=== PATIENT | female | born 1950 | race Caucasian/White ===

== ENCOUNTER 2023-06-13 09:57 | Outpatient (OUT) | payer MEDICARE, OTHER, SELFPAY ==
--- NOTE | 2023-06-13 09:59 | MM_ITS ---
Patient: GABY WILD Exam Date: 06/13/2023 : 1950 Gender:F Ordering : DR JOSE A ADAM Admission #: [id number] Family : DR. EILEEN ISSA . Order #: [id number] CLICK HERE TO VIEW EXAM RADIOLOGY REPORT PROCEDURE: MM TOMOSYNTHESIS SCREENING BI COMPARISON: MG MAMM SCREEN 3D CHRISTIANO CAD, 06/09/2022. MG MAMM SCREEN 3D CHRISTIANO CAD, 06/04/2021. MG MAMM SCREEN CHRISTIANO W CAD, 06/02/2020. MG MAMM CHRISTIANO SCRN W CAD DIG, 02/17/2014. INDICATIONS: Screening mammogram Z12.31 Calculator Name NCI Breast Cancer Risk Assessment Tool 5 Year Breast Cancer Risk 2.10% Lifetime Breast Cancer Risk 5.00% Personal Breast Cancer No Personal Ovarian Cancer No Treatments None Family Cancers Aunt-paternal with ovaria cancer at age 60; Uncle-paternal with pancreatic cancer at age 70. LOCATION: [facility] BREAST COMPOSITION: Scattered areas fibroglandular density. FINDINGS: DIAGNOSTIC CATEGORY 1--NEGATIVE. RIGHT BREAST: No significant suspicious finding. No significant change has occurred. LEFT BREAST: No significant suspicious finding. No significant change has occurred. RECOMMENDATIONS: ROUTINE MAMMOGRAM AND CLINICAL EVALUATION IN 12 MONTHS. PLEASE NOTE: A NORMAL MAMMOGRAM DOES NOT EXCLUDE THE POSSIBILITY OF BREAST CANCER. A CLINICALLY SUSPICIOUS PALPABLE LUMP SHOULD BE BIOPSIED. Dictated by: Abdi Geronimo M.D. on 06/14/2023 at 13:05 Approved by: Abdi Geronimo M.D. on 06/14/2023 at 13:09
== END 2023-06-13 09:58 | disposition home or self-care (01) ==
LOC: MAMMO 09:57
PROVIDERS: PCP Family Medicine; Visit Provider Obstetrics & Gynecology
DX: Z12.31 Encounter for screening mammogram for malignant neoplasm of breast (principal); Z80.0 Family history of malignant neoplasm of digestive organs; Z80.41 Family history of malignant neoplasm of ovary
CPT/HCPCS: 77063; 77067

== ENCOUNTER 2024-06-14 10:11 | Outpatient (OUT) | payer MEDICARE, OTHER, SELFPAY ==
--- NOTE | 2024-06-14 10:16 | MM_ITS ---
Patient Name: GABY WILD MR#: [id number] : 1950 Exam Date: 06/14/2024 Ordering Doctor: DR JOSE A ADAM RADIOLOGY REPORT PROCEDURE: MM TOMOSYNTHESIS SCREENING BI COMPARISON: MM TOMOSYNTHESIS SCREENING BI, 06/13/2023. MG MAMM SCREEN 3D CHRISTIANO CAD, 06/09/2022. MG MAMM SCREEN 3D CHRISTIANO CAD, 06/04/2021. MG MAMM CHRISTIANO SCRN W CAD DIG, 02/17/2014. INDICATIONS: Screening Calculator Name NCI Breast Cancer Risk Assessment Tool 5 Year Breast Cancer Risk 2.10% Lifetime Breast Cancer Risk 4.70% Personal Breast Cancer No Personal Ovarian Cancer No Treatments None Family Cancers Aunt-paternal with ovaria cancer at age 60; Uncle-paternal with pancreatic cancer at age 70. LOCATION: [facility] BREAST COMPOSITION: There are scattered areas of fibroglandular density. FINDINGS: DIAGNOSTIC CATEGORY 1--NEGATIVE. RIGHT BREAST: No significant suspicious finding. No significant change has occurred. LEFT BREAST: No significant suspicious finding. No significant change has occurred. RECOMMENDATIONS: ROUTINE MAMMOGRAM AND CLINICAL EVALUATION IN 12 MONTHS. PLEASE NOTE: A NORMAL MAMMOGRAM DOES NOT EXCLUDE THE POSSIBILITY OF BREAST CANCER. A CLINICALLY SUSPICIOUS PALPABLE LUMP SHOULD BE BIOPSIED. Dictated by: Abdi Geronimo M.D. on 06/14/2024 at 14:12 Approved by: Abdi Geronimo M.D. on 06/14/2024 at 14:15
== END 2024-06-14 10:12 | disposition home or self-care (01) ==
LOC: MAMMO 10:11
PROVIDERS: PCP Family Medicine; Visit Provider Obstetrics & Gynecology
DX: Z12.31 Encounter for screening mammogram for malignant neoplasm of breast (principal); Z80.41 Family history of malignant neoplasm of ovary; Z80.8 Family history of malignant neoplasm of other organs or systems
CPT/HCPCS: 77063; 77067

== ENCOUNTER 2024-09-25 13:20 | Outpatient (OUT) | payer MEDICARE, OTHER, SELFPAY ==
--- NOTE | 2024-09-25 13:27 | XR_ITS ---
The [address] [address] Patient Name: GABY WILD MRN: [id number] date: 1950 Sex: F Assigned Patient Location: [facility] Current Patient Location: Accession/Order Number: [id number] Exam Date: 09/25/2024 13:40 Report Date: 09/26/2024 04:30 At the request of: RAJEEV CARLOS Procedure: XR DEXA axial skeleton EXAMINATION: XR DEXA axial skeleton HISTORY: Primary Ovary Failure COMPARISON: DEXA bone densitometry 12/02/2019 TECHNIQUE: Dual-energy X-ray absorptiometry (DXA) was performed. FINDINGS: FOREARM ANALYSIS: Average bone mineral density is 0.495 g/cm2. T-score (standard deviation relative to young adult mean): -3.1 . -14.5% change since prior study. HIP ANALYSIS: Lowest bone mineral density is within the right femoral neck, 1.121 g/cm2. T-score (standard deviation relative to young adult mean): 0.6 . +3.9% change since prior study. XR/XR DEXA axial skeleton IMPRESSION: World Health Organization Classification: Osteoporosis - High Fracture Risk FRAX: Cannot be calculated. Pharmacologic treatment recommendations * No uniform recommendation applies to all patients. Management plans must be individualized. * Consider initiating pharmacologic treatment in postmenopausal women and men >= 50 years of age who have the following: Primary fracture prevention: * T-score <= - 2.5 at the femoral neck, total hip, lumbar spine, 33% radius (some uncertainty with existing data) by DXA. * Low bone mass (osteopenia: T-score between - 1.0 and - 2.5) at the femoral neck or total hip by DXA with a 10-year hip fracture risk >= 3% or a 10-year major osteoporosis-related fracture risk >= 20% (i.e., clinical vertebral, hip, forearm, or proximal humerus) based on the [place]-adapted FRAXregistered model. Secondary fracture prevention: * Fracture of the hip or vertebra regardless of BMD [4, 5]. * Fracture of proximal humerus, pelvis, or distal forearm in persons with low bone mass (osteopenia: T-score between - 1.0 and - 2.5). The decision to treat should be individualized in persons with a fracture of the proximal humerus, pelvis, or distal forearm who do not have osteopenia or low BMD [12, 13]. Doc MS, Leighann SL, Aida KL, Cullen EM, Mili KG, AJ, Erick ES. The clinician's guide to prevention and treatment of osteoporosis. Osteoporos Int. 2021;33(10):8618-5490. doi: 10.1007/v89299-372-07094-k. Epub 2021Mar 03. Erratum in: Osteoporos Int. 2021Jun 02;: PMID: [id number]; PMCID: [id number]. Electronically authenticated by: CUATE WITT Date: 09/26/2024 04:30
--- OUTSIDE RECORDS SUMMARY | 2024-09-25 13:33 | XMS_ITS | CCD ---
Author Organization [facility] Care Team Providers Care Obiee Lead Developer Name Role Phone Marnie Burnett Primary Care Provider UnavailMARNIE Ramirez Primary Care Unavailable JOSE A YU Referring Unavailable MARNIE BURNETT Primary Care Physician JAIR, DR JOSE A Mills Admitting Unavailable JAIR, DR JOES A Mills Attending Unavailable BURNETT ., DR MARNIE Berrios Primary Care Unavailable EDUAR, DR CUATE Johnston Consulting Unavailable JAIR, DR JOSE A Mills Consulting Unavailable PHILIP ., DR MARNIE Berrios Admitting Unavailable BURNETT ., DR MARNIE Berrios Attending Unavailable BURNETT ., DR MARNIE Berrios Primary Care Unavailable BURNETT ., DR MARNIE Berrios Consulting Unavailable Jose Ibarra. Primary Care Physician MD Diallo Mac Attending Provider [phone] MD Jose Ibarra Primary Care Provider MD Bhavesh Newell Emergency Provider [phone] Bhavesh Newell Admitting Unavailable Bhavesh Newell Attending Unavailable Jose Ibarra Primary Care Unavailable Diallo Mac Attending Unavailable Jose Ibarra Primary Care Unavailable Diallo Mac Admitting Unavailable Diallo Mac Attending Unavailable Jose Ibarra Primary Care Unavailable Surfdyan, Diallo Admitting Unavailable SurfDiallo zaidi Attending Unavailable Diallo Mac Admitting Unavailable Jose Ibarra Primary Care Unavailable Surfdyan, Diallo Admitting Unavailable Diallo Mac Attending Unavailable Jose Ibarra Primary Care Unavailable Bonita Moon Primary Care Physician [phone] Bonita Moon Attending Unavailable Red, Bonita Mayfield Admitting Unavailable Red, Bonita Mayfield Attending Unavailable Red, Bonita Mayfield Admitting Unavailable Red, Bonita Mayfield Attending Unavailable Red, Bonita Mayfield Attending Unavailable Red, Bonita L Attending Unavailable Red, Bonita L Attending Unavailable Red, Bonita L Attending Unavailable Red, Bonita L Admitting Unavailable Red, Bonita L Attending Unavailable Red, Bonita L Attending Unavailable Red, Bonita L Admitting Unavailable Red, Bonita L Admitting Unavailable Red, Bonita L Attending Unavailable Red, Bonita L Attending Unavailable Red, Bonita L Admitting Unavailable Red, Bonita L Attending Unavailable Red, Bonita L Attending Unavailable Red, Bonita L Attending Unavailable Red, Bonita L Admitting Unavailable Red, Bonita L Attending Unavailable Red, Bonita L Attending Unavailable Red, Bonita L Admitting Unavailable Allergies Allergy Classification Reported Allergen(s) Allergy Type Date of Onset Reaction(s) Facility (11 sources) Indomethacin; Translations: [indomethacin] Drug Allergy 3 Unknown (qualifier value) [facility] (6 sources) metFORMIN; Translations: [metformin] Drug Allergy 3 Nausea (finding) [facility] (1 source) Indomethacin Drug Allergy 4 [facility] Repository Medications Current Medications Medication Drug Class(es) Dates Sig (Normalized) Sig (Original) acetaminophen 500 mg oral tablet (14 sources) Start: 11-03-2023 Acetaminophen Active 500 MG PO As Directed November 03, 2023 12:00am Start: 09-18-2023 take 500 mg by mouth once daily as needed for pain Tylenol 500 mg, Oral, Daily, PRN as needed for pain, Refills(s) 0 Start Date: 09/18/23 Status: Ordered Start: 09-13-2022 Tylenol Refill s(s) 0 Start Date: 09/13/22 Status: Ordered Start: 07-24-2019 End: 07-24-2019 take 650 mg by mouth every four hours as needed for pain, then take 4000 mg by mouth every twenty-four hours as needed for pain 650 mg, Oral, EVERY 4 HOURS PRN, Pain Mild (1-3), Fever, Fever >100.5 F (38 C), Starting Mon07/24/19 at 1222 Maximum dose of acetaminophen is 4000 mg from all sources in 24 hours. Post-op take 1 tablet by jyoti th every six hours as needed for pain acetaminophen (TYLENOL) 500 MG tablet Take 500 mg by mouth every 6 hours as needed for Pain 0 Active acetaminophen 500 mg / diphenhydrAMINE citrate 38 mg oral tablet (5 sources) Histamine-1 Receptor Antagonist Start: 01-18-2013 take 1 tablet by mouth once daily at bedtime Tylenol PM 500 mg-25 mg Tab 1 tab(s), Oral, Once a day (at bedtime), Refill(s) 0, Sleep Start Date: 01/18/13 Status: Ordered take 25-500 mg by [facility] once daily as needed diphenhydrAMINE-APAP, sleep, (TYLENOL PM EXTRA STRENGTH) 25-500 MG tablet Take 2 tablets by mouth nightly as needed for Sleep. 0 Active acetaminophen 325 mg / HYDROcodone bitartrate 5 mg oral tablet (1 source) Opioid Agonist Start: 12-07-2023 Hydrocodone-Acetaminophen Active 1 TAB PO As Directed December 07, 2023 12:00am acetaminophen 325 mg / oxyCODONE hydrochloride 5 mg oral tablet (2 sources) Opioid Agonist Start: 07-26-2019 End: 08-02-2019 take 1 tablet by mouth every four hours as needed for pain oxyCODONE-acetaminophen (PERCOCET) 5-325 MG per tablet Indications: S/P SANJIV-BSO (total abdominal hysterectomy and bilateral salpingo-oophorectomy) Take 1 tablet by mouth every 4 hours as needed for Pain (postop) for up to 7 days. 28 tablet 0 07/26/2019 08/02/2019 Active Start: 07-24-2019 oxyCODONE-acet aminophen (PERCOCET) 5-325 MG per tablet 1 tablet acyclovir 200 mg oral capsule (1 source) Herpesvirus Nucleoside Analog DNA Polymerase Inhibitor, Herpes Simplex Virus Nucleoside Analog DNA Polymerase Inhibitor, Herpes Zoster Virus Nucleoside Analog DNA Polymerase Inhibitor Start: 07-24-2019 take 400 mg by mouth three times daily as needed 400 mg, Oral, 3 TIMES DAILY PRN, flare up, Starting Mon07/24/19 at 1226 Substituted for valACYclovir (VALTREX). amoxicillin 500 mg oral capsule (1 source) Penicillin-class Antibacterial Start: 07-18-2022 take 4 capsules by mouth every hour amoxicillin (AMOXIL) 500 MG capsule TAKE 4 CAPSULES BY MOUTH ONE HOUR PRIOR TO DENTAL APPOINTMENT. 0 07/18/2022 Active ascorbic acid 60 mg / beta carotene 5000 unt / copper sulfate 40 mg / dl-alpha tocopheryl acetate 30 unt / sodium selenite 0.04 mg / zinc oxide 40 mg oral tablet (1 source) Vitamin C Multiple Vitamins-Minerals (MULTIVITAMIN ADULT) TABS Take by mouth nightly 0 Active B Complex 100 (7 sources) Start: 09-13-2022 B Complex 100 Refill(s) 0, Prophylaxis Start Date: 09/13/22 Status: Ordered Start: 09-13-2022 B Complex 100 Refill(s) 0 Start Date: 09/13/22 Status: Ordered B Complex-C (SUPER B COMPLEX PO) (2 sources) B Complex-C (SUP ER B COMPLEX PO) Take by mouth nightly 0 Active biotin 10 mg oral capsule (9 sources) Start: 11-03-2023 take 28494 ug by mouth once daily in the evening Biotin Active 77184 MCG PO Every evening November 03, 2023 12:00am Start: 09-13-2022 biotin Refills (s) 0, Prophylaxis Start Date: 09/13/22 Status: Ordered Start: 09-13-2022 biotin Refills (s) 0 Start Date: 09/13/22 Status: Ordered BIOTIN PO Take b y mouth nightly 0 Active bisoprolol fumarate 5 mg / hydroCHLOROthiazide 6.25 mg oral tablet (15 sources) Thiazide Diuretic, beta-Adrenergic Jessie Start: 05-13-2024 take 1 tablet by mouth once daily bisoprolol-hydrochlorothiazide 5 mg-6.25 mg Tab 1 tab(s), Oral, Daily, 90 tab(s), Refill(s) 4, [facility]/pharmacy #[id number], 165, cm, 03/26/24 10:29:00 EDT, Height/Length Dosing, 80, kg, 03/26/24 10:29:00 EDT, Weight Dosing Start Date: 05/13/24 Status: Ordered Start: 10-25-2023 take 1 tablet by jyoti th once daily bisoprolol-hydrochlorothiazide 5 mg-6.25 mg Tab 1 tab(s), Oral, Daily, 90 tab(s), Refill(s) 1, [id number], 160, cm, 09/26/23 8:53:00 EST, Height/Length Dosing, 83.1, kg, 09/26/23 8:53:00 EST, Weight Dosing Start Date: 11/08/23 Status: Ordered Start: 05-19-2023 take 1 tablet by jyoti th once daily bisoprolol-hydrochlorothiazide 5 mg-6.25 mg Tab 1 tab(s), Oral, Daily, 90 tab(s), Refill(s) 1, [facility] #[id number], 160, cm, 01/24/23 9:32:00 EDT, Height/Length Dosing, 84.4, kg, 01/24/23 9:32:00 EDT, Weight Dosing Start Date: 05/19/23 Status: Ordered Start: 01-18-2013 take 1 tablet by jyoti th once daily bisoprolol-hydrochlorothiazide 5 mg-6.25 mg Tab 1 tab(s), Oral, Daily, 90 tab(s), Refill(s) 0, High blood pressure Start Date: 01/18/13 Status: Ordered calcium carbonate 1000 mg chewable tablet (9 sources) Start: 09-13-2022 calcium carbon ate 1000 mg oral tablet, chewable Refills(s) 0, Prophylaxis Start Date: 09/13/22 Status: Ordered calcium carbonat e (OSCAL) 500 MG TABS tablet Take 1,000 mg by mouth nightly 0 Active take 2 tablets by mo [facility] once daily, then take 1 tablet by mouth calcium carbonate (OSCAL) 500 MG TABS tablet Take 1,000 mg by mouth nightly 0 Active calcium carbonate 1500 mg / cholecalciferol 200 unt oral tablet (3 sources) Vitamin D Start: 11-03-2023 take 2 tablets by mouth once daily in the evening Calcium Carbonate-Vitamin D3 (Calcium + D) 600 mg-5 mcg (200 unit) Tablet Active 2 TAB PO Every evening November 03, 2023 12:00am calcium carbonate 1000 mg / magnesium hydroxide 200 mg chewable tablet (1 source) Ca Carbonate-Mag Hydroxide 1000-200 MG CHEW Take by mouth 0 Active Fiber Tab (7 sources) Start: 09-13-2022 Fiber Tabs Ref ills(s) 0, Prophylaxis Start Date: 09/13/22 Status: Ordered Start: 09-13-2022 Fiber Tabs Ref ills(s) 0 Start Date: 09/13/22 Status: Ordered Clobetasol (7 sources) Corticosteroid Start: 09-13-2022 Olux Refill(s) 0, Prophylaxis Start Date: 09/13/22 Status: Ordered Start: 09-13-2022 Olux Refill(s) 0 Start Date: 09/13/22 Status: Ordered 0.4 ml enoxaparin sodium 100 mg/ml prefilled syringe (1 source) Low Molecular Weight Heparin Start: 07-25-2019 inject 40 mg by subcutaneous injection once daily 40 mg, Subcutaneous, DAILY, First dose on Tangela 07/25/19 at 0800 Pharmacy to dose if renal insufficiency present. Post-op glipiZIDE 5 mg oral tablet (3 sources) Sulfonylurea Start: 01-25-2024 End: 06-26-2025 take 1 tablet by mouth once daily glipiZIDE 5 mg Tab 5 mg = 1 tab(s), Oral, Daily, # 90 tab(s), Refills(s) 1, [id number] 160, cm, 06/25/24 10:06:00 EDT, Height/Length Dosing, 80.7, kg, 06/25/24 10:06:00 EDT, Weight Dosing Start Date: 06/26/24 Stop Date: 06/26/25 Status: Ordered High Potency Probiotic (7 sources) Start: 09-13-2022 High Potency Probiotic Refill(s) 0, Prophylaxis Start Date: 09/13/22 Status: Ordered Start: 09-13-2022 High Potency P robiotic Refill(s) 0 Start Date: 09/13/22 Status: Ordered levothyroxine sodium 0.088 mg oral tablet (17 sources) l-Thyroxine Start: 09-16-2024 take 1 tablet by mouth once daily levothyroxine 88 mcg (0.088 mg) Tab See Instructions, Take 1 tablet by mouth once daily, # 90 tab(s), Refills(s) 0, Pharmacy: [id number], 160, cm, 06/25/24 10:06:00 EDT, Height/Length Dosing, 80.7, kg, 06/25/24 10:06:00 EDT, Weight Dosing Start Date: 09/16/24 Status: Ordered Start: 12-26-2023 take 1 tablet by jyoti th once daily levothyroxine 88 mcg (0.088 mg) Tab 88 mcg = 1 tab(s), Oral, Daily, # 90 tab(s), Refills(s) 2, Pharmacy: [id number], 165, cm, 12/26/23 9:50:00 EST, Height/Length Dosing, 80.1, kg, 12/26/23 9:50:00 EST, Weight Dosing Start Date: 12/26/23 Status: Ordered Start: 10-25-2023 take 88 ug by mouth once daily in the morning Levothyroxine Active 88 MCG PO Every morning October 25, 2023 12:00am Start: 06-26-2023 take 1 tablet by jyoti th once daily levothyroxine 88 mcg (0.088 mg) Tab 88 mcg = 1 tab(s), Oral, Daily, # 90 tab(s), Refills(s) 1, Pharmacy: [id number], 160, cm, 01/24/23 9:32:00 EDT, Height/Length Dosing, 84.4, kg, 01/24/23 9:32:00 EDT, Weight Dosing Start Date: 06/26/23 Status: Ordered Start: 09-13-2022 Synthroid Refi lls(s) 0 Start Date: 09/13/22 Status: Ordered Start: 10-02-2020 levothyroxine (SYNTHROID) 88 MCG tablet Start: 07-25-2019 take 88 ug by mouth once daily 88 mcg, Oral, DAILY, First dose on Tangela 07/25/19 at 0900 Tube feeding (TF) interaction, obtain physician order to manage, recommend holding TF for 30 minutes before and after dose. Start: 01-18-2013 take 1 tablet by jyoti th once daily levothyroxine 88 mcg (0.088 mg) Tab 88 microgram = 1 tab(s), Oral, Daily, # 90 tab(s), Refills(s) 0, Thyroid Start Date: 01/18/13 Status: Ordered Magnesium (2 sources) Magnesium 100 MG TABS Take by mouth nightly 0 Active metaxalone 800 mg oral tablet (2 sources) Start: 01-18-2013 metaxalone 800 mg Tab 800 mg = 1 tab(s), Oral, Refills(s) 0, Muscle pain Start Date: 01/18/13 Status: Ordered metoprolol tartrate 25 mg oral tablet (1 source) beta-Adrenergic Jessie Start: 07-26-2019 metoprolol tartrate (LOPRESSOR) tablet 25 mg Multi Vitamin+ (7 sources) Start: 09-13-2022 Multi Vitamin+ Refill(s) 0, Prophylaxis Start Date: 09/13/22 Status: Ordered Start: 09-13-2022 Multi Vitamin+ Refill(s) 0 Start Date: 09/13/22 Status: Ordered Multiple Vitamins-Minerals (MULTIVITAMIN ADULT) TABS (1 source) Multiple Vitamins-Minerals (MULTIVITAMIN ADULT) TABS Take by mouth nightly 0 Active Multivitamin preparation (3 sources) Start: 023 take 2 tablets by mouth once daily in the evening Multivitamin Active 2 TAB PO Every evening November 03, 2023 12:00am 2 ml ondansetron 2 mg/ml injection (1 source) Serotonin-3 Receptor Antagonist Start: 019 4 mg, Intravenous, EVERY 8 HOURS PRN, Nausea, Vomiting, Starting Mon07/24/19 at 1222 If uncontrolled after 2 doses, notify physician. Post-op polyethylene glycol 3350 269776 mg / potassium chloride 1480 mg / sodium bicarbonate 5720 mg / sodium chloride 85290 mg powder for oral solution (1 source) Osmotic Laxative Start: 022 NuLYTELY Styles oral powder for reconstitution See Instructions, 1 EA, Refill(s) 0, Prior to colonoscopy., [facility]/pharmacy #[id number], 160, cm, 09/13/22 9:49:00 EST, Height/Length Dosing, 83.9, kg, 09/13/22 9:49:00 EST, Weight Dosing Start Date: 09/13/22 Status: Ordered pravastatin sodium 20 mg oral tablet (1 source) HMG-CoA Reductase Inhibitor Start: 013 take 1 tablet by mouth once daily pravastatin 20 mg Tab 20 mg = 1 tab(s), Oral, Daily, # 90 tab(s), Refills(s) 0, High cholesterol Start Date: 01/18/13 Status: Ordered Probiotic Product (PROBIOTIC DAILY PO) (2 sources) Probiotic Produc t (PROBIOTIC DAILY PO) Take by mouth nightly 0 Active rosuvastatin calcium 5 mg oral tablet (13 sources) HMG-CoA Reductase Inhibitor Start: 024 take 1 tablet by mouth once daily Crestor 5 mg Tab 5 mg, Oral, Daily, # 90 tab(s), Refills(s) 3, Pharmacy: [facility] #[id number], 165, cm, 12/26/23 9:50:00 EST, Height/Length Dosing, 80.1, kg, 12/26/23 9:50:00 EST, Weight Dosing Start Date: 02/05/24 Status: Ordered Start: 01-24-2023 End: 01-19-2024 take 1 tablet by mouth once daily Crestor 5 mg Tab 5 mg, Oral, Daily, X 90 day(s), # 90 tab(s), Refills(s) 3, Pharmacy: [facility] #[id number], 160, cm, 01/24/23 9:32:00 EDT, Height/Length Dosing, 84.4, kg, 01/24/23 9:32:00 EDT, Weight Dosing Start Date: 01/24/23 Stop Date: 01/19/24 Status: Ordered Start: 09-13-2022 take 5 mg by mouth once daily Crestor 5 mg, Oral, Daily, Refills(s) 0, High cholesterol Start Date: 09/13/22 Status: Ordered Start: 09-13-2022 Crestor Refill s(s) 0 Start Date: 09/13/22 Status: Ordered take 1 tablet by jyoti th once daily rosuvastatin (CRESTOR) 5 MG tablet Take 5 mg by mouth daily 0 Active 3 ml sodium chloride 9 mg/ml injection (2 sources) Start: 07-24-2019 10 mL, Intrave nous, EVERY 12 HOURS SCHEDULED (2 times per day), First dose on Mon07/24/19 at 2100, Post-op Start: 07-24-2019 take 10 mL intravenous route o nce 10 mL, Intravenous, PRN, Line Care, Starting Mon07/24/19 at 1222 After every IV line use Post-op sucralfate 1000 mg oral tablet (1 source) Aluminum Complex Start: 01-18-2013 Carafate 1 gr am Tab Refills(s) 0 Start Date: 01/18/13 Status: Ordered Tramadol (1 source) Opioid Agonist Start: 01-18-2013 tramadol Oral, Daily, Refills(s) 0, Pain Start Date: 01/18/13 Status: Ordered valACYclovir 1000 mg oral tablet (3 sources) Herpesvirus Nucleoside Analog DNA Polymerase Inhibitor, Herpes Simplex Virus Nucleoside Analog DNA Polymerase Inhibitor, Herpes Zoster Virus Nucleoside Analog DNA Polymerase Inhibitor Start: 02-02-2017 valACYclovir (VALTREX) 1 G tablet Take 1,000 mg by mouth as needed 0 02/02/2017 Active Vitamin B Complex (3 sources) Start: 11-03-2023 take 1 tablet by mouth once daily in the evening Vitamin B Complex Active 1 TAB PO Every evening November 03, 2023 12:00am Vitamin D (7 sources) Start: 09-13-2022 Vitamin D Refills(s) 0, Prophylaxis Start Date: 09/13/22 Status: Ordered Start: 09-13-2022 Vitamin D Refi lls(s) 0 Start Date: 09/13/22 Status: Ordered Completed/Discontinued Medications Medication Drug Class(es) Dates Sig (Normalized) Sig (Original) calcium chloride 0.0014 meq/ml / potassium chloride 0.004 meq/ml / sodium chloride 0.103 meq/ml / sodium lactate 0.028 meq/ml injectable solution (2 sources) Start: 07-24-2019 End: 07-25-2019 Intravenous, at 125 mL/hr, CONTINUOUS, Starting Mon07/24/19 at 1245, Post-op Start: 07-24-2019 End: 07-24-2019 lactated ringers infusion ceFAZolin (ANCEF) 2 g in dextrose 5 % 100 mL IVPB (2 sources) Start: 07-24-2019 End: 07-25-2019 2 g, Intravenous, EVERY 8 HO URS, 2 doses, First dose on Mon07/24/19 at 1600, Last dose on Mon07/25/19 at 0000, Post-op Start: 07-24-2019 End: 07-24-2019 ceFAZolin (ANCEF) 2 g in dex trose 5 % 100 mL IVPB dimenhyDRINATE 50 mg oral tablet (1 source) Start: 07-24-2019 End: 07-24-2019 dimenhyDRINATE (DRAMAMINE) tablet 50 mg 2 ml fentaNYL 0.05 mg/ml injection (1 source) Opioid Agonist Start: 07-24-2019 End: 07-24-2019 fentaNYL (SUBLIMAZE) injection 25 mcg metFORMIN hydrochloride 500 mg oral tablet (6 sources) Biguanide Start: 09-27-2023 End: 11-03-2023 take 500 mg by mouth twice daily Metformin Discontinued 500 MG PO Twice daily October 25, 2023 12:00am November 03, 2023 3:08pm nitroglycerin 0.02 mg/mg topical ointment (5 sources) Nitrate Vasodilator Start: 10-25-2023 End: 11-03-2023 Nitroglycerin (Nitro-Bid) 2 % ointment Discontinued 1 [facility] TRANSDERML Q6H 48 October 25, 2023 12:00am November 03, 2023 3:07pm apply to flap phenazopyridine hydrochloride 100 mg oral tablet (1 source) Start: 07-24-2019 End: 07-24-2019 phenazopyridine (PYRIDIUM) tablet 200 mg Start: 07-24-2019 End: 07-24-2019 phenazopyridine (PYRIDIUM) t ablet 200 mg Problems Active Problems Problem Classification Problem Date Documented Date Episodic/Chronic Complications of surgical procedures or medical care (5 sources) Postoperative hemorrhage; Translations: [Postoperative hemorrhage from incision] 10-27-2023 Episodic Diabetes mellitus without complication (6 sources) Type 2 diabetes mellitus 12-26-2023 Chronic Comment on above: linked DM with HLD p er OP CDI policy. Diabetes mellitus without complication (7 sources) High glucose level in blood; Translations: [Hyperglycemia] 09-26-2023 Episodic Disorders of lipid metabolism (12 sources) Pure hypercholesterolemia, unspecified; Translations: [Hyperlipidemia] Onset: 01-28-2023 08-10-2023 Chronic Diverticulosis and diverticulitis (10 sources) Diverticula of intestine; Translations: [Diverticular disease] 08-10-2023 Chronic Essential hypertension (9 sources) Essential (primary) hypertension; Translations: [Hypertensive disorder] Onset: 01-25-2023 Chronic Genitourinary symptoms and ill-defined conditions (10 sources) Genuine stress incontinence; Translations: [Incontinence] 08-10-2023 Chronic Comment on above: Stress Menstrual disorders (10 sources) Menorrhagia 08-10-2023 Chronic Nutritional deficiencies (6 sources) Vitamin D deficiency, unspecified; Translations: [Vitamin D deficiency] Onset: 01-28-2023 08-10-2023 Chronic Osteoarthritis (15 sources) Arthritis; Translations: [Osteoarthritis] 08-10-2023 Chronic Comment on above: Lumbar and Cervical Other and unspecified benign neoplasm (8 sources) History of polyp of colon; Translations: [Personal history of colonic polyps] Onset: 09-13-2022 Episodic Other and unspecified benign neoplasm (1 source) Polyp of colon; Translations: [Polyp of colon] Onset: 09-15-2022 Episodic Other and unspecified benign neoplasm (1 source) Personal history of colonic polyps; Translations: [PERSONAL HISTORY OF COLONIC POLYPS] Onset: 01-28-2023 Episodic Other female genital disorders (8 sources) Dysplasia of cervix; Translations: [Dysplasia of cervix uteri, unspecified] Resolved: 07-26-2019 07-26-2019 Episodic Other female genital disorders (5 sources) Cyst of vagina 08-10-2023 Episodic Comment on above: inclusion Other inflammatory condition of skin (5 sources) Seborrheic dermatitis 08-10-2023 Episodic Other non-epithelial cancer of skin (5 sources) Basal cell carcinoma of skin of nose; Translations: [Basal cell carcinoma of skin] Onset: 12-07-2023 12-26-2023 Episodic Other nutritional; endocrine; and metabolic disorders (1 source) Body mass index (BMI) 32.0-32.9, adult; Translations: [BODY MASS INDEX BMI 32.0-32.9 ADULT] Onset: 01-28-2023 Chronic Other nutritional; endocrine; and metabolic disorders (2 sources) Body mass index 30+ - obesity 06-25-2024 Chronic Other nutritional; endocrine; and metabolic disorders (4 sources) Overweight in adulthood with body mass index of 25 or more but less than 30 12-26-2023 Episodic Spondylosis; intervertebral disc disorders; other back problems (5 sources) Degeneration of intervertebral disc 08-10-2023 Chronic Thyroid disorders (6 sources) Hypothyroidism, unspecified; Translations: [Hypothyroidism] Onset: 01-28-2023 08-10-2023 Chronic Unclassified (1 source) Clinical history and observation findings; Translations: [Other general symptoms and signs] Unclassified (2 sources) Patient encounter status; Translations: [Pre-procedure lab exam] Unclassified (5 sources) Injury of toe of left foot 09-26-2023 Unclassified (1 source) Encounter for other plastic and reconstructive surgery following medical procedure or healed injury; Translations: [Encounter for other plastic and reconstructive surgery following medical procedure or healed injury] Onset: 11-16-2023 Unclassified (1 source) Encounter for preprocedural cardiovascular examination; Translations: [Encounter for preprocedural cardiovascular examination] Onset: 11-03-2023 Unclassified (1 source) Postprocedural hemorrhage of skin and subcutaneous tissue following a dermatologic procedure; Translations: [Postprocedural hemorrhage of skin and subcutaneous tissue following a dermatologic procedure] Onset: 10-27-2023 Past or Other Problems Problem Classification Problem Date Documented Date Episodic/Chronic Cancer of cervix (7 sources) High grade squamous intraepithelial lesion on cervical Papanicolaou smear; Translations: [Atypical squamous cells of undetermined significance on cervical Papanicolaou smear] Onset: 05-05-2015 Resolved: 07-26-2019 07-24-2019 Episodic Other female genital disorders (2 sources) HPV - Human papillomavirus test positive; Translations: [Pap smear of cervix shows high risk HPV present] Onset: 05-05-2015 Resolved: 07-26-2019 07-26-2019 Episodic Other screening for suspected conditions (not mental disorders or infectious disease) (4 sources) Encounter for screening mammogram for malignant neoplasm of breast; Translations: [ENC SCR MAMMO MALIG NEOPLASM BREAST] Onset: 06-09-2022 Episodic Residual codes; unclassified (1 source) History of total hysterectomy with bilateral salpingo-oophorectomy ; Translations: [S/P SANJIV-BSO (total abdominal hysterectomy and bilateral salpingo-oophorectomy )] Episodic Residual codes; unclassified (1 source) Family history of malignant neoplasm of ovary; Translations: [FAM HX MALIGNANT NEOPLASM OVARY] Onset: 06-15-2022 Episodic Residual codes; unclassified (1 source) Family history of malignant neoplasm of other organs or systems; Translations: [FAM HX MALIG NEOPLASM OTH ORGN/SYS] Onset: 06-15-2022 Episodic Sexually transmitted infections (not HIV or hepatitis) (1 source) Cervical smear result; Translations: [Cervical high risk human papillomavirus (HPV) DNA test positive] Onset: 05-05-2015 Resolved: 07-26-2019 07-26-2019 Episodic Unclassified (5 sources) Basal cell carcinoma 08-10-2023 Comment on above: Nose Results Test Name Value Interpretation Reference Range Facil ity .Interpretation:on 4 HCV Ab IA Ql Comment Invalid Interpretation Code [facility] Comment on above: Result Comment: Not infected with HCV unless early or acute infection is suspected (which may be delayed in an immunocompromised individual), or other evidence exists to indicate HCV infection. Performed at: [facility] [address] [place], [place] [id number] PhD Ganesh Pereyra Performed By: #### 2 [id number] #### [facility] [address] [place] [address] HCV Antibody RFX to Quant PC Brandon 09-22-2024 HCV IgG IA Ql Non-Reactive Invalid Interpretation Code Non Reactive [facility] Comment on above: Result Comment: Perf ormed at: [facility] [address], [place] [id number] PhD Ganesh Pereyra Performed By: #### 2 [id number] #### [facility] [address] [place] [address] CHEMISTRYOrdered By: SYSTEM SYSTEM on 09-20-2024 Albumin DL <= 20 mg/L (U) [Mass/Vol] 1.4 mg/dL Normal 0.0 - 1.9 mg/dL Remisol Chem Albumin/Creatinine DL <= 20 mg/L (U) [Mass ratio] 10.5 mg/gm Cr Normal 0.0 - 30.0 mg/gm Cr Remisol Chem Comment on above: Interpretive Data: 3 0-300 mg/g Cr indicates an increased risk for diabetic nephropathy. >300 mg/g Cr is consistent with clinical nephropathy. U Creatinine 133.6 mg/dL Invalid Interpretation Code Remisol Chem Albumin [Mass/Vol] 4.6 g/dL Normal 3.3 - 5.0 gm/dL R emisol Chem Albumin/Globulin [Mass ratio] 1.5 {ratio} Normal 1.1 - 2.2 Remisol Chem ALP [Catalytic activity/Vol] 90 [iU]/d Normal 21 - 98 Int._Unit/L Remisol Chem ALT No additional P-5'-P [Catalytic activity/Vol] 15 [iU]/d Normal 6 - 46 Int._Unit/L Remisol Chem Anion gap [Moles/Vol] 11 mmol/L Normal 6 - 16 mEq/L Remisol Chem AST [Catalytic activity/Vol] 23 [iU]/d Normal 5 - 43 Int._Unit/L Remisol Chem Bilirubin [Mass/Vol] 0.6 mg/dL Normal 0.0 - 1.1 mg/dL Remisol Chem Calcium [Mass/Vol] 10.0 mg/dL Normal 8.9 - 11.1 mg/dL Remisol Chem Chloride [Moles/Vol] 101 mmol/L Normal 101 - 111 mmol/L Remisol Chem CO2 [Moles/Vol] 29 mmol/L Normal 21 - 31 mmol/L Remis ol Chem Creatinine [Mass/Vol] 0.7 mg/dL Normal 0.5 - 1.3 mg/dL Remisol Chem eGFR 90 mL/min/1.73 m2 Normal >=59mL/min/1.73 m2 Remisol Chem Globulin (S) [Mass/Vol] 3.1 g/dL Normal 1.4 - 4.0 gm/dL Remisol Chem Glucose [Mass/Vol] 160 mg/dL Normal 55 - 199 mg/dL Re misol Chem Potassium [Moles/Vol] 4.2 mmol/L Normal 3.5 - 5.3 mmol/L Remisol Chem Protein [Mass/Vol] 7.7 g/dL Normal 6.0 - 7.8 gm/dL R emisol Chem Sodium [Moles/Vol] 137 mmol/L Normal 135 - 145 mmol/L Remisol Chem Urea nitrogen [Mass/Vol] 13 mg/dL Normal 5 - 21 mg/dL Remisol Chem Urea nitrogen/Creatinine [Mass ratio] 19 mg/mg Normal 10 - 20 Remisol Chem CHEMISTRYOrdered By: Patrick anglinolajoey on 09-20-2024 HbA1c (Bld) [Mass fraction] 6.4 % High <=5.9% [facility] ChemAutoSS CMPon 09-20-2024 Albumin [Mass/Vol] 4.6 g/dL Normal 3.3-5.0 [facility] Comment on above: Performed By: #### 2 [id number] #### [facility] [address] [place] [address] Albumin/Globulin (S) [Mass conc ratio] 1.5 Normal 1.1-2.2 [facility] Comment on above: Performed By: #### 2 [id number] #### [facility] [address] [place] [address] ALP [Catalytic activity/Vol] 90 Int._Unit/L Normal 21-98 [facility] Comment on above: Performed By: #### 2 [id number] #### [facility] [address] [place] [address] ALT No additional P-5'-P [Catalytic activity/Vol] 15 Int._Unit/L Normal 6-46 [facility] Comment on above: Performed By: #### 2 [id number] #### [facility] [address] [place] [address] Anion gap [Moles/Vol] 11 mmol/L Normal 6-16 [facility] Comment on above: Performed By: #### 2 [id number] #### [facility] [address] [place] [address] AST [Catalytic activity/Vol] 23 Int._Unit/L Normal 5-43 [facility] Comment on above: Performed By: #### 2 [id number] #### [facility] [address] [place] [address] Bilirubin [Mass/Vol] 0.6 mg/dL Normal 0.0-1.1 [facility] Comment on above: Performed By: #### 2 [id number] #### [facility] [address] [place] [address] Calcium [Mass/Vol] 10.0 mg/dL Normal 8.9-11.1 [facility] Comment on above: Performed By: #### 2 [id number] #### [facility] [address] [place] [address] Chloride [Moles/Vol] 101 mmol/L Normal 101-111 [facility] Comment on above: Performed By: #### 2 [id number] #### [facility] [address] [place] [address] CO2 [Moles/Vol] 29 mmol/L Normal 21-31 [facility] Comment on above: Performed By: #### 2 [id number] #### [facility] [address] [place] [address] Creatinine [Mass/Vol] 0.7 mg/dL Normal 0.5-1.3 [facility] Comment on above: Performed By: #### 2 [id number] #### [facility] [address] [place] [address] Globulin (S) [Mass/Vol] 3.1 g/dL Normal 1.4-4.0 [facility] Comment on above: Performed By: #### 2 [id number] #### [facility] [address] [place] [address] Glucose [Mass/Vol] 160 mg/dL Normal 55-199 [facility] Comment on above: Performed By: #### 2 [id number] #### [facility] [address] [place] [address] Potassium [Moles/Vol] 4.2 mmol/L Normal 3.5-5.3 [facility] Comment on above: Performed By: #### 2 [id number] #### [facility] [address] [place] [address] Protein [Mass/Vol] 7.7 g/dL Normal 6.0-7.8 [facility] Comment on above: Performed By: #### 2 [id number] #### [facility] [address] [place] [address] Sodium [Moles/Vol] 137 mmol/L Normal 135-145 [facility] Comment on above: Performed By: #### 2 [id number] #### [facility] [address] [place] [address] Urea nitrogen [Mass/Vol] 13 mg/dL Normal 5-21 [facility] Comment on above: Performed By: #### 2 [id number] #### [facility] [address] [place] [address] Urea nitrogen/Creatinine [Mass ratio] 19 No Units Normal 10-20 [facility] Comment on above: Performed By: #### 2 [id number] #### [facility] [address] [place] [address] [id number] 09-20-2024 HbA1c (Bld) [Mass fraction] 6.4 % High <=5.9 [facility] Comment on above: Performed By: #### 7 [id number] #### [facility] [address] [place] [address] Laboratory - Chemistry and C hemistry - challengeOrdered By: SYSTEM SYSTEM on 09-20-2024 TSH Qn 0.75 m[IU]/L Normal 0.34 - 5.60 mcIU/mL Rem isol Chem TSH With T4fr Reflexon 09-20 TSH Qn 0.75 m[IU]/L Normal 0.34-5.60 [facility] Comment on above: Performed By: #### 1 [id number] #### [facility] [address] [place] [address] Performed By: #### 2 [id number] #### [facility] [address] [place] [address] U MA/Cr Ratioon 09-20-2024 Albumin DL <= 20 mg/L (U) [Mass/Vol] 1.4 mg/dL Normal 0.0-1.9 [facility] Comment on above: Performed By: #### 1 [id number] #### [facility] [address] [place] [address] Albumin/Creatinine DL <= 20 mg/L (U) [Mass ratio] 10.5 mg/gm Cr Normal .0-30.0 [facility] Comment on above: Result Comment: 30-3 00 mg/g Cr indicates an increased risk for diabetic nephropathy. >300 mg/g Cr is consistent with clinical nephropathy. Performed By: #### 1 [id number] #### [facility] [address] [place] [address] U Creatinine 133.6 mg/dL Invalid Interpretation Code [facility] Comment on above: Performed By: #### 1 [id number] #### [facility] [address] [place] [address] eGFRon 09-20-2024 eGFR 90 mL/min/1.73 m2 Normal >=59 [facility] Comment on above: Performed By: #### 1 [id number] #### [facility] [address] [place] [address] Ambulatory Visit Summary 0 06-25-2024 Ambulatory Visit Summary Ambulatory Visit Summary GABY BARBOUR :1950 Visit Date:06/25/2024 Ambulatory Visit Instructions Your Diagnosis Type 2 diabetes mellitus BMI 31.0-31.9,adult Obesity due to excess calories Non-smoker Your Care Team Attending Physician - Bonita Mari Primary Care Physician - Bonita Mari This Is Your Medications List acetaminophen (Tylenol) bifidobacterium/lact obacillus/streptococ cus (High Potency Probiotic) bisoprolol-hydrochlo rothiazide (bisoprolol-hydrochl orothiazide 5 mg-6.25 mg Tab) calcium carbonate (calcium carbonate 1000 mg oral tablet, chewable) clobetasol topical (Olux) ergocalciferol (Vitamin D) glipiZIDE (glipiZIDE 5 mg Tab) levothyroxine (levothyroxine 88 mcg (0.088 mg) Tab) multivitamin (B Complex 100) multivitamin (Multi Vitamin+) polycarbophil (Fiber Tabs) rosuvastatin (Crestor 5 mg Tab) Procedures Performed Colonoscopy (09/15/2022), Hip replacement (2019), Colonoscopy (01/21/2013), Ganglion cyst of right wrist, Laminectomy, Mohs surgery, Pelvic sling, SANJIV BSO - Total abdominal hysterectomy and bilateral salpingo-oophorectom y, Tonsillectomy and adenoidectomy. Discharge Vitals Temperature (Oral) 36.5 ?C Heart Rate (Peripheral) 57 Respiratory Rate 16 Blood Pressure 130/72 Height 160 cm Height 63 in Weight 80.7 kg Weight 177.54 lb BMI 31.52 What to do next Scheduled Follow-Up Appointments 2023 2:30 PM EST Where: [address] [address] 2023 2:40 PM EST Where: [address] [place] [address]- You Need to Complete the Following HgbA1c, Blood, Routine collect, 06/25/24, Order for future visit, Lab Collect, BMI 31.0-31.9,adult Non-smoker Obesity due to excess calories, Required & Missing, Print Label By Order Location Medications What How Much When Instructions Unchanged acetaminophen (Tylenol) 500 Milligram By Mouth Every day as needed for as needed for pain Unchanged bifidobacterium/ lactobacillus/ streptococcus (High Potency Probiotic) Unchanged bisoprolol-hydrochlo rothiazide (bisoprolol-hydrochl orothiazide 5 mg-6.25 mg Tab) 1 Tablets By Mouth Every day Unchanged calcium carbonate (calcium carbonate 1000 mg oral tablet, chewable) Unchanged clobetasol topical (Olux) Unchanged ergocalciferol (Vitamin D) Unchanged glipiZIDE (glipiZIDE 5 mg Tab) 1 Tablets By Mouth Every day Unchanged levothyroxine (levothyroxine 88 mcg (0.088 mg) Tab) 1 Tablets By Mouth Every day Unchanged multivitamin (B Complex 100) Unchanged multivitamin (Multi Vitamin+) Unchanged polycarbophil (Fiber Tabs) Unchanged rosuvastatin (Crestor 5 mg Tab) 5 Milligram By Mouth Every day Allergies Indocin (Unknown) Problems Ongoing - Any problem that you are currently receiving treatment for. Arthritis Basal cell carcinoma Blood glucose elevated BMI 29.0-29.9,adult BMI 31.0-31.9,adult Diverticula of intestine History of colon polyps HTN (hypertension) Hypothyroidism Injury of toe on left foot Menorrhagia OA (osteoarthritis) Pure hypercholesterolemia Seborrheic dermatitis Stress incontinence Type 2 diabetes mellitus Type 2 diabetes mellitus with hypercholesterolemia Vitamin D deficiency Historical - Any problem that you are no longer receiving treatment for. Arthritis Basal cell carcinoma Cervical dysplasia Degenerative disc disease Diverticular disease Hyperlipidemia Incontinence Menorrhagia Vaginal cyst Patient Survey You may receive a survey via text or e-mail asking about your office visit. Please share your experience with us by completing your survey. We appreciate your feedback and thank you for choosing us for your care. Normal [facility] CHEMISTRYOrdered By: Asim Whalen on 06-25-2024 HbA1c (Bld) [Mass fraction] 6.0 % High <=5.9% [facility] ChemAutoSS Family Medicine Office/Clini c Noteon 06-25-2024 Family Medicine Office/Clinic Note Family Medicine Office/Clinic Note Chief Complaint 3m [facility] Staff Gaby is a 74 year old female presenting for 3 month follow up DM Do you have any of the following symptoms? Foot Exam: NA Eye Exam: last yr Last A1C: Hgb A1C %: 5.9 % (03/26/24 11:00:00) Statin: none History of Present Illness pt presents today to follow up on type 2 diabetes. will check HGBA1C in office today Review of Systems PHQ Score Initial Depression Screen Score: 0 SCORE Physical Exam Vitals & Measurements T: 36.5 ?C(Oral) HR: 57(Peripheral) RR: 16 BP: 130/72 SpO2: 98% HT: 63 in HT: 160 cm WT: 80.7 kg WT: 177.54 lb BMI: 31.52 General: alert, no acute distress ENMT: oral mucosa moist, no pharyngeal erythema or exudate Cardiovascular: regular rate and rhythm, normal peripheral perfusion Respiratory: Lungs CTA, respirations non labored Extremities: no deformity, no trauma Neurological: oriented x 4, LOC appropriate for age, CN II-XII intact, motor strength equal & normal bilaterally, speech normal Assessment/Plan 1. Type 2 diabetes mellitus (E11.9: Type 2 diabetes mellitus without complications) pt presents today for follow up on type 2 diabetes. pt has changed her diet and is hoping to get off of glipizide and manage it with just diet. will return in 3 months for repeat HGBA1C 2. BMI 31.0-31.9,adult (Z68.31: Body mass index [BMI] 31.0-31.9, adult) BMI education given Ordered: HgbA1c 3. Obesity due to excess calories (E66.09: Other obesity due to excess calories) see above Ordered: HgbA1c 4. Non-smoker (Z78.9: Other specified health status) continue not smoking Ordered: HgbA1c Follow-up No qualifying data available Problem List/Past Medical History Ongoing Arthritis Basal cell carcinoma Blood glucose elevated BMI 29.0-29.9,adult BMI 31.0-31.9,adult Diverticula of intestine History of colon polyps HTN (hypertension) Hypothyroidism Injury of toe on left foot Menorrhagia OA (osteoarthritis) Pure hypercholesterolemia Seborrheic dermatitis Stress incontinence Type 2 diabetes mellitus Type 2 diabetes mellitus with hypercholesterolemia Vitamin D deficiency Historical Arthritis Basal cell carcinoma Cervical dysplasia Degenerative disc disease Diverticular disease Hyperlipidemia Incontinence Menorrhagia Vaginal cyst Procedure/Surgical History Colonoscopy (09/15/2022), Hip replacement (2019), Colonoscopy (01/21/2013), Ganglion cyst of right wrist, Laminectomy, Mohs surgery, Pelvic sling, SANJIV BSO - Total abdominal hysterectomy and bilateral salpingo-oophorectom y, Tonsillectomy and adenoidectomy. Medications B Complex 100 bisoprolol-hydrochlo rothiazide 5 mg-6.25 mg Tab, 1 tab(s), Oral, Daily, 4 refills calcium carbonate 1000 mg oral tablet, chewable Crestor 5 mg Tab, 5 mg, Oral, Daily, 3 refills Fiber Tabs glipiZIDE 5 mg Tab, 5 mg= 1 tab(s), Oral, Daily, 1 refills High Potency Probiotic levothyroxine 88 mcg (0.088 mg) Tab, 88 mcg= 1 tab(s), Oral, Daily, 2 refills Multi Vitamin+ Olux Tylenol, 500 mg, Oral, Daily, PRN Vitamin D Allergies Indocin (Unknown) Social History Alcohol 1-2 times per year, 1 drinks/episode average. Household alcohol concerns: No., 09/18/2023 Tobacco Never (less than 100 in lifetime) Tobacco Use:. Never Smokeless Tobacco Use:. Household tobacco concerns: No. Yes, 06/25/2024 Family History Diabetes mellitus type 2: Brother. Kidney disease: Sister. Myeloma: Negative: Uncle. Pancreatic cancer: Uncle. Parkinson disease: Brother. Primary malignant neoplasm of female genital organ: Aunt. Thyroid cancer: Sister. Immunizations Vaccine Date Status Comments influenza virus vaccine, inactivated 07/24/2023 Recorded influenza virus vaccine, inactivated 08/24/2022 Recorded SARS-CoV-2 (COVID-19) [id number] 08/11/2022 Recorded influenza virus vaccine, inactivated 07/13/2022 Recorded SARSCoV2 mRNA(tozinamer-eric- sucros) vac 02/16/2022 Recorded SARS-CoV-2 (COVID-19) mRNA BNT-162b2 vax 08/04/2021 Recorded 2023-01-24: [id number] influenza virus vaccine, inactivated 08/02/2021 Recorded SARS-CoV-2 (COVID-19) mRNA BNT-162b2 vax 12/30/2020 Recorded 2023-01-24: TPV70 SARS-CoV-2 (COVID-19) mRNA BNT-162b2 vax 12/09/2020 Recorded 2023-01-24: TPV70 influenza virus vaccine, inactivated 07/09/2020 Recorded influenza virus vaccine, inactivated 09/03/2019 Recorded influenza virus vaccine, inactivated 08/24/2018 Recorded influenza virus vaccine, inactivated 08/10/2017 Recorded influenza virus vaccine, inactivated 08/17/2016 Recorded pneumococcal 13-valent vaccine 01/27/2016 Recorded influenza virus vaccine, inactivated 09/03/2015 Recorded Normal [facility] Comment on above: Result Comment: Elec tronically Signed By: Bonita Mari\.br\Date and Time Signed: 06/25/24 10:26 EDT [id number] 06-25-2024 HbA1c (Bld) [Mass fraction] 6.0 % High <=5.9 [facility] Comment on above: Performed By: #### 7 [id number] #### [facility] [address] [place] [address] Ambulatory Visit Summaryon 0 03-26-2024 Ambulatory Visit Summary GABY BARBOUR :1950 Visit Date:03/26/2024 Ambulatory Visit Instructions Your Diagnosis Type 2 diabetes mellitus with hypercholesterolemia Pure hypercholesterolemia , unspecified BMI 29.0-29.9,adult Non-smoker Your Care Team Attending Physician - Bonita Mari Primary Care Physician - Bonita Mari This Is Your Medications List acetaminophen (Tylenol) bifidobacterium/lact obacillus/streptococ cus (High Potency Probiotic) bisoprolol-hydrochlo rothiazide (bisoprolol-hydrochl orothiazide 5 mg-6.25 mg Tab) calcium carbonate (calcium carbonate 1000 mg oral tablet, chewable) clobetasol topical (Olux) ergocalciferol (Vitamin D) glipiZIDE (glipiZIDE 5 mg Tab) levothyroxine (levothyroxine 88 mcg (0.088 mg) Tab) multivitamin (B Complex 100) multivitamin (Multi Vitamin+) polycarbophil (Fiber Tabs) rosuvastatin (Crestor 5 mg Tab) Procedures Performed Colonoscopy (09/15/2022), Hip replacement (2019), Colonoscopy (01/21/2013), Ganglion cyst of right wrist, Laminectomy, Mohs surgery, Pelvic sling, SANJIV BSO - Total abdominal hysterectomy and bilateral salpingo-oophorectom y, Tonsillectomy and adenoidectomy. Discharge Vitals Heart Rate (Peripheral) 58 Respiratory Rate 18 Blood Pressure 130/78 Height 165.0 cm Height 65 in Weight 80.0 kg Weight 176 lb BMI 29.38 What to do next Scheduled Follow-Up Appointments Monday 10:20 AM EDT With: Bonita Mari Where: [facility] Normal [address] [id number]- \.br\ Medications\.br\ What How Much When Instructions\.br\ Unchanged acetaminophen (Tylenol) 500 Milligram By Mouth Every day as needed for as needed for pain\.br\ Unchanged bifidobacterium/ lactobacillus/ streptococcus (High Potency Probiotic)\.br\ Unchanged bisoprolol-hydrochlo rothiazide (bisoprolol-hydrochl orothiazide 5 mg-6.25 mg Tab) 1 Tablets By Mouth Every day\.br\ Unchanged calcium carbonate (calcium carbonate 1000 mg oral tablet, chewable)\.br\ Unchanged clobetasol topical (Olux)\.br\ Unchanged ergocalciferol (Vitamin D)\.br\ Unchanged glipiZIDE (glipiZIDE 5 mg Tab) 1 Tablets By Mouth Every day\.br\ Unchanged levothyroxine (levothyroxine 88 mcg (0.088 mg) Tab) 1 Tablets By Mouth Every day\.br\ Unchanged multivitamin (B Complex 100)\.br\ Unchanged multivitamin (Multi Vitamin+)\.br\ Unchanged polycarbophil (Fiber Tabs)\.br\ Unchanged rosuvastatin (Crestor 5 mg Tab) 5 Milligram By Mouth Every day\.br\ Allergies\.br\ Indocin (Unknown)\.br\ Problems\.br\ Ongoing - Any problem that you are currently receiving treatment for.\.br\ Arthritis\.br\ Basal cell carcinoma\.br\ Blood glucose elevated\.br\ BMI 29.0-29.9,adult\.br\ Diverticula of intestine\.br\ History of colon polyps\.br\ HTN (hypertension)\.br\ Hypothyroidism\.br\ Injury of toe on left foot\.br\ Menorrhagia\.br\ OA (osteoarthritis)\.br \ Pure hypercholesterolemia \.br\ Seborrheic dermatitis\.br\ Stress incontinence\.br\ Type 2 diabetes mellitus with hypercholesterolemia \.br\ Vitamin D deficiency\.br\ Historical - Any problem that you are no longer receiving treatment for.\.br\ Arthritis\.br\ Basal cell carcinoma\.br\ Cervical dysplasia\.br\ Degenerative disc disease\.br\ Diverticular disease\.br\ Hyperlipidemia\.br\ Incontinence\.br\ Menorrhagia\.br\ Vaginal cyst\.br\ Patient Survey\.br\ You may receive a survey via text or e-mail asking about your office visit. Please share your experience with us by completing your survey. We appreciate your feedback and thank you for choosing us for your care.\.br\ \.br\ [facility] Family Medicine Office/Clini c Noteon 03-26-2024 Family Medicine Office/Clinic Note HPI Staff Gaby is a 73 year old female presenting for Diabetes follow up Patient is here for follow up on Diabetes. How often are you checking your blood sugars? 1 times per day What are your average readings? 121-134 Paresthesias, Ulcerations or sores? no Lisinopril, aspirin, statin therapy? Yes Foot Exam: due Eye Exam: pt has appointment in May Last A1c: Hgb A1C %: 6.8 % High (12/26/23 10:10:00) Questions/Concerns: none History of Present Illness pt presents today for diabetes follow up blood sugars have been running 120-130's since starting glipizide Review of Systems PHQ Score Initial Depression Screen Score: 0 SCORE Physical Exam Vitals & Measurements HR: 58(Peripheral) RR: 18 BP: 130/78 SpO2: 96% HT: 65 in HT: 165.0 cm WT: 80.0 kg WT: 176 lb BMI: 29.38 General: alert, no acute distress ENMT: oral mucosa moist, no pharyngeal erythema or exudate Cardiovascular: regular rate and rhythm, normal peripheral perfusion Respiratory: Lungs CTA, respirations non labored Extremities: no deformity, no trauma Neurological: oriented x 4, LOC appropriate for age, CN II-XII intact, motor strength equal & normal bilaterally, speech normal Assessment/Plan 1. Type 2 diabetes mellitus with hypercholesterolemia (E11.69: Type 2 diabetes mellitus with other specified complication) BS log reviewed. will recheck hgba1c in office today. pt denies side effects from medication. all questions answered. RTC 3 omnths Ordered: HgbA1c Lipid Panel 2. Pure hypercholesterolemia , unspecified (E78.00: Pure hypercholesterolemia , unspecified) lipid panel drawn in office today 3. BMI 29.0-29.9,adult (Z68.29: Body mass index [BMI] 29.0-29.9, adult) bmi education complete. pt is going to diabetic education at hospital monthly Ordered: Lipid Panel 4. Non-smoker (Z78.9: Other specified health status) continue not smoking Ordered: Lipid Panel Orders: dapagliflozin, 5 mg = 1 tab(s), Oral, Daily, # 90 tab(s), Refills(s) 1, Pharmacy: [facility]/pharmacy #[id number], 165, cm, 12/26/23 9:50:00 EST, Height/Length Dosing, 80.1, kg, 12/26/23 9:50:00 EST, Weight Dosing metformin, 500 mg = 1 tab(s), Oral, BID, # 60 tab(s), Refills(s) 0, Pharmacy: [id number], 160, cm, 09/26/23 8:53:00 EST, Height/Length Dosing, 83.1, kg, 09/26/23 8:53:00 EST, Weight Dosing Follow-up No qualifying data available Problem List/Past Medical History Ongoing Arthritis Basal cell carcinoma Blood glucose elevated BMI 29.0-29.9,adult Diverticula of intestine History of colon polyps HTN (hypertension) Hypothyroidism Injury of toe on left foot Menorrhagia OA (osteoarthritis) Pure hypercholesterolemia Seborrheic dermatitis Stress incontinence Type 2 diabetes mellitus with hypercholesterolemia Vitamin D deficiency Historical Arthritis Basal cell carcinoma Cervical dysplasia Degenerative disc disease Diverticular disease Hyperlipidemia Incontinence Menorrhagia Vaginal cyst Procedure/Surgical History Colonoscopy (09/15/2022), Hip replacement (2019), Colonoscopy (01/21/2013), Ganglion cyst of right wrist, Laminectomy, Mohs surgery, Pelvic sling, SANJIV BSO - Total abdominal hysterectomy and bilateral salpingo-oophorectom y, Tonsillectomy and adenoidectomy. Medications B Complex 100 bisoprolol-hydrochlo rothiazide 5 mg-6.25 mg Tab, 1 tab(s), Oral, Daily, 1 refills calcium carbonate 1000 mg oral tablet, chewable Crestor 5 mg Tab, 5 mg, Oral, Daily, 3 refills Fiber Tabs glipiZIDE 5 mg Tab, 5 mg= 1 tab(s), Oral, Daily, 1 refills High Potency Probiotic levothyroxine 88 mcg (0.088 mg) Tab, 88 mcg= 1 tab(s), Oral, Daily, 2 refills Multi Vitamin+ Olux Tylenol, 500 mg, Oral, Daily, PRN Vitamin D Allergies Indocin (Unknown) Social History Alcohol 1-2 times per year, 1 drinks/episode average. Household alcohol concerns: No., 09/18/2023 Tobacco Never (less than 100 in lifetime) Tobacco Use:. Never Smokeless Tobacco Use:. Household tobacco concerns: No., 03/26/2024 Family History Diabetes mellitus type 2: Brother. Kidney disease: Sister. Myeloma: Negative: Uncle. Pancreatic cancer: Uncle. Parkinson disease: Brother. Primary malignant neoplasm of female genital organ: Aunt. Thyroid cancer: Sister. Immunizations Vaccine Date Status Comments influenza virus vaccine, inactivated 07/24/2023 Recorded influenza virus vaccine, inactivated 08/24/2022 Recorded SARS-CoV-2 (COVID-19) [id number] 08/11/2022 Recorded influenza virus vaccine, inactivated 07/13/2022 Recorded SARSCoV2 mRNA(tozinamer-eric- sucros) vac 02/16/2022 Recorded SARS-CoV-2 (COVID-19) mRNA BNT-162b2 vax 08/04/2021 Recorded 2023-01-24: TPV70 influenza virus vaccine, inactivated 08/02/2021 Recorded SARS-CoV-2 (COVID-19) mRNA BNT-162b2 vax 12/30/2020 Recorded 2023-01-24: TPV70 SARS-CoV-2 (COVID-19) mRNA BNT-162b2 vax 12/09/2020 Recorded 2023-01-24: TPV70 influenza virus vaccine, inactivated 07/09/2020 Record (more content not included)... Normal [facility] Comment on above: Result Comment: Elec tronically Signed By: Bonita Maribr\Date and Time Signed: 03/26/24 10:43 EDT [id number] By: Lauren Alonzo on 03-26-2024 HbA1c (Bld) [Mass fraction] 5.9 % Normal <=5.9 [facility] ChemAutoSS Comment on above: Performed By: #### 7 [id number] #### [facility] [address] [place] [address] Lipid PanelOrdered By: [employer] on 03-26-2024 Cholesterol [Mass/Vol] 155 mg/dL Normal 120-200 Remisol Chem Comment on above: Performed By: #### 2 [id number] #### [facility] [address] [place] [address] Cholesterol in HDL [Mass/Vol] 42 mg/dL Invalid Interpretation Code Remisol Chem Comment on above: Result Comment: '>= 60 LOW RISK' '<= 40 HIGH RISK' Result Comment: '>= 60 LOW RISK' '<= 40 HIGH RISK' Performed By: #### 2 [id number] #### [facility] [address] [place] [address] Cholesterol in LDL [Mass/Vol] 103 mg/dL Normal <=129 Remisol Chem Comment on above: Performed By: #### 2 [id number] #### [facility] [address] [place] [address] Cholesterol in VLDL [Mass/Vol] 45 mg/dL High 7-40 Remisol Chem Comment on above: Performed By: #### 2 [id number] #### [facility] [address] [place] [address] Triglyceride [Mass/Vol] 227 mg/dL High <=149 Remisol Chem Comment on above: Performed By: #### 2 [id number] #### [facility] [address] [place] [address] Ambulatory Visit Summaryon 0 12-26-2023 Ambulatory Visit Summary GABY BARBOUR :1950 Visit Date:12/26/2023 Ambulatory Visit Instructions Your Diagnosis Type 2 diabetes mellitus BMI 29.0-29.9,adult Your Care Team Attending Physician - Bonita Mari Primary Care Physician - Fred WRAY, Jose Naranjo This Is Your Medications List acetaminophen (Tylenol) bifidobacterium/lact obacillus/streptococ cus (High Potency Probiotic) biotin bisoprolol-hydrochlo rothiazide (bisoprolol-hydrochl orothiazide 5 mg-6.25 mg Tab) calcium carbonate (calcium carbonate 1000 mg oral tablet, chewable) clobetasol topical (Olux) ergocalciferol (Vitamin D) levothyroxine (levothyroxine 88 mcg (0.088 mg) Tab) metformin (metformin 500 mg Tab) multivitamin (B Complex 100) multivitamin (Multi Vitamin+) polycarbophil (Fiber Tabs) rosuvastatin (Crestor 5 mg Tab) Procedures Performed Colonoscopy (09/15/2022), Hip replacement (2019), Colonoscopy (01/21/2013), Ganglion cyst of right wrist, Laminectomy, Mohs surgery, Pelvic sling, SANJIV BSO - Total abdominal hysterectomy and bilateral salpingo-oophorectom y, Tonsillectomy and adenoidectomy. Discharge Vitals Heart Rate (Peripheral) 50 Blood Pressure 142/70 Height 165 cm Height 65 in Weight 80.10 kg Weight 176.22 lb BMI 29.42 What to do next Scheduled Follow-Up Appointments 2023 11:00 AM EST Where: [facility] [place] Normal [facility] CHEMISTRYOrdered By: Lynnette Newell on 12-26-2023 HbA1c (Bld) [Mass fraction] 6.8 % High <=5.9% [facility] ChemAutoSS Family Medicine Office/Clini c Noteon 12-26-2023 Family Medicine Office/Clinic Note Chief Complaint 3 month HPI Staff Patient presents 3 month follow up for DM and Hypothyroidism. Patient is here for follow up on Thyroid Disease. Do you have any of the following symptoms? Change in energy level? no Weight change? yes has lost weight Heat/cold intolerance? no Hair/skin/nail changes? no Change in bowels? no Last TSH: TSH: 0.56 mcIU/mL (09/26/23 09:12:00) Patient is here for follow up on Diabetes. How often are you checking your blood sugars? Doesnt check glucose at home times per day What are your average readings? _ n/a Do you have any of the following symptoms? Foot Exam: Eye Exam: appointment in May Microalbumin: Last A1C: Hgb A1C %: 6.7 % High (09/26/23 09:12:00) Last Chronic Labs: No longer taking metformin due to diarrhea. needs refill of levothyroxine History of Present Illness pt presents today for follow up. was started on metformin BID 3 months ago. she had GI upset from it Review of Systems PHQ Score Initial Depression Screen Score: 0 SCORE ROS - Provider Constitutional: no fever, no chills, no sweats, no fatigue Respiratory: no shortness of breath, no cough, no orthopnea, no wheezing. Cardiovascular: no chest pain, no palpitations, no edema. Neurologic: no headache, no dizziness, no numbness, no weakness. Physical Exam Vitals & Measurements HR: 50(Peripheral) BP: 142/70 SpO2: 98% HT: 65 in HT: 165 cm WT: 80.10 kg WT: 176.22 lb BMI: 29.42 General: alert, no acute distress ENMT: oral mucosa moist, no pharyngeal erythema or exudate Cardiovascular: regular rate and rhythm, normal peripheral perfusion Respiratory: Lungs CTA, respirations non labored Extremities: no deformity, no trauma Neurological: oriented x 4, LOC appropriate for age, CN II-XII intact, motor strength equal & normal bilaterally, speech normal Assessment/Plan 1. Type 2 diabetes mellitus (E11.9: Type 2 diabetes mellitus without complications) pt was started on metformin BID had had GI issues. was instructed to just take it once a day until she got used to it. she has lost 10 pounds and ended up having surgery on her nose for skin cancer graft. and has not taken metformin in about a month. will check HGBA1C. she has changed her diet. will call her with POC once we get lab results back tomorrow. RTC 3 omnths Ordered: HgbA1c 2. BMI 29.0-29.9,adult (Z68.29: Body mass index [BMI] 29.0-29.9, adult) BMI education complete Ordered: Body Mass Index (BMI) documented 3008F Current tobacco non-user 1036F Depression Screening Negative 3352F HgbA1c Medication list documented in medical record 1159F Patient screen for fall risk: no falls in last year or 1 fall with no injury in last year 1101F Orders: levothyroxine, 88 mcg = 1 tab(s), Oral, Daily, # 90 tab(s), Refills(s) 2, Pharmacy: [facility], 165, cm, 12/26/23 9:50:00 EST, Height/Length Dosing, 80.1, kg, 12/26/23 9:50:00 EST, Weight Dosing levothyroxine, 88 mcg = 1 tab(s), Oral, Daily, # 90 tab(s), Refills(s) 1, Pharmacy: [facility], 160, cm, 01/24/23 9:32:00 EDT, Height/Length Dosing, 84.4, kg, 01/24/23 9:32:00 EDT, Weight Dosing Follow-up No qualifying data available Problem List/Past Medical History Ongoing Arthritis Basal cell carcinoma Blood glucose elevated BMI 29.0-29.9,adult Diverticula of intestine Elevated random blood glucose level History of colon polyps HTN (hypertension) Hypothyroidism Injury of toe on left foot Menorrhagia OA (osteoarthritis) Pure hypercholesterolemia Seborrheic dermatitis Stress incontinence Type 2 diabetes mellitus Vitamin D deficiency Historical Arthritis Basal cell carcinoma Cervical dysplasia Degenerative disc disease Diverticular disease Hyperlipidemia Incontinence Menorrhagia Vaginal cyst Procedure/Surgical History Colonoscopy (09/15/2022), Hip replacement (2019), Colonoscopy (01/21/2013), Ganglion cyst of right wrist, Laminectomy, Mohs surgery, Pelvic sling, SANJIV BSO - Total abdominal hysterectomy and bilateral salpingo-oophorectom y, Tonsillectomy and adenoidectomy. Medications B Complex 100 biotin bisoprolol-hydrochlo rothiazide 5 mg-6.25 mg Tab, 1 tab(s), Oral, Daily, 1 refills calcium carbonate 1000 mg oral tablet, chewable Crestor 5 mg Tab, 5 mg, Oral, Daily, 3 refills Fiber Tabs High Potency Probiotic levothyroxine 88 mcg (0.088 mg) Tab, 88 mcg= 1 tab(s), Oral, Daily, 2 refills metformin 500 mg Tab, 500 mg= 1 tab(s), Oral, BID, Not taking Multi Vitamin+ Olux Tylenol, 500 mg, Oral, Daily, PRN Vitamin D Allergies Indocin (Unknown) Social History Alcohol 1-2 times per year, 1 drinks/episode average. Household alcohol concerns: No., 09/18/2023 Tobacco Never (less than 100 in lifetime) Tobacco Use:. Never Smokeless Tobacco Use:. Household tobacco concerns: No., 12/26/2023 Family History Diabetes mellitus type 2: Brother. Kidney disease: Sister. Myeloma: Negative: Uncle. Pancreatic c (more content not included)... Normal [facility] Comment on above: Result Comment: Elec tronically Signed By: Red MC, Bonita Mayfield\.br\Date and Time Signed: 12/26/23 10:07 EST [id number] 12-26-2023 HbA1c (Bld) [Mass fraction] 6.8 % High <=5.9 [facility] Comment on above: Performed By: #### [id number] #### [facility] [address] [place] [address] Basic Metabolic Panelon Anion gap [Moles/Vol] 12.2 mmol/L Normal 6.0-15.0 [facility] Comment on above: Performed By: #### B MP #### [facility] [address] Calcium [Mass/Vol] 9.0 mg/dL Normal 8.6-10.3 [facility] Comment on above: Performed By: #### B MP #### [facility] [address] [place] [id number] [place] Chloride [Moles/Vol] 104 mmol/L Normal 98-107 [facility] Comment on above: Performed By: #### B MP #### [facility] [address] [place] [id number] [place] CO2 [Moles/Vol] 25.7 mmol/L Normal 21.0-31.0 [facility] Comment on above: Performed By: #### B MP #### [facility] [address] Creatinine [Mass/Vol] 0.58 mg/dL Low 0.60-1.20 [facility] Comment on above: Performed By: #### B MP #### [facility] [address] [place] [address] [place] Creatinine Clr Calc Pharmacy 61.94 Normal [facility] Comment on above: Result Comment: PERF ORMED BY: [place] [address] PATHOLOGIST TRAINING DEVELOPMENT MANAGER BEV KASPER M.D. Performed By: #### B MP #### [place] [address] [place] GFR/1.73 sq M.predicted MDRD (S/P/Bld) [Vol rate/Area] mL/min/{1.73_m2} Normal [facility] Comment on above: Performed By: #### B MP #### [address] Glucose [Mass/Vol] 146 mg/dL High 70-100 [facility] Comment on above: Result Comment: [place]le Glucose Reference Range is dependent on time and content of last meal. Glucose of more than 200 mg/dL in a nonstressed, ambulatory subject supports the diagnosis of Diabetes Mellitus. ADA recommended reference range Performed By: #### B MP #### [place] [address] [place] Potassium [Moles/Vol] 3.9 mmol/L Normal 3.5-5.1 [facility] Comment on above: Performed By: #### B MP #### [place] [address] [place] Sodium [Moles/Vol] 138 mmol/L Normal 136-145 [facility] Comment on above: Performed By: #### B MP #### [place] [address] [place] Urea nitrogen [Mass/Vol] 12 mg/dL Normal 7-25 [facility] Comment on above: Performed By: #### B MP #### [place] [id number] [facility] [[email or web address]] Calcium [Mass/volume] in Ser um or PlasmaOrdered By: Oscar Stokes on 12-07-2023 Calcium [Mass/Vol] 9.0 mg/dL 8.6-10.3 [facility] Carbon dioxide, total [Moles /volume] in Serum or PlasmaOrdered By: Oscar Stokes on 12-07-2023 CO2 [Moles/Vol] 25.7 mmol/L 21.0-31.0 [facility] Chloride [Moles/volume] in S mona or PlasmaOrdered By: Oscar Stokes on 12-07-2023 Chloride [Moles/Vol] 104 mmol/L 98-107 [facility] Creatinine [Mass/volume] in Serum or PlasmaOrdered By: Oscar Stokes on 12-07-2023 Creatinine [Mass/Vol] 0.58 mg/dL 0.60-1.20 [facility] Glucose Poct Glucometerson 0 12-07-2023 Glucose [Mass/Vol] 139 mg/dL Normal [facility] Comment on above: Result Comment: [place] Glucose Reference Range is dependent on time and content of last meal. Glucose of more than 200 mg/dL in a nonstressed, ambulatory subject supports the diagnosis of Diabetes Mellitus. PERFORMED BY: [place] [address] PATHOLOGIST TRAINING DEVELOPMENT MANAGER BEV KASPER M.D. Performed By: #### G LUIAIN #### Point of Care testing , Glucose [Mass/volume] in Ser um or PlasmaOrdered By: Oscar Stokes on 12-07-2023 Glucose [Mass/Vol] 146 mg/dL 70-100 [facility] Comment on above: ADA recommended refe rence rangeRandom Glucose Reference Range is dependent on time and content of last meal. Glucose of more than 200 mg/dL in a nonstressed, ambulatory subject supports the diagnosis of Diabetes Mellitus. No Panel InformationOrdered By: Oscar Stokes on 02-01-2024 Estimated GFR (CKD-EPI) > 60.0 mL/Min [facility] Creatinine Clearance (Chem 61.94 [facility] Potassium [Moles/volume] in Serum or PlasmaOrdered By: Oscar Stkoes on 12-07-2023 Potassium [Moles/Vol] 3.9 mmol/L 3.5-5.1 [facility] Serum or plasma anion gap de terminationOrdered By: Oscar Stokes on 12-07-2023 Anion gap [Moles/Vol] 12.2 mmol/L 6.0-15.0 [facility] Sodium [Moles/volume] in Ser um or PlasmaOrdered By: Oscar Stokes on 12-07-2023 Sodium [Moles/Vol] 138 mmol/L 136-145 [facility] Urea nitrogen [Mass/volume] in Serum or PlasmaOrdered By: Oscar Stokes on 12-07-2023 Urea nitrogen [Mass/Vol] 12 mg/dL 7-25 [facility] Basic Metabolic Panelon 11-06 Anion gap [Moles/Vol] 10.9 mmol/L Normal 6.0-15.0 [facility] Comment on above: Performed By: #### B MP #### [facility] [address] [place] [address] [place] Calcium [Mass/Vol] 9.6 mg/dL Normal 8.6-10.3 [facility] Comment on above: Performed By: #### B MP #### [facility] [address] [place] [id number] [place] Chloride [Moles/Vol] 104 mmol/L Normal 98-107 [facility] Comment on above: Performed By: #### B MP #### [facility] [address] [place] [address] [place] CO2 [Moles/Vol] 26.3 mmol/L Normal 21.0-31.0 [facility] Comment on above: Performed By: #### B MP #### [facility] [address] [place] [id number] [place] Creatinine [Mass/Vol] 0.56 mg/dL Low 0.60-1.20 [facility] Comment on above: Performed By: #### B MP #### [facility] [address] [place] [address] [place] Creatinine Clr Calc Pharmacy 62.84 Normal [facility] Comment on above: Result Comment: PERF ORMED BY: [place] [address] PATHOLOGIST TRAINING DEVELOPMENT MANAGER BEV KASPER M.D. Performed By: #### B MP #### [facility] [address] [place] [address] [place] GFR/1.73 sq M.predicted MDRD (S/P/Bld) [Vol rate/Area] mL/min/{1.73_m2} Normal [facility] Comment on above: Performed By: #### B MP #### [address] Glucose [Mass/Vol] 112 mg/dL High 70-100 [facility] Comment on above: Result Comment: [place] Glucose Reference Range is dependent on time and content of last meal. Glucose of more than 200 mg/dL in a nonstressed, ambulatory subject supports the diagnosis of Diabetes Mellitus. ADA recommended reference range Performed By: #### B MP #### [address] Potassium [Moles/Vol] 4.2 mmol/L Normal 3.5-5.1 [facility] Comment on above: Performed By: #### B MP #### [place] [address] [place] Sodium [Moles/Vol] 137 mmol/L Normal 136-145 [facility] Comment on above: Performed By: #### B MP #### [place] [address] [place] Urea nitrogen [Mass/Vol] 11 mg/dL Normal 7-25 [facility] Comment on above: Performed By: #### B MP #### [place] [address] [place] Calcium [Mass/volume] in Ser um or PlasmaOrdered By: Rex Wolfe on 11-16-2023 Calcium [Mass/Vol] 9.6 mg/dL 8.6-10.3 [facility] Carbon dioxide, total [Moles /volume] in Serum or PlasmaOrdered By: Rex Wolfe on 11-16-2023 CO2 [Moles/Vol] 26.3 mmol/L 21.0-31.0 [facility] Chloride [Moles/volume] in S mona or PlasmaOrdered By: Rex Wolfe on 11-16-2023 Chloride [Moles/Vol] 104 mmol/L 98-107 [facility] Creatinine [Mass/volume] in Serum or PlasmaOrdered By: Rex Wolfe on 11-16-2023 Creatinine [Mass/Vol] 0.56 mg/dL 0.60-1.20 [facility] Glucose Glucometer (BldC) [M ass/Vol]Ordered By: Diallo Mac on 11-16-2023 Glucose [Mass/Vol] 124 mg/dL [facility] Comment on above: Random Glucose Refer ence Range is dependent on time and content of last meal. Glucose of more than 200 mg/dL in a nonstressed, ambulatory subject supports the diagnosis of Diabetes Mellitus. Glucose Poct Glucometerson 0 11-16-2023 Commemt1 Glu2: Cleaned Meter Normal [facility] Comment on above: Result Comment: PERF ORMED BY: [facility] [address] [place] [address] PATHOLOGIST TRAINING DEVELOPMENT MANAGER BEV KASPER M.D. Performed By: #### G LULS #### Point of Care testing , Glucose [Mass/Vol] 124 mg/dL Normal [facility] Comment on above: Result Comment: [place] Glucose Reference Range is dependent on time and content of last meal. Glucose of more than 200 mg/dL in a nonstressed, ambulatory subject supports the diagnosis of Diabetes Mellitus. Performed By: #### G LULS #### Point of Care testing , Glucose [Mass/volume] in Ser um or PlasmaOrdered By: Rex Wolfe on 11-16-2023 Glucose [Mass/Vol] 112 mg/dL 70-100 [facility] Comment on above: ADA recommended refe rence rangeRandom Glucose Reference Range is dependent on time and content of last meal. Glucose of more than 200 mg/dL in a nonstressed, ambulatory subject supports the diagnosis of Diabetes Mellitus. No Panel InformationOrdered By: Diallo Mac on 11-16-2023 Bedside Glucose Comment Glu2: cleaned meter [facility] No Panel InformationOrdered By: Rex Wolfe on 11-16-2023 Estimated GFR (CKD-EPI) > 60.0 mL/Min [facility] Creatinine Clearance (Chem 62.84 [facility] Potassium [Moles/volume] in Serum or PlasmaOrdered By: Rex Wolfe on 11-16-2023 Potassium [Moles/Vol] 4.2 mmol/L 3.5-5.1 [facility] Serum or plasma anion gap de terminationOrdered By: Rex Wolfe on 11-16-2023 Anion gap [Moles/Vol] 10.9 mmol/L 6.0-15.0 [facility] Sodium [Moles/volume] in Ser um or PlasmaOrdered By: Rex Wolfe on 11-16-2023 Sodium [Moles/Vol] 137 mmol/L 136-145 [facility] Urea nitrogen [Mass/volume] in Serum or PlasmaOrdered By: Rex Wolfe on 11-16-2023 Urea nitrogen [Mass/Vol] 11 mg/dL 7-25 [facility] ECG 12 lead ECGon 11-03-2023 ECG 12 lead ECG [facility] [place] [address] Electrocardiograph Report Signed Patient: Gaby Barbour MR#: [id number] : 1950 Acct:[id number] Age/Sex: 73 / F ADM Date: 11/03/23 Loc: PS Room: Type: [facility] Attending Dr: Diallo Mac MD Ordering Provider: Diallo Mac MD Date of Service: 11/03/23 ECG/ECG 12 lead ECG: pst Copies to: Test Reason : Blood Pressure : / mmHG Vent. Rate : 058 BPM Atrial Rate : 058 BPM P-R Int : 154 ms QRS Dur : 078 ms QT Int : 402 ms P-R-T Axes : 009 -11 013 degrees QTc Int : 394 ms Sinus bradycardia with Possible premature atrial complexes with aberrant conduction Minimal voltage criteria for LVH, may be normal variant Borderline ECG When compared with ECG of 29-DEC-2016 11:34, aberrant conduction is now present Confirmed by ANUSHA ESPARZA DO ([id number]) on 11/05/2023 5:19:18 PM Referred By: ESTEFANIA Electronically Signed By:ANUSHA ESPARZA DO Transcribed By: ISADORA Signed By Anusha Esparza DO 11/05 1719 Normal [facility] Activated partial thrombopla stin time (aPTT) in platelet poor plasma by coagulation aOrdered By: Bhavesh Newell on 10-27-2023 aPTT Coag (PPP) [Time] 26.2 s 25.1-36.5 [facility] Comment on above: A hematocrit value g reater than 55% may lead to inaccurate results in coagulation testing. Patients having hematocrit values >55% require a special collection tube for coagulation studies. Please contact the laboratory at [phone] for redraw instructions. Basic Metabolic Panelon 10-07 Anion gap [Moles/Vol] 15.0 mmol/L Normal 6.0-15.0 [facility] Comment on above: Performed By: #### P T, CBC, BMP, PTT #### [facility] [address] [place] [id number] [place] Calcium [Mass/Vol] 8.9 mg/dL Normal 8.6-10.3 [facility] Comment on above: Performed By: #### P T, CBC, BMP, PTT #### [facility] [address] [place] [id number] [place] Chloride [Moles/Vol] 95 mmol/L Low 98-107 [facility] Comment on above: Performed By: #### P T, CBC, BMP, PTT #### [facility] [address] [place] [id number] [place] CO2 [Moles/Vol] 24.2 mmol/L Normal 21.0-31.0 [facility] Comment on above: Performed By: #### P T, CBC, BMP, PTT #### [facility] [address] Creatinine [Mass/Vol] 0.62 mg/dL Normal 0.60-1.20 [facility] Comment on above: Performed By: #### P T, CBC, BMP, PTT #### [address] Creatinine Clr Calc Pharmacy 63.48 Normal [facility] Comment on above: Result Comment: PERF ORMED BY: [place] [address] PATHOLOGIST TRAINING DEVELOPMENT MANAGER BEV KASPER M.D. Performed By: #### P T, CBC, BMP, PTT #### [address] GFR/1.73 sq M.predicted MDRD (S/P/Bld) [Vol rate/Area] mL/min/{1.73_m2} [facility] Comment on above: Performed By: #### P T, CBC, BMP, PTT #### [address] Glucose [Mass/Vol] 240 mg/dL High 70-100 [facility] Comment on above: Result Comment: [place] Glucose Reference Range is dependent on time and content of last meal. Glucose of more than 200 mg/dL in a nonstressed, ambulatory subject supports the diagnosis of Diabetes Mellitus. ADA recommended reference range Performed By: #### P T, CBC, BMP, PTT #### [address] Potassium [Moles/Vol] 4.2 mmol/L Normal 3.5-5.1 [facility] Comment on above: Performed By: #### P T, CBC, BMP, PTT #### [address] Sodium [Moles/Vol] 130 mmol/L Low 136-145 [facility] Comment on above: Performed By: #### P T, CBC, BMP, PTT #### [place] [address] [place] Urea nitrogen [Mass/Vol] 12 mg/dL Normal 7-25 [facility] Comment on above: Performed By: #### P T, CBC, BMP, PTT #### [facility] [address] Basophils Auto (Bld) [#/Vol] Ordered By: Bhavesh Newell on 10-27-2023 Basophils (Bld) [#/Vol] 0.1 10*3/uL 0.0-0.2 [facility] Basophils/100 WBC Auto (Bld) Ordered By: Bhavesh Newell on 10-27-2023 Basophils/100 WBC (Bld) 0.3 % . [facility] Calcium [Mass/volume] in Ser um or PlasmaOrdered By: Bhavesh Newell on 10-27-2023 Calcium [Mass/Vol] 8.9 mg/dL 8.6-10.3 [facility] Carbon dioxide, total [Moles /volume] in Serum or PlasmaOrdered By: Bhavesh Newell on 10-27-2023 CO2 [Moles/Vol] 24.2 mmol/L 21.0-31.0 [facility] Chloride [Moles/volume] in S mona or PlasmaOrdered By: Bhavesh Newell on 10-27-2023 Chloride [Moles/Vol] 95 mmol/L 98-107 [facility] Complete Blood Count Auto Di ffon 10-27-2023 Basophils (Bld) [#/Vol] 0.1 10*3/uL Normal 0.0-0.2 [facility] Comment on above: Result Comment: PERF ORMED BY: [facility] [address] [place] [address] PATHOLOGIST TRAINING DEVELOPMENT MANAGER BEV KASPER M.D. Performed By: #### P T, CBC, BMP, PTT #### [facility] [address] Basophils/100 WBC (Bld) 0.3 % Normal . [facility] Comment on above: Performed By: #### P T, CBC, BMP, PTT #### [facility] [address] [place] [address] [place] Eosinophils (Bld) [#/Vol] 0.0 10*3/uL Normal 0.0-0.45 [facility] Comment on above: Performed By: #### P T, CBC, BMP, PTT #### [address] Eosinophils/100 WBC (Bld) 0.1 % Normal . [facility] Comment on above: Performed By: #### P T, CBC, BMP, PTT #### [address] Erythrocyte distribution width (RBC) [Ratio] 14.7 % Normal 11.9-15.3 [facility] Comment on above: Performed By: #### P T, CBC, BMP, PTT #### [address] Hematocrit (Bld) [Volume fraction] 32.1 % Low 34.0-46.4 [facility] Comment on above: Performed By: #### P T, CBC, BMP, PTT #### [address] Hemoglobin (Bld) [Mass/Vol] 10.5 g/dL Low 11.8-15.4 [facility] Comment on above: Performed By: #### P T, CBC, BMP, PTT #### [address] Lymphocytes (Bld) [#/Vol] 1.7 10*3/uL Normal 1.00-4.8 [facility] Comment on above: Performed By: #### P T, CBC, BMP, PTT #### [address] Lymphocytes/100 WBC (Bld) 10.7 % Normal . [facility] Comment on above: Performed By: #### P T, CBC, BMP, PTT #### [address] MCH (RBC) [Entitic mass] 25.4 pg Normal 24.7-34.3 [facility] Comment on above: Performed By: #### P T, CBC, BMP, PTT #### [facility] [address] [place] [address] MCV (RBC) [Entitic vol] 78.0 fL Low 80-100 [facility] Comment on above: Performed By: #### P T, CBC, BMP, PTT #### [facility] [address] [place] [address] Mean Corpuscular HGB Conc 32.6 g/dL Normal 32.0-35.0 [facility] Comment on above: Performed By: #### P T, CBC, BMP, PTT #### [address] Monocytes (Bld) [#/Vol] 1.0 10*3/uL High 0.0-0.8 [facility] Comment on above: Performed By: #### P T, CBC, BMP, PTT #### [address] Monocytes/100 WBC (Bld) 18.61 % Normal 0.00-20.00 [facility] Comment on above: Performed By: #### P T, CBC, BMP, PTT #### [place] [address] [place] Monocytes/100 WBC (Bld) 6.1 % Normal . [facility] Comment on above: Performed By: #### P T, CBC, BMP, PTT #### [address] Neutrophils (Bld) [#/Vol] 13.1 10*3/uL High 1.8-7.7 [facility] Comment on above: Performed By: #### P T, CBC, BMP, PTT #### [place] [address] [place] Neutrophils/100 WBC (Bld) 82.8 % Normal . [facility] Comment on above: Performed By: #### P T, CBC, BMP, PTT #### [address] NRBC% 0.0 /100{WBC} Normal 0-0.5 [facility] Comment on above: Performed By: #### P T, CBC, BMP, PTT #### [facility] [address] Platelet mean volume (Bld) [Entitic vol] 8.4 fL Normal 6.3-10.7 [facility] Comment on above: Performed By: #### P T, CBC, BMP, PTT #### [facility] [address] Platelets (Bld) [#/Vol] 280 10*3/uL Normal 150-450 [facility] Comment on above: Performed By: #### P T, CBC, BMP, PTT #### [facility] [address] [place] [address] RBC (Bld) [#/Vol] 4.12 10*6/uL Normal 3.60-5.00 [facility] Comment on above: Performed By: #### P T, CBC, BMP, PTT #### [address] WBC (Bld) [#/Vol] 15.9 10*3/uL High 3.8-11.6 [facility] Comment on above: Performed By: #### P T, CBC, BMP, PTT #### [address] Creatinine [Mass/volume] in Serum or PlasmaOrdered By: Bhavesh Newell on 10-27-2023 Creatinine [Mass/Vol] 0.62 mg/dL 0.60-1.20 [facility] Eosinophils Auto (Bld) [#/Vo l]Ordered By: Bhavesh Newell on 10-27-2023 Eosinophils (Bld) [#/Vol] 0.0 10*3/uL 0.0-0.45 [facility] Eosinophils/100 WBC Auto (Bl d)Ordered By: Bhavesh Newell on 10-27-2023 Eosinophils/100 WBC (Bld) 0.1 % . [facility] Erythrocyte distribution wid th Auto (RBC) [Ratio]Ordered By: Bhavesh Newell on 10-27-2023 Erythrocyte distribution width (RBC) [Ratio] 14.7 % 11.9-15.3 [facility] Glucose [Mass/volume] in Ser um or PlasmaOrdered By: Bhavesh Newell on 10-27-2023 Glucose [Mass/Vol] 240 mg/dL 70-100 [facility] Comment on above: ADA recommended refe rence rangeRandom Glucose Reference Range is dependent on time and content of last meal. Glucose of more than 200 mg/dL in a nonstressed, ambulatory subject supports the diagnosis of Diabetes Mellitus. Hematocrit Auto (Bld) [Volum e fraction]Ordered By: Bhavesh Newell on 10-27-2023 Hematocrit (Bld) [Volume fraction] 32.1 % 34.0-46.4 [facility] Hemoglobin [Mass/volume] in BloodOrdered By: Bhavesh Newell on 10-27-2023 Hemoglobin (Bld) [Mass/Vol] 10.5 g/dL 11.8-15.4 [facility] INR in Platelet poor plasma by Coagulation assayOrdered By: Bhavesh Newell on 10-27-2023 INR Coag (PPP) [Relative time] 1.2 {INR} [facility] Comment on above: INR Therapeutic Rang e A) Pre- and Peroperative OAT started two weeks before surgery. NOT HIP SURGERY: 1.5 - 2.5 HIP SURGERY: 2 - 3B) Primary and secondary prevention of venous THROMBOSIS: 2 - 3C) Active venous thrombosis, pulmonary embolismand prevention of recurrent venous thrombosis: 2 - 3D) Prevention of arterial thromboembolismincluding patients with mechanical heart valves: 3 - 4.5 Leukocytes [#/volume] correc xin for nucleated erythrocytes in Blood by Automated counOrdered By: Bhavesh Newell on 10-27-2023 WBC corrected for nucl RBC Auto (Bld) [#/Vol] 15.9 10*3/uL 3.8-11.6 [facility] Lymphocytes Auto (Bld) [#/Vo l]Ordered By: Bhavesh Newell on 10-27-2023 Lymphocytes (Bld) [#/Vol] 1.7 10*3/uL 1.00-4.8 [facility] Lymphocytes/100 WBC Auto (Bl d)Ordered By: Bhavesh Newell on 10-27-2023 Lymphocytes/100 WBC (Bld) 10.7 % . [facility] MCH Auto (RBC) [Entitic mass ]Ordered By: Bhavesh Newell on 10-27-2023 MCH (RBC) [Entitic mass] 25.4 pg 24.7-34.3 [facility] MCHC Auto (RBC) [Mass/Vol]Or dered By: Bhavesh Newell on 10-27-2023 MCHC (RBC) [Mass/Vol] 32.6 g/dL 32.0-35.0 [facility] MCV Auto (RBC) [Entitic vol] Ordered By: Bhavesh Newell on 10-27-2023 MCV (RBC) [Entitic vol] 78.0 fL 80-100 [facility] Monocyte distribution width [Entitic volume] in Blood by AutomatedOrdered By: Bhavesh Newell on 10-27-2023 Monocyte distribution width Auto (Bld) [Entitic vol] 18.61 % 0.00-20.00 [facility] Monocytes Auto (Bld) [#/Vol] Ordered By: Bhavesh Newell on 10-27-2023 Monocytes (Bld) [#/Vol] 1.0 10*3/uL 0.0-0.8 [facility] Monocytes/100 WBC Auto (Bld) Ordered By: Bhavesh Newell on 10-27-2023 Monocytes/100 WBC (Bld) 6.1 % . [facility] Neutrophils Auto (Bld) [#/Vo l]Ordered By: Bhavesh Newell on 10-27-2023 Neutrophils (Bld) [#/Vol] 13.1 10*3/uL 1.8-7.7 [facility] Neutrophils/100 WBC Auto (Bl d)Ordered By: Bhavesh Newell on 10-27-2023 Neutrophils/100 WBC (Bld) 82.8 % . [facility] No Panel InformationOrdered By: Bhavesh Newell on 10-27-2023 Estimated GFR (CKD-EPI) > 60.0 mL/Min [facility] Creatinine Clearance (Chem 63.48 [facility] Nucleated erythrocytes [Pres ence] in Blood by Automated countOrdered By: Bhavesh Newell on 10-27-2023 Nucleated RBC Auto Ql (Bld) 0.0 /100{WBC} 0-0.5 [facility] Partial Thromboplastin Timeo n 10-27-2023 aPTT Coag (Bld) [Time] 26.2 s Normal 25.1-36.5 [facility] Comment on above: Result Comment: A matocrit value greater than 55% may lead to inaccurate results in coagulation testing. Patients having hematocrit values >55% require a special collection tube for coagulation studies. Please contact the laboratory at [phone] for redraw instructions. PERFORMED BY: [address] [address] PATHOLOGIST TRAINING DEVELOPMENT MANAGER BEV KASPER M.D. Performed By: #### P T, CBC, BMP, PTT #### [facility] [address] [place], [place] [id number] [facility] [[email or web address]] Platelet mean volume Auto (B ld) [Entitic vol]Ordered By: Bhavesh Newell on 10-27-2023 Platelet mean volume (Bld) [Entitic vol] 8.4 fL 6.3-10.7 [facility] Platelets Auto (Bld) [#/Vol] Ordered By: Bhavesh Newell on 10-27-2023 Platelets (Bld) [#/Vol] 280 10*3/uL 150-450 [facility] Potassium [Moles/volume] in Serum or PlasmaOrdered By: Bhavesh Newell on 10-27-2023 Potassium [Moles/Vol] 4.2 mmol/L 3.5-5.1 [facility] Prothrombin Time INRon 10-27 INR Coag (PPP) [Relative time] 1.2 {INR} Normal [facility] Comment on above: Result Comment: INR Therapeutic Range A) Pre- and Peroperative OAT started two weeks before surgery. NOT HIP SURGERY: 1.5 - 2.5 HIP SURGERY: 2 - 3 B) Primary and secondary prevention of venous THROMBOSIS: 2 - 3 C) Active venous thrombosis, pulmonary embolism and prevention of recurrent venous thrombosis: 2 - 3 D) Prevention of arterial thromboembolism including patients with mechanical heart valves: 3 - 4.5 Performed By: #### P T, CBC, BMP, PTT #### [facility] [address] [place], [place] [id number] [facility] [[email or web address]] PT Coag (PPP) [Time] 13.7 s High 9.0-12.9 [facility] Comment on above: Result Comment: A he matocrit value greater than 55% may lead to inaccurate results in coagulation testing. Patients having hematocrit values >55% require a special collection tube for coagulation studies. Please contact the laboratory at [phone] for redraw instructions. Performed By: #### P T, CBC, BMP, PTT #### [facility] [address] [id number] [facility] [[email or web address]] Prothrombin time (PT)Ordered By: Bhavesh Newell on 10-27-2023 PT Coag (PPP) [Time] 13.7 s 9.0-12.9 [facility] Comment on above: A hematocrit value g reater than 55% may lead to inaccurate results in coagulation testing. Patients having hematocrit values >55% require a special collection tube for coagulation studies. Please contact the laboratory at [phone] for redraw instructions. RBC Auto (Bld) [#/Vol]Ordere d By: Bhavesh Newell on 10-27-2023 RBC (Bld) [#/Vol] 4.12 10*6/uL 3.60-5.00 [facility] Serum or plasma anion gap de terminationOrdered By: Bhavesh Newell on 10-27-2023 Anion gap [Moles/Vol] 15.0 mmol/L 6.0-15.0 [facility] Sodium [Moles/volume] in Ser um or PlasmaOrdered By: Bhavesh Newell on 10-27-2023 Sodium [Moles/Vol] 130 mmol/L 136-145 [facility] Urea nitrogen [Mass/volume] in Serum or PlasmaOrdered By: Bhavesh Newell on 10-27-2023 Urea nitrogen [Mass/Vol] 12 mg/dL 7-25 [facility] WBC Auto (Bld) [#/Vol]Ordere d By: Bhavesh Newell on 10-27-2023 WBC (Bld) [#/Vol] 15.9 10*3/uL 3.8-11.6 [facility] Reminderson 10-02-2023 Reminders - From: Bonita Mari To: [facility] - Clinical; Sent: 09/27/2023 10:01:49 EST Show up: 09/27/2023 10:00:00 EST Subject: Ambulatory Reminder Due Date/Time: 09/28/2023 09:59:00 EST Let Gaby know HGBA1C is 6.7 so she has type 2 diabetes. will send metformin to preferred pharmacy. thyroid was normal Results: Date Result Name Ind Value Ref Range 09/26/2023 9:12 Hgb A1C % ((H)) 6.7 % ( - <=5.9) 09/26/2023 9:12 TSH 0.56 mcIU/mL (0.34 - 5.60) [facility] [place], pt asked how much will the dosage be, etc for the metformin? - From: Willow Nunez ([facility] - Clinical) To: Bonita Mari; Sent: 09/27/2023 10:41:22 EST Show up: 09/27/2023 10:41:00 EST Subject: RE: Ambulatory Reminder - From: Bonita Mari To: [facility] - Clinical; Sent: 09/27/2023 17:05:25 EST Show up: 09/27/2023 17:03:00 EST Subject: RE: Ambulatory Reminder I sent metformin 500mg BID. but I suggest she start taking it once a day for about 1 week just to get used to it. It can cause some GI upset. will need to recheck HGBA1C in 3 months will need to schedule nurse visit for that - From: Willow Nunez ([facility] - Clinical) To: Bonita Mari; Sent: 10/02/2023 15:51:52 EST Show up: 10/02/2023 15:51:00 EST Subject: RE: Ambulatory Reminder Pt notified, picked up meds, had some GI issues the first few days but is feeling better today. She is asking if you can send 90 day supply into [facility] for her next fill. Pt setting up an appt for 3mo check up. Normal [facility] Ambulatory Visit Summaryon 1 11-26-2022 Ambulatory Visit Summary KMGABY :1950 Visit Date:09/26/2023 Ambulatory Visit Instructions Your Diagnosis Hypothyroidism Blood glucose elevated Injury of toe on left foot Your Care Team Attending Physician - Bonita Mari Primary Care Physician - Jose Ibarra MD This Is Your Medications List acetaminophen (Tylenol) bifidobacterium/lact obacillus/streptococ cus (High Potency Probiotic) biotin bisoprolol-hydrochlo rothiazide (bisoprolol-hydrochl orothiazide 5 mg-6.25 mg Tab) calcium carbonate (calcium carbonate 1000 mg oral tablet, chewable) clobetasol topical (Olux) ergocalciferol (Vitamin D) levothyroxine (levothyroxine 88 mcg (0.088 mg) Tab) multivitamin (B Complex 100) multivitamin (Multi Vitamin+) polycarbophil (Fiber Tabs) rosuvastatin (Crestor 5 mg Tab) Procedures Performed Colonoscopy (09/15/2022), Hip replacement (2019), Colonoscopy (01/21/2013), Ganglion cyst of right wrist, Laminectomy, Mohs surgery, Pelvic sling, SANJIV BSO - Total abdominal hysterectomy and bilateral salpingo-oophorectom y, Tonsillectomy and adenoidectomy. Discharge Vitals Heart Rate (Peripheral) 78 Respiratory Rate 18 Blood Pressure 136/74 Height 160 cm Height 63 in Weight 83.1 kg Weight 182.82 lb BMI 32.46 What to do next Scheduled Follow-Up Appointments 2023 11:00 AM EST Where: [facility] Ambulatory Visit Summary GABY BARBOUR :1950 Visit Date:09/26/2023 Ambulatory Visit Instructions Your Diagnosis Hypothyroidism Blood glucose elevated Injury of toe on left foot Your Care Team Attending Physician - Bonita Mari Primary Care Physician - Jose Ibarra MD This Is Your Medications List acetaminophen (Tylenol) bifidobacterium/lact obacillus/streptococ cus (High Potency Probiotic) biotin bisoprolol-hydrochlo rothiazide (bisoprolol-hydrochl orothiazide 5 mg-6.25 mg Tab) calcium carbonate (calcium carbonate 1000 mg oral tablet, chewable) clobetasol topical (Olux) ergocalciferol (Vitamin D) levothyroxine (levothyroxine 88 mcg (0.088 mg) Tab) multivitamin (B Complex 100) multivitamin (Multi Vitamin+) polycarbophil (Fiber Tabs) rosuvastatin (Crestor 5 mg Tab) Procedures Performed Colonoscopy (09/15/2022), Hip replacement (2019), Colonoscopy (01/21/2013), Ganglion cyst of right wrist, Laminectomy, Mohs surgery, Pelvic sling, SANJIV BSO - Total abdominal hysterectomy and bilateral salpingo-oophorectom y, Tonsillectomy and adenoidectomy. Discharge Vitals Heart Rate (Peripheral) 78 Respiratory Rate 18 Blood Pressure 136/74 Height 160 cm Height 63 in Weight 83.1 kg Weight 182.82 lb BMI 32.46 What to do next Scheduled Follow-Up Appointments 2023 11:00 AM EST Where: [facility] Normal [facility] CHEMISTRYOrdered By: Patrick ramirez on 09-26-2023 HbA1c (Bld) [Mass fraction] 6.7 % High <=5.9% [facility] ChemAutoSS CHEMISTRYOrdered By: SYSTEM SYSTEM on 09-26-2023 TSH Qn 0.56 m[IU]/L Normal 0.34 - 5.60 mcIU/mL FTM C [facility] Family Medicine Office/Clini c Noteon 09-26-2023 Family Medicine Office/Clinic Note HPI Staff Waters is a 73 year old female presenting to establish care Establish Care: History: Any previous diagnosis: HTN, OA, hypercholesterolemia , Vit D deficiency History of seeing any specialist: When was your last doctors visit: Last provider: Dr Burnett Any recent labs: 01/25/23 TSH 0.742 Health Maintenance UTD: Colonoscopy: Mammogram: 06/09/22 Pelvic/Pap: Acute: Current issues/complaints: 2 weeks ago toe of left foot has toe tapped would like if looked at. no refills needs at this time. History of Present Illness pt presents today to establish care. due for TSH and in January had elevated glucose 130 Review of Systems PHQ Score Initial Depression Screen Score: 0 SCORE ROS - Provider Constitutional: no fever, no chills, no sweats, no fatigue Respiratory: no shortness of breath, no cough, no orthopnea, no wheezing. Cardiovascular: no chest pain, no palpitations, no edema. Neurologic: no headache, no dizziness, no numbness, no weakness. Physical Exam Vitals & Measurements HR: 78(Peripheral) RR: 18 BP: 136/74 SpO2: 98% HT: 63 in HT: 160 cm WT: 83.1 kg WT: 182.82 lb BMI: 32.46 General: alert, no acute distress ENMT: oral mucosa moist, no pharyngeal erythema or exudate Cardiovascular: regular rate and rhythm, normal peripheral perfusion Respiratory: Lungs CTA, respirations non labored Extremities: no deformity, no trauma Neurological: oriented x 4, LOC appropriate for age, CN II-XII intact, motor strength equal & normal bilaterally, speech normal Assessment/Plan 1. Hypothyroidism (E03.9: Hypothyroidism, unspecified) Last TSH was in January. will check TSH today. pt is doing well. denies needs at this time. return to clinic in January 2024 for wellness visit with labs Ordered: HgbA1c Lab Specimen Collect [id number] Thyroid Stimulating Hormone 2. Blood glucose elevated (R73.9: Hyperglycemia, unspecified) will check HGBA1C in office today Ordered: HgbA1c Lab Specimen Collect [id number] Thyroid Stimulating Hormone 3. Injury of toe on left foot (S99.922A: Unspecified injury of left foot, initial encounter) pt hit foot of bed the other night. 4th and 5th toes are swollen and red. top of foot is bruised as well. offered foot xray. pt declines x ray at this time. is taking tylenol and elevating it Follow-up No qualifying data available Problem List/Past Medical History Ongoing Arthritis Blood glucose elevated Diverticula of intestine Elevated random blood glucose level History of colon polyps HTN (hypertension) Hypothyroidism Injury of toe on left foot Menorrhagia OA (osteoarthritis) Pure hypercholesterolemia Seborrheic dermatitis Stress incontinence Vitamin D deficiency Historical Arthritis Basal cell carcinoma Cervical dysplasia Degenerative disc disease Diverticular disease Hyperlipidemia Incontinence Menorrhagia Vaginal cyst Procedure/Surgical History Colonoscopy (09/15/2022), Hip replacement (2019), Colonoscopy (01/21/2013), Ganglion cyst of right wrist, Laminectomy, Mohs surgery, Pelvic sling, SANJIV BSO - Total abdominal hysterectomy and bilateral salpingo-oophorectom y, Tonsillectomy and adenoidectomy. Medications B Complex 100 biotin bisoprolol-hydrochlo rothiazide 5 mg-6.25 mg Tab, 1 tab(s), Oral, Daily, 1 refills calcium carbonate 1000 mg oral tablet, chewable Crestor 5 mg Tab, 5 mg, Oral, Daily, 3 refills Fiber Tabs High Potency Probiotic levothyroxine 88 mcg (0.088 mg) Tab, 88 mcg= 1 tab(s), Oral, Daily, 1 refills Multi Vitamin+ Olux Tylenol, 500 mg, Oral, Daily, PRN Vitamin D Allergies Indocin (Unknown) Social History Alcohol 1-2 times per year, 1 drinks/episode average. Household alcohol concerns: No., 09/18/2023 Tobacco Never (less than 100 in lifetime) Tobacco Use:. Never Smokeless Tobacco Use:. Household tobacco concerns: No., 09/26/2023 Family History Diabetes mellitus type 2: Brother. Kidney disease: Sister. Myeloma: Negative: Uncle. Pancreatic cancer: Uncle. Parkinson disease: Brother. Primary malignant neoplasm of female genital organ: Aunt. Thyroid cancer: Sister. Immunizations Vaccine Date Status Comments influenza virus vaccine, inactivated 07/24/2023 Recorded influenza virus vaccine, inactivated 08/24/2022 Recorded SARS-CoV-2 (COVID-19) [id number] 08/11/2022 Recorded influenza virus vaccine, inactivated 07/13/2022 Recorded SARSCoV2 mRNA(tozinamer-eric- sucros) vac 02/16/2022 Recorded SARS-CoV-2 (COVID-19) mRNA BNT-162b2 vax 08/04/2021 Recorded 2023-01-24: [id number] influenza virus vaccine, inactivated 08/02/2021 Recorded SARS-CoV-2 (COVID-19) mRNA BNT-162b2 vax 12/30/2020 Recorded 2023-01-24: [id number] SARS-CoV-2 (COVID-19) mRNA BNT-162b2 vax 12/09/2020 Recorded 2023-01-24: [id number] influenza virus vaccine, inactivated 07/09/2020 Recorded influenza virus vaccine, inactivated 09/03/2019 Recorded influenza virus vaccine, inactivated 08/24/2018 Recorded influenza virus (more content not included)... [facility] Comment on above: Result Comment: Elec tronically Signed By: Bonita Mari\.br\Date and Time Signed: 09/26/23 09:15 EST [id number] 09-26-2023 HbA1c (Bld) [Mass fraction] 6.7 % High <=5.9 [facility] Comment on above: Performed By: #### [id number] ####[facility] [address] [place] [address] TSHon 09-26-2023 TSH Qn 0.56 m[IU]/L Normal 0.34-5.60 [facility] Comment on above: Performed By: #### [id number] ####[facility] [address] [place] [address] CBC AUTO DIFFon 01-25-2023 BASO # 0.1 103/ul Normal 0.0-0.1 [facility] Comment on above: Performed By: #### C BC #### [facility] [address] [address] [address] Felicia Land Basophils/100 WBC (Bld) 1.1 % Normal 0.2-2.0 [facility] Comment on above: Performed By: #### C BC #### [facility] [address] [address] [address] Felicia Land EO # 0.2 103/ul Normal 0.0-0.7 [facility] Comment on above: Performed By: #### C BC #### [facility] [address] [address] [address] Felicia Land Eosinophils/100 WBC (Bld) 2.2 % Normal 0.9-7.0 [facility] Comment on above: Performed By: #### C BC #### [facility] [address] [address] [address] Felicia Land Erythrocyte distribution width (RBC) [Ratio] 13.0 % Normal 11.0-15.0 [facility] Comment on above: Performed By: #### C BC #### [facility] [address] [place] [address] Dr. Felicia Land Hematocrit (Bld) [Volume fraction] 42.6 % Normal 36.0-48.0 [facility] Comment on above: Performed By: #### C BC #### [facility] [address] [place] [address] Dr. Felicia Land Hemoglobin (Bld) [Mass/Vol] 13.3 g/dL Normal 12.0-16.0 [facility] Comment on above: Performed By: #### C BC #### [facility] [address] [place] [address] Dr. Felicia Land IG # 0.01 10e3/ul Normal 0.00-0.03 [facility] Comment on above: Performed By: #### C BC #### [facility] [address] [place] [address] Dr. Felicia Land IG % 0.1 % Normal 0.0-0.5 [facility] Comment on above: Performed By: #### C BC #### [facility] [address] [place] [address] Dr. Felicia Land LYMPH # 3.4 103/ul Normal 1.2-3.8 [facility] Comment on above: Performed By: #### C BC #### [facility] [address] [place] [address] Dr. Felicia Land Lymphocytes/100 WBC (Bld) 40.9 % Normal 20.5-60.0 [facility] Comment on above: Performed By: #### C BC #### [facility] [address] [place] [address] Dr. Felicia Land MANUAL DIFF REQ NO Normal [facility] Comment on above: Performed By: #### C BC #### [facility] [address] [place] [address] Dr. Felicia Land MCH (RBC) [Entitic mass] 26.5 pg Critically low 26.7-34.0 [facility] Comment on above: Performed By: #### C BC #### [facility] [address] [place] [address] Dr. Felicia Land MCHC (RBC) [Mass/Vol] 31.2 g/dL Normal 29.9-35.2 [facility] Comment on above: Performed By: #### C BC #### [facility] [address] [place] [address] Dr. Felicia Land MCV (RBC) [Entitic vol] 85.0 fL Normal 81.0-99.0 [facility] Comment on above: Performed By: #### C BC #### [facility] [address] [address] [address] Felicia Land MONO # 0.7 103/ul Normal 0.3-0.8 [facility] Comment on above: Performed By: #### C BC #### [facility] [address] [place] [address] Dr. Felicia Land Monocytes/100 WBC (Bld) 8.0 % Normal 1.7-12.0 [facility] Comment on above: Performed By: #### C BC #### [facility] [address] [place] [address] Dr. Felicia Land NEUT # 3.9 103/ul Normal 1.4-6.5 [facility] Comment on above: Performed By: #### C BC #### [facility] [address] [place] [address] Dr. Felicia Land Neutrophils/100 WBC (Bld) 47.7 % Normal 43.0-75.0 [facility] Comment on above: Performed By: #### C BC #### [facility] [address] [place] [address] Dr. Felicia Land Platelet mean volume (Bld) [Entitic vol] 10.7 fL Normal 9.5-13.5 [facility] Comment on above: Performed By: #### C BC #### [facility] [address] [place] [address] Dr. Felicia Land PLT 256 103/ul Normal 150-450 [facility] Comment on above: Performed By: #### C BC #### [facility] [address] [place] [address] Dr. Felicia Land RBC 5.01 106/ul Normal 4.20-5.40 [facility] Comment on above: Performed By: #### C BC #### [facility] [address] [place] [address] Dr. Felicia Land WBC 8.2 103/ul Normal 4.0-11.0 [facility] Comment on above: Performed By: #### C BC #### [facility] [address] [place] [address] Dr. Felicia Land FREE T3on 01-25-2023 FREE T3 2.58 pg/mlL Normal 2.18-3.98 [facility] Comment on above: Performed By: #### T SH, LIPID, FT3, CMP #### [facility] [address] [place] [address] Dr. Felicia Land FREE T4on 01-25-2023 Free T4 [Mass/Vol] 1.07 ng/dL Normal 0.76-1.46 [facility] Comment on above: Performed By: #### F T4 #### [facility] [address] [place] [address] Dr. Felicia Land LIPID PROFILEon 01-25-2023 CHOL-HDL RATIO NORM SEE BELOW Normal [facility] Comment on above: Result Comment: 3.3 - 4.4 LOW RISK 4.4 - 7.1 AVERAGE RISK 7.1 - 11.0 MODERATE RISK >11.0 HIGH RISK Performed By: #### T SH, LIPID, FT3, CMP #### [facility] [address] [place] [address] Dr. Felicia Land Cholesterol [Mass/Vol] 186 mg/dL Normal <=200 [facility] Comment on above: Performed By: #### T SH, LIPID, FT3, CMP #### [facility] [address] [place] [address] Dr. Felicia Land Cholesterol in HDL [Mass/Vol] 47 mg/dL Normal 40-60 [facility] Comment on above: Performed By: #### T SH, LIPID, FT3, CMP #### [facility] [address] [place] [address] Dr. Felicia Land Cholesterol in LDL [Mass/Vol] 103.8 mg/dL Normal [facility] Comment on above: Performed By: #### T SH, LIPID, FT3, CMP #### [facility] [address] [place] [address] Dr. Felicia Land Cholesterol.total/C holesterol in HDL [Mass ratio] 4.0 {ratio} Normal [facility] Comment on above: Performed By: #### T SH, LIPID, FT3, CMP #### [facility] [address] [place] [address] Dr. Felicia Land HDL NORMAL > or = 60 mg/dl - LOW CARDIOVASCULAR RISK <40 mg/dl - HIGH CARDIOVASCULAR RISK Normal [facility] Comment on above: Performed By: #### T SH, LIPID, FT3, CMP #### [facility] [address] [place] [address] Dr. Felicia Land LDL CALC NORMAL SEE BELOW Normal [facility] Comment on above: Result Comment: <100 mg/dl OPTIMAL 100 - 129 mg/dl NEAR OR ABOVE OPTIMAL 130 - 159 mg/dl BORDERLINE HIGH 160 - 189 mg/dl HIGH >190 mg/dl VERY HIGH Performed By: #### T SH, LIPID, FT3, CMP #### [facility] [address] [place] [address] Dr. Felicia Land Triglyceride [Mass/Vol] 176 mg/dL Critically high <=150 [facility] Comment on above: Performed By: #### T SH, LIPID, FT3, CMP #### [facility] [address] [place] [address] Dr. Felicia Land VLDL CALC 35.2 mg/dL Normal [facility] Comment on above: Performed By: #### T SH, LIPID, FT3, CMP #### [facility] [address] [place] [address] Dr. Felicia Land PROF 14(COMP METB)on 023 Albumin [Mass/Vol] 3.8 g/dL Normal 3.4-5.0 [facility] Comment on above: Performed By: #### T SH, LIPID, FT3, CMP #### [facility] [address] [place] [address] Dr. Felicia Land Albumin/Globulin [Mass ratio] 1.0 {ratio} Normal [facility] Comment on above: Performed By: #### T SH, LIPID, FT3, CMP #### [facility] [address] [place] [address] Dr. Felicia Land ALP [Catalytic activity/Vol] 83 U/L Normal 46-116 [facility] Comment on above: Performed By: #### T SH, LIPID, FT3, CMP #### [facility] [address] [place] [address] Dr. Felicia Land ALT [Catalytic activity/Vol] 28 U/L Normal 14-59 [facility] Comment on above: Performed By: #### T SH, LIPID, FT3, CMP #### [facility] [address] [place] [address] Dr. Felicia Land Anion gap [Moles/Vol] 13.9 mmol/L Normal [facility] Comment on above: Performed By: #### T SH, LIPID, FT3, CMP #### [facility] [address] [place] [address] Dr. Felicia Land AST [Catalytic activity/Vol] 30 U/L Normal 15-37 [facility] Comment on above: Performed By: #### T SH, LIPID, FT3, CMP #### [facility] [address] [place] [address] Dr. Felicia Land Bilirubin [Mass/Vol] 0.6 mg/dL Normal 0.2-1.0 [facility] Comment on above: Performed By: #### T SH, LIPID, FT3, CMP #### [facility] [address] [place] [address] Dr. Felicia Land Calcium [Mass/Vol] 9.5 mg/dL Normal 8.5-10.1 [facility] Comment on above: Performed By: #### T SH, LIPID, FT3, CMP #### [facility] [address] [place] [address] Dr. Felicia Land Chloride [Moles/Vol] 103 mmol/L Normal 98-107 [facility] Comment on above: Performed By: #### T SH, LIPID, FT3, CMP #### [facility] [address] [place] [address] Dr. Felicia Land CO2 [Moles/Vol] 28.3 mmol/L Normal 21.0-32.0 [facility] Comment on above: Performed By: #### T SH, LIPID, FT3, CMP #### [facility] [address] [place] [address] Dr. Felicia Land Creatinine [Mass/Vol] 0.58 mg/dL Normal 0.55-1.02 [facility] Comment on above: Performed By: #### T SH, LIPID, FT3, CMP #### [facility] [address] [place] [address] Dr. Felicia Land EGFR-AF RWANDAN >60 Normal >=60 [facility] Comment on above: Performed By: #### T SH, LIPID, FT3, CMP #### [facility] [address] [place] [address] Dr. Felicia Land EGFR-NON AF RWANDAN >60 Normal >=60 [facility] Comment on above: Performed By: #### T SH, LIPID, FT3, CMP #### [facility] [address] [place] [address] Dr. Felicia Land Globulin (S) [Mass/Vol] 3.8 g/dL Normal [facility] Comment on above: Performed By: #### T SH, LIPID, FT3, CMP #### [facility] [address] [place] [address] Dr. Felicia Land Glucose [Mass/Vol] 130 mg/dL Critically high 74-106 [facility] Comment on above: Performed By: #### T SH, LIPID, FT3, CMP #### [facility] [address] [place] [address] Dr. eFlicia Land Potassium [Moles/Vol] 4.2 mmol/L Normal 3.5-5.1 [facility] Comment on above: Performed By: #### T SH, LIPID, FT3, CMP #### [facility] [address] [place] [address] Dr. Felicia Land Protein [Mass/Vol] 7.6 g/dL Normal 6.4-8.2 [facility] Comment on above: Performed By: #### T SH, LIPID, FT3, CMP #### [facility] [address] [address] [address] Felicia Land Sodium [Moles/Vol] 141 mmol/L Normal 136-145 [facility] Comment on above: Performed By: #### T SH, LIPID, FT3, CMP #### [facility] [address] [place] [address] Dr. Felicia Land Urea nitrogen [Mass/Vol] 12.0 mg/dL Normal 7.0-18.0 [facility] Comment on above: Performed By: #### T SH, LIPID, FT3, CMP #### [facility] [address] [place] [address] Dr. Felicia Land Urea nitrogen/Creatinine [Mass ratio] 20.7 mg/mg Normal [facility] Comment on above: Performed By: #### T SH, LIPID, FT3, CMP #### [facility] [address] [place] [address] Dr. Felicia Land TSHon 01-25-2023 TSH 0.742 uIU/mL Normal 0.358-3.740 [facility] Comment on above: Performed By: #### T SH, LIPID, FT3, CMP #### [facility] [address] [place] [address] Dr. Felicia Land HPV DNA High Riskon 08-04-20 22 HPV Interp Normal [facility] Comment on above: Result Comment: This test amplifies and detects DNA of 14 high-risk HPV types associated with cervical cancer and its precursor lesions (HPV types 16,18, 31, 33, 35, 39, 45, 51, 52, 56, 58, 59, 66, and 68). Sensitivity may be affected by specimen collection methods, stage of infection, and the presence of interfering substances. Results should be interpreted in conjunction with other available laboratory and clinical data. A negative high-risk HPV result does not exclude the possibility of future cytologic HSIL or underlying CIN2-3 or cancer. This test is intended for medical purposes only and is not valid for the evaluation of suspected sexual abuse or for other forensic purposes. Performed By: #### H PVH #### [address] [address] Regulator Pin Inserter: Isac Saxena MD HPV Type 16 Not detected Normal [facility] Comment on above: Performed By: #### H PVH #### [address] [address] Regulator Pin Inserter: Isac Saxena MD HPV Type 18 Not detected Normal [facility] Comment on above: Performed By: #### H PVH #### [address] [address] Regulator Pin Inserter: Isac Saxena MD Other High Risk HPV Detected Abnormal [facility] Comment on above: Performed By: #### H PVH #### [address] [address] Regulator Pin Inserter: Isac Saxena MD HPV DNA High Riskon 08-01-20 22 HPV Sample .THIN PREP [facility] Comment on above: Performed By: #### H PVH #### [address] [address] Regulator Pin Inserter: Isac Saxena MD Source .VAGINAL SPECIMEN Normal [facility] Comment on above: Performed By: #### H PVH #### [address] [address] Regulator Pin Inserter: Isac Saxena MD Cytologyon 07-21-2022 Cytology (NOTE) INTERPRETATION Vaginal material, (ThinPrep vial, Imaging-assisted review): Specimen Adequacy: Satisfactory for evaluation. Descriptive Diagnosis: High-grade squamous intraepithelial lesion (HSIL). Form Maker: PHOENIX Mancera D.O. Electronically Signed Out formerly [facility]/08/01/2022 Procedure/Addendum HPV Procedure Report Date Ordered: 08/01/2022 Status: Signed Out Date Complete: 08/04/2022 By: System Interface Date Reported: 08/04/2022 Sample: HPV Type 16 Result: Not Detected Ref Range: (Not Detected) Sample: HPV Type 18 Result: Not Detected Ref Range: (Not Detected) Sample: Other High Risk HPV Result: DETECTED Ref Range: (Not Detected) Sample: HPV Interp Result: Ref Range: (Not Detected) This test amplifies and detects DNA of 14 high-risk HPV types associated with cervical cancer and its precursor lesions (HPV types 16,18, 31, 33, 35, 39, 45, 51, 52, 56, 58, 59, 66, and 68). Sensitivity may be affected by specimen collection methods, stage of infection, and the presence of interfering substances. Results should be interpreted in conjunction with other available laboratory and clinical data. A negative high-risk HPV result does not exclude the possibility of future cytologic HSIL or underlying CIN2-3 or cancer. This test is intended for medical purposes only and is not valid for the evaluation of suspected sexual abuse or for other forensic purposes. 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 without abnormal findings High risk HPV DNA testing is requested if the diagnosis is abnormal GYNECOLOGIC CYTOLOGY REPORT Patient Name: GABY BARBOUR [facility] Rec: [id number] Path Number: [id number] [facility] ANATOMIC PATHOLOGY [address] [place] [id number] [facility] Comment on above: Performed By: #### P PPVP #### [facility] [address] [place] [id number] Regulator Pin Inserter: Isac Saxena MD MG MAMM SCREEN 3D [facility]IAN[facility] CADon 06-09-2022 MG MAMM SCREEN 3D CHRISTIANO CAD Patient: GABY BARBOUR Exam Date: 06/09/2022 : 1950 Gender:F Ordering : DR JOSE A YU Admission #: [id number] Family : DR MARNIE BURNETT . Order #: [id number] CLICK HERE TO VIEW EXAM RADIOLOGY REPORT PROCEDURE: MAMMOGRAM SCREENING 3D BILATERAL CAD COMPARISON: MG MAMM SCREEN 3D CHRISTIANO CAD, 06/04/2021. MG MAMM SCREEN CHRISTIANO W CAD, 06/02/2020. INDICATIONS: Screening mammography Calculator Name NCI Breast Cancer Risk Assessment Tool 5 Year Breast Cancer Risk 2.00% Lifetime Breast Cancer Risk 5.30% Personal Breast Cancer No Personal Ovarian Cancer No Treatments None Family Cancers Aunt-paternal with ovaria cancer at age 60; Uncle-paternal with pancreatic cancer at age 70. LOCATION: [facility] BREAST COMPOSITION: Scattered areas fibroglandular density. FINDINGS: DIAGNOSTIC CATEGORY 1--NEGATIVE. RIGHT BREAST: No significant suspicious finding. No significant change has occurred. LEFT BREAST: No significant suspicious finding. No significant change has occurred. RECOMMENDATIONS: ROUTINE MAMMOGRAM AND CLINICAL EVALUATION IN 12 MONTHS. PLEASE NOTE: A NORMAL MAMMOGRAM DOES NOT EXCLUDE THE POSSIBILITY OF BREAST CANCER. A CLINICALLY SUSPICIOUS PALPABLE LUMP SHOULD BE BIOPSIED. Dictated by: Cuate Geronimo M.D. on 06/10/2022 at 10:03 Approved by: Cuate Geronimo M.D. on 06/10/2022 at 10:07 Normal [facility] CNOVon 08-18-2021 CN Office Visit ([facility]) GABY BARBOUR ([id number]) 1950 F Date Time Provider Department 08/18/21 9:45 AM [facility] FIN[facility] During your visit today, we recorded the following information about you: Che Finney Jr, MD 08/18/2021 10:07 AM Signed HISTORY: Gaby is a 71 year old female. She is 6 months status post left total hip arthroplasty. She states she has no pain. She gets occasional burning along the incision. Her pain is much better than before surgery. PAST MEDICAL HISTORY Diagnosis Date - Arthritis Patient underwent elective left hip total replacement 03/16/2021 - Essential hypertension - Female stress incontinence Doing well after bladder suspension surgery - Other hyperlipidemia - Other specified hypothyroidism PAST SURGICAL HISTORY Procedure Laterality Date - LAMINECTOMY,LUMBAR 2016 - LIGATE FALLOPIAN TUBE 1976 - PAST SURGICAL HISTORY OF 1977 ganglion cyst - SLING OPER STRES INCONTINENCE 2003 - TOTAL ABDOM HYSTERECTOMY 07/2019 - TOTAL HIP REPLACEMENT Left 03/16/2021 Medications reviewed. ALLERGIES No Known Allergies Social History Tobacco Use - Smoking status: Never Smoker - Smokeless tobacco: Never Used Substance Use Topics - Alcohol use: Not Currently - Drug use: Not Currently PHYSICAL EXAMINATION: Vitals: There were no vitals taken for this visit. PSYCH: Pleasant, good affect and mood General Appearance: Well appearing, alert, in no acute distress, well-hydrated, well nourished.. There is no tenderness to palpation about the scar on the left. She has no pain with left hip flexion, internal or external rotation. She has 5/5 strength with hip flexion and hip abduction on the left. She has intact ankle dorsiflexion and plantarflexion on the left. RADIOGRAPHS: None today IMPRESSION: Encounter Diagnosis ICD-10-CM 1. S/P hip replacement, left, 03-16-21 Z96.642 Amoxicillin 500 mg tablet Procedure: None. Plan: She has upcoming dental work and I sent a prophylactic antibiotic to her pharmacy. She should be seen yearly for follow-up for recheck and x-rays, sooner if there is any problems. Che Finney Jr, MD Referring Provider: ERIC HAMILTON [[id number]] Allergies As of Date: 08/18/2021 (No Known Allergies) Date Reviewed: 08/18/2021 Reviewed by: Lachelle Peterson Ma - Fully Assessed Reason for Visit: New [[id number]] Primary Visit Diagnosis:S/P hip replacement, left, 03-16-21 [Z96.642] Order(s):Amoxicillin 500 mg tabletTake 4 tablets (2 g). One hour prior to procedureDisp: 4 tabletRfl: 2 Prescriptions as of 08/18/2021 - Amoxicillin 500 mg tablet Take 4 tablets (2 g). One hour prior to procedure - acetaminophen (TYLENOL) 500 mg tablet Take 2 tablets by mouth every 8 hours. - ascorbic acid, vitamin C, (VITAMIN C) 500 mg tablet Take 1 tablet by mouth twice daily with meals for 28 doses. - aspirin, enteric coated (ECOTRIN LOW STRENGTH) 81 mg EC tablet Take 1 tablet by mouth twice daily. - HYDROcodone-Acetamin ophen (VICODIN) 5-300 mg tab Take 1 tablet by mouth every 8 hours as needed. - levothyroxine (SYNTHROID) 88 mcg tablet - bisoprolol-hydroCHLO ROthiazide (ZIAC) 5-6.25 mg per tablet Take 1 tablet by mouth once daily. - rosuvastatin (CRESTOR) 5 mg tablet Take 5 mg by mouth once daily. - calcium carbonate-mag hydroxid 1,000-200 mg chew Take by mouth. - Magnesium 250 mg tab Take 250 mg by mouth. - biotin 1 mg cap Take by mouth. - MULTI-VITAMIN ORAL Take by mouth. - vitamin B complex (B COMPLEX 1 ORAL) Take by mouth. - Lactobac no.41/Bifidobact no.7 (PROBIOTIC-10 ORAL) Take by mouth. Meds Comments as of 02/26/2021: 12/09/20 12/30/20 ELIKE fully covid vaccinated. Problem List As Of Date 08/18/2021 Noted Resolved Essential hypertension [I10] 02/26/2021 Other hyperlipidemia [E78.49] 02/26/2021 Acute respiratory failure with hypoxia (HCC) [J*03/18/2021 03/22/2021 Lab test positive for detection of COVID-19 vir*03/18/2021 Aspiration pneumonia of both lungs (HCC) [J69.0]03/18/2021 Elevated lactic acid level [R79.89] 03/18/2021 03/21/2021 Elevated troponin [R77.8] 03/18/2021 03/21/2021 Elevated brain natriuretic peptide (BNP) level *03/18/2021 Hyperglycemia [R73.9] 03/18/2021 03/21/2021 Status post left hip replacement [Z96.642] 03/18/2021 Acquired hypothyroidism [E03.9] C/f of HERMILO (obstructive sleep apnea) [G47.33] 03/18/2021 Hypophosphataemia [E83.39] 03/19/2021 03/21/2021 Obesity, Class I, BMI 30-34.9 [E66.9] 03/19/2021 Prescriptions ordered this encounter Disp Refills Start End AMOXICILLIN 500 MG TABLET 4 ta* 2 08/18/2021 09/01/2021 Sig: Take 4 tablets (2 g). One hour prior to procedure Encounter Status:Closed by CHE FINNEY on 08/18/21 [facility] CNOVon 05-04-2021 [facility] ([id number]) 1950 F Date Time Provider Department 05/04/21 10:30 AM ERIC HAMILTON During your visit today, we recorded the following information about you: Eric Hamilton MD 05/04/2021 10:42 AM Signed Ortho Hip Follow Up Note Narrative Referring Provider: Eric Hamilton [address] [facility] [address] PCP: Marnie Burnett MD ===== IMPRESSION/PLAN: Impressions indicate: ===== 71 year old s/p Left Total Hip Replacement completed on 03-16-21. IMPRESSION: Excellent early outcomes. PLAN: No new treatment indicated: Routine follow-up. Patient Reassurance: Normal post-operative course discussed with patient. Follow up 4 months No X-Rays Needed ACTIVE PROBLEM LIST Essential Hypertension Other Hyperlipidemia Lab Test Positive for Detection of Covid-19 Virus Aspiration Pneumonia of Both Lungs (Hcc) Elevated Brain Natriuretic Peptide (Bnp) Level Status Post Left Hip Replacement Acquired Hypothyroidism C/f of HERMILO (obstructive sleep apnea) Obesity, Class I, Bmi 30-34.9 HPI: Gaby Km presents today for an intermediate post-op visit. STATUS POST: Left Total Hip Replacement BMI: There is no height or weight on file to calculate BMI. Post operative recovery was complicated by uneventful/none. Patient rates their condition as improving. Does the patient still experience pain? No. Post Op discharge patient location: in home. Functional Assessment is as follows: has already started outpatient PT as of this visit. Functional difficulties: None. Pain Medication: None EXAM: POST OP HIP LEFT POST-OPERATIVE HIP SKIN: Appropriate postop appearance and No evidence of erythema, warmth, discharge or drainage. Range of Motion: Pain Free Neurovascular Status: Sensation Intact, Moves foot and ankle up AND down and 2+ dorsalis pedis IMAGING: X-ray Hips: Post op None today. Provider: Eric Hamilton MD Completed by: Eric Hamilton MD Referring Provider: ERIC HAMILTON [[id number]] Allergies As of Date: 05/04/2021 (No Known Allergies) Date Reviewed: 05/04/2021 Reviewed by: Eric Hamilton MD - Fully Assessed Reason for Visit: Follow Up [171] Cmt: Total hip on 03-16-21 Post Op [174] Cmt: Total hip on 03-16-21 Hip Replacement [324] Cmt: Total hip on 03-16-21 Primary Visit Diagnosis:S/P hip replacement, left, 03-16-21 [Z96.642] Prescriptions as of 05/04/2021 Sig: ACETAMINOPHEN 500 MG TABLET Take 2 tablets by mouth every* ASCORBIC ACID (VITAMIN C) 500* Take 1 tablet by mouth twice * ASPIRIN 81 MG TABLET,DELAYED * Take 1 tablet by mouth twice * HYDROCODONE 5 MG-ACETAMINOPHE* Take 1 tablet by mouth every * LEVOTHYROXINE 88 MCG TABLET BISOPROLOL 5 MG-HYDROCHLOROTH* Take 1 tablet by mouth once d* ROSUVASTATIN 5 MG TABLET Take 5 mg by mouth once daily. CALCIUM CARBONATE 1,000 MG-MA* Take by mouth. MAGNESIUM 250 MG TABLET Take 250 mg by mouth. BIOTIN 1 MG CAPSULE Take by mouth. MULTI-VITAMIN ORAL Take by mouth. B COMPLEX 1 ORAL Take by mouth. PROBIOTIC-10 ORAL Take by mouth. Problem List As Of Date 05/04/2021 Noted Resolved Essential hypertension [I10] 02/26/2021 Other hyperlipidemia [E78.49] 02/26/2021 Acute respiratory failure with hypoxia (HCC) [J*03/18/2021 03/22/2021 Lab test positive for detection of COVID-19 vir*03/18/2021 Aspiration pneumonia of both lungs (HCC) [J69.0]03/18/2021 Elevated lactic acid level [R79.89] 03/18/2021 03/21/2021 Elevated troponin [R77.8] 03/18/2021 03/21/2021 Elevated brain natriuretic peptide (BNP) level *03/18/2021 Hyperglycemia [R73.9] 03/18/2021 03/21/2021 Status post left hip replacement [Z96.642] 03/18/2021 Acquired hypothyroidism [E03.9] C/f of HERMILO (obstructive sleep apnea) [G47.33] 03/18/2021 Hypophosphataemia [E83.39] 03/19/2021 03/21/2021 Obesity, Class I, BMI 30-34.9 [E66.9] 03/19/2021 Encounter Status:Closed by ERIC HAMILTON on 05/04/21 [facility] CNOVon 03-31-2021 CNOV Office Visit ([facility]) GABY BARBOUR ([id number]) 1950 F Date Time Provider Department 03/31/21 10:45 AM ERIC HAMILTON During your visit today, we recorded the following information about you: Eric Hamilton MD 03/31/2021 11:06 AM Signed Ortho Hip Follow Up Note Narrative Referring Provider: Eric Hamilton [address] [facility] [address] PCP: Marnie Burnett MD ===== IMPRESSION/PLAN: Impressions indicate: ===== 70 year old s/p left Total Hip Replacement completed on 03/16/21. IMPRESSION: Excellent early outcomes. and aspiation pneumonia post op PLAN: No new treatment indicated: Routine follow-up. Patient Reassurance: Normal post-operative course discussed with patient. Follow up 4 weeks No X-Rays Needed ACTIVE PROBLEM LIST Essential Hypertension Other Hyperlipidemia Lab Test Positive for Detection of Covid-19 Virus Aspiration Pneumonia of Both Lungs (Hcc) Elevated Brain Natriuretic Peptide (Bnp) Level Status Post Left Hip Replacement Acquired Hypothyroidism C/f of HERMILO (obstructive sleep apnea) Obesity, Class I, Bmi 30-34.9 HPI: Gaby Barbour presents today for a routine 1st post-op visit. STATUS POST: left total Hip Replacement BMI: There is no height or weight on file to calculate BMI. Post operative recovery was complicated by aspiration pneumonia. Patient rates their condition as improving. Does the patient still experience pain? Onset: 03-16-21. Location: Right hip: Groin. Frequency: intermittently. Pain scale: 3. Pain character: soreness. Relieving factors: Rest, Ice, Sitting and Cane. Aggravating factors: Increased activity. Post Op discharge patient location: in home. Functional Assessment is as follows: having home therapy . Functional difficulties: Interferes with sleep. Pain Medication: Non-narcotic EXAM: POST OP HIP LEFT POST-OPERATIVE HIP SKIN: Appropriate postop appearance and No evidence of erythema, warmth, discharge or drainage. Range of Motion: Pain Free Neurovascular Status: Sensation Intact, Moves foot and ankle up AND down and 2+ dorsalis pedis IMAGING: X-ray Hips: Post op Implants are well fixed. and There is no evidence of loosening. Provider: Eric Hamilton MD Completed by: Eric Hamilton MD Referring Provider: ERIC HAMILTON [[id number]] Allergies As of Date: 03/31/2021 (No Known Allergies) Date Reviewed: 03/31/2021 Reviewed by: Erci Hamilton MD - Fully Assessed Reason for Visit: Follow Up [171] Cmt: Total hip on 03-16-21 Hip Replacement [324] Cmt: Total hip on 03-16-21 Primary Visit Diagnosis:S/P hip replacement, left, 03-16-21 [Z96.642] Order(s):CONSULT TO PHYSICAL THERAPY [9032] Order #: [id number]: 1 FUTURE Prescriptions as of 03/31/2021 Sig: ACETAMINOPHEN 500 MG TABLET Take 2 tablets by mouth every* ASCORBIC ACID (VITAMIN C) 500* Take 1 tablet by mouth twice * FERROUS SULFATE 325 MG (65 MG* Take 1 tablet by mouth daily * OXYCODONE 5 MG TABLET Take 1-2 tablets po every 4-6* DOCUSATE SODIUM 100 MG CAPSULE Take 1 capsule by mouth twice* ASPIRIN 81 MG TABLET,DELAYED * Take 1 tablet by mouth twice * HYDROCODONE 5 MG-ACETAMINOPHE* Take 1 tablet by mouth every * LEVOTHYROXINE 88 MCG TABLET BISOPROLOL 5 MG-HYDROCHLOROTH* Take 1 tablet by mouth once d* ROSUVASTATIN 5 MG TABLET Take 5 mg by mouth once daily. CALCIUM CARBONATE 1,000 MG-MA* Take by mouth. MAGNESIUM 250 MG TABLET Take 250 mg by mouth. BIOTIN 1 MG CAPSULE Take by mouth. MULTI-VITAMIN ORAL Take by mouth. B COMPLEX 1 ORAL Take by mouth. PROBIOTIC-10 ORAL Take by mouth. Problem List As Of Date 03/31/2021 Noted Resolved Essential hypertension [I10] 02/26/2021 Other hyperlipidemia [E78.49] 02/26/2021 Acute respiratory failure with hypoxia (HCC) [J*03/18/2021 03/22/2021 Lab test positive for detection of COVID-19 vir*03/18/2021 Aspiration pneumonia of both lungs (HCC) [J69.0]03/18/2021 Elevated lactic acid level [R79.89] 03/18/2021 03/21/2021 Elevated troponin [R77.8] 03/18/2021 03/21/2021 Elevated brain natriuretic peptide (BNP) level *03/18/2021 Hyperglycemia [R73.9] 03/18/2021 03/21/2021 Status post left hip replacement [Z96.642] 03/18/2021 Acquired hypothyroidism [E03.9] C/f of HERMILO (obstructive sleep apnea) [G47.33] 03/18/2021 Hypophosphataemia [E83.39] 03/19/2021 03/21/2021 Obesity, Class I, BMI 30-34.9 [E66.9] 03/19/2021 Encounter Status:Closed by ERIC HAMILTON on 03/31/21 [facility] XR HIP 3V PELV+ AP/LAT LTon 03-31-2021 XR HIP 3V PELV+ AP/LAT LT * * *Final Report* * * DATE OF EXAM: Mar 31 2021 10:48AM SVX 5351 - XR HIP 3V PELV+ AP/LAT LT / PROCEDURE REASON: S/P hip replacement, left * * * * Physician Interpretation * * * * EXAMINATION: XR HIP 3V PELV+ AP/LAT LT Clinical history: S/P hip replacement, left RESULT: Comparison is made to March 16 A left total hip prosthesis is seen. There is normal acetabular inclination. No periprosthetic fracture or abnormal lucency. IMPRESSION: Normal postoperative appearance left hip Fashion Model: PSCB Transcribe Date/Time: Mar 31 2021 11:06A Dictated by : SANJAY MUÑOZ MD This examination was interpreted and the report reviewed and electronically signed by: SANJAY MUÑOZ MD on Mar 31 2021 11:06AM EST [id number] [facility] CNPNon 03-29-2021 CNPN Telephone (PODCCP) GABY BARBOUR ([id number]) 1950 F Date Time Provider Department 03/29/21 FORTINO CHRISTIANSON During your visit today, we recorded the following information about you: Fortino Christianson RN 03/29/2021 10:00 AM Signed PATIENT INFORMATION Record ID: [id number] Patient Name: Gaby Hallnmluana [facility]: [facility] [place]: [facility] Attending: Migdalia Stokes Center: [facility] Medicine INSTRUCTIONS MA to remind patient of appointment date, time, location SURVEY INFORMATION Medical/Nurse Milk Route Deliverer: Fortino Christianson 1. Your discharge instructions are important in guiding you through the recovery process. Is there anything I could help you clarify on your discharge instructions? (Standard Question) No 2. Do you have a follow up appointment related to your hospital stay scheduled within the next 30 days? (Standard Question) Yes 3. Many patients have concerns about their medications once they are home. Do you have any questions about getting or taking your medications? (Standard Question) No 4. Do you have any new or different symptoms? (Standard Question) No Allergies As of Date: 03/29/2021 (No Known Allergies) Date Reviewed: 03/22/2021 Reviewed by: Kelly Mendoza RN - Fully Assessed Reason for Visit: Follow Up Phone Call [9832] Cmt: All Clear. Prescriptions as of 03/29/2021 Sig: ACETAMINOPHEN 500 MG TABLET Take 2 tablets by mouth every* ASCORBIC ACID (VITAMIN C) 500* Take 1 tablet by mouth twice * ASPIRIN 81 MG TABLET,DELAYED * Take 1 tablet by mouth twice * HYDROCODONE 5 MG-ACETAMINOPHE* Take 1 tablet by mouth every * LEVOTHYROXINE 88 MCG TABLET BISOPROLOL 5 MG-HYDROCHLOROTH* Take 1 tablet by mouth once d* ROSUVASTATIN 5 MG TABLET Take 5 mg by mouth once daily. CALCIUM CARBONATE 1,000 MG-MA* Take by mouth. MAGNESIUM 250 MG TABLET Take 250 mg by mouth. BIOTIN 1 MG CAPSULE Take by mouth. MULTI-VITAMIN ORAL Take by mouth. B COMPLEX 1 ORAL Take by mouth. PROBIOTIC-10 ORAL Take by mouth. Problem List As Of Date 03/29/2021 Noted Resolved Essential hypertension [I10] 02/26/2021 Other hyperlipidemia [E78.49] 02/26/2021 Acute respiratory failure with hypoxia (HCC) [J*03/18/2021 03/22/2021 Lab test positive for detection of COVID-19 vir*03/18/2021 Aspiration pneumonia of both lungs (HCC) [J69.0]03/18/2021 Elevated lactic acid level [R79.89] 03/18/2021 03/21/2021 Elevated troponin [R77.8] 03/18/2021 03/21/2021 Elevated brain natriuretic peptide (BNP) level *03/18/2021 Hyperglycemia [R73.9] 03/18/2021 03/21/2021 Status post left hip replacement [Z96.642] 03/18/2021 Acquired hypothyroidism [E03.9] C/f of HERMILO (obstructive sleep apnea) [G47.33] 03/18/2021 Hypophosphataemia [E83.39] 03/19/2021 03/21/2021 Obesity, Class I, BMI 30-34.9 [E66.9] 03/19/2021 Encounter Status:Closed by FORTINO CHRISTIANSON on 03/29/[address] [facility] 03-22-2021 [facility] HNO ID: [id number] Author: Luz Maria Hernandez APRN.RIB PULLER Service: Hospital Medicine Author Type: Nurse Practitioner Type: Discharge Summary Filed: 03/22/2021 1:22 PM Note Text: Attestation signed by Migdalia Stokes MD at 03/26/2021 1:46 PM [facility] STAFF PHYSICIAN NOTE OF PERSONAL INVOLVEMENT IN CARE I have reviewed the discharge note obtained and documented by Luz Maria Hernandez CNP . I have explored in detail the HPI and ROS. I have discussed the case and management of the patient's care with Luz Maria Hernandez APRN.CNP . I have reviewed available labs, and my exam and A/P are in agreement with the documentation above. Total time spent was more than 30 minutes with more than 50% time spent in direct face to face and co-oordination of care. Migdalia Stokes MD [facility] [id number] DISCHARGE SUMMARY PATIENT NAME: Gaby Barbour ADMISSION DATE: 03/18/2021 DISCHARGE DATE: 03/22/2021 ATTENDING PHYSICIAN: Migdalia Stokes Code Status: Not on file Highest Readmission Risk Score: 15 The 30 day readmissions risk score is derived from an internally validated risk model which evaluates patient level characteristics, utilization history, medication orders and lab results up until the day of discharge. Patients with a score of 40 or above are considered highest risk for readmission. Specific patient level drivers will be listed at the bottom of the summary. CONSULTING TEAMS DURING HOSPITALIZATION: Infectious Disease Treatment Team: Attending Provider: Migdalia Stokes MD Primary Service: [facility] Nurse Practitioner: Luz Maria Hernandez APRN.CNP REASON FOR HOSPITALIZATION: Hypoxia DIAGNOSIS: Principal Problem (Resolved): Acute respiratory failure with hypoxia (HCC) Active Problems: Lab test positive for detection of COVID-19 virus Aspiration pneumonia of both lungs (HCC) Elevated brain natriuretic peptide (BNP) level Status post left hip replacement Acquired hypothyroidism C/f of HERMILO (obstructive sleep apnea) Essential hypertension Other hyperlipidemia Obesity, Class I, BMI 30-34.9 Resolved Problems: Elevated lactic acid level Elevated troponin Hyperglycemia Hypophosphataemia OPERATIONS DURING HOSPITALIZATION: None PROCEDURES DURING HOSPITALIZATION: XR CHEST 1V FRONTAL PORT 03/19/2021 Final Result IMPRESSION: Lines, tubes, and devices: ?None. Lungs and pleura: ?Partial atelectasis is seen along the medial bases. ? Prominence of the lung markings bilaterally could be due to crowded vessels given the low lung volume. Underlying mild interstitial edema or inflammation cannot be entirely excluded. ?No significant pleural effusion or pneumothorax. Cardiomediastinal silhouette: ?Heart is within normal. ?Thoracic aorta is mildly tortuous. Other: ?Mild generalized osteopenia. HOSPITAL COURSE: Gaby Barbour is a 70 year-old female?with a PMH significant for HTN, HLD, hypothyroidism and arthritis who underwent L THR 03/16/21 who developed significant hypoxemia, SOB and light-headedness one day after discharge from hip surgery. She initially presented to an OSH ([place], [place]) where she tested positive for Covid-19 by PCR and was found to have an elevated HS FREDIS (200>>138). Despite elevated FREDIS, she had no s/s to suggest ischemia, infarction, or HF. Symptoms, imaging, and leukocytosis suggest aspiration pneumonia. Of note, patient is fully immunized against Covid as of January 2021. She did have a pre-op Covid testing on 03/14 that was negative. She received one dose of Remdesivir and dexamethasone and then was transferred to [facility]. [facility] she required 3L NC to maintain saturations, but was otherwise stable and afebrile. Repeat rapid COVID at [facility] was negative. She was started on Vanc/Zosyn for possible PNA. Infectious Disease was consulted and modified antibiotic regimen to Unasyn for aspiration PNA. ID recommended no covid treatment. Cardiology curbsided for opinion re: OSH elevated troponin and NTproBNP elevated at 1346. Cardiology advised cycle troponin T (neg x 4) and obtain ECHO, which demonstrated EF 54%, dd1, no valvular or wall motion abnormalities. Supplemental oxygen was weaned and pt remained stable. Repeat COVID (3rd test) at [facility] was negative. Unasyn switched to augmentin and she completed her antibiotic therapy. She was discharged in stable condition with HHC/home PT. Transitions of Care Critical Issues: IMAGING FOLLOW-UP: none LAB MONITORING NEEDED: none SPECIALIST FOLLOW-UP: Orthopedics RAMIREZ MEDICATION CHANGES: none LABS AND PROCEDURES PENDING AT DISCHARGE: No pending results. PATIENT CONDITION AT DISCHARGE: Stable DISCHARGE DISPOSITION: Home with Home Health Care Discharge Physical Exam: VITAL SIGNS: BP 153/68 Pulse 64 Temp 36.5 ?C (97.7 ?F) (Oral) Re (more content not included)... [facility] NURSING PROGon 03-22-2021 NURSING PROG HNO ID: [id number] Author: Kelly Mendoza RN Service: ? Author Type: Registered Nurse Type: Nursing Progress Note Filed: 03/23/2021 9:57 AM Note Text: Nursing Progress Note Patient Name: Gaby Barbour Patient Location: [place] [address] Patient discharged home in stable condition. Actions taken: Patient belongings returned to patient, discharge packet went over with patient. This note was completed by: Kelly Mendoza [facility] THERAPY NTon 03-22-2021 THERAPY NT HNO ID: [id number] Author: Yanely Taveras OTR/L Service: Occupational Therapy Author Type: Occupational Therapist Type: Therapy (PT/OT/Speech/Resp) Filed: 03/22/2021 10:54 AM Note Text: Occupational Therapy Treatment SERVICE DATE: 03/22/2021 SERVICE TIME: 1030 to 1047 ROOM: [place] [address] Recommended Discharge Disposition: Home OT Anticipated Discharge Needs: Physical Assist at Home Physical Assist at Home for: Cleaning;Laundry;Padmaja pping;Transportation OT 6 Clicks Score: 19 Precautions/Activity Restrictions: Total Hip Replacement;Fall Risk Current Hospital Course: 70 year old female?with h/o htn, hld, hypothyroidism and arthritis who underwent Lt THR 03/16/21 and had cough and mild, transient hypoxemia after surgery and then developed significant hypoxemia, SOB and light-headedness one day after discharge. Symptoms, imaging and leukocytosis suggest aspiration pneumonia but Covid-19 test was positive in a pt fully immunized against Covid and with a negative pre-op Covid ken. Tn and pBNP were elevated without any s/sx to suggest ischemia / infarction / heart failure. Reason for Hospital Admission: SOB Relevant Past Medical History: HTN, HLD, hypothyroidism and arthritis Response to Therapy Interventions: Good participation in activities, On-track to achieve discharge goals Occupational Therapy Problem List: Impaired Self Care;Decreased Strength;Functional Mobility Impairment;Balance Impaired Treatment Interventions: Education;Self Care / Home Management;Strengthe janina;Functional Mobility Training;Balance Training;Neuromuscul ar Re-education Home Environment Patient Lives With: Self/Alone Assistance Available: 24 Hour Entry To Home: Stairs;Without Rail Number Of Stairs Into Home: 2 Number Of Stairs To Bed/Bath: 1st floor bed and bath Tub/Shower Type: tub/shower with grab bars and shower chair Laundry: 1st floor Equipment Owned: Grab Bars-Shower;Shower Chair;Commode-Raised ;Wheeled Walker;Angle Shear Set Up Operator;Sock Aide;Long Handled Shoe Horn Prior Functional Level: Within Functional Limits Prior Functional Level Comments: IND ADLs and amb without AD, + drive, retired Patient Report: I am supposed to be going home today. CURRENT FUNCTIONAL STATUS: Most recent performance Current Activities of Daily Living Assist Level Additional Information Feeding Independent Grooming Set Up Bathing Upper Body Set Up Bathing Lower Body Moderate Assistance Dressing Upper Body Set Up Dressing Lower Body Moderate Assistance Toileting Contact Guard Assistance Functional Mobility Assist Level Additional Information Rolling Supine to Sit (NT pt up in chair at start of session) Sit to Supine Stand By Assistance Scooting Sit to Stand Contact Guard Assistance Stand to Sit Contact Guard Assistance Bed to Chair Toilet/Commode Contact Guard Assistance Shower Contact Guard Assistance Functional Mobility Contact Guard Assistance Wheeled Walker Blank reich indicate activity not attempted Balance: Static Sitting;Dynamic Sitting;Static Standing;Dynamic Standing Static Sitting Balance: Normal Patient able to maintain steady balance without handhold support Dynamic Sitting Balance: Normal Patient accepts maximal challenge and can shift weight easily within full range in all directions Static Standing Balance: Good Patient able to maintain balance without handhold support, limited postural sway Dynamic Standing Balance: Fair Patient accepts minimal challenge, able to maintain balance while turning head/trunk Activity Tolerance: Sitting Activity Sitting Activity: shower sitting on shower chair Learning/Educational Needs: Discharge Plan;Functional Activities/Mobility; Plan of Care;Rehabilitation Techniques and Procedures;Precautio ns;Safety;Self Care Goals for Plan of Care: Patient /Caregiver Goals: Go Home Goals: Patient will demonstrate progress with self-care, cognitive and/or coping needs identified to allow safe discharge to home with available support and/or physical assistance. Progress Toward Goals: Progressing as expected Rehab Potential: Good Patient will be discontinued from Occupational Therapy when no further skilled needs are identified in this setting. PLAN: Treatment Frequency (times per week): 3 (1) Current admission Plan of Care developed with: Patient TREATMENT INTERVENTIONS: Therapy Diagnosis: Decreased activities of daily living (ADL);Muscle Weakness (generalized) Interventions Provided: Self Fpc Management (89737) Self Fpc Management (91268) Treatment Minutes: 17 $ Self Fpc Management (31079) Billed Units: 1 unit Training AND education provided in: Activity adaption / compensatory strategies, Adaptive equipment / DME- long handled sponge- benefits and where to obtain, Benefits of in-hospital mobility, Discharge planning, Treatment protocol, Role of Occupational Therapy, Positioning, Precautions/restrict ions, Lower extremity (more content not included)... Normal [facility] CBC and Differentialon 03-21 Abs Baso 0.07 k/uL Normal <0.11 [facility] Comment on above: Performed By: #### C BCDIANAF, CMP ####[facility] [place], [place] [phone] Abs [place] 0.82 k/uL Normal <0.87 [facility] Comment on above: Performed By: #### C BCDIANAF, CMP ####[facility] [place], [place] [phone] Abs Neut 6.43 k/uL Normal 1.45-7.50 [facility] Comment on above: Performed By: #### C BCDIANAF, CMP ####[facility] [address] [place], [place] [phone] Absolute nRBC <0.01 Normal <0.01 [facility] Comment on above: Performed By: #### C BCDIF, CMP ####[facility] [address], [place] [phone] Basophils/100 WBC (Bld) 0.6 % Normal [facility] Comment on above: Performed By: #### C BCKARINA CMP ####[facility] [place] [phone] DTYPE Auto Diff Normal [facility] Comment on above: Performed By: #### C BCDIF, CMP ####[place] [address] [address] [place] [phone] Eosinophils (Bld) [#/Vol] 0.82 10*3/uL High <0.46 [facility] Comment on above: Performed By: #### C BCDIF, CMP ####[place] [address] [address] [place] [phone] Eosinophils/100 WBC (Bld) 6.8 % Normal [facility] Comment on above: Performed By: #### C BCDIF, CMP ####[place] [address] [address] [place] [phone] Erythrocyte distribution width (RBC) [Ratio] 12.6 % Normal 11.5-15.0 [facility] Comment on above: Performed By: #### C BCDIF, CMP ####[place] [address] [address] [place] [phone] Hematocrit (Bld) [Volume fraction] 36.1 % Normal 36.0-46.0 [facility] Comment on above: Performed By: #### C BCDIF, CMP ####[place] [address] [address] [phone] Hemoglobin (Bld) [Mass/Vol] 11.4 g/dL Low 11.5-15.5 [facility] Comment on above: Performed By: #### C BCDIF, CMP ####[place] [address] [address] [phone] Lymphocytes (Bld) [#/Vol] 3.90 10*3/uL Normal 1.00-4.00 [facility] Comment on above: Performed By: #### C BCDIF, CMP ####[place] [address] [place], [place] [phone] Lymphocytes/100 WBC (Bld) 32.4 % Normal [facility] Comment on above: Performed By: #### C BCDIF, CMP ####[place] [id number], [place] [phone] MCH 28.1 pG Normal 26.0-34.0 [facility] Comment on above: Performed By: #### C BCDIF, CMP ####[place] [address] [address] [place] [phone] MCHC (RBC) [Mass/Vol] 31.6 g/dL Normal 30.5-36.0 [facility] Comment on above: Performed By: #### C BCDIF, CMP ####[place] [address] [address] [place] [phone] MCV (RBC) [Entitic vol] 89.1 fL Normal 80.0-100.0 [facility] Comment on above: Performed By: #### C BCDIF, CMP ####[place] [address] [address] [place] [phone] Monocytes/100 WBC (Bld) 6.8 % Normal [facility] Comment on above: Performed By: #### C BCDIF, CMP ####[place] [address] [address] [place] [phone] Neutrophils/100 WBC (Bld) 53.4 % Normal [facility] Comment on above: Performed By: #### C BCDIF, CMP ####[place] [address] [address] [place] [phone] NRBCs 0.0 /100 WBC Normal 0 [facility] Comment on above: Performed By: #### C BCDIF, CMP ####[place] [address] [address] [place], [place] [phone] Platelet mean volume (Bld) [Entitic vol] 10.8 fL Normal 9.0-12.7 [facility] Comment on above: Performed By: #### C BCDIF, CMP ####[facility] [place], [place] [phone] Platelets (Bld) [#/Vol] 297 10*3/uL Normal 150-400 [facility] Comment on above: Performed By: #### C BCDIF, CMP ####[facility] [place], [place] [phone] RBC (Bld) [#/Vol] 4.05 10*6/uL Normal 3.90-5.20 [facility] Comment on above: Performed By: #### C BCDIF, CMP ####[facility] [place], [place] [phone] WBC (Bld) [#/Vol] 12.04 10*3/uL High 3.70-11.00 [facility] Comment on above: Performed By: #### C BCDIF, CMP ####[facility] [place], [place] [phone] CONSULT PROGon 03-21-2021 CONSULT PROG HNO ID: [id number] Author: Jennifer Amaro MD Service: Infectious Disease Author Type: Physician Type: Consult Progress Note Filed: 03/21/2021 5:42 PM Note Text: INFECTIOUS DISEASE CONSULT SERVICE PROGRESS NOTE Date: March 21, 2021 Patient Name: Gaby Barbour Interval Events: tolerating augmentin no cough, no SOB per pt did have one episode of sats dropping but now is off oxygen MEDICATIONS Medications reviewed. Current Facility-Administere d Medications Medication Dose Route Frequency - rosuvastatin 5 mg tab(s) (CRESTOR) 5 mg ORAL DAILY - bisoprolol-hydroCHLO ROthiazide 5-6.25 mg 1 tablet (ZIAC) 1 tablet ORAL DAILY - ferrous sulfate 325 mg tab(s) 325 mg ORAL DAILY wLUNCH - docusate sodium 100 mg cap(s) (COLACE) 100 mg ORAL BID PRN - therapeutic multivitamin-mineral s tablet (THERA-M PLUS) 1 tablet ORAL DAILY - aspirin, enteric coated 81 mg tab(s) 81 mg ORAL BID - levothyroxine 88 mcg tab(s) (SYNTHROID) 88 mcg ORAL DAILY (6 AM) - ascorbic acid (vitamin C) 500 mg tab(s) (VITAMIN C) 500 mg ORAL BID w MEALS - dextrose 40 % 15 g 15 g ORAL PRN Or - glucagon 1 mg injection 1 mg INTRAMUSCULAR PRN Or - dextrose 50 % 12.5 g injection 12.5 g INTRAVENOUS PRN - insulin lispro injection (rapid acting) (HumaLOG) SUBCUTANEOUS w MEALS AND HS - enoxaparin 40 mg injection (LOVENOX) 40 mg SUBCUTANEOUS q 24 HR - guaiFENesin 600 mg ER tab(s) (MUCINEX) 600 mg ORAL q 12 H PRN - calcium carbonate 1,000 mg chewable tab(s) (TUMS) 1,000 mg ORAL DAILY - magnesium oxide 200 mg tab(s) (MAG-OX) 200 mg ORAL DAILY - perflutren lipid microspheres 1.1 mg/mL 1.3 mL injection (DEFINITY) 1.3 mL INTRAVENOUS DIRECTED PRN - acetaminophen 1,000 mg tab(s) (TYLENOL) 1,000 mg ORAL BID - acetaminophen 325-650 mg tab(s) (TYLENOL) 325-650 mg ORAL q 8 H PRN - amoxicillin-clavulan ic acid 875 mg tab(s) (AUGMENTIN) 875 mg ORAL q 12 H EXAMINATION: BP 142/61 Pulse 66 Temp 36.5 ?C (97.7 ?F) (Oral) Resp 18 Ht 160 cm (5' 3 ) Wt 85.5 kg (188 lb 6.4 oz) SpO2 100% BMI 33.37 kg/m? Temp (24hrs), Av.5 ?C (97.7 ?F), Min:36.3 ?C (97.3 ?F), Max:36.7 ?C (98.1 ?F) GENERAL APPEARANCE: awake in no acute distress SKIN: negative rash HEAD/SINUSES: No significant findings. EYES: conjunctiva clear OROPHARYNX: negative LUNGS: Clear to auscultation bilaterally HEART: Regular rate and rhythm ABDOMEN: Soft, Nontender, nondistended NEURO: Alert, following commands LABORATORY DATA: WBC (k/uL) Date Value 03/20/2021 12.60 03/19/2021 10.65 03/17/2021 13.43 Hemoglobin (g/dL) Date Value 03/20/2021 10.4 03/19/2021 10.9 03/17/2021 11.6 Platelet Count (k/uL) Date Value 03/20/2021 230 03/19/2021 190 03/17/2021 221 Creatinine (mg/dL) Date Value 03/20/2021 0.51 03/19/2021 0.51 03/17/2021 0.61 MICROBIOLOGY DATA: 03/21 COVID test pending IMAGING DATA: reviewed ASSESSMENT: Problem list carried forward from most recent note and updated as needed 70 year old female with a history of HTN, HLD, hypothyroidism and arthritis (no immunosuppression) who underwent elective left total hip replacement on 03/16/2021 at [facility] Pre-operative COVID test on 03/14/2021 was negative. She completed the two-dose Pfizer COVID vaccination series on 01/06/2021. Had cough post anesthesia and mild hypoxemia, d/cd 03/17 Seen at OSH ER with cough and sats 75%, COVID test was positive, CT chest with ?consolidation in the lingula (CT chest reviewed) Patient transferred to . Low suspicion for COVID at this time, given vaccination and 2 negative COVID tests here So far no progression of symptoms. Treating for aspiration pneumonia. RECOMMENDATIONS: Continue augmentin- plan to finish 7 days (stop on 03/26) Repeat COVID test done today Please call back if with further questions. Jennifer Amaro MD Beeper Number: [id number] Staff, Department of Infectious Disease March 21, 2021 5:42 PM Normal [facility] Comp Metabolic Panelon 03-21 Albumin [Mass/Vol] 3.3 g/dL Low 3.9-4.9 [facility] Comment on above: Performed By: #### C BCDIF, CMP ####[facility] [address] [place], [place] [phone] ALP [Catalytic activity/Vol] 71 U/L Normal 34-123 [facility] Comment on above: Performed By: #### C BCDIF, CMP ####[facility], [place] [phone] ALT [Catalytic activity/Vol] 21 U/L Normal 7-38 [facility] Comment on above: Performed By: #### C BCDIF, CMP ####[place] [address] [place] [phone] Anion gap [Moles/Vol] 10 mmol/L Normal 9-18 [facility] Comment on above: Performed By: #### C BCDIF, CMP ####[place] [address] [place] [phone] AST [Catalytic activity/Vol] 32 U/L Normal 13-35 [facility] Comment on above: Performed By: #### C BCDIF, CMP ####[place] [address] [place] [phone] Bilirubin [Mass/Vol] 0.6 mg/dL Normal 0.2-1.3 [facility] Comment on above: Performed By: #### C BCDIF, CMP ####[place] [address] [place] [phone] Calcium [Mass/Vol] 9.0 mg/dL Normal 8.5-10.2 [facility] Comment on above: Performed By: #### C BCDIF, CMP ####[place] [address] [place] [phone] Chloride [Moles/Vol] 97 mmol/L Normal 97-105 [facility] Comment on above: Performed By: #### C BCDIF, CMP ####[place] [address], [place] [phone] CO2 [Moles/Vol] 28 mmol/L Normal 22-30 [facility] Comment on above: Performed By: #### C BCDIF, CMP ####[place] [address], [place] [phone] Creatinine [Mass/Vol] 0.52 mg/dL Low 0.58-0.96 [facility] Comment on above: Performed By: #### C WES HANCOCK ####[facility] [place], [place] [phone] eGFR- Amer. >60 Normal [facility] Comment on above: Performed By: #### C SANTI, WES ####[facility] [place], [place] [phone] eGFR-All Other Races >60 Normal [facility] Comment on above: Result Comment: eGFR (Estimated GFR) Units of measure: mL/min/1.73 meters squared eGFR is derived from the reexpressed MDRD Study equation using the following parameters: serum creatinine, age, gender and race. The creatinine assay has been calibrated to be traceable to IDMS. An eGFR <60 mL/min/1.73m2 for >3 months is consistent with chronic kidney disease. Refer to KDOQI guidelines for clinical interpretation. In patients with unstable renal function, e.g. those with acute kidney injury, the eGFR may not accurately reflect actual GFR. Performed By: #### C WES HANCOCK ####[facility] [place], [place] [phone] Glucose [Mass/Vol] 218 mg/dL High 74-99 [facility] Comment on above: Result Comment: The [place] Diabetes [employer] (ADA) provides guidance for cutoff values for fasting glucose and random glucose. The ADA defines fasting as no caloric intake for at least 8 hours. Fasting plasma glucose results between 100 to 125 mg/dL indicate increased risk for diabetes (prediabetes). Fasting plasma glucose results greater than or equal to 126 mg/dL meet the criteria for diagnosis of diabetes. In the absence of unequivocal hyperglycemia, results should be confirmed by repeat testing. In a patient with classic symptoms of hyperglycemia or hyperglycemic crisis, random plasma glucose results greater than or equal to 200 mg/dL meet the criteria for diagnosis of diabetes. Reference: Standards of Medical Care in Diabetes 2016, [place] [employer]. Diabetes Care. 2016.39(Suppl 1). Performed By: #### C STANLEYDIF, CMP ####[address] [phone] Potassium [Moles/Vol] 3.5 mmol/L Low 3.7-5.1 [facility] Comment on above: Performed By: #### C BCDIF, CMP ####[address] [phone] Protein [Mass/Vol] 6.2 g/dL Low 6.3-8.0 [facility] Comment on above: Performed By: #### C BCDIF, CMP ####[address] [phone] Sodium [Moles/Vol] 135 mmol/L Low 136-144 [facility] Comment on above: Performed By: #### C BCDIF, CMP ####[address] [phone] Urea nitrogen [Mass/Vol] 14 mg/dL Normal 7-21 [facility] Comment on above: Performed By: #### C BCDIF, CMP ####[address] [phone] Intermed Rapid COVIDon 03-21 SARS-CoV-2 (COVID-19) RNA JACOBO+probe Ql (Unsp spec) Nasopharyngeal Swab Normal [facility] Comment on above: Performed By: #### I TCOVD ####[address] [phone] SARS-CoV-2 (COVID-19) RNA JACOBO+probe Ql (Unsp spec) Negative for COVID19 (SARS CoV2) by RT-PCR or equivalent method. Normal Negative for COVID19 (SARS CoV2) by RT-PCR or equivalent method. [facility] Comment on above: Result Comment: This test was developed and its performance characteristics determined by [facility] [place]. This test has been authorized by FDA under an Emergency Use Authorization (EUA). This test has been validated in accordance with the FDA's Guidance Document Policy for Diagnostics Testing in Laboratories Certified to Perform High Complexity Testing under CLIA prior to Emergency use Authorization for Coronavirus Disease 2019 during the Public Health Emergency issued on January 04, 2020. Test performed by [facility], [facility] [place], [address] [place] [address]. Performed By: #### I TCOVD ####[place] [phone] CBC and Differentialon 03-20 Abs Baso 0.03 k/uL Normal <0.11 [facility] Comment on above: Performed By: #### C BCDIF, CMP, MG1, PHOS ####[address] [phone] Abs [place] 0.73 k/uL Normal <0.87 [facility] Comment on above: Performed By: #### C BCDIF, CMP, MG1, PHOS ####[place] [phone] Abs Neut 10.34 k/uL High 1.45-7.50 [facility] Comment on above: Performed By: #### C BCDIF, CMP, MG1, PHOS ####[address] [phone] Absolute nRBC <0.01 Normal <0.01 [facility] Comment on above: Performed By: #### C BCDIF, CMP, MG1, PHOS ####[address] [phone] Basophils/100 WBC (Bld) 0.2 % Normal [facility] Comment on above: Performed By: #### C BCDIF, CMP, MG1, PHOS ####[address] [phone] DTYPE Auto Diff Normal [facility] Comment on above: Performed By: #### C BCDIF, CMP, MG1, PHOS ####[place] [phone] [place] [phone] Eosinophils (Bld) [#/Vol] 0.04 10*3/uL Normal <0.46 [facility] Comment on above: Performed By: #### C BCDIF, CMP, MG1, PHOS ####[facility] [place] [phone] Eosinophils/100 WBC (Bld) 0.3 % Normal [facility] Comment on above: Performed By: #### C BCDIF, CMP, MG1, PHOS ####[place] [address] [address] [place] [phone] Erythrocyte distribution width (RBC) [Ratio] 12.3 % Normal 11.5-15.0 [facility] Comment on above: Performed By: #### C BCDIF, CMP, MG1, PHOS ####[place] [address] [address] [place] [phone] Hematocrit (Bld) [Volume fraction] 32.1 % Low 36.0-46.0 [facility] Comment on above: Performed By: #### C BCDIF, CMP, MG1, PHOS ####[facility] [place] [phone] Hemoglobin (Bld) [Mass/Vol] 10.4 g/dL Low 11.5-15.5 [facility] Comment on above: Performed By: #### C BCDIF, CMP, MG1, PHOS ####[place] [phone] [place] [phone] Lymphocytes (Bld) [#/Vol] 1.46 10*3/uL Normal 1.00-4.00 [facility] Comment on above: Performed By: #### C BCDIF, CMP, MG1, PHOS ####[facility]level[address] [place], [place] [phone] Lymphocytes/100 WBC (Bld) 11.6 % Normal [facility] Comment on above: Performed By: #### C BCDIF, CMP, MG1, PHOS ####[facility]level[address] [place], [place] [phone] MCH 28.8 pG Normal 26.0-34.0 [facility] Comment on above: Performed By: #### C BCDIF, CMP, MG1, PHOS ####[place] [address] [place] [phone] MCHC (RBC) [Mass/Vol] 32.4 g/dL Normal 30.5-36.0 [facility] Comment on above: Performed By: #### C BCDIF, CMP, MG1, PHOS ####[place] [address] [place] [phone] MCV (RBC) [Entitic vol] 88.9 fL Normal 80.0-100.0 [facility] Comment on above: Performed By: #### C BCDIF, CMP, MG1, PHOS ####[place] [address] [place] [phone] Monocytes/100 WBC (Bld) 5.8 % Normal [facility] Comment on above: Performed By: #### C BCDIF, CMP, MG1, PHOS ####[facility] [place] [phone] Neutrophils/100 WBC (Bld) 82.1 % Normal [facility] Comment on above: Performed By: #### C BCDIF, CMP, MG1, PHOS ####[facility] [place] [phone] NRBCs 0.0 /100 WBC Normal 0 [facility] Comment on above: Performed By: #### C BCDIF, CMP, MG1, PHOS ####[facility] [address], [place] [phone] Platelet mean volume (Bld) [Entitic vol] 10.8 fL Normal 9.0-12.7 [facility] Comment on above: Performed By: #### C BCDIF, CMP, MG1, PHOS ####[facility], [place] [phone] Platelets (Bld) [#/Vol] 230 10*3/uL Normal 150-400 [facility] Comment on above: Performed By: #### C BCDIF, CMP, MG1, PHOS ####[facility], [place] [phone] RBC (Bld) [#/Vol] 3.61 10*6/uL Low 3.90-5.20 [facility] Comment on above: Performed By: #### C BCDIF, CMP, MG1, PHOS ####[facility], [place] [phone] WBC (Bld) [#/Vol] 12.60 10*3/uL High 3.70-11.00 [facility] Comment on above: Performed By: #### C BCDIF, CMP, MG1, PHOS ####[facility], [place] [phone] CONSULT PROGon 03-20-2021 CONSULT PROG HNO ID: [id number] Author: Jennifer Amaro MD Service: Infectious Disease Author Type: Physician Type: Consult Progress Note Filed: 03/20/2021 3:59 PM Note Text: RESIDENT NOTE INFECTIOUS DISEASE - PROGRESS NOTE Service Date: March 20, 2021 Service Time: 8:12 AM Patient Name: Gaby Barbour Date of : 1950 SUBJECTIVE: Chief complaint / reason for follow up visit: Continuing to follow for pneumonia Interval Events: --No acute events overnight --Patient feels well, SOB is improving and she is getting higher incentive spirometry measurements. Mild intermittent dry cough. No fevers, chills, diaphoresis, chest pain, palpitations, n/v/d. She is up to sitting in her chair this AM --Afebrile, HDS, SpO2 >98% on 2L O2 via NC --Has not yet attempted to wean O2 per patient --Repeat COVID testing is negative --WBC 12.6k, 10.34 ANC --NT ProBNP 1346 Current Antibiotics: Antibiotic Dates 1) ampicillin-sulbactam 3 g IV every 6 hours 03/19 - 2) 3) 4) 5) Review of Systems (at least 2 of following systems): System POSITIVE Negative Constitutional [] fever [] chills [x] fever [x] chills Cardiovascular [] chest pain [x] chest pain Respiratory [x] cough [x] SOB [] cough [] SOB Gastrointestinal [] nausea [] vomiting [] diarrhea [] abdominal pain [x] nausea [x] vomiting [x] diarrhea [x] abdominal pain OBJECTIVE: BP 126/65 Pulse 66 Temp 36.3 ?C (97.3 ?F) (Oral) Resp 18 Ht 160 cm (5' 3 ) Wt 85.5 kg (188 lb 6.4 oz) SpO2 98% BMI 33.37 kg/m? Physical Examination: Constitutional: Awake, alert, no acute distress Skin: warm, dry, no rashes Respiratory/Chest: Wearing supplemental O2 via NC, no increased WOB, lungs CTA b/l, no wheezing or crackles Cardiovascular: RRR no murmurs, 2+ radial pulse Gastrointestinal: Abdomen soft, non-tender, no guarding or rigidity Extremities: Wearing preventative stockings to the knees, no edema Neurological: AANDOx3, no focal deficits Psychological: Pleasant, appropriate affect Laboratory Studies (I personally reviewed the clinical labs and microbiology data): Component 03/17/2021 03/19/2021 03/20/2021 WBC 13.43 (H) 10.65 12.60 (H) RBC 4.03 3.84 (L) 3.61 (L) Hemoglobin 11.6 10.9 (L) 10.4 (L) Hematocrit 36.6 34.1 (L) 32.1 (L) MCV 90.8 88.8 88.9 MCH 28.8 28.4 28.8 MCHC 31.7 32.0 32.4 RDW-CV 12.4 12.2 12.3 Platelet Count 221 190 230 MPV 10.5 10.9 10.8 Neut% 91.9 82.1 Abs Neut (ANC) 9.79 (H) 10.34 (H) Lymph% 6.2 11.6 Abs Lymph 0.66 (L) 1.46 [place]% 1.7 5.8 Abs [place] 0.18 0.73 Eosin% 0.1 0.3 Abs Eosin <0.03 0.04 Baso% 0.1 0.2 Abs Baso <0.03 0.03 Component 03/19/2021 03/20/2021 Protein, Total 6.2 (L) 5.9 (L) Albumin 3.3 (L) 3.2 (L) Calcium 8.9 8.7 Bilirubin, Total 0.4 0.5 Alkaline Phosphatase 79 69 AST 24 22 Glucose 211 (H) 152 (H) BUN 9 12 Creatinine 0.51 (L) 0.51 (L) Sodium 136 139 Potassium 4.1 3.8 Chloride 98 99 CO2 30 30 Anion Gap 8 (L) 10 ALT 12 13 eGFR- >60 >60 eGFR-All Other Races >60 >60 Estimated Creatinine Clearance: 106.3 mL/min (A) (based on SCr of 0.51 mg/dL (L)). Microbiology: Imaging (I personally visualized the films below): CXR: IMPRESSIONS: 1. Acute hypoxemic respiratory failure Concern for aspiration pneumonia in the setting of surgery, narcotic medications. CTA Chest @ OSH showed no PE per report, though showed revealed numerous small faint patchy opacities scattered throughout the lungs and a possible consolidation in the lingula. Patient tested positive for COVID @ OSH, negative here twice. See below. Patient does not have risk factors for MRSA, pseudomonas, or multi-drug resistant organisms. Nasal MRSA swab negative. Clinical course is overall improving ? 2. COVID-positive test --01/06/2021: 2-dose Pfizer COVID vaccine series completed --03/14/2021: Negative for COVID19 via nasopharyngeal swab --03/18/2021: Positive for COVID19 via nasopharyngeal swab @ OSH (patient isolated herself since negative test) --03/19/2021: Negative for COVID19 via intermediate rapid nasopharyngeal swab --03/19/2021: Negative for COVID19 via nasopharyngeal swab Patient has a low pre-test probability for COVID infection considering immunization more than two weeks prior to positive test. Patient has no immunosuppression to consider failure of immunization. SUGGESTIONS: 1. Continue ampicillin-sulbactam 3 g IV every 6 hours for treatment of aspiration pneumonia, may transition to oral amoxicillin-clavulon ate upon discharge 2. Maintain in isolation for now, discuss with infection prevention though low concern for true COVID infection - no indication to continue dexamethasone or remdesivir 3. Wean O2 as tolerated to a goal SpO2 > 92% 4. Aspiration precautions RESIDENT NOTE Please see INFECTIOUS DISEASE ATTENDING/STAFF NOTE below for FINAL impressions AND recommendations SIGNATURE: Ish (more content not included)... Normal [facility] Comp Metabolic Panelon 03-20 Albumin [Mass/Vol] 3.2 g/dL Low 3.9-4.9 [facility] Comment on above: Performed By: #### C BCDIF, CMP, MG1, PHOS ####[facility], [place] [phone] ALP [Catalytic activity/Vol] 69 U/L Normal 34-123 [facility] Comment on above: Performed By: #### C BCDIF, CMP, MG1, PHOS ####[facility] [address] [place], [place] [phone] ALT [Catalytic activity/Vol] 13 U/L Normal 7-38 [facility] Comment on above: Performed By: #### C BCDIF, CMP, MG1, PHOS ####[facility] [address], [place] [phone] Anion gap [Moles/Vol] 10 mmol/L Normal 9-18 [facility] Comment on above: Performed By: #### C BCDIF, CMP, MG1, PHOS ####[facility] [address] [place] [phone] AST [Catalytic activity/Vol] 22 U/L Normal 13-35 [facility] Comment on above: Performed By: #### C BCDIF, CMP, MG1, PHOS ####[place] [phone] Bilirubin [Mass/Vol] 0.5 mg/dL Normal 0.2-1.3 [facility] Comment on above: Performed By: #### C BCDIF, CMP, MG1, PHOS ####[place] [phone] Calcium [Mass/Vol] 8.7 mg/dL Normal 8.5-10.2 [facility] Comment on above: Performed By: #### C BCDIF, CMP, MG1, PHOS ####[place] [phone] Chloride [Moles/Vol] 99 mmol/L Normal 97-105 [facility] Comment on above: Performed By: #### C BCDIF, CMP, MG1, PHOS ####[place] [phone] CO2 [Moles/Vol] 30 mmol/L Normal 22-30 [facility] Comment on above: Performed By: #### C BCDIF, CMP, MG1, PHOS ####[place] [phone] Creatinine [Mass/Vol] 0.51 mg/dL Low 0.58-0.96 [facility] Comment on above: Performed By: #### C BCDIF, CMP, MG1, PHOS ####[place] [phone] eGFR- Amer. >60 Normal [facility] Comment on above: Performed By: #### C BCDIF, CMP, MG1, PHOS ####[facility] [place], [place] [phone] eGFR-All Other Races >60 Normal [facility] Comment on above: Result Comment: eGFR (Estimated GFR) Units of measure: mL/min/1.73 meters squared eGFR is derived from the reexpressed MDRD Study equation using the following parameters: serum creatinine, age, gender and race. The creatinine assay has been calibrated to be traceable to IDMS. An eGFR <60 mL/min/1.73m2 for >3 months is consistent with chronic kidney disease. Refer to KDOQI guidelines for clinical interpretation. In patients with unstable renal function, e.g. those with acute kidney injury, the eGFR may not accurately reflect actual GFR. Performed By: #### C BCDIF, CMP, MG1, PHOS ####[place] [id number] [place], [place] [phone] Glucose [Mass/Vol] 152 mg/dL High 74-99 [facility] Comment on above: Result Comment: The [place] Diabetes Association (ADA) provides guidance for cutoff values for fasting glucose and random glucose. The ADA defines fasting as no caloric intake for at least 8 hours. Fasting plasma glucose results between 100 to 125 mg/dL indicate increased risk for diabetes (prediabetes). Fasting plasma glucose results greater than or equal to 126 mg/dL meet the criteria for diagnosis of diabetes. In the absence of unequivocal hyperglycemia, results should be confirmed by repeat testing. In a patient with classic symptoms of hyperglycemia or hyperglycemic crisis, random plasma glucose results greater than or equal to 200 mg/dL meet the criteria for diagnosis of diabetes. Reference: Standards of Medical Care in Diabetes 2016, [place] [employer]. Diabetes Care. 2016.39(Suppl 1). Performed By: #### C BCDIF, CMP, MG1, PHOS ####[facility] [place], [place] [phone] Potassium [Moles/Vol] 3.8 mmol/L Normal 3.7-5.1 [facility] Comment on above: Performed By: #### C BCDIF, CMP, MG1, PHOS ####[facility] [place], [place] [phone] Protein [Mass/Vol] 5.9 g/dL Low 6.3-8.0 [facility] Comment on above: Performed By: #### C BCDIF, CMP, MG1, PHOS ####[address] [phone] Sodium [Moles/Vol] 139 mmol/L Normal 136-144 [facility] Comment on above: Performed By: #### C BCDIF, CMP, MG1, PHOS ####[address] [phone] Urea nitrogen [Mass/Vol] 12 mg/dL Normal 7-21 [facility] Comment on above: Performed By: #### C BCDIF, CMP, MG1, PHOS ####[address] [phone] Magnesiumon 03-20-2021 Magnesium [Mass/Vol] 2.0 mg/dL Normal 1.7-2.3 [facility] Comment on above: Performed By: #### C BCDIF, CMP, MG1, PHOS ####[address] [phone] Phosphoruson 03-20-2021 Phosphate [Mass/Vol] 3.3 mg/dL Normal 2.7-4.8 [facility] Comment on above: Performed By: #### C BCDIF, CMP, MG1, PHOS ####[address] [phone] THERAPY NTon 03-20-2021 THERAPY NT HNO ID: [id number] Author: Kishore García, PT Service: Physical Therapy Author Type: Physical Therapist Type: Therapy (PT/OT/Speech/Resp) Filed: 03/20/2021 12:00 PM Note Text: Physical Therapy Evaluation SERVICE DATE: 03/20/2021 SERVICE TIME: 1115 to 1140 ROOM: [id number] Recommended Discharge Disposition: Home PT Recommended Discharge Disposition Comments: Pt with radha mobility for safe return home with prn assist. Anticipated Discharge Needs: Physical Assist at Home Physical Assist at Home for: Cleaning;Laundry;Padmaja pping;Transportation Recommended Discharge Equipment: To Be Determined PT 6 Clicks Score: 23 Precautions/Activity Restrictions: Total Hip Replacement;Fall Risk Current Hospital Course: 70 year old female?with h/o htn, hld, hypothyroidism and arthritis who underwent Lt THR 03/16/21 and had cough and mild, transient hypoxemia after surgery and then developed significant hypoxemia, SOB and light-headedness one day after discharge. Symptoms, imaging and leukocytosis suggest aspiration pneumonia but Covid-19 test was positive in a pt fully immunized against Covid and with a negative pre-op Covid ken. Tn and pBNP were elevated without any s/sx to suggest ischemia / infarction / heart failure. Reason for Hospital Admission: SOB Relevant Past Medical History: HTN, HLD, hypothyroidism and arthritis Response to Therapy Interventions: Good participation in activities Continue skilled needs due to: Continued monitoring of vital signs during mobility required Physical Therapy Problem List: Safety Deficits;Impaired Self Care;Decreased Activity Tolerance;Decreased Range Of Motion;Decreased Strength;Functional Mobility Impairment Treatment Interventions: Education;Energy Conservation Training;Joint Mobility;Strengtheni ng;Functional Mobility Training Plan for next visit: Gait training Home Environment Patient Lives With: Self/Alone Assistance Available: 24 Hour Entry To Home: Stairs;Without Rail Number Of Stairs Into Home: 2 Number Of Stairs To Bed/Bath: 1st floor bed and bath Tub/Shower Type: tub/shower with grab bars and shower chair Laundry: 1st floor Equipment Owned: Grab Bars-Shower;Shower Chair;Commode-Raised ;Wheeled Walker;Angle Shear Set Up Operator;Sock Aide;Long Handled Shoe Horn Prior Functional Level: Within Functional Limits Prior Functional Level Comments: IND ADLs and amb without AD, + drive, retired CURRENT FUNCTIONAL STATUS: Most recent performance Current Functional Mobility Assist Level Additional Information Rolling Supine to Sit Stand By Assistance Sit to Supine Stand By Assistance Scooting Stand By Assistance Sit to Stand Stand By Assistance Stand to Sit Stand By Assistance Bed to Chair Toilet/Commode Gait Stand By Assistance Gait Device: Wheeled Walker Gait Distance (feet): 40' Stairs Curb Step Car Transfer Blank reich indicate activity not attempted Gait Deviations Left Lower Extremity: Stance time decreased;Step length decreased;Weight bearing decreased Balance: Static Sitting;Dynamic Sitting;Static Standing;Dynamic Standing Static Sitting Balance: Normal Patient able to maintain steady balance without handhold support Dynamic Sitting Balance: Normal Patient accepts maximal challenge and can shift weight easily within full range in all directions Static Standing Balance: Normal Patient able to maintain steady balance without handhold support Dynamic Standing Balance: Good Patient accepts moderate challenge, able to maintain balance while picking up object off floor -HLM: 7: Walk 25 feet or more Learning/Educational Needs: Discharge Plan;Equipment;Funct ional Activities/Mobility; Plan of Care;Precautions;Theresa abilitation Techniques and Procedures;Safety Goals for Plan of Care: Patient /Caregiver Goals: Go Home Goals: Patient will demonstrate progress with functional mobility to allow safe discharge to home with available support and/or physical assistance. Rehab Potential: Good Patient will be discontinued from Physical Therapy when no further skilled needs are identified in this setting. PLAN: Treatment Frequency (times per week): 3 Current admission Plan of Care developed with: Patient TREATMENT INTERVENTIONS: Therapy Diagnosis: Reduced mobility-other;Decre ased activities of daily living (ADL);Muscle Weakness (generalized);Abnorm alities of gait and mobility-other;Gener al symptoms and signs-other Interventions Provided: Evaluation;Gait Training (70436) $ Evaluation-Low (02050) Billed Units: 1 unit Gait Training (89545) Treatment Minutes: 10 $ Gait Training (81476) Billed Units: 1 unit Training AND education provided in: Anatomy and impact on deficits, Assistive device use, Bed mobility, Benefits of in-hospital mobility, Discharge planning, Energy conservation, Equipment, Exercise program, Expected functional level, Falls prevention, Gait pattern, reduction of deviations, Home safety, Patient Exercis (more content not included)... [facility] THERAPY NT HNO ID: [id number] Author: WILLIAM Inman/Chaparro Service: Occupational Therapy Author Type: Occupational Therapist Type: Therapy (PT/OT/Speech/Resp) Filed: 03/20/2021 11:13 AM Note Text: Occupational Therapy Evaluation SERVICE DATE: 03/20/2021 SERVICE TIME: 0902 to 1011 ROOM: [place] [address] Recommended Discharge Disposition: Home OT Anticipated Discharge Needs: Physical Assist at Home Physical Assist at Home for: Laundry;Cleaning;Dayana ls;Self Care;Shopping;Transp ortation OT 6 Clicks Score: 19 Precautions/Activity Restrictions: Total Hip Replacement;Fall Risk Current Hospital Course: 70 year old female?with h/o htn, hld, hypothyroidism and arthritis who underwent Lt THR 03/16/21 and had cough and mild, transient hypoxemia after surgery and then developed significant hypoxemia, SOB and light-headedness one day after discharge. Symptoms, imaging and leukocytosis suggest aspiration pneumonia but Covid-19 test was positive in a pt fully immunized against Covid and with a negative pre-op Covid ken. Tn and pBNP were elevated without any s/sx to suggest ischemia / infarction / heart failure. Reason for Hospital Admission: Shortness of breath and lightheadedness. Relevant Past Medical History: HTN, HLD, hypothyroidism and arthritis Response to Therapy Interventions: Good participation in activities, On-track to achieve discharge goals Continue skilled needs due to: Functional impairment Occupational Therapy Problem List: Impaired Self Care;Decreased Strength;Functional Mobility Impairment;Balance Impaired Cognition/Communicat ion Deficits Responsiveness: Alert Follows Commands: 3-step Commands Cognitive Clinical Tests and Screens: (4AT) 4 AT (1) Alertness This includes patients who may be markedly drowsy (eg. difficult to rouse and/or obviously sleepy during assessment) or agitated/hyperactive . Observe the patient. If asleep, attempt to wake with speech or gentle touch on shoulder. Ask the patient to state their name and address to assist rating. Scorin (Normal ? fully alert, but not agitated, throughout assessment = 0; Mild sleepiness for <10 seconds after waking, then normal = 0; Clearly abnormal = 4) (2) AMT4 Age, date of , place (name hospital or building), current year. Scorin (No mistakes = 0; 1 mistake = 1; 2 or more mistakes/untestable = 2) (3) Attention Ask the patient ?Please tell me the months of the year in backwards order, starting in October?. To assist initial understanding, one prompt of ?what is the month before October?? is permitted. Scorin (Achieves 7 months or more correctly = 0; Starts but scores <7 months/ refuses to start =1; Untestable (cannot start because unwell, drowsy, inattentive) = 2) (4) Acute change or fluctuating course Evidence of significant change or fluctuation in: alertness, cognition, other mental function (eg. paranoia, hallucinations) arising over the last 2 weeks and still evident in last 24 hours. Scorin (No = 0; Yes = 4) 4AT Score: 0 4 or above: possible delirium +/- cognitive impairment 1-3: possible cognitive impairment 0: delirium or severe cognitive impairment unlikely (but delirium still possible if (4) information is incomplete). Treatment Interventions: Education;Self Care / Home Management;Strengthe janina;Functional Mobility Training;Balance Training;Neuromuscul ar Re-education Home Environment Patient Lives With: Self/Alone Assistance Available: 24 Hour (dtr planning to stay with patient initially) Entry To Home: Stairs;Without Rail Number Of Stairs Into Home: 2 Number Of Stairs To Bed/Bath: 1st floor bed and bath Tub/Shower Type: tub/shower with grab bars and shower chair Laundry: 1st floor Equipment Owned: Grab Bars-Shower;Shower Chair;Commode-Raised ;Wheeled Walker;Angle Shear Set Up Operator;Sock Aide;Long Handled Shoe Horn Prior Functional Level: Within Functional Limits Prior Functional Level Comments: IND ADLs and amb without AD, + drive, retired Patient Report: I have all the equipment at home CURRENT FUNCTIONAL STATUS: Most recent performance Current Activities of Daily Living Assist Level Additional Information Feeding Independent Grooming Set Up Bathing Upper Body Set Up Bathing Lower Body Moderate Assistance Dressing Upper Body Set Up Dressing Lower Body Moderate Assistance Toileting Contact Guard Assistance Functional Mobility Assist Level Additional Information Rolling Supine to Sit (NT pt up in chair at start of session) Sit to Supine Stand By Assistance Scooting Sit to Stand Contact Guard Assistance Stand to Sit Contact Guard Assistance Bed to Chair Toilet/Commode Contact Guard Assistance Shower Contact Guard Assistance Functional Mobility Contact Guard Assistance Wheeled Walker Blank reich indicate activity not attempted Balance: Static Sitting;Dynamic Sitting;Static Standing;Dynamic Standing Static Sitting Balance: Normal Patient able to main (more content not included)... [facility] THERAPY NT HNO ID: [id number] Author: Kishore García PT Service: Physical Therapy Author Type: Physical Therapist Type: Therapy (PT/OT/Speech/Resp) Filed: 03/20/2021 9:14 AM Note Text: PHYSICAL THERAPY MISSED VISIT SERVICE DATE: 03/20/2021 SERVICE TIME: 912 to 912 ROOM: [place] [address] Attempted Evaluation. Patient not seen due to Another service at bedside. PT will follow-up as able. SIGNATURE: Kishore García PT PATIENT NAME: Gaby Barbour DATE: March 20, 2021 TIME: 9:13 AM Normal [facility] C-Reactive Proteinon 021 C-Reactive Protein 19.5 mg/dL High <0.9 [facility] Comment on above: Performed By: #### C MP, CBCDIF, CRP, PHOS, MG1 ####[place] [address] [address], [place] [phone] CBC and Differentialon 03-19 Abs Baso <0.03 Normal <0.11 [facility] Comment on above: Performed By: #### C MP, CBCDIF, CRP, PHOS, MG1 ####[facility] [place] [phone] Abs Eosin <0.03 Normal <0.46 [facility] Comment on above: Performed By: #### C MP, CBCDIF, CRP, PHOS, MG1 ####[facility], [place] [phone] Abs [place] 0.18 k/uL Normal <0.87 [facility] Comment on above: Performed By: #### C MP, CBCDIF, CRP, PHOS, MG1 ####[facility], [place] [phone] Abs Neut 9.79 k/uL High 1.45-7.50 [facility] Comment on above: Performed By: #### C MP, CBCDIF, CRP, PHOS, MG1 ####[facility], [place] [phone] Absolute nRBC <0.01 Normal <0.01 [facility] Comment on above: Performed By: #### C MP, CBCDIF, CRP, PHOS, MG1 ####[place] [address] [address] [phone] Basophils/100 WBC (Bld) 0.1 % Normal [facility] Comment on above: Performed By: #### C MP, CBCDIF, CRP, PHOS, MG1 ####[place] [address] [address] [place] [phone] DTYPE Auto Diff Normal [facility] Comment on above: Performed By: #### C MP, CBCDIF, CRP, PHOS, MG1 ####[place] [address] [address] [place] [phone] Eosinophils/100 WBC (Bld) 0.1 % Normal [facility] Comment on above: Performed By: #### C MP, CBCDIF, CRP, PHOS, MG1 ####[place] [address] [address] [place] [phone] Erythrocyte distribution width (RBC) [Ratio] 12.2 % Normal 11.5-15.0 [facility] Comment on above: Performed By: #### C MP, CBCDIF, CRP, PHOS, MG1 ####[place] [address] [address] [place] [phone] Hematocrit (Bld) [Volume fraction] 34.1 % Low 36.0-46.0 [facility] Comment on above: Performed By: #### C MP, CBCDIF, CRP, PHOS, MG1 ####[place] [address] [address] [place] [phone] Hemoglobin (Bld) [Mass/Vol] 10.9 g/dL Low 11.5-15.5 [facility] Comment on above: Performed By: #### C MP, CBCDIF, CRP, PHOS, MG1 ####[place] [address] [address] [place] [phone] Lymphocytes (Bld) [#/Vol] 0.66 10*3/uL Low 1.00-4.00 [facility] Comment on above: Performed By: #### C MP, CBCDIF, CRP, PHOS, MG1 ####[place] [address] [address], [place] [phone] Lymphocytes/100 WBC (Bld) 6.2 % Normal [facility] Comment on above: Performed By: #### C MP, CBCDIF, CRP, PHOS, MG1 ####[place] [address] [address] [place] [phone] MCH 28.4 pG Normal 26.0-34.0 [facility] Comment on above: Performed By: #### C MP, CBCDIF, CRP, PHOS, MG1 ####[place] [address] [address], [place] [phone] MCHC (RBC) [Mass/Vol] 32.0 g/dL Normal 30.5-36.0 [facility] Comment on above: Performed By: #### C MP, CBCDIF, CRP, PHOS, MG1 ####[place] [address] [address], [place] [phone] MCV (RBC) [Entitic vol] 88.8 fL Normal 80.0-100.0 [facility] Comment on above: Performed By: #### C MP, CBCDIF, CRP, PHOS, MG1 ####[place] [address] [address], [place] [phone] Monocytes/100 WBC (Bld) 1.7 % Normal [facility] Comment on above: Performed By: #### C MP, CBCDIF, CRP, PHOS, MG1 ####[place] [address] [address] [place], [place] [phone] Neutrophils/100 WBC (Bld) 91.9 % Normal [facility] Comment on above: Performed By: #### C MP, CBCDIF, CRP, PHOS, MG1 ####[facility], [place] [phone] NRBCs 0.0 /100 WBC Normal 0 [facility] Comment on above: Performed By: #### C MP, CBCDIF, CRP, PHOS, MG1 ####[place] [address] [address], [place] [phone] Platelet mean volume (Bld) [Entitic vol] 10.9 fL Normal 9.0-12.7 [facility] Comment on above: Performed By: #### C MP, CBCDIF, CRP, PHOS, MG1 ####[place] [address] [address], [place] [phone] Platelets (Bld) [#/Vol] 190 10*3/uL Normal 150-400 [facility] Comment on above: Performed By: #### C MP, CBCDIF, CRP, PHOS, MG1 ####[place] [address] [address], [place] [phone] RBC (Bld) [#/Vol] 3.84 10*6/uL Low 3.90-5.20 [facility] Comment on above: Performed By: #### C MP, CBCDIF, CRP, PHOS, MG1 ####[place] [address] [address], [place] [phone] WBC (Bld) [#/Vol] 10.65 10*3/uL Normal 3.70-11.00 [facility] Comment on above: Performed By: #### C MP, CBCDIF, CRP, PHOS, MG1 ####[place] [address] [address], [place] [phone] CONSULTon 03-19-2021 CONSULT HNO ID: [id number] Author: Jennifer Amaro MD Service: Infectious Disease Author Type: Physician Type: Consults Filed: 03/19/2021 6:28 PM Note Text: RESIDENT NOTE INFECTIOUS DISEASE - INITIAL CONSULT Service Date: March 19, 2021 Service Time: 3:05 PM Patient Name: Gaby Barbour Date of : 1950 SUBJECTIVE: Source of information: Patient Current [facility] records reviewed and summarized below Prior [facility] records reviewed and summarized below Outside hospital records reviewed and summarized below Provider requesting the consultation: Migdalia Stokes MD Chief Complaint / Reason for Consult: COVID-19 positive test HPI: Gaby Barbour is a 70 year old female with a history of HTN, HLD, hypothyroidism and arthritis (no immunosuppression) who underwent elective left total hip replacement on 03/16/2021 at [facility]. Of note, pre-operative COVID test on 03/14/2021 was negative. She completed the two-dose Pfizer COVID vaccination series on 01/06/2021. Patient reports coughing after recovering from anesthesia in the post-op period. The following day she experienced transient lightheadedness with ambulation, no LOC, and mild hypoxemia (SpO2 94-95% on RA). She was discharged home on 03/17 in stable condition. She reports a cough productive of yellow sputum without fever, chills, diaphoresis, chest pain or palpitations. On 03/18 she felt lightheaded and SOB upon standing, SpO2 75% on home pulse oximeter which subsequently improved to 83% with deep breaths. Family called her surgeon who advised evaluation in the ER. Patient was taken to ER at [facility] with improvement in SOB after receiving supplemental O2. WBC 17k with elevated neutrophils. CTA Chest showed no PE but revealed numerous small faint patchy opacities scattered throughout the lungs and a possible consolidation in the lingula. She was found to be COVID positive by intranasal swab with PCR testing. She was given dexamethasone 10 mg IV, remdesivir 200 mg IV, ceftriaxone 1 g IV and azithromycin 500 mg IV prior to admision to [facility] for further management. Rapid COVID testing upon admission on 03/19 was negative. On admission overnight, patient is afebrile, hemodynamically stable with SpO2 >98% on 2L O2 via NC. WBC 10.6k. D-Dimer 950. CRP 19.5. Pro-calcitonin 0.29. Sepsis lactate 1.7. Troponin T < 0.01. Patient started on Vanc + Zosyn. Patient reports improvement in SOB and cough. She is ambulatory and showered without oxygen today without SOB. Patient lives alone. No known COVID exposures. She isolated herself after negative COVID test 03/14. No loss of senses or diarrhea. No history of immunosuppression or diabetes. Exposure History (i.e. travel, pets/animals, sick contacts, insects, tuberculosis, diet, environment/occupati on) -- No sick contacts -- No recent travel -- No exposure to birds, cats or dogs Allergies: ALLERGIES No Known Allergies Current Antibiotics: Antibiotic / Dose / Interval Dates 1) Pip-tazo 3.375 g IV every 6 hours 03/19 - 2) Vancomycin 1.25 g IV every 12 hours 03/19 - 3) 4) 5) Prior Antibiotics: Antibiotic Dates 1) ceftriaxone 1 g IV 03/18 2) azithromycin 500 mg IV 03/18 3) 4) 5) Pressors: None Current Medications: Current Facility-Administere d Medications Medication Dose Route Frequency - rosuvastatin 5 mg tab(s) (CRESTOR) 5 mg ORAL DAILY - bisoprolol-hydroCHLO ROthiazide 5-6.25 mg 1 tablet (ZIAC) 1 tablet ORAL DAILY - ferrous sulfate 325 mg tab(s) 325 mg ORAL DAILY wLUNCH - docusate sodium 100 mg cap(s) (COLACE) 100 mg ORAL BID PRN - therapeutic multivitamin-mineral s tablet (THERA-M PLUS) 1 tablet ORAL DAILY - aspirin, enteric coated 81 mg tab(s) 81 mg ORAL BID - levothyroxine 88 mcg tab(s) (SYNTHROID) 88 mcg ORAL DAILY (6 AM) - ascorbic acid (vitamin C) 500 mg tab(s) (VITAMIN C) 500 mg ORAL BID w MEALS - dextrose 40 % 15 g 15 g ORAL PRN Or - glucagon 1 mg injection 1 mg INTRAMUSCULAR PRN Or - dextrose 50 % 12.5 g injection 12.5 g INTRAVENOUS PRN - insulin lispro injection (rapid acting) (HumaLOG) SUBCUTANEOUS w MEALS AND HS - enoxaparin 40 mg injection (LOVENOX) 40 mg SUBCUTANEOUS q 24 HR - guaiFENesin 600 mg ER tab(s) (MUCINEX) 600 mg ORAL q 12 H PRN - piperacillin-tazobac ramsey iv piggyback 3.375 g in dextrose (iso-osmotic) 50 mL (ZOSYN) 3.375 g INTRAVENOUS q 6 H - vancomycin 1.25 g in D5W 250 mL (VANCOCIN) 0.015 g/kg/dose INTRAVENOUS q 12 HR - vancomycin dosing and monitoring per pharmacy OTHER As Directed - calcium carbonate 1,000 mg chewable tab(s) (TUMS) 1,000 mg ORAL DAILY - magnesium oxide 200 mg tab(s) (MAG-OX) 200 mg ORAL DAILY - perflutren lipid microspheres 1.1 mg/mL 1.3 mL injection (DEFINITY) 1.3 mL INTRAVENOUS DIRECTED PRN - acetaminophen 1,000 mg tab(s) (TYLENOL) 1,000 mg ORAL BID - acetaminophen 325-650 mg tab(s) (TYLENOL) 325-650 mg ORAL q 8 H P (more content not included)... [facility] CONSULT PROGon 03-19-2021 CONSULT PROG HNO ID: [id number] Author: Jesse Schuster RPh Service: Pharmacy Author Type: Pharmacist Type: Consult Progress Note Filed: 03/19/2021 4:39 PM Note Text: PHARMACY VANCOMYCIN DOSING NOTE Patient Name: Gaby Barbour Admission Date: 03/18/2021 Date of Consult: 03/19/2021 Time of Consult: 4:38 PM Indication: Pneumonia Goal Range: 10-20 mcg/mL RECOMMENDATIONS/PLAN : Pharmacy consulted for vancomycin dosing for Gaby Barbour, a 70 year old, female who is being treated with vancomycin for pneumonia 1. The primary service has discontinued vancomycin therapy. Pharmacy vancomycin dosing service will sign off. Thank you for allowing us to participate in this patient's care. Please contact pharmacy if questions. Age: [age] year old Allergies: ALLERGIES No Known Allergies Last 3 Encounter Wt Readings: Date: Wt: 03/18/2021 85.5 kg (188 lb 6.4 oz) 02/26/2021 88.9 kg (196 lb) 01/07/2021 88.9 kg (195 lb 15.8 oz) Last 1 Encounter Ht Readings: Date: Ht: 03/18/2021 160 cm (5' 3 ) Temp (24hrs), Av.5 ?C (97.7 ?F), Min:36.2 ?C (97.2 ?F), Max:36.7 ?C (98.1 ?F) - Current Temp: 36.5 ?C (97.7 ?F) Labs BUN (mg/dL) Date Value 03/19/2021 9 03/17/2021 8 02/26/2021 13 Creatinine (mg/dL) Date Value 03/19/2021 0.51 (L) 03/17/2021 0.61 02/26/2021 0.55 (L) WBC (k/uL) Date Value 03/19/2021 10.65 03/17/2021 13.43 (H) 03/16/2021 14.24 (H) Vancomycin Levels: No results found for: CARLOS Schuster formerly [facility] CONSULT PROG HNO ID: [id number] Author: Denise German, PharmD Service: ? Author Type: Pharmacist Type: Consult Progress Note Filed: 03/19/2021 2:10 AM Note Text: PHARMACY VANCOMYCIN DOSING NOTE Patient Name: Gaby Barbour Admission Date: 03/18/2021 Date of Consult: 03/19/2021 Time of Consult: 2:09 AM Indication: Pneumonia Goal Range: 10-20 mcg/mL RECOMMENDATIONS/PLAN : Pharmacy consulted for vancomycin dosing for Gaby Barbour, a 70 year old, female who is being treated with vancomycin for pneumonia 1. Patient is currently ordered Vancomycin 1.25 g IV q12h. Today is day 1 of therapy. 2. No vancomycin level has been drawn for this dosing regimen. 3. The present dose of vancomycin is the recommended dosage for this patient at this time. Continue therapy as prescribed. 4. The next vancomycin level will be ordered for around the 5th dose unless clinically indicated sooner. (Pharmacy will order) 5. S. aureus nasal PCR swab ordered We will follow patient renal function, vancomycin levels and doses with you during the course of therapy. Additional recommendations will appear in follow up notes. If you have any questions, please contact Denise German at [phone]. Age: [age] year old Allergies: ALLERGIES No Known Allergies Last 3 Encounter Wt Readings: Date: Wt: 03/18/2021 85.5 kg (188 lb 6.4 oz) 02/26/2021 88.9 kg (196 lb) 01/07/2021 88.9 kg (195 lb 15.8 oz) Last 1 Encounter Ht Readings: Date: Ht: 03/18/2021 160 cm (5' 3 ) CrCl: 89 mL/min Temp (24hrs), Av.6 ?C (97.9 ?F), Min:36.6 ?C (97.9 ?F), Max:36.6 ?C (97.9 ?F) - Current Temp: 36.6 ?C (97.9 ?F) Labs BUN (mg/dL) Date Value 03/17/2021 8 02/26/2021 13 Creatinine (mg/dL) Date Value 03/17/2021 0.61 02/26/2021 0.55 (L) WBC (k/uL) Date Value 03/17/2021 13.43 (H) 03/16/2021 14.24 (H) 02/26/2021 9.64 Vancomycin Levels: No results found for: CARLOS German PharmD Normal [facility] Comp Metabolic Panelon 03-19 Albumin [Mass/Vol] 3.3 g/dL Low 3.9-4.9 [facility] Comment on above: Performed By: #### C MP, CBCDIF, CRP, PHOS, MG1 ####[facility] [place], [place] [phone] ALP [Catalytic activity/Vol] 79 U/L Normal 34-123 [facility] Comment on above: Performed By: #### C MP, CBCDIF, CRP, PHOS, MG1 ####[facility] [place], [place] [phone] ALT [Catalytic activity/Vol] 12 U/L Normal 7-38 [facility] Comment on above: Performed By: #### C MP, CBCDIF, CRP, PHOS, MG1 ####[facility] [facility] [place], [place] [phone] Anion gap [Moles/Vol] 8 mmol/L Low 9-18 [facility] Comment on above: Performed By: #### C MP, CBCDIF, CRP, PHOS, MG1 ####[place] [address] [place] [phone] AST [Catalytic activity/Vol] 24 U/L Normal 13-35 [facility] Comment on above: Performed By: #### C MP, CBCDIF, CRP, PHOS, MG1 ####[place] [address] [place] [phone] Bilirubin [Mass/Vol] 0.4 mg/dL Normal 0.2-1.3 [facility] Comment on above: Performed By: #### C MP, CBCDIF, CRP, PHOS, MG1 ####[place] [address] [place] [phone] Calcium [Mass/Vol] 8.9 mg/dL Normal 8.5-10.2 [facility] Comment on above: Performed By: #### C MP, CBCDIF, CRP, PHOS, MG1 ####[place] [address] [place] [phone] Chloride [Moles/Vol] 98 mmol/L Normal 97-105 [facility] Comment on above: Performed By: #### C MP, CBCDIF, CRP, PHOS, MG1 ####[place] [address] [place] [phone] CO2 [Moles/Vol] 30 mmol/L Normal 22-30 [facility] Comment on above: Performed By: #### C MP, CBCDIF, CRP, PHOS, MG1 ####[place] [address] [phone] Creatinine [Mass/Vol] 0.51 mg/dL Low 0.58-0.96 [facility] Comment on above: Performed By: #### C MP, CBCDIF, CRP, PHOS, MG1 ####[place] [address] [phone] eGFR- Amer. >60 Normal [facility] Comment on above: Performed By: #### C MP, CBCDIF, CRP, PHOS, MG1 ####[facility] [place], [place] [phone] eGFR-All Other Races >60 Normal [facility] Comment on above: Result Comment: eGFR (Estimated GFR) Units of measure: mL/min/1.73 meters squared eGFR is derived from the reexpressed MDRD Study equation using the following parameters: serum creatinine, age, gender and race. The creatinine assay has been calibrated to be traceable to IDMS. An eGFR <60 mL/min/1.73m2 for >3 months is consistent with chronic kidney disease. Refer to KDOQI guidelines for clinical interpretation. In patients with unstable renal function, e.g. those with acute kidney injury, the eGFR may not accurately reflect actual GFR. Performed By: #### C MP, CBCDIF, CRP, PHOS, MG1 ####[facility] [place], [place] [phone] Glucose [Mass/Vol] 211 mg/dL High 74-99 [facility] Comment on above: Result Comment: The [place] Diabetes Association (ADA) provides guidance for cutoff values for fasting glucose and random glucose. The ADA defines fasting as no caloric intake for at least 8 hours. Fasting plasma glucose results between 100 to 125 mg/dL indicate increased risk for diabetes (prediabetes). Fasting plasma glucose results greater than or equal to 126 mg/dL meet the criteria for diagnosis of diabetes. In the absence of unequivocal hyperglycemia, results should be confirmed by repeat testing. In a patient with classic symptoms of hyperglycemia or hyperglycemic crisis, random plasma glucose results greater than or equal to 200 mg/dL meet the criteria for diagnosis of diabetes. Reference: Standards of Medical Care in Diabetes 2016, [place] Diabetes Association. Diabetes Care. 2016.39(Suppl 1). Performed By: #### C MP, CBCDIF, CRP, PHOS, MG1 ####[facility] [place], [place] [phone] Potassium [Moles/Vol] 4.1 mmol/L Normal 3.7-5.1 [facility] Comment on above: Performed By: #### C MP, CBCDIF, CRP, PHOS, MG1 ####[address] [phone] Protein [Mass/Vol] 6.2 g/dL Low 6.3-8.0 [facility] Comment on above: Performed By: #### C MP, CBCDIF, CRP, PHOS, MG1 ####[address] [phone] Sodium [Moles/Vol] 136 mmol/L Normal 136-144 [facility] Comment on above: Performed By: #### C MP, CBCDIF, CRP, PHOS, MG1 ####[address] [phone] Urea nitrogen [Mass/Vol] 9 mg/dL Normal 7-21 [facility] Comment on above: Performed By: #### C MP, CBCDIF, CRP, PHOS, MG1 ####[address] [phone] Coronavirus 2019on 1 SARS-CoV-2 (COVID-19) RNA JACOBO+probe Ql (Unsp spec) Nasopharyngeal Swab Normal [facility] Comment on above: Performed By: #### C OVID ####[address] [phone] SARS-CoV-2 (COVID-19) RNA JACOBO+probe Ql (Unsp spec) Negative for COVID19 (SARS CoV2) by RT-PCR or equivalent method. Normal Negative for COVID19 (SARS CoV2) by RT-PCR or equivalent method. [facility] Comment on above: Result Comment: This test was developed and its performance characteristics determined by [facility] [place]. This test has been authorized by FDA under an Emergency Use Authorization (EUA). This test has been validated in accordance with the FDA's Guidance Document Policy for Diagnostics Testing in Laboratories Certified to Perform High Complexity Testing under CLIA prior to Emergency use Authorization for Coronavirus Disease 2019 during the Public Health Emergency issued on January 04, 2020. Test performed by [facility], [facility] [place], [address], [place] [address]. Performed By: #### C OVID ####[facility] [place], [place] [phone] D dimeron 03-19-2021 D dimer 950 ng/mL FEU High <500 [facility] Comment on above: Result Comment: 500 ng/mL FEU is the D Dimer cutoff to exclude DVT (deep vein thrombosis) and PE (pulmonary embolism) in patients with a low pre test probability. Supplemental Comment: In patients over 50 years with a low pre test probability for DVT and/or PE, an age adjusted D dimer cutoff can be calculated as [age x 10] ng/mL FEU. For example, a patient of 88 years would have an age adjusted D dimer cutoff of 880 ng/mL FEU. For patients with a suspected DVT, a D dimer level below 500 ng/mL FEU has a negative predictive value of >98.9%, a sensitivity of >96.9% and a specificity of >35.7%. For patients with a suspected PE, a D dimer level below 500 ng/mL FEU has a negative predictive value of >98.5%, and a sensitivity of >96.5% and a specificity of >38.8%. Reference: Sonia M, et al. ANGELITA 2014 311:1117 and Van Viviana N, et al. Theresa Int Med 2016 165:253. Performed By: #### T NT, PAMELA, PROCAL ####[facility] [place], [place] [phone] HISTORY PHYSICALon HISTORY PHYSICAL HNO ID: [id number] Author: Ron Tinajero MD Service: Hospital Medicine Author Type: Physician Type: HANDP Filed: 03/19/2021 4:35 AM Note Text: Summary: Post-op hypoxemia, SOB, b/l pneumonia, leukcocytosis, elevated Tn and BNP, normal ekg. Covid-19 test positive. DEPARTMENT OF HOSPITAL MEDICINE HISTORY AND PHYSICAL EXAM SERVICE DATE: 03/18/2021 Code Status: Not on file SERVICE TIME: 11:47 PM Primary Care Physician: Marnie Burnett MD NIGHT AND WEEKEND COVERAGE: [facility] COVERAGE: Page me until 0730 hrs 03/19/21 and then page the [facility] team pt is assigned to. Subjective CHIEF COMPLAINT: Shortness of breath and lightheadedness. HPI: This is a 70 year old female with a h/o HTN, HLD, hypothyroidism and arthritis who underwent elective Lt THR on Mon03/16/21 at [facility]. Prior to that pt had been feeling well and had undergone a routine pre-procedure Covid-19 test on Mon03/14/21 that was negative. Pt has also received both doses of the ELIKE Covid-19 vaccine as of 01/06/21. Pt recalls that she coughed quite a bit after recovering from anesthesia but did well otherwise initially. The next morning (03/17) when she was stood up and ambulated she felt transiently light-headed w/o presyncope or syncope. She was noted to be mildly hypoxic around the middle of the day but after that had 2 sO2 readings in the 94-95% range and so was discharged home. She was very tired after getting home but slept ok overnight. For post-op pain she took a couple of doses of oxycodone 03/17 but subsequently pain has been controlled by Tylenol. Today (Tangela 03/18) AM on attempting to get up she felt very light-headed and short of breath and noted a little sweatiness on exertion. 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 Pt doesn't recall HR. sO2 came up to max of 83% with deep breaths. Pt's dtr called the orthopedic surgeon's office and was advised to take her to the ER. Pt was taken to [facility] in [place], [place]. After initiation of supplemental O2 via NC pt felt better. Pt coughed up some yellow sputum in the ER. In the ER, PE was r/o but pt was found to be Covid-19 positive by intranasal swab RT-PCR test and had evidence of patches of pneumonia b/l. Pt was given IV abx and one dose each of dexamethasone and remdesivir and transferred here for admission. REVIEW OF SYSTEM: GENERAL: No fever, chills. Mild sweatiness on exertion, along with light-headedness and shortness of breath. No recent weight change. HEENT: Positive for light-headed on attempted ambulation without presyncope / syncope or vertigo. No GILL. No visual sx. No nasal congestion, sore throat, earache. No loss of sense of smell or taste recently. RESPIRATORY: Positive for cough after anesthesia 03/16/21. Positive for SOB / RAIV today (03/18/21) with sO2 down to mid-70s to low-80s. Some cough today with expectoration of yellow sputum. No hemoptysis. No pleuritic pain. CARDIOVASCULAR: No CP, palpitations, orthopnea, PND, pedal / ankle edema. GI: No dysphagia, GE reflux, n/v/d/c, abd pain, blood in stool, melena. : No UTI sx. No incontinence issues after bladder suspension surgery. MUSCULOSKELETAL: Tolerable / controlled Lt hip post-op pain. No bleeding / discharge from surgical site. No calf swelling or pain. NEURO: Pt felt slightly muddled after oxycodone last night and was noted by her dtr to be mildly confused today AM when she was hypoxic - pt has felt fully alert and oriented etc after being started on supplemental O2. SLEEP: Positive for snoring, frequently un-refreshing night sleep, daytime sleepiness with tendency to doze off during the day. PAST MEDICAL HISTORY Diagnosis Date - Arthritis Patient underwent elective left hip total replacement 03/16/2021 - Essential hypertension - Female stress incontinence Doing well after bladder suspension surgery - Other hyperlipidemia - Other specified hypothyroidism PAST SURGICAL HISTORY Procedure Laterality Date - LAMINECTOMY,LUMBAR 2016 - LIGATE FALLOPIAN TUBE 1976 - PAST SURGICAL HISTORY OF 1978 ganglion cyst - SLING OPER STRES INCONTINENCE 2003 - TOTAL ABDOM HYSTERECTOMY 07/2019 - TOTAL HIP REPLACEMENT Left 03/16/2021 FAMILY HISTORY Problem Relation Age of Onset - other (alcoholism) Mother - Heart disease Father - Thyroid Cancer Sister Father of heart disease. Mother of alcoholism. Brother is diabetic. 1 sister has a history of thyroid cancer and developed hypoparathyroidism postoperatively due to accidental removal of all 4 parathyroids. 1 sister has hypertension and ESRD for which she is on hemodialysis. Children: 1 son and 1 daughter, both okay. Social History Tobacco Use - Smoking status: Never Smoker - Smokeless tobacco: Never Used Substance Use Topics - Alcohol use: Not Currently - Drug use: Not Currently Patient is single and usually lives by herself. Her (more content not included)... Normal [facility] Hemoglobin A1con 03-19-2021 Glucose [Mass/Vol] 137 mg/dL Normal [facility] Comment on above: Result Comment: eAG: (Estimated average glucose) is a calculated value from HgbA1c and is customer operations representative of the average blood glucose level in the last 2-3 month period. Performed By: #### H BA1C ####[address] [phone] HbA1c (Bld) [Mass fraction] 6.4 % High 4.3-5.6 [facility] Comment on above: Result Comment: [place] Diabetes Association guidelines indicate that patients with HgbA1c in the range 5.7-6.4% are at increased risk for development of diabetes, and intervention by lifestyle modification may be beneficial. HgbA1c greater or equal to 6.5% is considered diagnostic of diabetes. Performed By: #### H BA1C ####[address] [phone] Intermed Rapid COVIDon 03-19 SARS-CoV-2 (COVID-19) RNA JACOBO+probe Ql (Unsp spec) Nasopharyngeal Swab Normal [facility] Comment on above: Performed By: #### I TCOVD ####[address] [phone] SARS-CoV-2 (COVID-19) RNA JACOBO+probe Ql (Unsp spec) Negative for COVID19 (SARS CoV2) by RT-PCR or equivalent method. Normal Negative for COVID19 (SARS CoV2) by RT-PCR or equivalent method. [facility] Comment on above: Result Comment: This test was developed and its performance characteristics determined by [facility]'s [facility]ology [facility] Laboratory [facility] [place]. This test has been authorized by FDA under an Emergency Use Authorization (EUA). This test has been validated in accordance with the FDA's Guidance Document Policy for Diagnostics Testing in Laboratories Certified to Perform High Complexity Testing under CLIA prior to Emergency use Authorization for Coronavirus Disease 2019 during the Public Health Emergency issued on January 04, 2020. Test performed by [facility] Laboratory, [facility] Pathology and Laboratory [facility] [place], [address] [place] [address]. Performed By: #### I TCOVD ####[address] [phone] Magnesiumon 03-19-2021 Magnesium [Mass/Vol] 1.8 mg/dL Normal 1.7-2.3 [facility] Comment on above: Performed By: #### C MP, CBCDIF, CRP, PHOS, MG1 ####[address] [phone] NT Pro BNPon 03-19-2021 PRO B Natr Peptide 1346 pg/mL High <125 [facility] Comment on above: Performed By: #### N TBNP ####[address] [phone] Phosphoruson 03-19-2021 Phosphate [Mass/Vol] 1.8 mg/dL Low 2.7-4.8 [facility] Comment on above: Performed By: #### C MP, CBCDIF, CRP, PHOS, MG1 ####[address] [phone] Procalcitoninon 03-19-2021 Procalcitonin 0.29 ng/mL High <0.09 [facility] Comment on above: Result Comment: For a guided interpretation of test results, please visit the Change in Procalcitonin Calculator, [email or web address]. Performed By: #### T NT, DDMER, PROCAL ####[address] [phone] Sepsis Lactateon 03-19-2021 Blood Gas Comm, [place] . Normal [facility] Comment on above: Performed By: #### S LACT ####[address] [phone] Sepsis Lactate 1.7 mmol/L Normal <2.1 [facility] Comment on above: Performed By: #### S LACT ####[address] [phone] Staph aureus PCRon 1 MRSA PCR Negative Normal [facility] Comment on above: Performed By: #### S APCR ####[address] [phone] S aureus Spec Source Nasal Normal [facility] Comment on above: Performed By: #### S APCR ####[address] [phone] Staph aureus PCR Negative Normal [facility] Comment on above: Performed By: #### S APCR ####[address] [phone] MRSA PCR Unable to assay. Specimen improperly collected/handled. Normal [facility] Comment on above: Result Comment: Clin ic Desk/[facility] notified. Spoke to JOSIAS AT 0600 TOLD TO REORDER AND RECOLLECT Performed By: #### S APCR ####[address] [phone] S aureus Spec Source Nasal Normal [facility] Comment on above: Performed By: #### S APCR ####[address] [phone] Staph aureus PCR Unable to assay. Specimen improperly collected/handled. Normal [facility] Comment on above: Result Comment: Clin ic Desk/Hospital Nursing [facility] notified. Spoke to JOSIAS AT 0600 TOLD TO REORDER AND RECOLLECT Performed By: #### S APCR ####[address] [phone] Troponin Ton 03-19-2021 Troponin T <0.010 Normal 0.000-0.029 [facility] Comment on above: Performed By: #### T NT ####[address] [phone] Troponin T <0.010 Normal 0.000-0.029 [facility] Comment on above: Performed By: #### T NT ####[address] [phone] Troponin T <0.010 Normal 0.000-0.029 [facility] Comment on above: Performed By: #### T NT, ELA SANTIAGO ####[address] [phone] Performed By: #### T NT ####[address] [phone] XR CHEST 1V FRONTAL PORTon 0 03-19-2021 XR CHEST 1V FRONTAL PORT * * *Final Report* * * DATE OF EXAM: Mar 19 2021 5:41PM FOSTER [id number] - XR CHEST 1V FRONTAL PORT / PROCEDURE REASON: Acute respiratory illness * * * * Physician Interpretation * * * * EXAMINATION: CHEST RADIOGRAPH (PORTABLE SINGLE VIEW AP) Exam Date/Time: 03/19/2021 5:41 PM Clinical History: Acute respiratory illness MQ: [id number] Comparison: None RESULT: Lines, tubes, and devices: None. Lungs and pleura: Partial atelectasis is seen along the medial bases. Prominence of the lung markings bilaterally could be due to crowded vessels given the low lung volume. Underlying mild interstitial edema or inflammation cannot be entirely excluded. No significant pleural effusion or pneumothorax. Cardiomediastinal silhouette: Heart is within normal. Thoracic aorta is mildly tortuous. Other: Mild generalized osteopenia. IMPRESSION: See result. Fashion Model: PSCB Transcribe Date/Time: Mar 19 2021 5:46P Dictated by : KEITH HINES MD This examination was interpreted and the report reviewed and electronically signed by: KEITH HINES MD on Mar 19 2021 5:48PM EST [id number] Normal [facility] Basic Metabolic Panlon 03-17 Anion gap [Moles/Vol] 12 mmol/L Normal 9-18 [facility] Calcium [Mass/Vol] 8.6 mg/dL Normal 8.5-10.2 [facility] Chloride [Moles/Vol] 94 mmol/L Low 97-105 [facility] CO2 [Moles/Vol] 26 mmol/L Normal 22-30 [facility] Creatinine [Mass/Vol] 0.61 mg/dL Normal 0.58-0.96 [facility] eGFR- Amer. >60 Normal [facility] eGFR-All Other Races >60 Normal [facility] Comment on above: Result Comment: eGFR (Estimated GFR) Units of measure: mL/min/1.73 meters squared eGFR is derived from the reexpressed MDRD Study equation using the following parameters: serum creatinine, age, gender and race. The creatinine assay has been calibrated to be traceable to IDMS. An eGFR <60 mL/min/1.73m2 for >3 months is consistent with chronic kidney disease. Refer to KDOQI guidelines for clinical interpretation. In patients with unstable renal function, e.g. those with acute kidney injury, the eGFR may not accurately reflect actual GFR. Glucose [Mass/Vol] 191 mg/dL High 74-99 [facility] Comment on above: Result Comment: The [place] Diabetes Association (ADA) provides guidance for cutoff values for fasting glucose and random glucose. The ADA defines fasting as no caloric intake for at least 8 hours. Fasting plasma glucose results between 100 to 125 mg/dL indicate increased risk for diabetes (prediabetes). Fasting plasma glucose results greater than or equal to 126 mg/dL meet the criteria for diagnosis of diabetes. In the absence of unequivocal hyperglycemia, results should be confirmed by repeat testing. In a patient with classic symptoms of hyperglycemia or hyperglycemic crisis, random plasma glucose results greater than or equal to 200 mg/dL meet the criteria for diagnosis of diabetes. Reference: Standards of Medical Care in Diabetes 2016, [place] Diabetes Association. Diabetes Care. 2016.39(Suppl 1). Potassium [Moles/Vol] 4.0 mmol/L Normal 3.7-5.1 [facility] Sodium [Moles/Vol] 132 mmol/L Low 136-144 [facility] Urea nitrogen [Mass/Vol] 8 mg/dL Normal 7-21 [facility] CBCon 03-17-2021 Absolute nRBC <0.01 Normal <0.01 [facility] Erythrocyte distribution width (RBC) [Ratio] 12.4 % Normal 11.5-15.0 [facility] Hematocrit (Bld) [Volume fraction] 36.6 % Normal 36.0-46.0 [facility] Hemoglobin (Bld) [Mass/Vol] 11.6 g/dL Normal 11.5-15.5 [facility] MCH 28.8 pG Normal 26.0-34.0 [facility] MCHC (RBC) [Mass/Vol] 31.7 g/dL Normal 30.5-36.0 [facility] MCV (RBC) [Entitic vol] 90.8 fL Normal 80.0-100.0 [facility] Platelet mean volume (Bld) [Entitic vol] 10.5 fL Normal 9.0-12.7 [facility] Platelets (Bld) [#/Vol] 221 10*3/uL Normal 150-400 [facility] RBC (Bld) [#/Vol] 4.03 10*6/uL Normal 3.90-5.20 [facility] WBC (Bld) [#/Vol] 13.43 10*3/uL High 3.70-11.00 [facility] CNDSon 03-17-2021 [facility] HNO ID: [id number] Author: Melany Frias PA-C Service: Orthopaedic Surgery Author Type: Physician Milk Route Deliverer Type: Discharge Summary Filed: 03/17/2021 6:54 PM Note Text: Attestation signed by Eric Hamilton MD at 03/19/2021 11:52 AM Agree with findings DISCHARGE SUMMARY Patient Name: Gaby Barbour : 1950 ADMISSION DATE: 03/16/2021 DISCHARGE DATE: 03/17/2021 Attending Physician: Eric Hamilton MD Primary Diagnosis: Primary osteoarthritis of left hip [M16.12] Operations During Hospitalization: Procedure(s) (LRB): ARTHROPLASTY REPLACE JOINT TOTAL HIP (Left) Procedures During Hospitalization: No procedures performed Hospital Course: Gaby is a 70 year old female complaining of left Hip pain not responsive to a comprehensive course of conservative treatment. Left hip total arthroplasty was proposed and the patient wishes to proceed and was medically cleared prior to the procedure. Patient underwent a Left hip total arthroplasty and was transferred to the PACU in stable condition, She was then admitted to the hospital. Post operatively She did well. Post-operative HgB was stable and within acceptable range and remained there throughout the hospital stay not requiring transfusion. Wound was without sign of infection. She was able to actively participate in a physical and occupational therapy program for gait training and mobilization. Due to the operative findings and procedure performed which is consistent with a major orthopedic procedure, the postoperative analgesia will exceed the allowable morphine equivalent dose. PHYSICAL EXAM: General Appearance: Well appearing, alert, in no acute distress, well-hydrated, well nourished.. Skin: Skin color, texture, turgor normal, no suspicious rashes or lesions. Lungs: Lungs clear to auscultation. No wheezing, rhonchi, rales.. Heart: RRR without murmur, gallop, or rubs. No ectopy. Dorsalis pedis pulses palpable. Posterior tibial pulses palpable. Dorsi flexion 5/5. Plantar flexion 5/5. Extensor hallucis extension: 5/5. Sensory intact to light touch L1-S1. Dressing clean, dry and intact. Surgical site no drainage and skin edges well approximated. Patient Condition at Discharge: Stable Discharge Disposition: Home/Self Care DISCHARGE MEDICATION: Current Discharge Medication List START taking these medications !! acetaminophen (TYLENOL) 1,000 mg Take 1,000 mg by mouth every 8 hours. ascorbic acid (vitamin C) (VITAMIN C) 500 mg Take 500 mg by mouth twice daily with meals. Qty: 28 tablet Refills: 0 ferrous sulfate 325 mg Take 325 mg by mouth daily with lunch. Qty: 7 tablet Refills: 0 oxyCODONE IR (ROXICODONE) 5 mg immediate release tablet Take 1-2 tablets po every 4-6 hours as needed pain Qty: 50 tablet Refills: 0 Associated Diagnoses:Acute post-operative pain docusate sodium (COLACE) 100 mg Take 100 mg by mouth twice daily as needed for Constipation. Qty: 14 capsule Refills: 0 aspirin, enteric coated (ASPIRIN, ENTERIC COATED) 81 mg Take 81 mg by mouth twice daily. Qty: 90 tablet Refills: 0 !! - Potential duplicate medications found. Please discuss with provider. CONTINUE these medications which have NOT CHANGED !! acetaminophen (TYLENOL) 500 mg Take 500 mg by mouth. levothyroxine (SYNTHROID) 88 mcg tablet bisoprolol-hydroCHLO ROthiazide (ZIAC) 1 tablet Take 1 tablet by mouth once daily. rosuvastatin (CRESTOR) 5 mg Take 5 mg by mouth once daily. calcium carbonate-mag hydroxid 1,000-200 mg chew Take by mouth. Magnesium 250 mg Take 250 mg by mouth. biotin 1 mg cap Take by mouth. MULTI-VITAMIN ORAL Take by mouth. vitamin B complex (B COMPLEX 1 ORAL) Take by mouth. Lactobac no.41/Bifidobact no.7 (PROBIOTIC-10 ORAL) Take by mouth. HYDROcodone-Acetamin ophen 1 tablet Take 1 tablet by mouth every 8 hours as needed. celecoxib (CeleBREX) 200 mg Take 200 mg by mouth twice daily. 1-2 prn !! - Potential duplicate medications found. Please discuss with provider. STOP taking these medications mupirocin (BACTROBAN) 2 % ointment Comments: Reason for Stopping: Future Appointments: Appointments for Next 60 Days Date Time Provider Location Dept Phone 03/31/2021 10:45 AM ERIC H[facility]IL[facility] Harpreet [phone] SIGNATURE: Melany Frias PA-C PATIENT NAME: Gaby Barbour DATE: 03/17/21 TIME: 1:00 PM [facility] NURSING PROGon 03-17-2021 NURSING PROG HNO ID: [id number] Author: Zoë Blount, RN Service: Nursing Author Type: Registered Nurse Type: Nursing Progress Note Filed: 03/17/2021 4:33 PM Note Text: Nursing Progress Note Patient Name: Gaby Barbour Patient Location[place] [address] [address] Daily Note: pt educated on discharge instructions. Pt stated all questions were answered and that she has all of her belongings. This note was completed by: Zoë Blount [facility] THERAPY NTon 03-17-2021 THERAPY NT HNO ID: [id number] Author: Breanna Frye, PT Service: Physical Therapy Author Type: Physical Therapist Type: Therapy (PT/OT/Speech/Resp) Filed: 03/17/2021 2:34 PM Note Text: Physical Therapy Treatment SERVICE DATE: 03/17/2021 SERVICE TIME: 1330 to 1415 ROOM: [place] [address] Recommended Discharge Disposition: Home PT Recommended Discharge Equipment: No equipment needs anticipated PT 6 Clicks Score: 21 Precautions/Activity Restrictions: Total Hip Replacement;Weight Bearing Restrictions;Hip Precautions - Posterior Dislocation Extremity With Weight Bearing Restricted: Left Lower Extremity Left Lower Extremity Weight Bearing Status: WBAT Total Hip Replacement Precautions: Posterior Current Hospital Course: POD 1 L HELEN Reason for Hospital Admission: s/p L HELEN Response to Therapy Interventions: Good participation in activities Physical Therapy Problem List: Decreased Range Of Motion;Functional Mobility Impairment;Decreased Strength;Balance Impaired Treatment Interventions: Education;Strengthen ing;Functional Mobility Training Home Environment Patient Lives With: Self/Alone Assistance Available: 24 Hour (dtr will be staying with pt a few days) Entry To Home: Stairs;Without Rail Number Of Stairs Into Home: 2 Number Of Stairs To Bed/Bath: 1st floor bed and bath Tub/Shower Type: tub/shower with grab bars and shower chair Laundry: 1st floor Equipment Owned: Grab Bars-Shower;Shower Chair;Commode-Raised ;Wheeled Walker;Angle Shear Set Up Operator;Sock Aide;Long Handled Shoe Horn Prior Functional Level: Within Functional Limits Prior Functional Level Comments: IND ADLs and amb without AD, + drive, retired Patient Report: Pt in the chair, I have to use the bathroom first CURRENT FUNCTIONAL STATUS: Most recent performance Current Functional Mobility Assist Level Additional Information Rolling Supine to Sit Contact Guard Assistance (HOB flat, OOB to R, using sheet to A R LE) Sit to Supine Scooting Moderate Assistance (Scooting to R to get out of hole in bed) Sit to Stand Stand By Assistance Stand to Sit Stand By Assistance Bed to Chair Toilet/Commode Stand By Assistance Gait Stand By Assistance Gait Device: Wheeled Walker Gait Distance (feet): 10X1, 15X2, 75X1 Pt ambulating very slowly, step-to sequence, unsure of herself with turns/change of directions but did well following the hip precautions. Stairs Contact Guard Assistance Stairs Device: Rail;Cane Number of Stairs: 4 Curb Step Car Transfer Blank reich indicate activity not attempted Gait Deviations Left Lower Extremity: Heel strike during initial stance decreased;Push off during terminal stance decreased;Stance time decreased;Step length decreased;Weight bearing decreased Range of Motion: WFL Except (L hip AA flexion ~50 deg) Strength: WFL Except (L hip <3/5) -HLM: 7: Walk 25 feet or more Learning/Educational Needs: Discharge Plan;Functional Activities/Mobility; Plan of Care;Precautions;Theresa abilitation Techniques and Procedures Goals for Plan of Care: Patient /Caregiver Goals: Go Home Goals: Patient will demonstrate progress with functional mobility to allow safe discharge to home with available support and/or physical assistance. Progress Toward Goals: Progressing as expected Rehab Potential: Good Patient will be discontinued from Physical Therapy when no further skilled needs are identified in this setting. PLAN: Treatment Frequency (times per week): 7 Current admission Plan of Care developed with: Patient TREATMENT INTERVENTIONS: Therapy Diagnosis: Reduced mobility-other Interventions Provided: Gait Training (05684);Therapeutic Exercise (07370) Therapeutic Exercise (68905) Treatment Minutes: 15 $ Therapeutic Exercise (90936) Billed Units: 1 unit Pt performed in supine position: AP, QS, GS x 10 B LE, pt instructed to do every hour while awake on their own. HS, HIP ABD X10 b le Pt instructed on using a sheet to A with L Pt performed in seated position: LAQ X10 B LE All exercises are to be completed at home 3x/day, 2 sets for 10 Gait Training (78661) Treatment Minutes: 25 $ Gait Training (44891) Billed Units: 2 units Training AND education provided in: Benefits of in-hospital mobility, Discharge planning, Equipment, Gait pattern, reduction of deviations, Handout issued, Precautions/restrict ions, Role of Physical Therapy, Assistive device use, Stair navigation The following therapeutic skills were used: Activity dosing, Cues for sequencing/proper technique for activity, Cuing tactile, Cuing verbal, Physical assist, Movement facilitation, Repetitive task learning, Task analysis learning, Teach-back for education Total Timed Code Treatment Minutes: 40 Total Treatment Time (minutes): 40 Please see discipline specific clinical documentation flowsheet for complete details for this therapy evaluation/treatment . SIGNATURE: Breanna Frye, PT PATIENT NAME: Gaby Barbour (more content not included)... [facility] THERAPY NT HNO ID: [id number] Author: Zoë Vela OT/L Service: Occupational Therapy Author Type: Occupational Therapist Type: Therapy (PT/OT/Speech/Resp) Filed: 03/17/2021 2:24 PM Note Text: Occupational Therapy Evaluation SERVICE DATE: 03/17/2021 SERVICE TIME: 1031 to 1125 ROOM: [place] [address] Recommended Discharge Disposition: Home Recommended Discharge Equipment: Long Handled Sponge OT 6 Clicks Score: 24 Precautions/Activity Restrictions: Total Hip Replacement;Weight Bearing Restrictions;Hip Precautions - Posterior Dislocation Extremity With Weight Bearing Restricted: Left Lower Extremity Left Lower Extremity Weight Bearing Status: WBAT Total Hip Replacement Precautions: Posterior Instructed pt to ambulate at home every hour when awake. Pt is ok for DC home today from OT standpoint, when cleared by medical/ORTHO and PT. Current Hospital Course: POD 1 L HELEN Reason for Hospital Admission: s/p L HELEN Response to Therapy Interventions: Good participation in activities Continue skilled needs due to: (cleared from OT perspective) Occupational Therapy Problem List: Impaired Self Care;Decreased Activity Tolerance;Functional Mobility Impairment;Balance Impaired Cognition/Communicat ion Deficits Responsiveness: Alert, Awake Follows Commands: 3-step Commands Treatment Interventions: Education;Self Care / Home Management;Energy Conservation Training;Joint Mobility;Strengtheni ng;Functional Mobility Training;Balance Training Plan for next visit: (cleared from OT perspective) Home Environment Patient Lives With: Self/Alone Assistance Available: 24 Hour (dtr will be staying with pt a few days) Entry To Home: Stairs;Without Rail Number Of Stairs Into Home: 2 Number Of Stairs To Bed/Bath: 1st floor bed and bath Tub/Shower Type: tub/shower with grab bars and shower chair Laundry: 1st floor Equipment Owned: Grab Bars-Shower;Shower Chair;Commode-Raised ;Wheeled Walker;Angle Shear Set Up Operator;Sock Aide;Long Handled Shoe Horn Prior Functional Level: Within Functional Limits Prior Functional Level Comments: IND ADLs and amb without AD, + drive, retired Patient Report: Am I doing this right? Pt pleasant, agreeable to participate in session. CURRENT FUNCTIONAL STATUS: Most recent performance Current Activities of Daily Living Assist Level Additional Information Feeding Set Up Grooming Stand By Assistance (while standing at sink) Bathing Upper Body Set Up Bathing Lower Body Stand By Assistance Dressing Upper Body Set Up Dressing Lower Body Stand By Assistance Toileting Stand By Assistance Instrumental Activities of Daily Living Assist Level Additional Information Meal/Beverage Prep Cleaning Laundry Medication Management with Strategies Functional Mobility Assist Level Additional Information Rolling Supine to Sit Sit to Supine Scooting Sit to Stand Stand By Assistance Stand to Sit Stand By Assistance Bed to Chair Toilet/Commode Shower Functional Mobility Stand By Assistance Wheeled Walker Blank reich indicate activity not attempted Learning/Educational Needs: Discharge Plan;Equipment;Famil y Education/Training;F unctional Activities/Mobility; Plan of Care;Precautions;Theresa abilitation Techniques and Procedures;Safety;Se lf Care Goals for Plan of Care: Patient /Caregiver Goals: Go Home Goals: Patient will demonstrate progress with self-care, cognitive and/or coping needs identified to allow safe discharge to home with available support and/or physical assistance. Rehab Potential: Good Patient will be discontinued from Occupational Therapy when no further skilled needs are identified in this setting. PLAN: Treatment Frequency (times per week): 5 Current admission Plan of Care developed with: Patient TREATMENT INTERVENTIONS: Therapy Diagnosis: Decreased activities of daily living (ADL);Muscle Weakness (generalized);Reduce d mobility-other;Gener al symptoms and signs-other Interventions Provided: Evaluation;Therapeut ic Activity (03339);Self Fpc Management (26528) $ Evaluation-Low (50726) Billed Units: 1 unit Therapeutic Activity (82226) Treatment Minutes: 15 $ Therapeutic Activity (75096) Billed Units: 1 unit Self Fpc Management (68426) Treatment Minutes: 23 $ Self Fpc Management (76209) Billed Units: 2 units Training AND education provided in: Adaptive equipment / DME, Assistive device use, Benefits of in-hospital mobility, Bed mobility, Discharge planning, Expected functional level, Functional mobility involving ADL's, Grooming tasks, Lower extremity dressing, Role of Occupational Therapy, Precautions/restrict ions, Positioning, Toileting?, Transfer - Sit to stand, Transfer - Toilet/commode, Upper extremity dressing The following therapeutic skills were used: Activity dosing, Cues for sequencing/proper technique for activity, Cuing verbal, Movement facilitation, Therapeutic use of self, Teach-back for education Total Timed Code Treatm (more content not included)... Normal [facility] THERAPY NT HNO ID: [id number] Author: Breanna Frye, PT Service: Physical Therapy Author Type: Physical Therapist Type: Therapy (PT/OT/Speech/Resp) Filed: 03/17/2021 9:43 AM Note Text: Physical Therapy Evaluation SERVICE DATE: 03/17/2021 SERVICE TIME: 731 to 814 ROOM: [place] [address] Recommended Discharge Disposition: Home PT Recommended Discharge Equipment: No equipment needs anticipated PT 6 Clicks Score: 18 Precautions/Activity Restrictions: Total Hip Replacement;Weight Bearing Restrictions;Hip Precautions - Posterior Dislocation Extremity With Weight Bearing Restricted: Left Lower Extremity Left Lower Extremity Weight Bearing Status: WBAT Total Hip Replacement Precautions: Posterior Current Hospital Course: POD 1 L HELEN Reason for Hospital Admission: s/p L HELEN Response to Therapy Interventions: Good participation in activities Continue skilled needs due to: Functional mobility/skill impairments Physical Therapy Problem List: Decreased Range Of Motion;Functional Mobility Impairment;Decreased Strength;Balance Impaired Treatment Interventions: Joint Mobility;Strengtheni ng;Functional Mobility Training Home Environment Patient Lives With: Self/Alone Assistance Available: 24 Hour (dtr will be staying with pt a few days) Entry To Home: Stairs;Without Rail Number Of Stairs Into Home: 2 Number Of Stairs To Bed/Bath: 1st floor bed and bath Tub/Shower Type: tub/shower with grab bars and shower chair Laundry: 1st floor Equipment Owned: Grab Bars-Shower;Shower Chair;Commode-Raised ;Wheeled Walker;Cane;Angle Shear Set Up Operator; Sock Aide Prior Functional Level: Within Functional Limits Prior Functional Level Comments: IND ADLs and amb without AD, + drive, retired Patient Report: Pt in bed This will be my first time up CURRENT FUNCTIONAL STATUS: Most recent performance Current Functional Mobility Assist Level Additional Information Rolling Supine to Sit Contact Guard Assistance (HOB flat, OOB to R, using sheet to A R LE) Sit to Supine Scooting Moderate Assistance (Scooting to R to get out of hole in bed) Sit to Stand Contact Guard Assistance Stand to Sit Stand By Assistance Bed to Chair Toilet/Commode Stand By Assistance Gait Contact Guard Assistance Gait Device: Wheeled Walker Gait Distance (feet): 10x1, 15x1 MOD VC for sequence, pt hesitant and cautious, moving very slowly. Stairs Curb Step Car Transfer Blank reich indicate activity not attempted Gait Deviations Left Lower Extremity: Heel strike during initial stance decreased;Push off during terminal stance decreased;Stance time decreased;Step length decreased;Weight bearing decreased Range of Motion: WFL Except (L hip AA flexion ~50 deg) Strength: WFL Except (L hip <3/5) JH-HLM: 6: Walk 10 steps or more Learning/Educational Needs: Discharge Plan;Functional Activities/Mobility; Plan of Care;Precautions;Theresa abilitation Techniques and Procedures Goals for Plan of Care: Patient /Caregiver Goals: Go Home Goals: Patient will demonstrate progress with functional mobility to allow safe discharge to home with available support and/or physical assistance. Rehab Potential: Good Patient will be discontinued from Physical Therapy when no further skilled needs are identified in this setting. PLAN: Treatment Frequency (times per week): 7 Current admission Plan of Care developed with: Patient TREATMENT INTERVENTIONS: Therapy Diagnosis: Reduced mobility-other Interventions Provided: Evaluation;Therapeut ic Exercise (16039);Therapeutic Activity (62518);Gait Training (23695) $ Evaluation-Low (29628) Billed Units: 1 unit Therapeutic Exercise (88615) Treatment Minutes: 10 $ Therapeutic Exercise (73141) Billed Units: 1 unit Pt performed in supine position: AP, QS, GS x 10 B LE, pt instructed to do every hour while awake on their own. HS, HIP ABD x10 B LE Pt instructed on using a sheet to A with L HS. Instructed pt on using a plastic bag to A L LE with sliding. Pt performed in seated position: LAQ X10 B LE All exercises are to be completed at home 3x/day, 2 sets for 10 Therapeutic Activity (24753) Treatment Minutes: 8 Gait Training (28382) Treatment Minutes: 10 $ Gait Training (22036) Billed Units: 1 unit Training AND education provided in: Bed mobility, Benefits of in-hospital mobility, Discharge planning, Equipment, Gait pattern, reduction of deviations, Handout issued, Precautions/restrict ions, Role of Physical Therapy, Assistive device use The following therapeutic skills were used: Activity dosing, Cues for sequencing/proper technique for activity, Cuing tactile, Cuing verbal, Physical assist, Movement facilitation, Repetitive task learning, Task analysis learning, Teach-back for education Total Timed Code Treatment Minutes: 28 Total Treatment Time (minutes): 43 Please see discipline specific clinical documentation flowsheet for complete details for this therapy evaluation/treatment . SIGNATUR (more content not included)... Normal [facility] ANES POSTPROC EVALon 021 ANES POSTPROC EVAL HNO ID: [id number] Author: Aaron Barrett MD Service: Anesthesiology Author Type: Physician Type: Anesthesia Postprocedure Evaluation Filed: 03/16/2021 5:31 PM Note Text: POST ANESTHESIA EVALUATION NOTE : 1950 Procedure Summary Date: 03/16/21 Room / Location: OR03 / AV OR Anesthesia Start: 1353 Anesthesia Stop: 161 Procedure: ARTHROPLASTY REPLACE JOINT TOTAL HIP (Left Hip) Diagnosis: Primary osteoarthritis of left hip Surgeons: Eric Hamilton MD Responsible Provider: Aaron Barrett MD Anesthesia Type: spinal ASA Status: 2 Anesthesia Type: spinal Last vitals Vitals Value Taken Time BP 111/59 03/16/21 1720 Temp 36.3 ?C (97.3 ?F) 03/16/21 1610 Pulse 75 03/16/21 1724 Resp 11 03/16/21 1724 SpO2 94 % 03/16/21 1724 Vitals shown include unvalidated device data. Post Anesthesia Patient Status Patient Evaluation: PACU. PACU/ICU Patient Condition: stable. Anticipated Disposition: inpatient floor planned admission. Neurological Status: aware and responsive. Pulmonary Status: breathing comfortably on room air Airway Control: returned to baseline unsupported. Cardiovascular Status: stable. Pain Management: clinically adequate - multimodal analgesia pain management approach Postoperative Hydration: acceptable. Intraoperative Events: no significant anesthesia events Recommendation: continue current plan of care and further care per PACU/ICU/floor team. No complications documented. SIGNATURE: Aaron Barrett MD PATIENT NAME: Gaby Barbour DATE: March 16, 2021 TIME: 5:31 PM CSN: [id number] [facility] ANES PRE-OPon 03-16-2021 ANES PRE-OP HNO ID: [id number] Author: Aaron Barrett MD Service: Anesthesiology Author Type: Physician Type: Anesthesia Preprocedure Evaluation Filed: 03/16/2021 1:14 PM Note Text: ANESTHESIOLOGY DAY OF SURGERY NOTE : 1950 Procedure(s) (LRB): ARTHROPLASTY REPLACE JOINT TOTAL HIP (Left) Surgeon(s): Eric Hamilton MD Estimated body mass index is 34.72 kg/m? as calculated from the following: Height as of this encounter: 160 cm (5' 3 ). Weight as of this encounter: 88.9 kg (196 lb). Most recent hematocrit and potassium results: Hematocrit 46.3 02/26/2021 Potassium 4.4 02/26/2021 Relevant Problems CARDIO (+) Essential hypertension I - PHYSICAL EVALUATION AIRWAY Patient intubated: No. Mallampati: II. TM distance: >3 FB. Neck ROM: full ROM without neurological symptoms. Mouth opening: adequate. Short neck: no. Thick neck: no DENTAL Normal dental observations. Dental findings: teeth intact. II - ANESTHESIA PLAN ASA Score: 2 Anesthetic Plan: spinal Anesthetic plan additional comments: + MAC Sedation. NPO Status: adequate Monitoring plan: Standard ASA. Postoperative analgesic plan: parenteral or oral opioids and multimodal analgesia. Anesthetic Risks, Benefits, Alternatives, Personnel Discussed. Consent obtained from: patient.Patient / Surrogate agrees to blood products: yes DNR status not reviewed with patient and/or family prior to surgery. Significant changes in the patient condition since the History and Physical, not otherwise documented in primary service progress note: no. Potential Anesthesia issues that may suggest increased risk of complications or contraindication to planned procedure: none. Vitals Value Taken Time BP 172/99 03/16/21 1234 Pulse Resp 18 03/16/21 1234 Temp 36.2 ?C (97.2 ?F) 03/16/21 1234 SpO2 94 % 03/16/21 1234 Facility-Administere d Medications as of 03/16/2021 Medication Dose Route Frequency - [COMPLETED] acetaminophen 650 mg tab(s) (TYLENOL) 650 mg ORAL Pre-Op Once - [COMPLETED] meloxicam 7.5 mg tab(s) (MOBIC) 7.5 mg ORAL Pre-Op Once - [COMPLETED] gabapentin 100 mg cap(s) (NEURONTIN) 100 mg ORAL Pre-Op Once - scopolamine 1 mg over 3 days 1 Patch (TRANSDERM-SCOP) 1 Patch TRANSDERMAL Pre-Op Once - lidocaine 10 mg/mL (1 %) 1-2 mg injection (XYLOCAINE) 0.1-0.2 mL INTRADERMAL PRN - lactated ringers iv infusion 5-30 mL/hr INTRAVENOUS CONTINUOUS - ceFAZolin iv piggyback 2 g in D5W (iso-osmotic) 100 mL (ANCEF) 2 g INTRAVENOUS Pre-Op Once - tranexamic acid 1,000 mg in NaCl 0.9% 100 mL (CYKLOKAPRON) 1,000 mg INTRAVENOUS Pre-Op Once - tranexamic acid 1,000 mg in NaCl 0.9% 100 mL (CYKLOKAPRON) 1,000 mg INTRAVENOUS ONCE Outpatient Medications as of 03/16/2021 Medication Sig - acetaminophen (TYLENOL) 500 mg tablet Take 500 mg by mouth. - levothyroxine (SYNTHROID) 88 mcg tablet - bisoprolol-hydroCHLO ROthiazide (ZIAC) 5-6.25 mg per tablet Take 1 tablet by mouth once daily. - rosuvastatin (CRESTOR) 5 mg tablet Take 5 mg by mouth once daily. - calcium carbonate-mag hydroxid 1,000-200 mg chew Take by mouth. - Magnesium 250 mg tab Take 250 mg by mouth. - biotin 1 mg cap Take by mouth. - MULTI-VITAMIN ORAL Take by mouth. - vitamin B complex (B COMPLEX 1 ORAL) Take by mouth. - Lactobac no.41/Bifidobact no.7 (PROBIOTIC-10 ORAL) Take by mouth. - celecoxib (CELEBREX) 200 mg capsule Take 200 mg by mouth twice daily. 1-2 prn I have interviewed and examined the patient. I have reviewed the medical record and/or the pre-anesthesia evaluation, pertinent labs, and test results. This contains updated information obtained within 48 hours of Surgery/Procedure. SIGNATURE: Aaron Barrett MD PATIENT NAME: Gaby Barbour DATE: March 16, 2021 TIME: 1:13 PM CSN: [id number] [facility] BRIEF OP NOTon 03-16-2021 BRIEF OP NOT HNO ID: [id number] Author: Eric Hamilton MD Service: ? Author Type: Physician Type: Brief Op Note Filed: 03/16/2021 4:00 PM Note Text: BRIEF OPERATIVE / PROCEDURE NOTE TOTAL HIP ARTHROPLASTY LOG ID: [id number] Surgery/Procedure Date: 03/16/2021 Incision/Procedure Start Time: 2:23 PM Incision Close/Procedure End Time: Surgeon(s)/Procedura list(s) and Milk Route Deliverer(s): Surgeon(s) and Role: * Eric Hamilton MD - Primary Physician Milk Route Deliverer: Padmini Gomez PA-C; Alise May PA-C Procedure(s): Procedure(s) (LRB): ARTHROPLASTY REPLACE JOINT TOTAL HIP (Left) Anesthesia: Spinal Approach: Posterior Findings: left hip djd Estimated Blood Loss: 100 mls Specimens: None Complications: None Implant: * No implants in log * Bearing Surface: Dual Mobility Acetabular Components for high risk of dislocation due to spinal djd Fixation: Cementless Pre-Op/Pre-Procedure Diagnosis: djd left hip Post-Op/Post-Procedu re Diagnosis: djd left hip Weight Bearing Status: Full Weight Bearing SIGNATURE: Eric Hamilton MD PATIENT NAME: Gaby Barbour DATE: March 16, 2021 TIME: 3:43 PM [facility] CBC 03-16-2021 Absolute nRBC <0.01 Normal <0.01 [facility] Erythrocyte distribution width (RBC) [Ratio] 12.2 % Normal 11.5-15.0 [facility] Hematocrit (Bld) [Volume fraction] 39.4 % Normal 36.0-46.0 [facility] Hemoglobin (Bld) [Mass/Vol] 12.5 g/dL Normal 11.5-15.5 [facility] MCH 28.9 pG Normal 26.0-34.0 [facility] MCHC (RBC) [Mass/Vol] 31.7 g/dL Normal 30.5-36.0 [facility] MCV (RBC) [Entitic vol] 91.0 fL Normal 80.0-100.0 [facility] Platelet mean volume (Bld) [Entitic vol] 10.1 fL Normal 9.0-12.7 [facility] Platelets (Bld) [#/Vol] 225 10*3/uL Normal 150-400 [facility] RBC (Bld) [#/Vol] 4.33 10*6/uL Normal 3.90-5.20 [facility] WBC (Bld) [#/Vol] 14.24 10*3/uL High 3.70-11.00 [facility] Confirm Blood Typeon 021 ABO/RH(D) Positive Normal [facility] OPERATIVE NOon 03-16-2021 OPERATIVE NO HNO ID: [id number] Author: Eric Hamilton MD Service: ? Author Type: Physician Type: Operative Report Filed: 03/17/2021 6:43 AM Note Text: [facility] - Operative Report GABY BARBOUR : 1950 AGE: 70. SEX: F PATIENT TYPE: A HOSP [facility]: [facility] LOCATION: [facility] ATTENDING PHYSICIAN: Eric Hamilton MD CSN NUMBER: [id number] DATE OF SURGERY/PROCEDURE: 03/16/2021 INCISION/PROCEDURE START TIME: 0223. INCISION CLOSE/PROCEDURE END TIME: 0400 p.m. PREOPERATIVE DIAGNOSIS: Left hip degenerative joint disease. POSTOPERATIVE DIAGNOSIS: Left hip degenerative joint disease. SURGEON: Eric Hamilton MD TEASELER: 1. SAMUEL Moreno. 2. SAMUEL Son. The PA's assisted with exposure and closure. No qualified residents available. SURGERY/PROCEDURE: Left total hip arthroplasty using the Biomet system. The cup was a 50 mm, G7, 30-hole cementless OsseoTi. The one G7 acetabular screw 6.5 mm, 25 mm length. The liner was a dual mobility acetabular liner, 40 mm bearing size neutral. The stem was an Echo Bi-Metric, size 8, reduced profile standard and the head was ceramic 28 mm and then the bearing was 28 mm head size, 40 mm bearing size dual mobility bearing and the neck sleeve taper was a +3 neck. ANESTHESIA: Spinal. ESTIMATED BLOOD LOSS: 100 mL. INDICATIONS: The patient is 70, severe DJD, left hip. Plans were for the total hip arthroplasty. She understood planned procedure, potential complications, and risks and consented. DESCRIPTION OF PROCEDURE: The patient was brought to the operating room, spinal anesthesia, placed in the lateral decubitus position with the left hip up. The left hip and leg were then prepped and draped in a standard fashion. I started my incision slightly anterior and distal to the tip of the trochanter angling proximal and posterior 45 degrees, carried it down through the subcu, gluteus greg fascia was split in line with its fibers. The hip was then internally rotated. The piriformis was T'd and tagged and cut and then the posterior capsule was T'd and tagged. The head was then dislocated. The femoral neck was then cut about a fingerbreadth above the lesser trochanter. Severe wear of the head and acetabulum. A cookie cutter was used and then the endo canal finder and then the lateralizer and then broach, we had templated that with possibly the 9 and I stopped the straight reaming at 8 and I broached to an 8 and was very, very tight, so I did not have to go up to a 9. I started my reaming at the acetabulum. I also cleaned out the labrum and then I reamed up and again we had templated a 52, but at 49, I had a good circumferential fit and good bleeding base. The trial cup was very snug. So at this point in time, I inserted the 50 cup, shooting for about 45 degrees of abduction and then slight anteversion. It bottomed and it had a nice secure fit and because of the soft bone, I placed one superior screw 25 mm, 6.5. I then inserted the liner. It fit nicely and it was snug. I then went ahead and put in the broach and I went from a 0, which still was having the leg lengths a little bit short and then +3 was perfect. Flexion 120, full internal rotation, no longitudinal lateral plate, and leg lengths were equal. I removed the broach. I then inserted the stem. It went down almost to the same level may be a millimeter or so less. I then put on the taper +3 and then the head liner bearing and same stability, 120 degrees of flexion, full internal rotation, no longitudinal or lateral play. I then closed the posterior capsule with #1 Vicryl. The piriformis was re-attached to the trochanter with #1 Vicryl. I used a pain block deep and the deep tissues, closed the fascia with #1 Vicryl and then the subcu was closed with 0 and then #2-0 Vicryl, #4-0 Monocryl, and then glue. BLOOD LOSS: 100 mL. The patient will be transferred to the recovery room in stable condition. Eric Hamilton MD VN:[id number] /[id number] [facility] XR PELVIS 1V APon 03-16-2021 XR PELVIS 1V AP * * *Final Report* * * DATE OF EXAM: Mar 16 2021 5:05PM VHX [id number] - XR PELVIS 1V AP / PROCEDURE REASON: Post-operative / post-procedure assessment, asymptomatic * * * * Physician Interpretation * * * * XR PELVIS 1V AP PROVIDED HISTORY: Post-operative / post-procedure assessment, asymptomatic COMPARISON: 01/05/2021 TECHNIQUE: AP pelvis RESULT: Left hip prosthesis is noted. The alignment appears appropriate. Soft tissue changes are compatible with recent surgery. Mild degenerative changes are noted at the right hip. No acute pelvic ring fractures seen IMPRESSION: Left hip prosthesis appears appropriate in positioning. Fashion Model: PSCB Transcribe Date/Time: Mar 16 2021 5:08P Dictated by : DONAL ROSALES MD This examination was interpreted and the report reviewed and electronically signed by: DONAL ROSALES MD on Mar 16 2021 5:09PM EST [id number] Normal [facility] PreOp/PreProc COVIDon 2020 SARS-CoV-2 (COVID-19) RNA JACOBO+probe Ql (Unsp spec) UPPER RESPIRATORY TRACT SWAB Normal [facility] Comment on above: Performed By: #### P OCOVD ####[place] [phone] SARS-CoV-2 (COVID-19) RNA JACOBO+probe Ql (Unsp spec) Negative for COVID19 (SARS CoV2) by RT-PCR or equivalent method. Normal Negative for COVID19 (SARS CoV2) by RT-PCR or equivalent method. [facility] Comment on above: Result Comment: This test was developed and its performance characteristics determined by [facility] Pathology [facility] Laboratory Medicine [place]. This test has been authorized by FDA under an Emergency Use Authorization (EUA). This test has been validated in accordance with the FDA's Guidance Document Policy for Diagnostics Testing in Laboratories Certified to Perform High Complexity Testing under CLIA prior to Emergency use Authorization for Coronavirus Disease 2019 during the Public Health Emergency issued on January 04, 2020. Test performed by [facility] Laboratory, [facility] Pathology [facility] Laboratory [facility] [place], [facility] [place] [address]. Performed By: #### P OCOVD ####[place] [phone] Basic Metabolic Panlon 02-26 Anion gap [Moles/Vol] 11 mmol/L Normal 9-18 [facility] Comment on above: Performed By: #### B MP, CBCDIF ####[place] [phone] Calcium [Mass/Vol] 9.9 mg/dL Normal 8.5-10.2 [facility] Comment on above: Performed By: #### B MP, CBCDIF ####[place] [phone] Chloride [Moles/Vol] 99 mmol/L Normal 97-105 [facility] Comment on above: Performed By: #### B MP, CBCDIF ####[place] [phone] CO2 [Moles/Vol] 26 mmol/L Normal 22-30 [facility] Comment on above: Performed By: #### B FRANKO, CBCDIF ####[address] [phone] Creatinine [Mass/Vol] 0.55 mg/dL Low 0.58-0.96 [facility] Comment on above: Performed By: #### B FRANKO, CBCDIF ####[address] [phone] eGFR- Amer. >60 Normal [facility] Comment on above: Performed By: #### B FRANKO, CBCDIF ####[address] [phone] eGFR-All Other Races >60 Normal [facility] Comment on above: Result Comment: eGFR (Estimated GFR) Units of measure: mL/min/1.73 meters squared eGFR is derived from the reexpressed MDRD Study equation using the following parameters: serum creatinine, age, gender and race. The creatinine assay has been calibrated to be traceable to IDMS. An eGFR <60 mL/min/1.73m2 for >3 months is consistent with chronic kidney disease. Refer to KDOQI guidelines for clinical interpretation. In patients with unstable renal function, e.g. those with acute kidney injury, the eGFR may not accurately reflect actual GFR. Performed By: #### B FRANKO, CBCDIF ####[address] [phone] Glucose [Mass/Vol] 110 mg/dL High 74-99 [facility] Comment on above: Result Comment: The [place] Diabetes Association (ADA) provides guidance for cutoff values for fasting glucose and random glucose. The ADA defines fasting as no caloric intake for at least 8 hours. Fasting plasma glucose results between 100 to 125 mg/dL indicate increased risk for diabetes (prediabetes). Fasting plasma glucose results greater than or equal to 126 mg/dL meet the criteria for diagnosis of diabetes. In the absence of unequivocal hyperglycemia, results should be confirmed by repeat testing. In a patient with classic symptoms of hyperglycemia or hyperglycemic crisis, random plasma glucose results greater than or equal to 200 mg/dL meet the criteria for diagnosis of diabetes. Reference: Standards of Medical Care in Diabetes 2016, [place] [employer] Association. Diabetes Care. 2016.39(Suppl 1). Performed By: #### B FRANKO, CBCDIF ####[place] [address] [place] [phone] Potassium [Moles/Vol] 4.4 mmol/L Normal 3.7-5.1 [facility] Comment on above: Performed By: #### B FRANKO, CBCDIF ####[place] [address] [address] [place] [phone] Sodium [Moles/Vol] 136 mmol/L Normal 136-144 [facility] Comment on above: Performed By: #### B FRANKO, CBCDIF ####[place] [address] [place] [phone] Urea nitrogen [Mass/Vol] 13 mg/dL Normal 7-21 [facility] Comment on above: Performed By: #### B FRANKO, CBCDIF ####[place] [address] [address] [place] [phone] CBC and Differentialon 02-26 Abs Baso 0.09 k/uL Normal <0.11 [facility] Comment on above: Performed By: #### B FRANKO, CBCDIF ####[place] [address] [address] [place], [place] [phone] Abs [place] 0.91 k/uL High <0.87 [facility] Comment on above: Performed By: #### B FRANKO, CBCDIF ####[place] [address] [address] [place] [phone] Abs Neut 5.15 k/uL Normal 1.45-7.50 [facility] Comment on above: Performed By: #### B FRANKO, CBCDIF ####[place] [address] [address] [place], [place] [phone] Absolute nRBC <0.01 Normal <0.01 [facility] Comment on above: Performed By: #### B MP, CBCDIF ####[place] [address] [address] [place] [phone] Basophils/100 WBC (Bld) 0.9 % Normal [facility] Comment on above: Performed By: #### B MP, CBCDIF ####[place] [address] [address] [place] [phone] DTYPE Auto Diff Normal [facility] Comment on above: Performed By: #### B MP, CBCDIF ####[place] [address] [address] [phone] Eosinophils (Bld) [#/Vol] 0.16 10*3/uL Normal <0.46 [facility] Comment on above: Performed By: #### B MP, CBCDIF ####[place] [address] [address] [place] [phone] Eosinophils/100 WBC (Bld) 1.7 % Normal [facility] Comment on above: Performed By: #### B MP, CBCDIF ####[place] [address] [address] [place] [phone] Erythrocyte distribution width (RBC) [Ratio] 12.6 % Normal 11.5-15.0 [facility] Comment on above: Performed By: #### B MP, CBCDIF ####[place] [address] [address] [place] [phone] Hematocrit (Bld) [Volume fraction] 46.3 % High 36.0-46.0 [facility] Comment on above: Performed By: #### B MP, CBCDIF ####[place] [address] [address] [phone] Hemoglobin (Bld) [Mass/Vol] 14.5 g/dL Normal 11.5-15.5 [facility] Comment on above: Performed By: #### B MP, CBCDIF ####[facility], [place] [phone] Lymphocytes (Bld) [#/Vol] 3.33 10*3/uL Normal 1.00-4.00 [facility] Comment on above: Performed By: #### B MP, CBCDIF ####[place] [address] [address] [phone] Lymphocytes/100 WBC (Bld) 34.5 % Normal [facility] Comment on above: Performed By: #### B MP, CBCDIF ####[place] [address] [address], [place] [phone] MCH 27.7 pG Normal 26.0-34.0 [facility] Comment on above: Performed By: #### B MP, CBCDIF ####[place] [address] [address] [phone] MCHC (RBC) [Mass/Vol] 31.3 g/dL Normal 30.5-36.0 [facility] Comment on above: Performed By: #### B MP, CBCDIF ####[place] [address] [address], [place] [phone] MCV (RBC) [Entitic vol] 88.4 fL Normal 80.0-100.0 [facility] Comment on above: Performed By: #### B MP, CBCDIF ####[place] [address] [address], [place] [phone] Monocytes/100 WBC (Bld) 9.4 % Normal [facility] Comment on above: Performed By: #### B MP, CBCDIF ####[place] [id number], [place] [phone] Neutrophils/100 WBC (Bld) 53.5 % Normal [facility] Comment on above: Performed By: #### B MP, CBCDIF ####[place] [id number] [place], [place] [phone] NRBCs 0.0 /100 WBC Normal 0 [facility] Comment on above: Performed By: #### B MP, CBCDIF ####[place] [id number] [place], [place] [phone] Platelet mean volume (Bld) [Entitic vol] 10.8 fL Normal 9.0-12.7 [facility] Comment on above: Performed By: #### B MP, CBCDIF ####[address] [place], [place] [phone] Platelets (Bld) [#/Vol] 292 10*3/uL Normal 150-400 [facility] Comment on above: Performed By: #### B MP, CBCDIF ####[address] [place], [place] [phone] RBC (Bld) [#/Vol] 5.24 10*6/uL High 3.90-5.20 [facility] Comment on above: Performed By: #### B MP, CBCDIF ####[address] [place], [place] [phone] WBC (Bld) [#/Vol] 9.64 10*3/uL Normal 3.70-11.00 [facility] Comment on above: Performed By: #### B MP, CBCDIF ####[address] [place], [place] [phone] Ferritinon 02-26-2021 Ferritin [Mass/Vol] 137.0 ng/mL Normal 14.7-205.1 [facility] Comment on above: Performed By: #### F ERR, IRON ####[facility], [place] [phone] HISTORY PHYSICALon HISTORY PHYSICAL HNO ID: [id number] Author: Kyra Chaparro Lopez Service: ? Author Type: Nurse Practitioner Type: HANDP Filed: 03/01/2021 1:12 PM Note Text: HISTORY AND PHYSICAL EXAMINATION SERVICE DATE: 02/26/2021 SERVICE TIME: 1:11 PM PRIMARY CARE PHYSICIAN: No primary care provider on file. REASON FOR VISIT: Gaby Barbour is a 70 year old female who is scheduled for Procedure(s): ARTHROPLASTY REPLACE JOINT TOTAL HIP (Left) at the request of Dr. Eric Hamilton for consultation. My final recommendation will be communicated back to the requesting physician by way of shared medical record or letter. Subjective The patient has the following: ACTIVE PROBLEM LIST Essential Hypertension Other Hyperlipidemia PAST MEDICAL HISTORY Diagnosis Date - Essential hypertension - Other hyperlipidemia - Other specified hypothyroidism PAST SURGICAL HISTORY Procedure Laterality Date - LAMINECTOMY,LUMBAR 2017 - LIGATE FALLOPIAN TUBE 1976 - PAST SURGICAL HISTORY OF 1977 ganglion cyst - SLING OPER STRES INCONTINENCE 2003 - TOTAL ABDOM HYSTERECTOMY 07/2019 FAMILY HISTORY Problem Relation Age of Onset - Heart disease Father Social History Tobacco Use - Smoking status: Never Smoker - Smokeless tobacco: Never Used Substance Use Topics - Alcohol use: Not Currently - Drug use: Not Currently Prior to Admission medications as of 02/26/21 1053 Medication Sig Last Dose Taking HYDROcodone-Acetamin ophen (VICODIN) 5-300 mg tab Take 1 tablet by mouth every 8 hours as needed. Yes acetaminophen (TYLENOL) 500 mg tablet Take 500 mg by mouth. Yes levothyroxine (SYNTHROID) 88 mcg tablet Yes bisoprolol-hydroCHLO ROthiazide (ZIAC) 5-6.25 mg per tablet Take 1 tablet by mouth once daily. Yes celecoxib (CELEBREX) 200 mg capsule Take 200 mg by mouth twice daily. 1-2 prn Yes rosuvastatin (CRESTOR) 5 mg tablet Take 5 mg by mouth once daily. Yes calcium carbonate-mag hydroxid 1,000-200 mg chew Take by mouth. Yes Magnesium 250 mg tab Take 250 mg by mouth. Yes biotin 1 mg cap Take by mouth. Yes MULTI-VITAMIN ORAL Take by mouth. Yes vitamin B complex (B COMPLEX 1 ORAL) Take by mouth. Yes Lactobac no.41/Bifidobact no.7 (PROBIOTIC-10 ORAL) Take by mouth. Yes mupirocin (BACTROBAN) 2 % ointment Apply 0.5 inch with cotton swab (Q-tip) to each nostril in the morning and evening for 5 days prior to and including day of surgery. Medication Comments documented by Franchesca Farah LPN on 02/26/2021 at 1047. 12/09/20 12/30/20 Pfizer fully covid vaccinated. ALLERGIES No Known Allergies CHIEF COMPLAINT: Left hip pain HPI: 70 year old female with Left hip pain. 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 ? Currently the pain in the joint is rated at 3 out of 10 with moderate activity. The pain is intermittent and is located in the left hip, groin and thigh. The pain is described as aching and burning. Relieving factors include prescription medication of Celebrex however is not helpful at night. REVIEW OF SYSTEMS: General: No weight loss, malaise or fevers. Neurological: No history of TIA's, stroke, CURB SETTER tumor, impaired sensorium, hemiplegia, paraplegia or quadraplegia. No neurological symptoms or problems. Respiratory: No history of current cough or dyspnea, or pneumonia in the past 6 weeks. No history of respiratory/pulmonar y symptoms or problems. Cardiovascular: Positive for: hyperlipidemia and hypertension Negative for: AICD/PPM, angina, arrhythmia, atrial fibrillation and CAD GI: Positive for: diverticulitis (history of ) : No history of dysuria, frequency or incontinence, stones or chronic kidney disease. No difficulty urinating, nocturia > 1 time per night or hematuria. WOOD HEEL CEMENTER: Negative for abnormal vaginal bleeding, abnormal vaginal discharge. Endocrine: Positive for: hypothyroidism Negative for: diabetes mellitus and steroid for chronic problem Hematology: No history of bleeding or clotting disorder. Pt is not taking anti-coagulation or platelet medications. No history of hematological symptoms or problems. Oncology: History of BCC Psych: No history of psychiatric symptoms or problems. Musculoskeletal: Positive for: joint pain Skin: Negative for lesions, rash and itching. Objective PHYSICAL EXAM: General: alert and oriented and obese. Skin: normal color, no rash or lesions. HEENT: EOM intact and pupils reactive to light. Cardiovascular: regular rate and rhythm, normal S1 and S2, no rub, murmurs, or gallop. Respiratory: normal breath sounds, no wheezes or crackles. No chest wall deformity or tenderness. Abdomen: bowel sounds present and soft. Extremities: no deformity, no edema or tenderness, no joint swelling or clubbing. Neurological: normal cognition and motor skills. (more content not included)... Normal [facility] Iron and TIBCon 02-26-2021 Iron [Mass/Vol] 75 ug/dL Normal 41-186 [facility] Comment on above: Performed By: #### F ERR, IRON ####[facility] [place] [phone] TIBC 421 ug/dL High 232-386 [facility] Comment on above: Performed By: #### F ERR, IRON ####[place] [phone] Transferrin Saturatn 18 % Normal 15-57 [facility] Comment on above: Performed By: #### F ERR, IRON ####[place] [phone] Type and SCR (30D)on 021 ABO/RH(D) Positive Normal [facility] Urinalysison 02-26-2021 Bilirubin, Urine Negative Normal Negative [facility] Comment on above: Performed By: #### U A #### [facility] [address] [place] [address] Clarity (U) Clear Normal Clear [facility] Comment on above: Performed By: #### U A #### [place] [id number] [place] [address] Color (U) Light Yellow Critically abnormal Yellow [facility] Comment on above: Performed By: #### U A #### [place] [address] [place], [place] [address] Comments SEE COMMENT Normal [facility] Comment on above: Result Comment: Micr oscopic Examination Performed Performed By: #### U A #### [place] [address] [place] [phone] Epithelial cells LM Ql (Urine sed) SEE COMMENT Normal [facility] Comment on above: Result Comment: Few Squamous Epithelial Cells Performed By: #### U A #### [facility] [address] [place] [address] Glucose Ql (U) Negative Normal Negative [facility] Comment on above: Performed By: #### U A #### [place] [address] [place] [address] Hemoglobin/Blood,Ur Negative Normal Negative [facility] Comment on above: Performed By: #### U A #### [place] [address] Ketones Ql (U) Negative Normal Negative [facility] Comment on above: Performed By: #### U A #### [place] [address] Leukest Trace Critically abnormal Negative [facility] Comment on above: Performed By: #### U A #### [place] [id number] [place] [address] Nitrite Ql (U) Negative Normal Negative [facility] Comment on above: Performed By: #### U A #### [place] [address] pH (U) 6.0 [pH] Normal 5.0-8.0 [facility] Comment on above: Performed By: #### U A #### [place] [id number] [place] [address] Protein, Urine Negative Normal Negative [facility] Comment on above: Performed By: #### U A #### [place] [address] RBC 0-3 Normal 0-3 [facility] Comment on above: Performed By: #### U A #### [place] [address] Specific [employer], Ur 1.009 Normal 1.005-1.030 [facility] Comment on above: Performed By: #### U A #### [facility] [employer] [address] [place], [place] [phone] Urine Josse Comment SEE COMMENT Normal [facility] Comment on above: Result Comment: N/A Performed By: #### U A #### [facility] [employer] [address] [place], [place] [address] Urobilinogen (U) [Mass/Vol] Negative Normal Negative [facility] Comment on above: Performed By: #### U A #### [facility] [employer] [address] [place] [place], [place] [address] WBC 0-5 Normal 0-5 [facility] Comment on above: Performed By: #### U A #### [facility] [employer] [address] [place] [phone] CNOVon 01-05-2021 CNOV Office Visit (OFSHEF) SRINIVAS BARBOUR ([id number]) 1950 F Date Time Provider Department 01/05/21 11:15 AM ERIC HAMILTON During your visit today, we recorded the following information about you: Eric Hamilton MD 01/05/2021 1:12 PM Signed CONSULT ORTHOPAEDIC: HIP PRIMARY CARE PHYSICIAN: No primary care provider on file. REFERRING PROVIDER: Eric Hamilton MD [address] [facility] [address] ASSESSMENT AND PLAN: Impression: Left Hip Severe Degenerative Osteoarthritis, Primary Srinivas Barbour has radiograph and physical exam evidence of degenerative joint disease and wishes to pursue surgery. This patient appears to have sufficient symptoms to warrant surgical intervention and is an appropriate candidate for left Primary Total Hip Arthroplasty as evidenced by progressive symptoms. Progressive symptoms include: Pain impacting sleep or causing fatigue Pain worsened by weight bearing. We had a lengthy discussion regarding the risk and benefit of surgery, the alternatives, limitations and personnel involved. These included but were not limited to infection, persistent pain, instability, nerve injury, blood clots, and medical complications. We also discussed the pre-operative course, surgery itself and rehabilitation. Mairah-operative blood management and transfusion issues were discussed, and options clearly outlined. The patient has not consented to the use of the banked allogenic blood if medically necessary. The patient has elected to schedule surgery at this time or intends to call the office with a surgical date. Shared decision making occurred while obtaining informed consent. The patient will be scheduled for a pre-operative education class at which time they will have their nasal swab completed and will be given CHG cloths along with the verbal and written instructions for their use. Patient has been instructed and has been scheduled or will call to schedule attendence in one of the total joint perioperative classes offered prior to proceeding with HELEN.. The patient has been ordered: No orders placed today. CONSULTS: Patient to see family physician for clearance There is no problem list on file for this patient. 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 The problem began limiting activities 1-6 months ago. Currently the pain in the joint is rated at 3 out of 10 with moderate activity. The pain is intermittent and is located in the left hip, groin and thigh. The pain is described as aching and burning. Relieving factors include prescription medication of Celebrex however is not helpful at night. No specific injury , patient has history of back pain requiring several surgeries Srinivas Barbour also complains of numbness. FUNCTIONAL STATUS: Do light work around the house, such as dusting or washing dishes (2.70 METs) Take care of self, that is eating, dressing, bathing, using the toilet (2.75 METs) Preoperative Ambulatory Status: Independent Community Distances Number of Entry Steps: 2 Bedroom Location: First floor Bathroom Location: First floor Caregiver Assistance: Occasionally Available (2-4 days/wk) Home Location: [place] 150 [place] PREVIOUS TREATMENTS: Medical: use of Celebrex REVIEW OF SYSTEMS: PAIN ASSESSMENT: See HPI. MUSCULOSKELETAL: See HPI. Surgical Risk Factors: Anemia No past medical history on file. No past surgical history on file. No family history on file. Social History Tobacco Use - Smoking status: Not on file Substance Use Topics - Alcohol use: Not on file - Drug use: Not on file ALLERGIES: Patient has no allergy information on record. MEDICATIONS: acetaminophen (TYLENOL) 500 mg tablet Take 500 mg by mouth. levothyroxine (SYNTHROID) 88 mcg tablet bisoprolol-hydroCHLO ROthiazide (ZIAC) 5-6.25 mg per tablet Take 1 tablet by mouth once daily. celecoxib (CELEBREX) 200 mg capsule Take 200 mg by mouth twice daily. 1-2 prn rosuvastatin (CRESTOR) 5 mg tablet Take 5 mg by mouth once daily. calcium carbonate-mag hydroxid 1,000-200 mg chew Take by mouth. Magnesium 250 mg tab Take 250 mg by mouth. biotin 1 mg cap Take by mouth. MULTI-VITAMIN ORAL Take by mouth. vitamin B complex (B COMPLEX 1 ORAL) Take by mouth. Lactobac no.41/Bifidobact no.7 (PROBIOTIC-10 ORAL) Take by mouth. PHYSICAL EXAM There were no vitals taken for this visit. All other systems deferred. GENERAL: Appears healthy, well-nourished, no deformities. HABITUS: Normal GAIT: Normal, the p (more content not included)... Normal [facility] XR HIP 3V PELV+ AP/LAT LTon 01-05-2021 XR HIP 3V PELV+ AP/LAT LT * * *Final Report* * * DATE OF EXAM: Jan 05 2021 11:31AM SVX [id number] - XR HIP 3V PELV+ AP/LAT LT / PROCEDURE REASON: Primary osteoarthritis of left hip * * * * Physician Interpretation * * * * EXAMINATION: XR HIP 3V PELV+ AP/LAT LT CLINICAL HISTORY: DJD left hip Primary osteoarthritis of left hip Technique: XR HIP 3V PELV+ AP/LAT LT -- LEFT with 3 views on 3 images Comparison: None RESULT: Severe degenerative changes in the left hip with superolateral qhot-sd-luuk articulation, subchondral sclerosis and marginal osteophytes. SI joints and pubic symphysis are maintained. Degenerative changes in the lumbar spine. IMPRESSION: Severe left hip degenerative changes without acute osseous findings. Fashion Model: RADHA Transcribe Date/Time: Jan 05 2021 11:44A Dictated by : HUGO STUBBS MD This examination was interpreted and the report reviewed and electronically signed by: HUGO STUBBS MD on Jan 05 2021 11:47AM EST [id number] CN Normal [facility] CNOVon 12-08-2020 CNOV Office Visit (OFSHEF) SRINIVAS BARBOUR ([id number]) 1950 F Date Time Provider Department 12/08/20 10:30 AM ERIC HAMILTON [facility] During your visit today, we recorded the following information about you: Referring Provider: MARNIE BURNETT [[id number]] Allergies As of Date: 12/08/2020 (Not on File) Date Reviewed: 12/08/2020 Reviewed by: Eric Hamilton - Fully Assessed Reason for Visit: New [[id number]] Pain [78] Primary Visit Diagnosis:Primary osteoarthritis of left hip [M16.12] Prescriptions as of 12/08/2020 Sig: ACETAMINOPHEN 500 MG TABLET Take 500 mg by mouth. LEVOTHYROXINE 88 MCG TABLET BISOPROLOL 5 MG-HYDROCHLOROTH* Take 1 tablet by mouth once d* CELECOXIB 200 MG CAPSULE Take 200 mg by mouth twice da* ROSUVASTATIN 5 MG TABLET Take 5 mg by mouth once daily. CALCIUM CARBONATE 1,000 MG-MA* Take by mouth. MAGNESIUM 250 MG TABLET Take 250 mg by mouth. BIOTIN 1 MG CAPSULE Take by mouth. MULTI-VITAMIN ORAL Take by mouth. B COMPLEX 1 ORAL Take by mouth. PROBIOTIC-10 ORAL Take by mouth. Problem List As Of Date: 12/08/2020 (None) Letter Text Encounter Status:Closed by ERIC HAMILTON MD on 12/08/20 Normal [facility] CBC auto differentialon 07-07 Basophils (Bld) [#/Vol] 10*3/uL [place] Basophils/100 WBC (Bld) 0 % 0 - 2 % [place] Differential Type NOT REPORTED [place] Eosinophils (Bld) [#/Vol] 10*3/uL [place] Eosinophils/100 WBC (Bld) 0 % Low 1 - 4 % [place] Erythrocyte distribution width (RBC) [Ratio] 12.8 % 11.8 - 14.4 % [place] Hematocrit (Bld) [Volume fraction] 37.7 % 36.3 - 47.1 % [place] Hemoglobin (Bld) [Mass/Vol] 11.9 g/dL 11.9 - 15.1 g/dL [place] Immature granulocytes (Bld) [#/Vol] 0 % 0 [place] Immature granulocytes (Bld) [#/Vol] 0.05 10*3/uL [place] Interpretation and review of laboratory results Abnormal [place] Lymphocytes (Bld) [#/Vol] 1.37 10*3/uL [place] Lymphocytes/100 WBC (Bld) 12 % Low 24 - 43 % [place] MCH (RBC) [Entitic mass] 28.5 pg 25.2 - 33.5 pg [place] MCHC (RBC) [Mass/Vol] 31.6 g/dL 28.4 - 34.8 g/dL [place] MCV (RBC) [Entitic vol] 90.2 fL 82.6 - 102.9 fL [place] Monocytes (Bld) [#/Vol] 0.72 10*3/uL [place] Monocytes/100 WBC (Bld) 6 % 3 - 12 % [place] Platelet mean volume (Bld) [Entitic vol] 10.5 fL 8.1 - 13.5 fL [place] Platelets (Bld) [#/Vol] NOT REPORTED [place] Platelets (Bld) [#/Vol] 217 10*3/uL [place] RBC (Bld) [#/Vol] 4.18 10*6/uL 3.95 - 5.11 m/uL [place] RBC morphology finding Nom (Bld) NOT REPORTED [place] Segmented neutrophils/100 WBC (Bld) 82 % High 36 - 65 % [place] Segs Absolute 9.60 High [place] WBC (Bld) [#/Vol] 0.0 10*3/uL 0.0 per 100 WBC [place] WBC (Bld) [#/Vol] 11.8 10*3/uL [place] WBC Morphology NOT REPORTED [place] Surgical Pathologyon 019 Surgical Pathology Report [id number] [facility] [employer] CONSULTING PATHOLOGISTS [facility] ANATOMIC PATHOLOGY [address] [place] [id number] SURGICAL PATHOLOGY CONSULTATION Patient Name: GABY BARBOUR [facility] Rec: [id number] Path Number: [id number] Collected: 07/24/2019 Received: 07/24/2019 Reported: 07/25/2019 12:01 -- Diagnosis -- UTERUS, CERVIX, BILATERAL OVARIES AND FALLOPIAN TUBES, SANJIV/BSO: -BENIGN CERVIX WITH FOCAL STROMAL FIBROSIS, FOREIGN-BODY GIANT CELL REACTION, AND HEMOSIDERIN LADEN MACROPHAGES CONSISTENT WITH PREVIOUS BIOPSY SITE. -BENIGN ENDOMETRIAL POLYPS. -WEAKLY PROLIFERATIVE ENDOMETRIUM. -SMALL INTRAMURAL LEIOMYOMA. -BENIGN BILATERAL FALLOPIAN TUBES WITH BENIGN PARATUBAL CYSTS. -BENIGN LEFT OVARY. -BENIGN RIGHT OVARY WITH BENIGN PARAOVARIAN SIMPLE CYST. Rainer March M.D Electronically Signed Out emily/07/25/2019 Clinical Information Pre-op Diagnosis: HGSIL, RECURRENT LESION OF CERVIX Operative Findings: UTERUS & CERVIX AND BILATERAL TUBES & OVARIES Operation Performed: HYSTERECTOMY ABDOMINAL TOTAL-BSO Source of Specimen 1: UTERUS & CERVIX AND BILATERAL TUBES & OVARIES Gross Description GABY BARBOUR, UTERUS & CERVIX AND BILATERAL TUBES & OVARIES, RIGHT TUBE AND OVARY WITH A STITCH Uterus with attached cervix, separate fimbriated fallopian tubes and separate ovaries. Attached to one ovary is a stitch designating right. Dimensions: Uterus and cervix 7.5 x 4.2 x 2.5 cm. Weight: Uterus and cervix 33 grams. Serosa: [place]-queen. Cervix: 4.1 x 2.5 x 2.5 cm, the os is markedly stenotic and is not probe patent. The anterior aspect is inked blue and posterior black. Endometrium: The cavity is 2.8 x 1.8 cm with a pale queen surface and is 0.1 cm in thickness. There are polypoid foci from 0.3 to 1.1 cm that do not extend into the subjacent myometrium. Myometrium: The myometrium has a maximum thickness of 1.0 cm and there is 0.3 cm queen-white myomatous nodule. Tubes/ovaries: The first fimbriated fallopian tube segment is 2.5 cm long x 0.4 cm in diameter with a ragged pink-queen serosa and an unremarkable lumen. The second fimbriated fallopian tube segment is 3.0 cm long x 0.4 cm in diameter with a ragged pink-queen serosa and an unremarkable lumen. The left ovary is 2.0 x 1.4 x 0.6 cm with a yellow-queen external surface and adhesions. Sectioning reveals no masses. The right ovary is 2.5 x 1.8 x 1.0 cm with an attached 0.8 cm long x 0.4 cm in diameter tubular structure (apparent tube). The external surface of the ovary is pink-queen and sectioning reveals a 0.5 cm unilocular cyst with no excrescences. Cassette summary: A anterior cervix contiguous lower uterine segment with ectocervical side inked green, B-E remainder anterior cervix transformation zone, F posterior cervix contiguous lower uterine segment with ectocervical side inked green, G-I remainder posterior transformation zone, J-L endomyometrium full thickness sections including polypoid lesions, M first tube entirely, N-O second tube entirely, P left ovary, Q right ovary. tm Microscopic Description Microscopic examination performed. [place] Hemoglobin and hematocrit, b veronica 07-24-2019 Hematocrit (Bld) [Volume fraction] 41.4 % 36.3 - 47.1 % [place] Hemoglobin (Bld) [Mass/Vol] 13.1 g/dL 11.9 - 15.1 g/dL [place] Urine Cultureon 07-23-2019 Culture NO SIGNIFICANT GROWTH [place] Special Requests NOT REPORTED [place] Specimen Description .CLEAN CATCH URINE [place] CBC Auto Differentialon 07-07 Basophils (Bld) [#/Vol] 0.05 10*3/uL [place] Basophils/100 WBC (Bld) 1 % 0 - 2 % [place] Differential Type NOT REPORTED [place] Eosinophils (Bld) [#/Vol] 0.19 10*3/uL [place] Eosinophils/100 WBC (Bld) 2 % 1 - 4 % [place] Erythrocyte distribution width (RBC) [Ratio] 12.5 % 11.8 - 14.4 % [place] Hematocrit (Bld) [Volume fraction] 46.0 % 36.3 - 47.1 % [place] Hemoglobin (Bld) [Mass/Vol] 14.5 g/dL 11.9 - 15.1 g/dL [place] Immature granulocytes (Bld) [#/Vol] 0 % 0 [place] Immature granulocytes (Bld) [#/Vol] 0.04 10*3/uL [place] Interpretation and review of laboratory results Abnormal [place] Lymphocytes (Bld) [#/Vol] 3.11 10*3/uL [place] Lymphocytes/100 WBC (Bld) 31 % 24 - 43 % [place] MCH (RBC) [Entitic mass] 28.1 pg 25.2 - 33.5 pg [place] MCHC (RBC) [Mass/Vol] 31.5 g/dL 28.4 - 34.8 g/dL [place] MCV (RBC) [Entitic vol] 89.1 fL 82.6 - 102.9 fL [place] Monocytes (Bld) [#/Vol] 0.73 10*3/uL [place] Monocytes/100 WBC (Bld) 7 % 3 - 12 % [place] Platelet mean volume (Bld) [Entitic vol] 10.1 fL 8.1 - 13.5 fL [place] Platelets (Bld) [#/Vol] 266 10*3/uL [place] Platelets (Bld) [#/Vol] NOT REPORTED [place] RBC (Bld) [#/Vol] 5.16 10*6/uL High 3.95 - 5.11 m/uL [place] RBC morphology finding Nom (Bld) NOT REPORTED [place] Segmented neutrophils/100 WBC (Bld) 59 % 36 - 65 % [place] Segs Absolute 5.86 [place] WBC (Bld) [#/Vol] 10.0 10*3/uL [place] WBC (Bld) [#/Vol] 0.0 10*3/uL 0.0 per 100 WBC M [place] WBC Morphology NOT REPORTED [place] EKG 12 [place] 07-22-2019 Atrial Rate 65 BPM [place] P [place] 28 degrees [place] P-R Interval 142 ms [place] Q-T Interval 420 ms [place] QRS Duration 76 ms [place] QTc Calculation ([place]az[place]) 436 ms [place] R [place] -15 degrees [place] T [place] 14 degrees [place] Ventricular Rate 65 BPM [place] Normal sinus rhythm Normal ECG When compared with ECG of 13-JUL-2016 11:38, No significant change was found Confirmed by Boyd HOLLIS MD ([id number]) on 07/22/2019 12:28:15 PM [place] Silv[place], Mhpn Incoming Ekg Results From [facility] - 07/22/2019 12:28 PM EDT Normal sinus rhythm Normal ECG When compared with ECG of 13-JUL-2016 11:38, No significant change was found Confirmed by Boyd HOLLIS MD ([id number]) on 07/22/2019 12:28:15 PM [place] TYPE AND SCREENon 07-22-2019 [id number] Ex[facility] Date 07/29/2019 [facility] Vital Signs Date Time Vital Sign Value Performing Clinician Facility 12-07-2023 10:35-0500 Diastolic blood pressure 64 mm[Hg] MD Jose Ibarra Work Phone: [facility] 12-07-2023 10:35-0500 Heart rate 71 /min MD Jose Ibarra Work Phone: [facility] 12-07-2023 10:35-0500 Respiratory rate 16 /min MD Jose Ibarra Work Phone: [facility] 12-07-2023 10:35-0500 SaO2% (BldA) [Mass fraction] 96 % MD Jose Ibarra Work Phone: [facility] 12-07-2023 10:35-0500 Systolic blood pressure 122 mm[Hg] MD Jose Ibarra Work Phone: [facility] 12-07-2023 10:00-0500 Body temperature 98.4 [degF] MD Jose Ibarra Work Phone: [facility] 12-07-2023 09:30-0500 Inhaled oxygen flow rate 8 L/min MD Jose Ibarra Work Phone: [facility] 12-07-2023 07:49-0500 Body height 160.02 cm MD Jose Ibarra Work Phone: [facility] 12-07-2023 07:49-0500 Body mass index (BMI) [Ratio] 30.4 kg/m2 MD Jose Ibarra Work Phone: [facility] 12-07-2023 07:49-0500 Body weight 78.01 kg MD Jose Ibarra Work Phone: [facility] 11-16-2023 13:48-0500 Diastolic blood pressure 67 mm[Hg] MD Jose Ibarra Work Phone: [facility] 11-16-2023 13:48-0500 Heart rate 64 /min MD Jose Ibarra Work Phone: [facility] 11-16-2023 13:48-0500 Respiratory rate 14 /min MD Jose Ibarra Work Phone: [facility] 11-16-2023 13:48-0500 SaO2% (BldA) [Mass fraction] 94 % MD Jose Ibarra Work Phone: [facility] 11-16-2023 13:48-0500 Systolic blood pressure 130 mm[Hg] MD Jose Ibarra Work Phone: [facility] 11-16-2023 12:39-0500 Body temperature 97.5 [degF] MD Jose Ibarra Work Phone: [facility] 11-16-2023 12:39-0500 Inhaled oxygen flow rate 10 L/min MD Jose Ibarra Work Phone: [facility] 11-16-2023 12:13-0500 Body height 160.02 cm MD Jose Ibarra Work Phone: [facility] 11-16-2023 12:13-0500 Body mass index (BMI) [Ratio] 31.4 kg/m2 MD Jose Ibarra Work Phone: [facility] 11-16-2023 12:13-0500 Body weight 80.3 kg MD Jose Ibarra Work Phone: [facility] 10-27-2023 07:14-0500 Diastolic blood pressure 65 mm[Hg] MD Jose Ibarra Work Phone: [facility] 10-27-2023 07:14-0500 Heart rate 84 /min MD Jose Ibarra Work Phone: [facility] 10-27-2023 07:14-0500 Respiratory rate 16 /min MD Jose Ibarra Work Phone: [facility] 10-27-2023 07:14-0500 SaO2% (BldA) [Mass fraction] 96 % MD Jose Ibarra Work Phone: [facility] 10-27-2023 07:14-0500 Systolic blood pressure 113 mm[Hg] MD Jose Ibarra Work Phone: [facility] 10-27-2023 07:11-0500 Body height 160.02 cm MD Jose Ibarra Work Phone: [facility] 10-27-2023 07:11-0500 Body temperature 98.4 [degF] MD Jose Ibarra Work Phone: [facility] 10-27-2023 07:11-0500 Body weight 81.9 kg MD Jose Ibarra Work Phone: [facility] 10-25-2023 19:12-0500 Diastolic blood pressure 91 mm[Hg] MD Jose Ibarra Work Phone: [facility] 10-25-2023 19:12-0500 Heart rate 114 /min MD Jose Ibarra Work Phone: [facility] 10-25-2023 19:12-0500 Systolic blood pressure 162 mm[Hg] MD Jose Ibarra Work Phone: [facility] 10-25-2023 18:10-0500 Body height 160.02 cm MD Jose Ibarra Work Phone: [facility] 10-25-2023 18:10-0500 Body temperature 97.9 [degF] MD Jose Ibarra Work Phone: [facility] 10-25-2023 18:10-0500 Body weight 80.93 kg MD Jose Ibarra Work Phone: [facility] 10-25-2023 18:10-0500 Respiratory rate 16 /min MD Jose Ibarra Work Phone: [facility] 10-25-2023 18:10-0500 SaO2% (BldA) [Mass fraction] 96 % MD Jose Ibarra Work Phone: [facility] 09-15-2022 10:50-0500 Diastolic blood pressure 89 mm[Hg] Henderson SALAM [facility] 09-15-2022 10:50-0500 Heart rate 65 /min Henderson SALAM [facility] 09-15-2022 10:50-0500 Respiratory rate 21 /min Henderson SALAM [facility] 09-15-2022 10:50-0500 SaO2% (BldA) [Mass fraction] 97 % Henderson SALAM [facility] 09-15-2022 10:50-0500 Systolic blood pressure 120 mm[Hg] Henderson SALAM [facility] 09-15-2022 10:40-0500 Blood Pressure Location Henderson SALAM [facility] 09-15-2022 10:40-0500 Diastolic blood pressure 71 mm[Hg] Henderson SALAM [facility] 09-15-2022 10:40-0500 Heart rate 65 /min Henderson SALAM [facility] 09-15-2022 10:40-0500 Respiratory rate 29 /min Henderson SALAM [facility] 09-15-2022 10:40-0500 SaO2% (BldA) [Mass fraction] 94 % Henderson SALAM [facility] 09-15-2022 10:40-0500 Systolic blood pressure 127 mm[Hg] Henderson SALAM [facility] 09-15-2022 10:35-0500 Blood Pressure Location Henderson SALAM [facility] 09-15-2022 10:35-0500 Diastolic blood pressure 70 mm[Hg] Henderson SALAM [facility] 09-15-2022 10:35-0500 Heart rate 67 /min Henderson SALAM [facility] 09-15-2022 10:35-0500 Respiratory rate 22 /min Henderson SALAM [facility] 09-15-2022 10:35-0500 SaO2% (BldA) [Mass fraction] 94 % Henderson SALAM [facility] 09-15-2022 10:35-0500 Systolic blood pressure 122 mm[Hg] Henderson SALAM [facility] 09-15-2022 10:30-0500 Blood Pressure Location Henderson SALAM [facility] 09-15-2022 10:25-0500 Body temperature 97.88 [degF] Henderson SALAM [facility] 09-15-2022 10:06-0500 Respiratory rate 18 /min Henderson SALAM [facility] 09-15-2022 10:03-0500 Body temperature 97.16 [degF] Henderson SALAM [facility] 09-13-2022 09:49-0500 Diastolic blood pressure 82 mm[Hg] Kellyyumiko SavageTimmy [facility] 09-13-2022 09:49-0500 Mean blood pressure 105 mm[Hg] Kelly Timmy [facility] 09-13-2022 09:49-0500 Systolic blood pressure 150 mm[Hg] Kelly Timmy [facility] 09-13-2022 09:43-0500 Blood Pressure Location Kelly Timmy [facility] 09-13-2022 09:43-0500 Body temperature 97.7 [degF] Kelly Warner [facility] 09-13-2022 09:43-0500 Diastolic blood pressure 84 mm[Hg] Kelly Warner [facility] 09-13-2022 09:43-0500 Heart rate 56 /min Kelly Warner [facility] 09-13-2022 09:43-0500 Systolic blood pressure 150 mm[Hg] Kelly Warner [facility] 07-26-2019 07:55-0400 Body Temperature 98.4 [degF] [facility] 07-26-2019 07:55-0400 BP Diastolic 92 mm[Hg] [facility] [place] 07-26-2019 07:55-0400 BP Systolic 160 mm[Hg] [facility] [place] 07-26-2019 07:55-0400 Pulse (Heart Rate) 78 /min [facility] 07-26-2019 07:55-0400 Pulse Oximetry 93 % [facility] [place] 07-26-2019 07:55-0400 Respiratory Rate 18 /min [facility] 07-26-2019 04:40-0400 BMI (Body Mass Index) 34.83 kg/m2 [facility] 07-26-2019 04:40-0400 Body weight 89.18 kg [facility] [place] 07-25-2019 13:27-0400 Height 160 cm [facility] [place] 07-22-2019 09:14-0400 BMI (Body Mass Index) 33.62 kg/m2 [facility] 07-22-2019 09:14-0400 Body Temperature 96.4 [degF] Jose A Guadarrama [facility] , [place] 07-22-2019 09:14-0400 Body weight 86.09 kg Jose A Guadarrama [facility] , [place] 07-22-2019 09:14-0400 BP Diastolic 93 mm[Hg] Jose A Guadarrama [facility] , [place] 07-22-2019 09:14-0400 BP Systolic 155 mm[Hg] [facility] [place] 07-22-2019 09:14-0400 Height 160 cm Jose A Guadarrama [facility] [place] 07-22-2019 09:14-0400 Pulse (Heart Rate) 66 /min [facility] [place] 07-22-2019 09:14-0400 Pulse Oximetry 96 % Jose A Guadarrama [facility] , [place] 07-22-2019 09:14-0400 Respiratory Rate 18 /min [facility] En[facility] Encounter Date Encounter Type Care Provider Facility Start: 09-22-2025 ambulatory Bonita L Red Facility: [facility] Start: 09-20-2024 End: 09-20-2024 Lab Drop off Bonita L Red [facility] Start: 09-20-2024 End: 09-20-2024 ambulatory Bonita L Red Facility:[facility] Start: 09-19-2024 End: 09-19-2024 ambulatory Bonita L Red Facility:[facility] Start: 06-25-2024 End: 06-25-2024 Lab Drop off Bonita L Red [facility] Start: 06-25-2024 End: 06-25-2024 ambulatory Bonita L Red Facility:[facility] Start: 03-26-2024 End: 03-26-2024 Lab Drop off Bonita L Red [facility] Start: 03-26-2024 End: 03-26-2024 ambulatory Bonita L Red Facility:[facility] Start: 12-26-2023 End: 12-26-2023 Lab Drop off Bonita Negroab [facility] Start: 12-26-2023 End: 12-26-2023 ambulatory Bonita L Red Facility:[facility] Start: 12-07-2023 End: 12-07-2023 ambulatory Diallo Mac Facility:[facility] Start: 12-07-2023 End: 12-07-2023 Admission to same day surgery center MD Jose Ibarra Work Phone: [facility] [place] Start: 12-07-2023 End: 12-07-2023 ambulatory MD Jose Ibarra Work Phone: [facility] Work Phone: Start: 11-16-2023 End: 11-16-2023 ambulatory Diallo Estefania Facility:[facility] Start: 11-16-2023 End: 11-16-2023 Admission to same day surgery center MD Jose Ibarra Work Phone: [facility] [place] Start: 11-16-2023 End: 11-16-2023 ambulatory MD Jose Ibarra Work Phone: [facility] Work Phone: Start: 11-03-2023 End: 11-03-2023 ambulatory Diallo Mac Facility:[facility] Start: 11-03-2023 End: 11-03-2023 ambulatory MD Jose Ibarra Work Phone: [facility] Work Phone: Start: 11-03-2023 End: 11-03-2023 Patient encounter procedure MD Jose Ibarra Work Phone: [facility] Work Phone: Start: 10-27-2023 End: 10-27-2023 Emergency department patient visit Bhavesh Newell Facility:[facility] Start: 10-27-2023 End: 10-27-2023 Emergency department patient visit MD Jose Ibarra Work Phone: [facility] Work Phone: Start: 10-25-2023 End: 10-25-2023 ambulatory Diallo Mac Facility:[facility] Start: 10-25-2023 End: 10-25-2023 Admission to same day surgery center MD Jose Ibarra Work Phone: [facility] [place] Start: 10-25-2023 End: 10-25-2023 ambulatory MD Jose Ibarra Work Phone: [facility] Work Phone: Start: 09-26-2023 End: 09-26-2023 Lab Drop off Bonita L Red [facility] Start: 09-26-2023 End: 09-26-2023 ambulatory Bonita L Red Facility:[facility] Start: 01-25-2023 End: 01-26-[address] MARNIE BURNETT . Facility: Start: 09-15-2022 End: 09-15-2022 Patient encounter procedure Beatriz MARRERO [facility] Start: 09-13-2022 End: 09-13-2022 Patient encounter procedure Kelly Warner [facility] Start: 07-21-2022 End: 07-22-2022 ambulatory MARNIE BURNETT [facility] Start: 07-21-2022 Encounter for gynecological examination (general) (routine) without abnormal findings MARNIE BURNETT [facility] Start: 07-21-2022 End: 07-21-2022 Patient encounter procedure Marnie Burentt Work Phone: [facility] Start: 07-21-2022 End: 07-21-2022 Subsequent hospital visit by physician Marnie Burnett Work Phone: [email or web address] Comment on above: Women's annual routi ne gynecological examination Start: 06-09-2022 End: 06-10-[address] JOSE A YU Facility:[facility] Start: 07-24-2019 End: 07-26-2019 Evaluation and management of inpatient Jose A Yu Work Phone: [facility] Comment on above: S/P SANJIV-BSO (total a bdominal hysterectomy and bilateral salpingo-oophorectomy) (Primary Dx) Start: 07-22-2019 End: 07-26-2019 Subsequent hospital visit by physician Jose A Yu Work Phone: [facility] PRE ADMIT Comment on above: Other general sympto ms and signs ; Pre-procedure lab exam; Pre-op testing Procedures Date Procedure Procedure Detail Performing Clinician Start: 12-07-2023 Reconstruction of no se with flap MD Jose Ibarra Work Phone: Start: 11-16-2023 Operative procedure on head MD Jose Ibarra Work Phone: Start: 10-25-2023 Reconstruction of fo rehead using autograft MD Jose Ibarra Work Phone: Start: 09-15-2022 Colonoscopy Beatriz Linder Start: 02-26-2021 Antibody screen Start: 11-06-2019 Insertion of hip prosthesis Bonita Moon Comment on above: left Start: 07-25-2019 Blood count complete auto&auto difrntl wbc Jose A Yu Work Phone: Start: 07-24-2019 Level iv surg pathol ogy gross&microscopic exam Jose A Yu Work Phone: Start: 07-24-2019 Blood count hemoglobin Jose A Yu Work Phone: Start: 07-24-2019 End: 07-24-2019 Total abdominal hysterect w/wo rmvl tube ovary Jose A Yu Work Phone: Start: 07-22-2019 Antibody screen Jose A Yu Start: 07-22-2019 Ecg routine ecg w/le ast 12 lds i&r only Jose A Yu Work Phone: Start: 07-22-2019 EKG REPORT Hpf Scanni ng Start: 07-22-2019 Blood typing serologic abo Jose A Yu Work Phone: Start: 07-22-2019 Blood count complete auto&auto difrntl wbc Jose A Yu Work Phone: Start: 07-22-2019 Culture bacterial quanttative colony count urine Jose A Yu Work Phone: Start: 01-21-2013 Colonoscopy Kelly mullins Ganglion cyst of rig ht wrist (disorder) [employer] Laminectomy [employer] Mohs surgery [employer] Comment on above: for nose CA Pelvic sling [employer] Tonsillectomy and adenoidectomy [employer] Total abdominal hysterectomy with bilateral salpingo-oophorectomy [employer] Plan of Treatment Date Care Activity Detail Author Start: 02-18-2027 Colon cancer screen colonoscopy Colon cancer screen [facility] [place] [place] Comment on above: Postponed from 04/13 (Not Indicated) Start: 02-18-2027 [facility] malign [facility] on above: Postponed from 04/13 (Not Indicated) Postponed from 04/13 Start: 12-07-2023 End: 12-07-2023 [facility] Start: 11-16-2023 End: 11-16-2023 [facility] Start: 10-25-2023 [facility] Start: 06-07-2023 Screening for malign ant neoplasm of breast Breast cancer screen [facility] [employer] Start: 05-29-2021 Breast cancer screen Breast cancer s creen [facility] [place] [place] Start: 07-07-2019 Influenza vaccination Flu vaccine (# 1) [place], [place] Start: 04-28-2019 Annual Wellness Visi t (AWV) Annual Wellness Visit (AWV) [facility] Start: 2000 Shingles Vaccine (1 of 2) Shingles Vaccine (1 of 2) [facility] Start: 1995 Screening for malign ant neoplasm of colon [facility] Start: 1990 Diabetes screen Diabetes screen [place], [place] Start: 1990 Lipid screen Lipid screen [place], [place] Start: 1969 DTaP/Tdap/Td vaccine (1 - Tdap) DTaP/Tdap/Td vaccine (1 - Tdap) [facility] Start: 1968 Hepatitis C screening Hepatitis C sc reen [facility] Start: 1962 Depression Screen Depression Screen [facility] Start: 1960 Lipid panel Lipids [facility] Start: 1950 Hepatitis C screen Hepatitis C scree n [place], [place] End: 07-21-2022 Cytopathology procedure, preparation of smear, genital source [facility] Lab Routine Women's annual routine gynecological examination 1 Occurrences starting 07/21/2022 until 07/21/2022 [facility] Work Phone: Comment on above: 1 Occurrences starti ng 07/21/2022 until 07/21/2022 Initiate Oxygen Ther apy Protocol Initiate Oxygen Therapy Protocol Respiratory Care Routine Daily until discontinued starting 07/24/2019 [place] Comment on above: Daily until disconti nued starting 07/24/2019 Patient Education Wound Care ED [facility] Work Phone: Patient referral [facility] Work Phone: Pulse oximetry, continuous Pulse oximetry, continuous Respiratory Care Routine Every 4hr until discontinued starting 07/24/2019 [place] Comment on above: Every 4hr until disc ontinued starting 07/24/2019 Immunizations Immunization Date Immunization Notes Care Provider Mary garcia 09-16-2024 influenza virus vacc ine, unspecified formulation Bonita Red [facility] 07-29-2024 zoster vaccine, live Bonita Sc hwab [facility] 08-04-2023 COVID-19 (PFIZER) 12Y and older MD Jose Ibarra Work Phone: [facility] 07-24-2023 influenza virus vacc ine, unspecified formulation Bonita Red [facility] 07-24-2023 influenza, unspecifi ed formulation Bonita Red [facility] 08-24-2022 influenza virus vacc ine, unspecified formulation Kelly Warner [facility] 08-11-2022 SARS-CoV-2 (COVID-19 ) [id number] Bonita Red [facility] 07-13-2022 influenza virus vacc ine, unspecified formulation Bonita Red [facility] 02-16-2022 COVID-19 mRNA, More hernandez (Pfizer) MD Jose Ibarra Work Phone: [facility] 02-16-2022 SARS-CoV-2 mRNA (fmhjgigsoby-kffm-njfvuj e) vaccine Bonita Red [facility] 08-04-2021 SARS-CoV-2 (COVID-19 ) mRNA BNT-162b2 vax Bonita Red [facility] Comment on above: Result Comment: 2022: [id number] 08-02-2021 influenza virus vacc ine, unspecified formulation Bonita Red [facility] 12-30-2020 SARS-CoV-2 (COVID-19 ) mRNA BNT-162b2 vax Bonita Red [facility] Comment on above: Result Comment: 2022: [id number] 12-09-2020 SARS-CoV-2 (COVID-19 ) mRNA BNT-162b2 vax Bonita Red [facility] Comment on above: Result Comment: 2022: [id number] 07-09-2020 influenza virus vacc ine, unspecified formulation Bonita Red [facility] 09-03-2019 influenza virus vacc ine, unspecified formulation Bonita Red [facility] 09-03-2019 influenza, seasonal, injectable Marnie Burnett Work Phone: [facility] Work Phone: 08-24-2018 Influenza Vaccine, unspecified formulation [facility] , [place] 08-24-2018 influenza virus vacc ine, unspecified formulation Bonita Red [facility] 08-10-2017 influenza virus vacc ine, unspecified formulation Bonita Red [facility] 02-23-2017 influenza, injectabl e, quadrivalent, contains preservative [place], [place] 02-23-2017 pneumococcal polysaccharide vaccine, 23 valent [facility] 08-17-2016 influenza virus vacc ine, unspecified formulation Bonita Red [facility] 01-27-2016 pneumococcal conjuga te vaccine, 13 valent Bonita Red [facility] 01-24-2016 pneumococcal conjuga te vaccine, 13 valent [facility] 09-03-2015 influenza virus vacc ine, unspecified formulation Bonita Red [facility] Payers Date Payer Category Payer Private Health Insurance [facility] [id number] 2023 Self-pay [id number] 2017 Medicare MEDICARE MEDICAR E PART A AND B xxxxxxxxxxx 2017-Present [phone] [place] [address] xxxxxxxxxxx [id number] 2015 Unknown [employer]IC [employer] xxxxxxxxxx 2015-Present Indemnity xxxxxxxxxx [id number] 1959 Medicare [id number] .[id number] 1959 Unknown [id number] [id number] .[id number] 1950 Unknown [id number] 2.16.840.1.553846.3.579.2 .173 1950 Unknown [id number] 2.16.840.1.330647.3.579.2 .593 1950 Unknown [id number] 2.16.840.1.875547.3.579.2 .593 1950 Unknown [id number] 2.16.840.1.981274.3.579.2 .727 1950 Unknown [id number] 2.16.840.1.258458.3.579.2 .727 1950 Unknown [id number] 2.16.840.1.645190.3.579.2 .727 1950 Unknown [id number] 2.16.840.1.517432.3.579.2 .727 1950 Unknown [id number] 2.16.840.1.159254.3.579.2 .727 1950 Unknown [id number] 2.16.840.1.668454.3.579.2 .727 1950 Unknown [id number] 2.16.840.1.714861.3.579.2 .727 1950 Unknown [id number] 2.16.840.1.321546.3.579.2 .727 1950 Unknown [id number] 2.16.840.1.263517.3.579.2 .727 1950 Unknown [id number] 2.16.840.1.594156.3.579.2 .727 1950 Unknown [id number] 2.16.840.1.889019.3.579.2 .727 1950 Unknown [id number] 2.16.840.1.143572.3.579.2 .727 1950 Unknown [id number] 2.16.840.1.682820.3.579.2 .727 Unknown [id number] 2.16.840.1.248171.3.579.2 .531 Unknown [id number] 2.16.840.1.102686.3.579.2 .531 Unknown [id number] 2.16.840.1.855154.3.579.2 .531 Unknown [id number] 2.16.840.1.962729.3.579.2 .531 Unknown [id number] 2.16.840.1.640185.3.579.2 .531 Social History Date Type Detail Facility Start: 07-24-2019 End: 09-19-2024 Tobacco smoking status PAIS Never smoker [facility] Comment on above: denies denes use Start: 07-24-2019 Alcohol intake Yes [facility] Start: 07-15-2016 Alcohol Comment [facility] [place] Start: 1950 Sex Assigned At Not on file M [place], [place] Start: 07-21-2022 Tobacco use and exposure Smokeless tobacco non-user PRASHANT CASTAÑEDA [employer] Work Phone: Start: 07-21-2022 Alcohol intake Current drinke r of alcohol (finding) PRASHANT CASTAÑEDA [employer] Phone: Start: 07-21-2022 Alcohol intake PRASHANT ENRIQUE [facility] [employer] Work Phone: Tobacco smoking status Never [facility] Comment on above: denies Start: 1950 Sex Assigned At Female [facility] Goals Date Patient Goal Desired Activity /State Functional Status Date Assessment Result Facility 09-15-2022 Functional Status N/A [facility] 09-13-2022 Functional Status N/A [facility] Clinical Notes 12-08-2020 to 09-19-2024 Note Date & Type Note Facility 09-19-2024 Note Patient Education Emergency Medicine Heart Attack A heart attack occurs when blood and oxygen supply to the heart is cut off. A heart attack can cause damage to the heart that cannot be fixed. A heart attack is also called a myocardial infarction, or [place]. If you think you are having a heart attack, do not wait to see if the symptoms will go away. Get medical help right away. What are the causes? This condition may be caused by: ??? A fatty substance (plaque) in the blood vessels (arteries). This can block the flow of blood to the heart. ??? A blood clot in the blood vessels that go to the heart. The blood clot blocks blood flow. ??? An abnormal heartbeat. ??? Some diseases, such as problems in red blood cells (anemia)orproblems in breathing (respiratory failure). ??? Tightening (spasm) of a blood vessel that cuts off blood to the heart. ??? A tear in a blood vessel of the heart. Other causes may include: ??? Using drugs such as cocaine or methamphetamine. ??? Low blood pressure. What increases the risk? Aging. The risk gets higher as you get older. ??? Having a personal or family history of chest pain, heart attack, stroke, or narrowing of the arteries in the legs, arms, head, or stomach (peripheral vascular disease). ??? Having taken chemotherapy or immune-suppressing medicines. ??? Being male. ??? Being overweight or obese. ??? Having any of these conditions: ? High blood pressure. ? High cholesterol. ? Diabetes. ??? Making lifestyle choices such as: ? Drinking too much alcohol. ? Not getting regular exercise. ? Smoking. What are the signs or symptoms? Chest pain. It may feel like: ? Crushing or squeezing. ? Tightness, pressure, fullness, or heaviness. ??? Pain in the arm, neck, jaw, back, or upper body. ??? Heartburn. ??? Upset stomach (indigestion). ??? Shortness of breath. ??? Feeling like you may vomit (nauseous). ??? Cold sweats. ??? Sudden light-headedness, dizziness, or passing out. ??? Feeling tired. How is this treated? A heart attack must be treated as soon as possible. Treatment may include: ??? Medicines to: ? Break up or dissolve blood clots. ? Thin your blood and help prevent blood clots. ? Treat blood pressure. ? Improve blood flow to the heart. ? Reduce pain. ? Reduce cholesterol. ??? Procedures to widen a blocked artery and keep it open. ??? Open heart surgery. ??? Making your heart strong again (cardiac rehabilitation) through exercise, education, and counseling. Follow these instructions at home: Medicines ??? Take qyqj-smt-eblqlrr and prescription medicines only as told by your doctor. ??? Do not take these medicines unless your doctor says it is okay: ? NSAIDs, such as ibuprofen, naproxen, or celecoxib. ? Any vitamins or supplements. ? Hormone replacement therapy that has estrogen with or without progestin. ??? If you are taking blood thinners: ? Talk with your doctor before taking any medicines that have aspirin or NSAIDs, such as ibuprofen. ? Take medicines exactly as told. Take them at the same time each day. ? Avoid doing things that could hurt or bruise you. Take action to prevent falls. ? Wear an alert bracelet or carry a card that shows you are taking blood thinners. Lifestyle ??? Do not smoke or use any products that contain nicotine or tobacco. If you need help quitting, ask your doctor. ??? Avoid secondhand smoke. ??? Exercise regularly. Ask your doctor about a cardiac rehab program. ??? Eat heart-healthy foods. Your doctor will tell you what foods to eat. ??? Stay at a healthy weight. ??? Learn ways to lower your stress level. ??? Do not use illegal drugs. Alcohol use ??? Do not drink alcohol if: ? Your doctor tells you not to drink. ? You are , may be , or are planning to become . ??? If you drink alcohol: ? Limit how much you have to: ? 0?1 drink a day for women. ? 0?2 drinks a day for men. ? Know how much alcohol is in your drink. In the [place] one drink equals one 12 oz bottle of beer (355 mL), one 5 oz glass of wine (148 mL), or one 1? oz glass of hard liquor (44 mL). General instructions ??? Work with your doctor to treat other problems you may have, such as diabetes or high blood pressure. ??? Get screened for depression. Get treatment if needed. ??? Keep your vaccines up to date. Get the flu shot (influenza vaccine) every year. ??? Keep all follow-up visits. Contact a doctor if: ??? You feel very sad. ??? You have trouble doing your daily activities. ??? You get light-headed or dizzy. Get help right away if: ??? You have sudden, unexplained discomfort in your chest, arms, back, neck, jaw, or upper body. ??? You have shortness of breath. ??? You have sudden sweating or clammy skin. ??? You feel like you may vomit or you vomit. ??? You fe (more content not included)... [facility] 09-15-2022 Evaluation + Plan note Extrac xin from: Title:Post-anesthesia - General Author:Dao Spears DO Date:09/15/22 Plan Transfer/ Discharge: Condition stable. Extracted from: Title:Pre-anesthesia - Endoscopy Author:Dao Brown Jr., DO Date:09/15/22 Plan [place] [employer]esthesiologists (ASA) physical status classification: Class III. Anesthetic Preoperative Plan Anesthesia: General. . Anesthetic plan, risks, benefits, and alternatives discussed with the patient and/or family. Patient verbalized understanding. [facility]11-10-2022 Hospital Discharge instructions Patient Education 09/15/2022 10:30:49 Diverticulosis MAGR (CUSTOM) Diverticulosis Many people have small pouches in their colon called diverticulum. The diverticulum bulge outward through weak spots in the colon. You could have one or more of these pouches in the colon. The condition of having these pouches in the colon is called diverticulosis or diverticular disease. Diverticulosis is usually diagnosed by tests to evaluate something else. For example, you may have had a colonoscopy to screen for colon cancer when the diverticulosis was found. Most people with diverticulosis do not have any discomfort or problems. If symptoms develop, they may include mild cramps, bloating, and constipation. A complication of this condition is called diverticulitis. This is when the diverticulum become inflamed and infected. How to treat diverticulosis: Increasing the amount of fiber in the diet may reduce symptoms of diverticulosis and prevent complications such as diverticulitis (infected diverticuli). Fiber keeps stool soft and lowers pressure inside the colon so that bowel contents can move througheasily. You should eat 20 to 35 grams of fiber each day. The table below shows the amount of fiber in some foods that you can easily add to your diet. Adding fiber slowly may decrease the bloating and fullness sometimes felt with an immediate high fiber diet. The doctor may also recommend taking a fiber product such as Citrucel or Metamucil once a day. In the past people with diverticulosis were to avoid nuts, corn, and seeds. This has not been foundto be true. If you find that certain foods create cramping or bloating, avoid that food. Foods high in fiber include: Fresh fruits, fresh vegetables, legumes (beans), whole wheat bread, bran muffins or cereal, and nuts. See the table below for examples of high fiber foods. Remember, your goal is 20- 35 grams per day. Amount of fiber in different foods Food Serving Grams of fiber Fruits Apple (with skin) 1 medium apple 4.4 Banana 1 medium banana 3.1 Oranges 1 orange 3.1 Prunes 1 cup, pitted 12.4 Juices Apple, unsweetened, w/added ascorbic acid 1 cup 0.5 Grapefruit, white, canned, sweetened 1 cup 0.2 Grape, unsweetened, w/added ascorbic acid 1 cup 0.5 [place] 1 cup 0.7 Vegetables Cooked Green beans 1 cup 4.0 Carrots 1/2 cup sliced 2.3 Peas 1 cup 8.8 Potato (baked, with skin) 1 medium potato 3.8 Raw Grainfield (with peel) 1 cucumber 1.5 Lettuce 1 cup shredded 0.5 Tomato 1 medium tomato 1.5 Spinach 1 cup 0.7 Legumes Baked beans, canned, no salt added 1 cup 13.9 Kidney beans, canned 1 cup 13.6 Barajas beans, canned 1 cup 11.6 Lentils, boiled 1 cup 15.6 Breads, pastas, flours Bran muffins 1 medium muffin 5.2 Oatmeal, cooked 1 cup 4.0 White bread 1 slice 0.6 Whole-wheat bread 1 slice 1.9 Pasta and rice, cooked Macaroni 1 cup 2.5 Rice, brown 1 cup 3.5 Rice, white 1 cup 0.6 Spaghetti (regular) 1 cup 2.5 Nuts Almonds 1/2 cup 8.7 Peanuts 1/2 cup 7.9 Chart from [facility] 2013. SEEK IMMEDIATE MEDICAL CARE IF: You develop abdominal (belly) pain. An oral temperature above _ 101 F__develops. Repeated vomiting occurs. Blood is being passed in stools (bright red or black tarry stools). You develop any bowel problems or changes which you have not had before. Extra Information: To learn how much fiber and other nutrients are in different foods, visit the [place] Department of Agriculture (USDA) National Nutrient Database at: http://www.nal.usda.gov/fnic/foodcomp/search/ Created using data from the USDA National Nutrient Database for Standard Reference. Available at http://www.nal.usda.gov/fnic/foodcomp/search/. Information adapted from: ExitCare Patient Information 2010 [employer]. [employer] 2012 http://www.[employer]/contents/wprjjgiyiyvt-inppyah-fthizg-the-basics 09/15/2022 10:30:49 Hemorrhoids, Ppsf-ut-Kvip Hemorrhoids Hemorrhoids are swollen veins that may develop: In the butt (rectum). These are called internal hemorrhoids. Around the opening of the butt (anus). These are called external hemorrhoids. Hemorrhoids can cause pain, itching, or bleeding. Most of the time, they do not cause serious problems. They usually get better with diet changes, lifestyle changes, and other home treatments. What are the causes? This condition may be caused by: Having trouble pooping (constipation). Pushing hard (straining) to poop. Watery poop (diarrhea). . Being very overweight (obese). Sitting for long periods of time. Heavy lifting or other activity that causes you to strain. Anal sex. Riding a bike for a long period of time. What are the signs or symptoms? Symptoms of this condition include: Pain. Itching or soreness in the butt. Bleeding from the butt. Leaking poop. Swelling in the area. One or more lumps around the opening of your butt. How is this diagnosed? A doctor can often diagnose this condition by looking at the affected area. The doctor may also: Do an exam that involves feeling the area with a gloved hand (digital rectal exam). Examine the area inside your butt using a small tube (anoscope). Order blood tests. This may be done if you have lost a lot of blood. Have you get a test that involves looking inside the colon using a flexible tube with a camera on the end (sigmoidoscopy or colonoscopy). How is this treated? This condition can usually be treated at home. Your doctor may tell you to change what you eat, make lifestyle changes, or try home treatments. If these do not help, procedures can be done to remove the hemorrhoids or make them smaller. These may involve: Placing rubber bands at the base of the hemorrhoids to cut off their blood supply. Injecting medicine into the hemorrhoids to shrink them. Shining a type of light energy onto the hemorrhoids to cause them to fall off. Doing surgery to remove the hemorrhoids or cut off their blood supply. Follow these instructions at home: Eating and drinking Eat foods that have a lot of fiber in them. These include whole grains, beans, nuts, fruits, and vegetables. Ask your doctor about taking products that have added fiber (fibersupplements). Reduce the amount of fat in your diet. You can do this by: ?Eating low-fat dairy products. ?Eating less red meat. ?Avoiding processed foods. Drink enough fluid to keep your pee (urine) pale yellow. Managing pain and swelling Take a warm-water bath (sitz bath) for 20 minutes to ease pain. Do this 3 4 times a day. You may dothis in a bathtub or using a portable sitz bath that fits over the toilet. If told, put ice on the painful area. It may be helpful to use ice between your warm baths. ?Put ice in a plastic bag. ?Place a towel between your skin and the bag. ?Leave the ice on for 20 minutes, 2 3 times a day. General instructions Take woys-pdr-vfnsutw and prescription medicines only as told by your doctor. ?Medicated creams and medicines may be used as told. Exercise often. Ask your doctor how much and what kind of exercise is best for you. Go to the bathroom when you have the urge to poop. Do not wait. Avoid pushing too hard when you poop. Keep your butt dry and clean. Use wet toilet paper or moist towelettes after pooping. Do not sit on the toilet for a long time. Keep all follow-up visits as told by your doctor. This is important. Contact a doctor if you: Have pain and swelling that do not get better with treatment or medicine. Have trouble pooping. Cannot poop. Have pain or swelling outside the area of the hemorrhoids. Get help right away if you have: Bleeding that will not stop. Summary Hemorrhoids are swollen veins in the butt or around the opening of the butt. They can cause pain, itching, or bleeding. Eat foods that have a lot of fiber in them. These include whole grains, beans, nuts, fruits, and vegetables. Take a warm-water bath (sitz bath) for 20 minutes to ease pain. Do this 3 4 times a day. This information is not intended to replace advice given to you by your health care provider. Make sure you discuss any questions you have with your health care provider. Document Released: 08/01/2009 Document Revised: 10/31/2019 Document Reviewed: 03/14/2019 [employer] Patient Education 2020 [employer] 09/15/2022 10:30:49 Colon Polyps Colon Polyps Polyps are tissue growths inside the body. Polyps can grow in many places, including the large intestine (colon). A polyp may be a round bump or a mushroom-shaped growth. You could have one polyp or several. Most colon polyps are noncancerous (benign). However, some colon polyps can become cancerous over time. Finding and removing the polyps early can help prevent this. What are the causes? The exact cause of colon polyps is not known. What increases the risk? You are more likely to develop this condition if you: Have a family history of colon cancer or colon polyps. Are older than 50 or older than 45 if you are . Have inflammatory bowel disease, such as ulcerative colitis or Crohn's disease. Have certain hereditary conditions, such as: ?Familial adenomatous polyposis. ?Musa syndrome. ?Turcot syndrome. ?Peutz Jeghers syndrome. Are overweight. Smoke cigarettes. Do not get enough exercise. Drink too much alcohol. Eat a diet that is high in fat and red meat and low in fiber. Had childhood cancer that was treated with abdominal radiation. What are the signs or symptoms? Most polyps do not cause symptoms. If you have symptoms, they may include: Blood coming from your rectum when having a bowel movement. Blood in your stool. The stool may look dark red or black. Abdominal pain. A change in bowel habits, such as constipation or diarrhea. How is this diagnosed? This condition is diagnosed with a colonoscopy. This is a procedure in which a lighted, flexible scope is inserted into the anus and then passed into the colon to examine the area. Polyps are sometimes found when a colonoscopy is done as part of routine cancer screening tests. How is this treated? Treatment for this condition involves removing any polyps that are found. Most polyps can be removed during a colonoscopy. Those polyps will then be tested for cancer. Additional treatment may be needed depending on the results of testing. Follow these instructions at home: Lifestyle Maintain a healthy weight, or lose weight if recommended by your health care provider. Exercise every day or as told by your health care provider. Do not use any products that contain nicotine or tobacco, such as cigarettes and e-cigarettes. If you need help quitting, ask your health care provider. If you drink alcohol, limit how much you have: ?0 1 drink a day for women. ? 0 2 drinks a day for men. Be aware of how much alcohol is in your drink. In the [place] one drink equals one 12 oz bottle of beer (355 mL), one 5 oz glass of wine (148 mL), or one 1 oz shot of hard liquor (44 mL). Eating and drinking Eat foods that are high in fiber, such as fruits, vegetables, and whole grains. Eat foods that are high in calcium and vitamin D, such as milk, cheese, yogurt, eggs, liver, fish, and broccoli. Limit foods that are high in fat, such as fried foods and desserts. Limit the amount of red meat and processed meat you eat, such as hot dogs, sausage, wilson, and lunch meats. General instructions Keep all follow-up visits as told by your health care provider. This is important. ?This includes having regularly scheduled colonoscopies. ?Talk to your health care provider about when you need a colonoscopy. Contact a health care provider if: You have new or worsening bleeding during a bowel movement. You have new or increased blood in your stool. You have a change in bowel habits. You lose weight for no known reason. Summary Polyps are tissue growths inside the body. Polyps can grow in many places, including the colon. Most colon polyps are noncancerous (benign), but some can become cancerous over time. This condition is diagnosed with a colonoscopy. Treatment for this condition involves removing any polyps that are found. Most polyps can be removed during a colonoscopy. This information is not intended to replace advice given to you by your health care provider. Make sure you discuss any questions you have with your health care provider. Document Released: 07/19/2005 Document Revised: 02/07/2019 Document Reviewed: 02/07/2019 [employer] Patient Education 2020 [employer] 09/15/2022 10:30:49 Colonoscopy, Care After Surgery [facility] (CUSTOM) Colonoscopy Care After Surgery Please read the instructions outlined below and refer to this sheet in the next few weeks. These discharge instructions provide you with general information on caring for yourself after you leave thespital. Your doctor may also give you specific instructions. While your treatment has been planned according to the most current medical practices available, unavoidable complications occasionally occur. If you have any problems or questions after discharge, please call your doctor. ACTIVITY You may resume your regular activity, but move at a slower pace for the next 24 hours. Take frequent rest periods for the next 24 hours. Walking will help get rid of the air and reduce the bloated feeling in your abdomen (belly). No driving for 24 hours (because of the anesthesia (medicine) used during the test). You may shower. Do not sign any important legal documents or operate any machinery for 24 hours (because of the anesthesia used during the test). NUTRITION Drink plenty of fluids. You may resume your normal diet as instructed by your doctor. Begin with a light meal and progress to your normal diet. Heavy or fried foods are harder to digestand may make you feel nauseated (sick to your stomach). Avoid alcoholic beverages for 24 hours or as instructed. MEDICATIONS You may resume your normal medications unless your doctor tells you otherwise. WHAT YOU CAN EXPECT TODAY Some feelings of bloating in the abdomen. Passage of more gas than usual. Spotting of blood in your stool or on the toilet paper. FOLLOW-UP Your doctor will discuss the results of your test with you. SEEK IMMEDIATE MEDICAL ATTENTION IF: There is more than a spotting of blood in your stool. There is abdominal distention (your abdomen is swollen). There is vomiting. You have a temperature over 101.5 F. There is abdominal pain or discomfort that is severe or gets worse throughout the day. Follow Up Care 09/13/2022 10:21:36 With:Beatriz MARRERO Address: [address] [place] [address]. [address] [place] [address] [facility] (1) When:1 to 2 weeks Comments:Call for any problems. [facility]11-08-2022 Hospital Discharge instructions Patient Education 09/13/2022 09:40:34 Colonoscopy, Adult Colonoscopy, Adult A colonoscopy is an exam to look at the entire large intestine. During the exam, a lubricated, flexible tube that has a camera on the end of it is inserted into the anus and then passed into the rectum, colon, and other parts of the large intestine. You may have a colonoscopy as a part of normal colorectal screening or if you have certain symptoms, such as: Lack of red blood cells (anemia). Diarrhea that does not go away. Abdominal pain. Blood in your stool (feces). A colonoscopy can help screen for and diagnose medical problems, including: Tumors. Polyps. Inflammation. Areas of bleeding. Tell a health care provider about: Any allergies you have. All medicines you are taking, including vitamins, herbs, eye drops, creams, and thdc-ukg-jreegxo medicines. Any problems you or family members have had with anesthetic medicines. Any blood disorders you have. Any surgeries you have had. Any medical conditions you have. Any problems you have had passing stool. What are the risks? Generally, this is a safe procedure. However, problems may occur, including: Bleeding. A tear in the intestine. A reaction to medicines given during the exam. Infection (rare). What happens before the procedure? Eating and drinking restrictions Follow instructions from your health care provider about eating and drinking, which may include: A few days before the procedure follow a low-fiber diet. Avoid nuts, seeds, dried fruit, raw fruits, and vegetables. 1 3 days before the procedure follow a clear liquid diet. Drink only clear liquids, such as clear broth or bouillon, black coffee or tea, clear juice, clear soft drinks or sports drinks, gelatin dessert, and popsicles. Avoid any liquids that contain red or purple dye. On the day of the procedure do not eat or drink anything starting 2 hours before the procedure, or within the time period that your health care provider recommends. Up to 2 hours before the procedure, you may continue to drink clear liquids, such as water or clear fruit juice. Bowel prep If you were prescribed an oral bowel prep to clean out your colon: Take it as told by your health care provider. Starting the day before your procedure, you will needto drink a large amount of medicated liquid. The liquid will cause you to have multiple loose stools until your stool is almost clear or light green. If your skin or anus gets irritated from diarrhea, you may use these to relieve the irritation: ?Medicated wipes, such as adult wet wipes with aloe and vitamin E. ?A skin-soothing product like petroleum jelly. If you vomit while drinking the bowel prep, take a break for up to 60 minutes and then begin the bowel prep again. If vomiting continues and you cannot take the bowel prep without vomiting, call yourhealth care provider. To clean out your colon, you may also be given: ?Laxative medicines. ?Instructions about how to use an enema. General instructions Ask your health care provider about: ?Changing or stopping your regular medicines or supplements. This is especially important if you are taking iron supplements, diabetes medicines, or blood thinners. ?Taking medicines such as aspirin and ibuprofen. These medicines can thin your blood. Do not take these medicines before the procedure if your health care provider tells you not to. Plan to have someone take you home from the hospital or clinic. What happens during the procedure? An IV may be inserted into one of your veins. You will be given medicine to help you relax (sedative). To reduce your risk of infection: ?Your health care team will wash or sanitize their hands. ?Your anal area will be washed with soap. You will be asked to lie on your side with your knees bent. Your health care provider will lubricate a long, thin, flexible tube. The tube will have a camera and a light on the end. The tube will be inserted into your anus. The tube will be gently eased through your rectum and colon. Air will be delivered into your colon to keep it open. You may feel some pressure or cramping. The camera will be used to take images during the procedure. A small tissue sample may be removed to be examined under a microscope (biopsy). If small polyps are found, your health care provider may remove them and have them checked for cancer cells. When the exam is done, the tube will be removed. The procedure may vary among health care providers and hospitals. What happens after the procedure? Your blood pressure, heart rate, breathing rate, and blood oxygen level will be monitored until themedicines you were given have worn off. Do not drive for 24 hours after the exam. You may have a small amount of blood in your stool. You may pass gas and have mild abdominal cramping or bloating due to the air that was used to inflate your colon during the exam. It is up to you to get the results of your procedure. Ask your health care provider, or the department performing the procedure, when your results will be ready. Summary A colonoscopy is an exam to look at the entire large intestine. During a colonoscopy, a lubricated, flexible tube with a camera on the end of it is inserted into the anus and then passed into the colon and other parts of the large intestine. Follow instructions from your health care provider about eating and drinking before the procedure. If you were prescribed an oral bowel prep to clean out your colon, take it as told by your health care provider. After your procedure, your blood pressure, heart rate, breathing rate, and blood oxygen level will be monitored until the medicines you were given have worn off. This information is not intended to replace advice given to you by your health care provider. Make sure you discuss any questions you have with your health care provider. Document Released: 10/20/2001 Document Revised: 08/15/2018 Document Reviewed: 01/03/2017 [employer] Patient Education [employer] Follow Up Care 08/03/2022 11:56:47 With:Kelly Warner CNP Address: When:1 to 2 weeks [facility] 10-13-2021 NoteHNO ID: [id number] Author: Che Finney Jr., MD Service: ? Author Type: Physician Type: Progress Notes Filed: 08/18/2021 10:07 AM Note Text: HISTORY: Gaby is a 71 year old female. She is 6 months status post left total hip arthroplasty. She states she has no pain. She gets occasional burning along the incision. Her pain is much better than before surgery. PAST MEDICAL HISTORY Diagnosis Date - Arthritis Patient underwent elective left hip total replacement 03/16/2021 - Essential hypertension - Female stress incontinence Doing well after bladder suspension surgery - Other hyperlipidemia - Other specified hypothyroidism PAST SURGICAL HISTORY Procedure Laterality Date - LAMINECTOMY,LUMBAR 2016 - LIGATE FALLOPIAN TUBE 1976 - PAST SURGICAL HISTORY OF 1977 ganglion cyst - SLING OPER STRES INCONTINENCE 2003 - TOTAL ABDOM HYSTERECTOMY 07/2019 - TOTAL HIP REPLACEMENT Left 03/16/2021 Medications reviewed. ALLERGIES No Known Allergies Social History Tobacco Use - Smoking status: Never Smoker - Smokeless tobacco: Never Used Substance Use Topics - Alcohol use: Not Currently - Drug use: Not Currently PHYSICAL EXAMINATION: Vitals: There were no vitals taken for this visit. PSYCH: Pleasant, good affect and mood General Appearance: Well appearing, alert, in no acute distress, well-hydrated, well nourished.. There is no tenderness to palpation about the scar on the left. She has no pain with left hip flexion, internal or external rotation. She has 5/5 strength with hip flexion and hip abduction on the left. She has intact ankle dorsiflexion and plantarflexion on the left. RADIOGRAPHS: None today IMPRESSION: Encounter Diagnosis ICD-10-CM 1. S/P hip replacement, left, 03-16-21 Z96.642 Amoxicillin 500 mg tablet Procedure: None. Plan: She has upcoming dental work and I sent a prophylactic antibiotic to her pharmacy. She should be seen yearly for follow-up for recheck and x-rays, sooner if there is any problems. Che Finney Jr, [facility]06-29-2021 NoteHNO ID: [id number] Author: Eric Hamilton MD Service: ? Author Type: Physician Type: Progress Notes Filed: 05/04/2021 10:42 AM Note Text: Ortho Hip Follow Up Note Narrative Referring Provider: Eric Hamilton [address] [facility] [address] PCP: Marnie Burnett MD IMPRESSION/PLAN: Impressions indicate: 71 year old s/p Left Total Hip Replacement completed on 03-16-21. IMPRESSION: Excellent early outcomes. PLAN: No new treatment indicated: Routine follow-up. Patient Reassurance: Normal post-operative course discussed with patient. Follow up 4 months No X-Rays Needed ACTIVE PROBLEM LIST Essential Hypertension Other Hyperlipidemia Lab Test Positive for Detection of Covid-19 Virus Aspiration Pneumonia of Both Lungs (Hcc) Elevated Brain Natriuretic Peptide (Bnp) Level Status Post Left Hip Replacement Acquired Hypothyroidism C/f of HERMILO (obstructive sleep apnea) Obesity, Class I, Bmi 30-34.9 HPI: Gaby Barbour presents today for an intermediate post-op visit. STATUS POST: Left Total Hip Replacement BMI: There is no height or weight on file to calculate BMI. Post operative recovery was complicated by uneventful/none. Patient rates their condition as improving. Does the patient still experience pain? No. Post Op discharge patient location: in home. Functional Assessment is as follows: has already started outpatient PT as of this visit. Functional difficulties: None. Pain Medication: None EXAM: POST OP HIP LEFT POST-OPERATIVE HIP SKIN: Appropriate postop appearance and No evidence of erythema, warmth, discharge or drainage. Range of Motion: Pain Free Neurovascular Status: Sensation Intact, Moves foot and ankle up AND down and 2+ dorsalis pedis IMAGING: X-ray Hips: Post op None today. Provider: Eric Hamilton MD Completed by: Eric Hamilton [facility]05-26-2021 NoteHNO ID: [id number] Author: Eric Hamilton MD Service: ? Author Type: Physician Type: Progress Notes Filed: 04/02/2021 8:10 AM Note Text: [facility] [address] [place] [address] CLINIC NOTE Department of Orthopaedics - Savannah Hamilton M.D NAME: GABY BARBOUR [facility] NO.: [id number] DATE OF SERVICE: 03/31/2021 HISTORY: Follow up of her left total hip from 03/16/2021. She is getting around very well just using the cane. The incision is well healed. The foot is neurovascularly intact. There is no edema, pain free range of motion. RECOMMENDATIONS: So we go over activities, exercises. She is going to be going to outpatient PT. Postop, the day after she went home her pulse ox dropped. She went to [place] and then admitted to the [facility]. They thought she initially had positive COVID, but then they thought she had aspiration pneumonia. She is not on any antibiotics. She is getting around fine now. Everything looks good. I will see her back in a month for followup. X-ray shows excellent alignment. Everything looks fine. Dictated By: Eric Hamilton M.D Date Dictated: 03/31/2021 Date Typed: [facility] 03/31/2021 [facility] [id number] NoteHNO ID: [id number] Author: Eric Hamilton MD Service: ? Author Type: Physician Type: Progress Notes Filed: 03/31/2021 11:06 AM Note Text: Ortho Hip Follow Up Note Narrative Referring Provider: Eric Hamilton [address] [facility] [address] PCP: Marnie Burnett MD IMPRESSION/PLAN: Impressions indicate: 70 year old s/p left Total Hip Replacement completed on 03/16/21. IMPRESSION: Excellent early outcomes. and aspiation pneumonia post op PLAN: No new treatment indicated: Routine follow-up. Patient Reassurance: Normal post-operative course discussed with patient. Follow up 4 weeks No X-Rays Needed ACTIVE PROBLEM LIST Essential Hypertension Other Hyperlipidemia Lab Test Positive for Detection of Covid-19 Virus Aspiration Pneumonia of Both Lungs (Hcc) Elevated Brain Natriuretic Peptide (Bnp) Level Status Post Left Hip Replacement Acquired Hypothyroidism C/f of HERMILO (obstructive sleep apnea) Obesity, Class I, Bmi 30-34.9 HPI: Gaby Barbour presents today for a routine 1st post-op visit. STATUS POST: left total Hip Replacement BMI: There is no height or weight on file to calculate BMI. Post operative recovery was complicated by aspiration pneumonia. Patient rates their condition as improving. Does the patient still experience pain? Onset: 03-16-21. Location: Right hip: Groin. Frequency: intermittently. Pain scale: 3. Pain character: soreness. Relieving factors: Rest, Ice, Sitting and Cane. Aggravating factors: Increased activity. Post Op discharge patient location: in home. Functional Assessment is as follows: having home therapy . Functional difficulties: Interferes with sleep. Pain Medication: Non-narcotic EXAM: POST OP HIP LEFT POST-OPERATIVE HIP SKIN: Appropriate postop appearance and No evidence of erythema, warmth, discharge or drainage. Range of Motion: Pain Free Neurovascular Status: Sensation Intact, Moves foot and ankle up AND down and 2+ dorsalis pedis IMAGING: X-ray Hips: Post op Implants are well fixed. and There is no evidence of loosening. Provider: Eric Hamilton MD Completed by: Eric Hamilton, [facility]05-26-2021 NoteHNO ID: [id number] Author: RT Magdaleno(R) Service: ? Author Type: Cabinet Assembler Type: Progress Notes Filed: 03/31/2021 10:49 AM Note Text: Radiology Service Progress Note PATIENT NAME: Gaby Barbour DATE OF SERVICE: March 31, 2021 TIME: 10:47 AM PATIENT IDENTITY VERIFICATION COMPLETED USING TWO (2) IDENTIFIERS: Name and Date of confirmed by patient verbally. FALL SCREENING: Has the patient had 2 falls in the last year or 1 fall with injury or currently using an Ambulatory Assistive Device (Walker, Cane, Wheelchair, Crutches, etc.)? Yes, Patient High Risk for Falls What interventions were put in place to prevent falls during this visit? Increased Observations by Caregivers PATIENT GENDER DATA: Female. status: : No status: NO. PATIENT RELEVANT IMPLANT DATA REVIEWED: Not Applicable RADIOLOGY DEPARTMENT: General X-ray: Exam(s) Completed: Pelvis X-Ray: Pelvis with Hip Left PERIPHERAL IV DATA: Not applicable SIGNED BY: RT Luis Felipe March 31, 2021 RT meet(R) 10:47 [facility]05-17-2021 NoteHNO ID: [id number] Author: Flor Vergara RN Service: Care Management Author Type: Registered Nurse Type: Care Mgt Progress Note Filed: 03/22/2021 5:44 PM Note Text: CARE MANAGEMENT DISCHARGE NOTE SERVICE DATE: 03/22/2021 SERVICE TIME: 5:32 PM LOS: 3 days Admission Date: 03/18/2021 DISCHARGE ARRANGEMENT (list agency and phone number) Provider Name: [facility] CAREGIVER ASSESSMENT: Home with home health HANDOFF COMMUNICATION: Primary Provider Marnie Burnett - (Inactive), [place] (Inactive) [address] [id number] (Ph) TRANSPORTATION ARRANGEMENTS: Own transport ADDITIONAL CONTACT RESOURCES: Stephanieneville Shultz (DANI) [phone] (M) Dinesh Avery (SON) [phone] (M) IMM Follow Up Copy Given: Yes Copy given to:: Patient Method: By Phone DC orders,F2F faxed,Patient agrees to plan. SIGNATURE: Flor Vergara RN PATIENT NAME: Gaby Barbour DATE: March 22, 2021 TIME: 5:32 PM PAGER/CONTACT #: [phone] NoteHNO ID: [id number] Author: Hannah Peralta APRN.CNP Service: Hospital Medicine Author Type: Nurse Practitioner Type: Progress Notes Filed: 03/21/2021 3:12 PM Note Text: DEPARTMENT OF HOSPITAL MEDICINE PROGRESS NOTE SERVICE DATE: 03/21/2021 SERVICE TIME: 8:47 AM Hospital Medicine/Primary Attending: Afshan Abrams MD NIGHT AND WEEKEND COVERAGE: [facility] COVERAGE: Days: [phone], please page Hannah Peralta for patient issues. Nights: [phone], please page Team [facility] 6: G/H 8th floor: [id number]; Non 8th floor [phone] Luz Maria FARIAS to assume care on 03/22/21 at 0730 Subjective INTERVAL HPI: Patient laying in bed. Alert and oriented. Denies cough. No sob. HDS, on 1L NC Sat >95--100% - on RA noted brief lows into high 80's on neurosurgery physician pulse ox ddimer 950, CRP 19.5, procal 0.29, lactate 1.7, Trop T neg x 4, MRSA neg proBNP 1346 Hyperkalemia supplemented ID consult --- ok to change to Augmentin for aspiration PNA, repeat Covid - Sun pending Maintain isolation Cardiology - spoke with on-call fellow - serial trops (neg) and ECHO PT therapy - pt is s/p L THR on Friday 03/16 Desat study in am Lovenox 40mg SQ Current Facility-Administered Medications Medication Dose Route Frequency - rosuvastatin 5 mg tab(s) (CRESTOR) 5 mg ORAL DAILY - bisoprolol-hydroCHLOROthiazide 5-6.25 mg 1 tablet (ZIAC) 1 tablet ORAL DAILY - ferrous sulfate 325 mg tab(s) 325 mg ORAL DAILY wLUNCH - docusate sodium 100 mg cap(s) (COLACE) 100 mg ORAL BID PRN - therapeutic multivitamin-minerals tablet (THERA-M PLUS) 1 tablet ORAL DAILY - aspirin, enteric coated 81 mg tab(s) 81 mg ORAL BID - levothyroxine 88 mcg tab(s) (SYNTHROID) 88 mcg ORAL DAILY (6 AM) - ascorbic acid (vitamin C) 500 mg tab(s) (VITAMIN C) 500 mg ORAL BID w MEALS - dextrose 40 % 15 g 15 g ORAL PRN Or - glucagon 1 mg injection 1 mg INTRAMUSCULAR PRN Or - dextrose 50 % 12.5 g injection 12.5 g INTRAVENOUS PRN - insulin lispro injection (rapid acting) (HumaLOG) SUBCUTANEOUS w MEALS AND HS - enoxaparin 40 mg injection (LOVENOX) 40 mg SUBCUTANEOUS q 24 HR - guaiFENesin 600 mg ER tab(s) (MUCINEX) 600 mg ORAL q 12 H PRN - calcium carbonate 1,000 mg chewable tab(s) (TUMS) 1,000 mg ORAL DAILY - magnesium oxide 200 mg tab(s) (MAG-OX) 200 mg ORAL DAILY - perflutren lipid microspheres 1.1 mg/mL 1.3 mL injection (DEFINITY) 1.3 mL INTRAVENOUS DIRECTED PRN - acetaminophen 1,000 mg tab(s) (TYLENOL) 1,000 mg ORAL BID - acetaminophen 325-650 mg tab(s) (TYLENOL) 325-650 mg ORAL q 8 H PRN - amoxicillin-clavulanic acid 875 mg tab(s) (AUGMENTIN) 875 mg ORAL q 12 H Objective PHYSICAL EXAM: BP 142/61 Pulse 66 Temp (Src) 97.7 (Oral) Resp 18 Ht 5' 3 (1.60m) Wt 188 lb 6.4 oz (85.5kg) SpO2 100% BMI 33.38 kg/(m2). O2 Therapy: Nasal Cannula, Liters: 1.00 Physical Exam Performed: GENERAL: : resting comfortably in bed, alert and in no acute distress HEART: : regular rate and rhythm, no murmer, gallop or rub, normal, S1, S2 LUNGS: : breath sounds clear and normal, on RA ABDOMEN: : Soft, nontender, bowel sounds normal EXTREMITY: : Normal exam of the extremities. No edema. SKIN: L hip surgical wound, dressing CDI NEURO: Grossly normal cognition, motor function PULSES: 2+ radial Lines, Drains, and Airways Line Peripheral 03/20/21 1200 Short Right Hand 20 Gauge <1 day Reviewed lines and needs to be continued: REASONS: Telemetry and Electrolyte replacement DATA: Diagnostic tests reviewed for today's visit: 02 Requirement on Arrival: O2 Therapy: Nasal Cannula, Liters: 2 02 Requirement Now: O2 Therapy: Nasal Cannula, Liters: 1.00 CXRAY: Positive EKG Changes on Arrival: Negative COVID 19 Result GENERAL ASSEMBLER Date Value Ref Range Status 03/19/2021 Negative for COVID19 (SARS CoV2) by RT-PCR or equivalent method. Final Negative for COVID19 (SARS CoV2) by RT-PCR or equivalent method. Comment: This test was developed and its performance characteristics determined by [facility]'s [facility] [place]. This test has been authorized by FDA under an Emergency Use Authorization (EUA). This test has been validated in accordance with the FDA's Guidance Document Policy for Diagnostics Testing in Laboratories Certified to Perform High Complexity Testing under CLIA prior to Emergency use Authorization for Coronavirus Disease 2019 during the Public Health Emergency issued on January 04, 2020. Test performed by [facility], [facility] [place], [address], [place] [address]. Albumin (g/dL) Date Value 03/20/2021 3.2 03/19/2021 3.3 ALT (U/L) Date Value 03/20/2021 13 03/19/2021 12 AST (U/L) Date Value 03/20/2021 22 03/19/2021 24 Sepsis Lactate (mmol/L) Date Value 03/19/2021 1.7 CRP (mg/dL) Date Value 03/19/2021 19.5 Ferritin (n (more content not included)...[facility]05-15-2021 NoteHNO ID: [id number] Author: Hannah Peralta APRN.RIB PULLER Service: Hospital Medicine Author Type: Nurse Practitioner Type: Progress Notes Filed: 03/20/2021 1:28 PM Note Text: DEPARTMENT OF HOSPITAL MEDICINE PROGRESS NOTE SERVICE DATE: 03/20/2021 SERVICE TIME: 9:40 AM Hospital Medicine/Primary Attending: Afshan Abrams MD NIGHT AND WEEKEND COVERAGE: [facility] COVERAGE: Days: [phone], please page Hannah Peralta for patient issues. Nights: [phone], please page Team GIM 6: G/H 8th floor: [address]; Non 8th floor [address] Subjective INTERVAL HPI: Patient was laying in bed. Alert and oriented. Denies sob. Updated on plan for repeat COVID testing, ECHO and monitoring. HDS, on 2L NC Sat >98% - wean as tolerated Leukocytosis, no fevers ddimer 950, CRP 19.5, procal 0.29, lactate 1.7, Trop T neg x 4, MRSA neg proBNP 1346 ID consult --->hold off on covid tx neg x 2, ok to change to Augmentin for aspiration PNA, repeat Covid in am Maintain isolation Cardiology - spoke with on-call fellow - serial trops (neg) and ECHO PT therapy - pt is s/p L THR on Friday 03/16 Lovenox SQ Current Facility-Administered Medications Medication Dose Route Frequency - rosuvastatin 5 mg tab(s) (CRESTOR) 5 mg ORAL DAILY - bisoprolol-hydroCHLOROthiazide 5-6.25 mg 1 tablet (ZIAC) 1 tablet ORAL DAILY - ferrous sulfate 325 mg tab(s) 325 mg ORAL DAILY wLUNCH - docusate sodium 100 mg cap(s) (COLACE) 100 mg ORAL BID PRN - therapeutic multivitamin-minerals tablet (THERA-M PLUS) 1 tablet ORAL DAILY - aspirin, enteric coated 81 mg tab(s) 81 mg ORAL BID - levothyroxine 88 mcg tab(s) (SYNTHROID) 88 mcg ORAL DAILY (6 AM) - ascorbic acid (vitamin C) 500 mg tab(s) (VITAMIN C) 500 mg ORAL BID w MEALS - dextrose 40 % 15 g 15 g ORAL PRN Or - glucagon 1 mg injection 1 mg INTRAMUSCULAR PRN Or - dextrose 50 % 12.5 g injection 12.5 g INTRAVENOUS PRN - insulin lispro injection (rapid acting) (HumaLOG) SUBCUTANEOUS w MEALS AND HS - enoxaparin 40 mg injection (LOVENOX) 40 mg SUBCUTANEOUS q 24 HR - guaiFENesin 600 mg ER tab(s) (MUCINEX) 600 mg ORAL q 12 H PRN - calcium carbonate 1,000 mg chewable tab(s) (TUMS) 1,000 mg ORAL DAILY - magnesium oxide 200 mg tab(s) (MAG-OX) 200 mg ORAL DAILY - perflutren lipid microspheres 1.1 mg/mL 1.3 mL injection (DEFINITY) 1.3 mL INTRAVENOUS DIRECTED PRN - acetaminophen 1,000 mg tab(s) (TYLENOL) 1,000 mg ORAL BID - acetaminophen 325-650 mg tab(s) (TYLENOL) 325-650 mg ORAL q 8 H PRN - ampicillin-sulbactam iv piggyback 3 g in NaCl 0.9% 100 mL MB+/ADD-[place] (UNASYN) 3 g INTRAVENOUS q 6 H Objective PHYSICAL EXAM: BP 126/65 Pulse 66 Temp (Src) 97.3 (Oral) Resp 18 Ht 5' 3 (1.60m) Wt 188 lb 6.4 oz (85.5kg) SpO2 98% BMI 33.38 kg/(m2). O2 Therapy: Nasal Cannula, Liters: 2.00 Physical Exam Performed: GENERAL: : resting comfortably in bed, alert and in no acute distress HEART: : regular rate and rhythm, no murmer, gallop or rub, normal, S1, S2 LUNGS: : breath sounds clear and normal, on 2L NC ABDOMEN: : Soft, nontender, bowel sounds normal EXTREMITY: : Normal exam of the extremities. No edema. SKIN: L hip surgical wound, dressing CDI, site well approximates, no drainage or redness NEURO: Grossly normal cognition, motor function PULSES: 2+ radial Lines, Drains, and Airways Line Peripheral 03/18/21 1400 Admission to Hospital Short Left Antecubital 20 Gauge 1 day Reviewed lines and needs to be continued: REASONS: Telemetry and Electrolyte replacement DATA: Diagnostic tests reviewed for today's visit: 02 Requirement on Arrival: O2 Therapy: Nasal Cannula, Liters: 2 02 Requirement Now: O2 Therapy: Nasal Cannula, Liters: 2.00 CXRAY: Positive EKG Changes on Arrival: Negative COVID 19 Result GENERAL ASSEMBLER Date Value Ref Range Status 03/19/2021 Negative for COVID19 (SARS CoV2) by RT-PCR or equivalent method. Final Negative for COVID19 (SARS CoV2) by RT-PCR or equivalent method. Comment: This test was developed and its performance characteristics determined by [facility]'s [facility]ology and Laboratory Medicine [place]. This test has been authorized by FDA under an Emergency Use Authorization (EUA). This test has been validated in accordance with the FDA's Guidance Document Policy for Diagnostics Testing in Laboratories Certified to Perform High Complexity Testing under CLIA prior to Emergency use Authorization for Coronavirus Disease 2019 during the Public Health Emergency issued on January 04, 2020. Test performed by [facility], [facility] Laboratory Medicine [place], [address] [place] [address]. Albumin (g/dL) Date Value 03/20/2021 3.2 03/19/2021 3.3 ALT (U/L) Date Value 03/20/2021 13 03/19/2021 12 AST (U/L) Date Value 03/20/2021 22 03/19/2021 24 Sepsis Lactate (mmol/L) Date Value 03/19/2021 1.7 CRP ( (more content not included)...[facility]05-14-2021 NoteHNO ID: [id number] Author: Flor Vergara RN Service: Care Management Author Type: Registered Nurse Type: Care Mgt Progress Note Filed: 03/19/2021 5:01 PM Note Text: CARE MANAGEMENT PROGRESS NOTE SERVICE DATE: 03/19/2021 SERVICE TIME: 5:00 PM LOS: 0 days Needs Prior to Discharge: To Be Determined NO WEEKEND DISCHARGE : Referral tasked to [facility] for [facility]. Recent hip replacement (03/16/21) Needs TBD. Needs Initial Assessment . CM to continue to follow. SIGNATURE: Flor Vergara RN PATIENT NAME: Gaby Barbour DATE: March 19, 2021 TIME: 5:00 PM PAGER/CONTACT #: [phone] NoteHNO ID: [id number] Author: aHnnah Prealta APRN.CNP Service: Hospital Medicine Author Type: Nurse Practitioner Type: Progress Notes Filed: 03/19/2021 2:57 PM Note Text: DEPARTMENT OF HOSPITAL MEDICINE PROGRESS NOTE SERVICE DATE: 03/19/2021 SERVICE TIME: 10:04 AM Hospital Medicine/Primary Attending: Migdalia Stokes MD NIGHT AND WEEKEND COVERAGE: [facility] COVERAGE: Days: [phone], please page Hannah Peralta for patient issues. Nights: [phone], please page Team GIM 6: G/H 8th floor: [address]; Non 8th floor [address] Subjective INTERVAL HPI: Patient sitting up in bed. Alert and oriented. Denies SOB at rest. No chest pain, chest pressure, lightheadedness of dizziness at time of exam. Patient states that she was fully vaccinated as of early January 2021. She tested negative for COVID preop on 03/14. She has been practicing precautions in community/mask. Individuals that she socializes with are vaccinated as well. No fevers. Appetite ok. No GI symptoms. HS Fredis at OSH was 211-->176.2-->138 without EKG changes and no cardiac symptoms at the time of evaluation in ED. HDS, on 2L NC Sat >98% - wean as tolerated No leukocytosis, no fevers ddimer 950, CRP 19.5, procal 0.29, lactate 1.7, Trop T neg, MRSA neg ID consult to evaluate need for abx vs covid medications (pt started on abx on admission) Cardiology - spoke with on-call fellow - serial trops and ECHO Repeat proBNP pending PT therapy - pt is s/p L THR on Friday 03/16 Lovenox SQ Current Facility-Administered Medications Medication Dose Route Frequency - acetaminophen 325-650 mg tab(s) (TYLENOL) 325-650 mg ORAL q 6 H PRN - rosuvastatin 5 mg tab(s) (CRESTOR) 5 mg ORAL DAILY - bisoprolol-hydroCHLOROthiazide 5-6.25 mg 1 tablet (ZIAC) 1 tablet ORAL DAILY - ferrous sulfate 325 mg tab(s) 325 mg ORAL DAILY wLUNCH - docusate sodium 100 mg cap(s) (COLACE) 100 mg ORAL BID PRN - morphine 1 mg injection 1 mg INTRAVENOUS q 3 H PRN - therapeutic multivitamin-minerals tablet (THERA-M PLUS) 1 tablet ORAL DAILY - aspirin, enteric coated 81 mg tab(s) 81 mg ORAL BID - levothyroxine 88 mcg tab(s) (SYNTHROID) 88 mcg ORAL DAILY (6 AM) - ascorbic acid (vitamin C) 500 mg tab(s) (VITAMIN C) 500 mg ORAL BID w MEALS - dextrose 40 % 15 g 15 g ORAL PRN Or - glucagon 1 mg injection 1 mg INTRAMUSCULAR PRN Or - dextrose 50 % 12.5 g injection 12.5 g INTRAVENOUS PRN - insulin lispro injection (rapid acting) (HumaLOG) SUBCUTANEOUS w MEALS AND HS - enoxaparin 40 mg injection (LOVENOX) 40 mg SUBCUTANEOUS q 24 HR - guaiFENesin 600 mg ER tab(s) (MUCINEX) 600 mg ORAL q 12 H PRN - piperacillin-tazobactam iv piggyback 3.375 g in dextrose (iso-osmotic) 50 mL (ZOSYN) 3.375 g INTRAVENOUS q 6 H - vancomycin 1.25 g in D5W 250 mL (VANCOCIN) 0.015 g/kg/dose INTRAVENOUS q 12 HR - vancomycin dosing and monitoring per pharmacy OTHER As Directed - calcium carbonate 1,000 mg chewable tab(s) (TUMS) 1,000 mg ORAL DAILY - magnesium oxide 200 mg tab(s) (MAG-OX) 200 mg ORAL DAILY - perflutren lipid microspheres 1.1 mg/mL 1.3 mL injection (DEFINITY) 1.3 mL INTRAVENOUS DIRECTED PRN Objective PHYSICAL EXAM: BP 133/54 Pulse 77 Temp (Src) 97.8 (Oral) Resp 19 Ht 5' 3 (1.60m) Wt 188 lb 6.4 oz (85.5kg) SpO2 99% BMI 33.38 kg/(m2). O2 Therapy: Nasal Cannula, Liters: 2 Physical Exam Performed: GENERAL: : resting comfortably in bed, alert and in no acute distress HEART: : regular rate and rhythm, no murmer, gallop or rub, normal, S1, S2 LUNGS: : breath sounds clear and normal, on 2L NC ABDOMEN: : Soft, nontender, bowel sounds normal EXTREMITY: : Normal exam of the extremities. No edema. SKIN: L hip surgical wound, dressing CDI, site well approximates, no drainage or redness NEURO: Grossly normal cognition, motor function PULSES: 2+ radial Lines, Drains, and Airways Line Peripheral 03/18/21 1400 Admission to Hospital Short Left Antecubital 20 Gauge <1 day Reviewed lines and needs to be continued: REASONS: Telemetry and Electrolyte replacement DATA: Diagnostic tests reviewed for today's visit: 02 Requirement on Arrival: O2 Therapy: Nasal Cannula, Liters: 2 02 Requirement Now: O2 Therapy: Nasal Cannula, Liters: 2 CXRAY: Positive EKG Changes on Arrival: Negative COVID 19 Result GENERAL ASSEMBLER Date Value Ref Range Status 03/14/2021 Negative for COVID19 (SARS CoV2) by RT-PCR or equivalent method. Final Negative for COVID19 (SARS CoV2) by RT-PCR or equivalent method. Comment: This test was developed and its performance characteristics determined by [facility] [place]. This test has been authorized by FDA under an Emergency Use Authorization (EUA). This test has been validated in accordance with the FDA's Guidance Document Policy for Diagnostics Testing in Laboratories Certified to Perform High Complexity Testing under CLIA prior to Emergency use Authoriza (more content not included)...[facility]05-12-2021 NoteHNO ID: [id number] Author: Deepa Santoro RN Service: Care Management Author Type: Registered Nurse Type: Care Mgt Progress Note Filed: 03/17/2021 2:59 PM Note Text: CARE MANAGEMENT DISCHARGE NOTE SERVICE DATE: 03/17/2021 SERVICE TIME: 2:58 PM LOS: 0 days Admission Date: 03/16/2021 DISCHARGE ARRANGEMENT (list agency and phone number) Discharge Arrangement: Home [facility]pc Care: PT CAREGIVER ASSESSMENT: Caregiver is ready, willing and able to meet the patient's needs as recommended by the inter-professional team:: No Caregiver needed Does the patient have an acute stroke diagnosis, or has the patient had a stroke during this admission?: No Patient's transition needs and plan for meeting these needs: Home with home PT HANDOFF COMMUNICATION: Handoff to: Primary Care Physician;Other Caregiver Primary Care Physician Name/Phone: Dr Burnett Other Caregiver Name/Phone: [facility] TRANSPORTATION ARRANGEMENTS: Transportation Arrangements: Car Discharge Information Row Name Admission (Current) from 03/16/[address] Care Agency [facility] SIGNATURE: Deepa Santoro RN PATIENT NAME: Gaby Barbour DATE: March 17, 2021 TIME: 2:58 PM PAGER/CONTACT #: [phone] [id number] NoteHNO ID: [id number] Author: Melany Frias PA-C Service: Orthopaedic Surgery Author Type: Physician Milk Route Deliverer Type: Progress Notes Filed: 03/17/2021 4:31 PM Note Text: ORTHOPAEDIC POSTOP PROGRESS NOTE SERVICE DATE: 03/17/2021 SERVICE TIME: 12:51 PM Subjective Patient states that they are comfortable Well Controlled hip pain. Mild incisional pain. Noted dizziness and decrease O2 sats to 86-87%; patient drowsy Objective VITAL SIGNS: BP (!) 99/45 Pulse 74 Temp 37.2 ?C (99 ?F) (Oral) Resp 18 Ht 160 cm (5' 3 ) Wt 88.9 kg (195 lb 15.8 oz) SpO2 90% BMI 34.72 kg/m? INTAKE AND OUTPUT: Intake/Output Summary (Last 24 hours) at 03/17/2021 1251 Last data filed at 03/17/2021 0510 Gross per 24 hour Intake 3265 ml Output 150 ml Net 3115 ml PHYSICAL EXAMINATION: Left Lower Extremity: Dorsalis pedis pulses palpable. Posterior tibial pulses palpable. Dorsi flexion 5/5. Plantar flexion 5/5. Extensor hallucis extension: 5/5. Sensory intact to light touch L1-S1. Dressing clean, dry and intact. Surgical site no drainage and skin edges well approximated. Problem Review and Assessment: Patient monitored, no new events overnight. LABS: Recent Labs 03/17/21 0923 03/16/21 1653 HB 11.6 12.5 HCT 36.6 39.4 DATA: Diagnostic tests reviewed for today's visit: Assessment/Plan S/P Procedure(s) (LRB): ARTHROPLASTY REPLACE JOINT TOTAL HIP (Left) on 03/16/2021 POSTOP PLAN: Physical Therapy evaluation Case Management for discharge planning Monitor BP; 02 sat and pain control Addendum: O2 sats normal; patient denies dizziness; CP or SOB ACTIVE PROBLEM LIST Essential Hypertension Other Hyperlipidemia Medication and Non-Pharmacologic VTE Prophylaxis/Anticoagulants 03/16/21 1745 pneumatic compression stockings ([place]) 03/16/21 2516 graduated compression stockings ([place], [place]) VTE Prophylaxis: VTE prophylaxis appropriate POST OPERATIVE COMPLICATIONS: Complicated by: uneventful/none SIGNATURE: Melany Frias PA-C PATIENT NAME: Gaby Barbour DATE: March 17, 2021 TIME: 12:51 PM ETX#[id number] NoteHNO ID: [id number] Author: Deepa Santoro RN Service: Care Management Author Type: Registered Nurse Type: Care Mgt Initial Assessment Filed: 03/17/2021 10:49 AM Note Text: CARE MANAGEMENT: ASSESSMENT AND DISCHARGE PLAN SERVICE DATE: March 17, 2021 SERVICE TIME: 10:47 AM PRIMARY CARE PHYSICIAN: Marnie Burnett MD ADMISSION STATUS: Extended Recovery MEDICAL: MEDICARE A AND B 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 Last discharge within 30 days: No Advance Directive: Current Advance Directive: Health Care Power of Campaign Manager;Living Will In Chart: Yes Up To Date and Valid: Yes Health LiteracyHow often do you need to have someone help you when you read instructions, pamphlets, or other written material from your doctor or pharmacy? : 1 - Never How confident are you filling out medical forms by yourself?: 1 - Extremely If Patient scores > 3 on either question, the following interventions were put into place:: Patient did not score > 3 on either question. Baseline Mental Status Prior to this Illness what was the patient's Baseline Mental Status?: Alert AND Oriented Prior to this illness, has anyone described the patient having any of the following behaviors?: Not Applicable Relationship of the informant to the patient:: Self Functional Status: Independent Does Patient Currently Receive Any Community Services or Home Care?: None Equipment Prior to Admission: Walker;Cane Has the Patient Been in a Shelter Facility in the Past 30 days?: No SOCIAL: Living Arrangements: Home Lives With: Alone Financial Resources: Retired Primary Contact: Extended Emergency Contact Information Primary Emergency Contact: Stephanie Shultz Mobile Relation: Daughter Secondary Emergency Contact: Dinesh Avery Mobile Relation: Son Supportive Patient Contact:: Yes Contact Resources: Family Caregiver AssessmentCaregiver is ready, willing and able to meet the patient's needs as recommended by the inter-professional team:: No Caregiver needed Does the patient have an acute stroke diagnosis, or has the patient had a stroke during this admission?: No Patient's transition needs and plan for meeting these needs: Home with home PT Patient's perception of need for this admission: hip replacement Medication Adherance I am convinced of the importance of my prescription medication: 0 - Agree Completely I worry that my prescription medication will do more harm than good to me : 0 - Disagree Completely I feel financially burdened by my [id number] expenses for my prescription medication:: 0 - Disagree Completely Risk Score: 0 Patient is categorized as: Low risk < 2 Are you interested in bedside delivery of your medications? Yes Is Patient Psychosocially Complex?: No ASSESSMENT AND PLAN: Medical Needs: Medical Needs: None Psychosocial Needs: Psychosocial Needs: None FREEDOM OF CHOICE EXPLAINED: [place] of Choice Given: Yes Level of Care Discussed: Home Care Financial Disclosure Provided: Yes Provider List: Home Care Provider list within the patient's requested geographic area shared with the patient/family: Yes Quality and resource use metrics shared with the patient that are relevant to the patient's goals of care and treatment preferences:: Yes POTENTIAL TRANSITION PLANS Home OT/PT Patient from home alone. Has necessary DME. Referral to [facility]. Second choice is [facility]. Daughter Stephanie will stay with her for a couple of days after discharge. SIGNATURE: Deepa Santoro RN PATIENT NAME: Gaby Barbour DATE: March 17, 2021 TIME: 10:47 AM PAGER/CONTACT #: [phone] [id number] NoteHNO ID: [id number] Author: RT Claudia(R) Service: Radiology Author Type: Cabinet Assembler Type: Progress Notes Filed: 03/16/2021 5:05 PM Note Text: Radiology Service Progress Note PATIENT NAME: Gaby Barbour DATE OF SERVICE: March 16, 2021 TIME: 5:05 PM PATIENT IDENTITY VERIFICATION COMPLETED USING TWO (2) IDENTIFIERS: Name and Date of confirmed by patient verbally. FALL SCREENING: Has the patient had 2 falls in the last year or 1 fall with injury or currently using an Ambulatory Assistive Device (Walker, Cane, Wheelchair, Crutches, etc.)? No PATIENT GENDER DATA: Female. status: : No status: NO. PATIENT RELEVANT IMPLANT DATA REVIEWED: Not Applicable RADIOLOGY DEPARTMENT: General X-ray: Exam(s) Completed: Pelvis X-Ray: Pelvis General AP PERIPHERAL IV DATA: Not applicable SIGNED BY: RT Claudia(R) March 16, 2021 5:05 [id number] NoteHNO ID: [id number] Author: Mariam Sinha APRN.SUPPORT TEACHER Service: ? Author Type: Nurse Accounts Receivable Manager Type: Anesthesia Procedure Notes Filed: 03/16/2021 2:00 PM Note Text: ANESTHESIOLOGY PROCEDURE NOTE Spinal Block General Information Procedure Start Time/Medication Administration: 03/16/2021 1:59 PM Patient location during procedure: OR Timeout Performed Pre-procedure: timeout performed Consent Obtained: Yes Patient identity confirmed: arm band and patient Reason for Block: primary surgical anesthetic Staffing SUPPORT TEACHER: Mariam Sinha APRN.SUPPORT TEACHER Performed by: SUPPORT TEACHER Preparation Sterility Preparation: hand hygiene performed prior to procedure, surgical cap used, mask used, sterile drape used during line insertion, skin prep agent completely dried prior to procedure Site Prep: Duraprep Procedure Details Patient Position: sitting Monitoring: Pulse Ox and NIBP Approach: Midline Location: L3-4 and L4-5 Injection Technique: single-shot Needle Needle Type: pencil-tip Needle Gauge: 25 G Needle Length: 3.5 in Assessment Events: tolerated well Medications Administered Bupivacaine-dextrose 0.75 % (7.5 mg/mL) injection (SENSORCAINE MPF SPINAL), 1.6 mL SIGNATURE: Mariam Sinha APRN.SUPPORT TEACHER PATIENT NAME: Gaby Barbour DATE: March 16, 2021 TIME: 1:59 PM CSN: [id number] NoteHNO ID: [id number] Author: Eric Hamilton Service: ? Author Type: Physician Type: Progress Notes Filed: 01/06/2021 2:25 PM Note Text: [facility] [address] [place] [id number] CLINIC NOTE Department of Orthopaedics - Savannah Hamilton M.D NAME: SRINIVAS BARBOUR [facility] NO.: [id number] DATE OF SERVICE: 01/05/2021 HISTORY: Left hip followup. The Celebrex is not helping. She would rather proceed with a total hip replacement, does not want injections. PHYSICAL EXAMINATION: The right and left feet are neurovascularly intact. I can flex her right hip about 90, about 30 degrees internal and external rotation and some limited abduction. Left hip flexion 80 at the most, abduction 0, internal rotation 0, external rotation about 30. Pain on range of motion. RADIOLOGIC DATA: X-rays taken today severe DJD of the left hip. PLAN: We went over the total hip procedure in detail, pros, cons, benefits, risks. She understands and consents and this will be so scheduled. [facility] initiated today. She probably used a dual mobility because she has had chronic back issues and had previous surgery. The x-rays today show severe DJD, left hip. Quality of the bone otherwise looks fine. Dictated By: Eric Hamilton M.D Date Dictated: 01/05/2021 Date Typed: [facility] 01/05/2021 JOB# [id number][facility] NoteHNO ID: [id number] Author: Jasmyne Linder (May Donaldson Service: ? Author Type: Cabinet Assembler Type: Progress Notes Filed: 01/05/2021 11:32 AM Note Text: Radiology Service Progress Note PATIENT NAME: Srinivas Barbour DATE OF SERVICE: January 05, 2021 TIME: 11:32 AM PATIENT IDENTITY VERIFICATION COMPLETED USING TWO (2) IDENTIFIERS: Name and Date of confirmed by patient verbally. FALL SCREENING: Has the patient had 2 falls in the last year or 1 fall with injury or currently using an Ambulatory Assistive Device (Walker, Cane, Wheelchair, Crutches, etc.)? Yes, Patient High Risk for Falls What interventions were put in place to prevent falls during this visit? Increased Observations by Caregivers PATIENT GENDER DATA: Female. status: : No status: NO. PATIENT RELEVANT IMPLANT DATA REVIEWED: Not Applicable RADIOLOGY DEPARTMENT: General X-ray: Exam(s) Completed: Pelvis X-Ray: Pelvis with Hip Left PERIPHERAL IV DATA: Not applicable SIGNED BY: Jasmyne Donaldson, RT January 05, 2021 11:32 [facility]03-02-2021 NoteHNO ID: [id number] Author: Eric Hamilton Service: ? Author Type: Physician Type: Progress Notes Filed: 01/05/2021 1:12 PM Note Text: CONSULT ORTHOPAEDIC: HIP PRIMARY CARE PHYSICIAN: No primary care provider on file. REFERRING PROVIDER: Eric Hamilton MD [address] [place] [id number] ASSESSMENT AND PLAN: Impression: Left Hip Severe Degenerative Osteoarthritis, Primary Srinivas Barbour has radiograph and physical exam evidence of degenerative joint disease and wishes to pursue surgery. This patient appears to have sufficient symptoms to warrant surgical intervention and is an appropriate candidate for left Primary Total Hip Arthroplasty as evidenced by progressive symptoms. Progressive symptoms include: Pain impacting sleep or causing fatigue Pain worsened by weight bearing. We had a lengthy discussion regarding the risk and benefit of surgery, the alternatives, limitations and personnel involved. These included but were not limited to infection, persistent pain, instability, nerve injury, blood clots, and medical complications. We also discussed the pre-operative course, surgery itself and rehabilitation. Mariah-operative blood management and transfusion issues were discussed, and options clearly outlined. The patient has not consented to the use of the banked allogenic blood if medically necessary. The patient has elected to schedule surgery at this time or intends to call the office with a surgical date. Shared decision making occurred while obtaining informed consent. The patient will be scheduled for a pre-operative education class at which time they will have their nasal swab completed and will be given CHG cloths along with the verbal and written instructions for their use. Patient has been instructed and has been scheduled or will call to schedule attendence in one of the total joint perioperative classes offered prior to proceeding with HELEN.. The patient has been ordered: No orders placed today. CONSULTS: Patient to see family physician for clearance There is no problem list on file for this patient. 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 The problem began limiting activities 1-6 months ago. Currently the pain in the joint is rated at 3 out of 10 with moderate activity. The pain is intermittent and is located in the left hip, groin and thigh. The pain is described as aching and burning. Relieving factors include prescription medication of Celebrex however is not helpful at night. No specific injury , patient has history of back pain requiring several surgeries Srinivas Barbour also complains of numbness. FUNCTIONAL STATUS: Do light work around the house, such as dusting or washing dishes (2.70 METs) Take care of self, that is eating, dressing, bathing, using the toilet (2.75 METs) Preoperative Ambulatory Status: Independent Community Distances Number of Entry Steps: 2 Bedroom Location: First floor Bathroom Location: First floor Caregiver Assistance: Occasionally Available (2-4 days/wk) Home Location: [place] to 150 miles PREVIOUS TREATMENTS: Medical: use of Celebrex REVIEW OF SYSTEMS: PAIN ASSESSMENT: See HPI. MUSCULOSKELETAL: See HPI. Surgical Risk Factors: Anemia No past medical history on file. No past surgical history on file. No family history on file. Social History Tobacco Use - Smoking status: Not on file Substance Use Topics - Alcohol use: Not on file - Drug use: Not on file ALLERGIES: Patient has no allergy information on record. MEDICATIONS: acetaminophen (TYLENOL) 500 mg tablet Take 500 mg by mouth. levothyroxine (SYNTHROID) 88 mcg tablet bisoprolol-hydroCHLOROthiazide (ZIAC) 5-6.25 mg per tablet Take 1 tablet by mouth once daily. celecoxib (CELEBREX) 200 mg capsule Take 200 mg by mouth twice daily. 1-2 prn rosuvastatin (CRESTOR) 5 mg tablet Take 5 mg by mouth once daily. calcium carbonate-mag hydroxid 1,000-200 mg chew Take by mouth. Magnesium 250 mg tab Take 250 mg by mouth. biotin 1 mg cap Take by mouth. MULTI-VITAMIN ORAL Take by mouth. vitamin B complex (B COMPLEX 1 ORAL) Take by mouth. Lactobac no.41/Bifidobact no.7 (PROBIOTIC-10 ORAL) Take by mouth. PHYSICAL EXAM There were no vitals taken for this visit. All other systems deferred. GENERAL: Appears healthy, well-nourished, no deformities. HABITUS: Normal GAIT: Normal, the patient did not have trouble getting onto the exam table. HIP EXAM: Left: ROM: Extension: full extension Flexion: 80 degrees Internal Rotation: 0 degrees External Rotation: 20 degrees (more content not included)...[facility]02-02-2021 NoteHNO ID: [id number] Author: Eric Hamilton Service: ? Author Type: Physician Type: Progress Notes Filed: 12/09/2020 9:45 AM Note Text: [facility] [address] [place], [place] [address] CLINIC NOTE Department of Orthopaedics - Savannah Hamilton M.D NAME: SRINIVAS BARBOUR [facility] NO.: [id number] DATE OF SERVICE: 12/08/2020 HISTORY: A 70-year-old, seeing me for a left groin pain. She has some tingling on top of the foot. She has longstanding problems with her back. Back in 2011, she awoke with back pain and after that, she has had several surgeries. She has had injections. Most recently, they took x-rays and so they thought that she had the hip arthritis, so she is referred to me. She does get groin pain and has been going on for about a year. Does get some burning in the thigh. She just got recently started on the Celebrex. Not been on any nonsteroidals before. PHYSICAL EXAMINATION: Currently, the feet are neurovascularly intact. She has full range of motion of right and left knees. Right hip has full motion a good 20 degrees internal and external rotation without irritability, 20 degrees to 30 degrees of abduction. Left hip 80 degrees of flexion, 0 internal, 20 external, 0 abduction. Pain with any movement. RADIOLOGIC DATA: X-rays that she brings in with her show significant DJD of the left hip. PLAN: I went over this in detail with her. I explained to her right now. She just started Celebrex. She can see how much that helps. Beyond that, could have a cortisone injection or total hip replacement and I went over the surgery in detail. Right now, I am going to see her back in a month. She is going to tell me at that point if she is doing well enough with the Celebrex to leave it alone, if she does want to try a cortisone injection or if she does want to move forward and do a hip replacement. So, all of her questions are answered. Dictated By: Eric Hamilton M.D Date Dictated: 12/08/2020 Date Typed: shon 12/09/2020 JOB# [id number] [facility] HospitalEvaluation + [facility] note Future Appointments Appointment Date:09/15/2022 10:15:00 AM Scheduled Provider: Location:[facility] Appointment Type:Surgery [facility] Evaluation + Plan note Future Appointments Appointment Date:09/19/2024 11:00:00 AM Scheduled Provider: Location:[facility] Appointment Type: Medicare Wellness [facility] Future Appointments Appointment Date:09/19/2024 11:00:00 AM Scheduled Provider: Location:[facility] Appointment Type: Medicare Wellness [facility] Future Appointments Appointment Date:06/25/2024 10:20:00 AM Scheduled Provider:Bonita Mari Location:[facility] Appointment Type: Open Appointment Date:09/19/2024 02:30:00 PM Scheduled Provider: Location:[facility] Appointment Type: Medicare Wellness [facility] Future Appointments Appointment Date:09/19/2024 02:30:00 PM Scheduled Provider: Location:[facility] Appointment Type: Medicare Wellness Subsequent Appointment Date:09/19/2024 02:40:00 PM Scheduled Provider: Location:[facility] Appointment Type:FM Lab Draw [facility] Evaluation + Plan note Future Appointments Appointment Date:09/22/2025 02:30:00 PM Scheduled Provider: Location:[facility] Appointment Type: Medicare Wellness Subsequent Diagnostic Tests Pending * HCV Antibody RFX to Quant PCR 09/20/24 Future Scheduled Tests Laboratory* HgbA1c 09/19/24 [facility] evaluation note* Diagnosis Women's annual routine gynecological examination documented in this encounter [facility] Work Phone: evaluation noteNo assessment information available [facility] Work Phone: Hospital course Narrative No data available for this section [facility] Hospital Discharge instructions No data available for this section [facility] Additional Instructions Return of bleeding worse Follow-up Dr. Mac You will continue to ooze blood and if this gets worse come back.[facility] Work Phone: Hospital Discharge instructions Additional Instructions DISCHARGE INSTRUCTIONS FOR PLASTIC/RECONSTRUCTIVE SURGERY YOUR ACTIVITY MAY INCLUDE -Going up and down stairs slowly. -Walking around the house or outside if the weather is satisfactory. -No driving until you are seen in our office and cleared for driving. -No lifting more than 10 pounds for 4 weeks from the date of surgery. WOUND CARE -NO smoking as it may compromise your wound healing. - - - -Sutures will be removed at your post-operative visit. Apply Bacitracin to area 3 times a day. -Keep your incision dry for 48 hours then, you may shower (no tub baths) and allow water to flow over your incision. - -It is common to feel pulling or sharp sticking sensations in the area of the incision. PLEASE NOTIFY OUR OFFICE at [phone] if you: -Develop a fever of 101 degrees Fahrenheit, or higher. -Have increasing pain. -See redness or swelling around the incision. MEDICATION -Medications per Medication Reconciliation List. -Over the counter medications such as Acetaminophen and others may be used as directed for pain unless prescription was provided. Do NOT exceed 4 grams of Acetaminophen in a 24 hour period. -DO NOT use ibuprofen or NSAIDs unless directed by physician, as they may increase risk of bleeding. OTHER INSTRUCTIONS -No smoking as this increases post-operative complication rate. FOLLOW UP -Call the office at [phone] for a follow up appointment 1 week. * AFTER HOURS PHONE NUMBER [phone] *[facility] Work Phone: Hospital Discharge instructions Additional Instructions DISCHARGE INSTRUCTIONS FOR PLASTIC/RECONSTRUCTIVE SURGERY YOUR ACTIVITY MAY INCLUDE -Going up and down stairs slowly. -Walking around the house or outside if the weather is satisfactory. -No driving until you are seen in our office and cleared for driving. -No lifting more than 10 pounds for 2 weeks from the date of surgery. WOUND CARE -NO smoking as it may compromise your wound healing. - - -Sutures will be removed at your post-operative visit. Apply Bacitracin to area 3 times a day. -Keep your incision dry for 48 hours then, you may shower (no tub baths) and allow water to flow over your incision. - -It is common to feel pulling or sharp sticking sensations in the area of the incision. PLEASE NOTIFY OUR OFFICE at [phone] if you: -Develop a fever of 101 degrees Fahrenheit, or higher. -Have increasing pain. -See redness or swelling around the incision. MEDICATION -Medications per Medication Reconciliation List. -Over the counter medications such as Acetaminophen and others may be used as directed for pain unless prescription was provided. Do NOT exceed 4 grams of Acetaminophen in a 24 hour period. -DO NOT use ibuprofen or NSAIDs unless directed by physician, as they may increase risk of bleeding. OTHER INSTRUCTIONS -No smoking as this increases post-operative complication rate. FOLLOW UP -Call the office at [phone] for a follow up appointment 1 week. * AFTER HOURS PHONE NUMBER [phone] *[facility] Work Phone: Progress note No data available for this section [facility] History of Present Illness * Devi Dia RN - 07/22/2019 9:49 AM EDT [facility] Preadmission Testing Name: Gaby Barbour : 1950 Patient (home) Procedure SANJIV, BSO Date of Procedure: 07-24-19 Surgeon: Jose A Yu MD Ht: 5' 3 (160 cm) Wt: 189 lb 12.8 oz (86.1 kg) Wt method: Actual Allergies: No Known Allergies Peanut allergy: No Latex Allergy Screening Tool Have you ever had a reaction to or been told by a physician that you have an allergy to latex or natural rubber?: No Vitals: 07/22/19 0914 BP: (!) 155/93 Pulse: 66 Resp: 18 Temp: 96.4 F (35.8 C) SpO2: 96% No LMP recorded. Patient is postmenopausal. Do you take blood thinners? [] Yes [x] No Instructed to stop blood thinners prior to procedure? [x] Yes [] No [] N/A Do you have sleep apnea? [] Yes [x] No Instructed to bring CPAP machine? [] Yes [] No [x] N/A Do you have acid reflux ? [] Yes [x] No Do you have hiatal hernia? [] Yes [x] No Do you ever experience motion sickness? [] Yes [x] No Have you had a respiratory infection or sore throat in last 4 weeks before surgery? [] Yes [x] No Do you have poorly controlled asthma or COPD? [] Yes [x] No Do you have a history of angina in the last month or symptomatic arrhythmia? [] Yes [x] No Do you have significant central nervous system disease? [] Yes [x] No Have you had an EKG, labs, or chest xray in last 12 months? If yes provide copies to anesthesia [] Yes [x] No [] Lab [] EKG [] CXR Have you had a stress test? [] Yes [x] No When/where: Was it normal? [] Yes [] No Do you or your family have a history of Malignant Hyperthermia? [] Yes [x] No PAT Call/Visit Questions Person Interviewed: PATIENT Surgery Time Verified: Yes Surgery Location Verified: Yes Patient Language: CITIZEN OF [place] Medical History Reviewed: Yes NPO Status Reinforced: Yes Ride and Caregiver Arranged: Yes Ride Caregiver Provider: DAUGHTER-STEPHANIE Patient Knows to Bring Current Medications: Yes Pre-AdmissionTesting Checklist Patient has been to this health system before?: Yes Does patient refuse blood?: No Healthcare Directive: Yes, patient has an advance directive for healthcare treatment Hockey Instructor needed: No Patient can read and write?: Yes [id number]: Does the patient want to have any new prescriptions delivered to bedside prior to discharge?: No History given by: Patient Providing self care at home?: Yes Discharge transport (for same day patients): Family Patient instructed on the pre-operative, intra-operative, and post-operative process? Yes Medication instructions reviewed with patient? Yes Pre operative instruction sheet reviewed and given to patient in PAT? Yes * Devi Dia RN - 07/22/2019 9:15 AM EDT Patient instructed on the pre-operative, intra-operative, and post-operative process. Patient instructed on NPO status. Medication instructions reviewed with patient. Pre operative instruction sheet reviewed and given to patient in PAT. documented in this encounter* Clara Lambert RN - 07/26/2019 10:26 AM EDT Pt take by wheelchair to private car. * Clara Lambert RN - 07/26/2019 10:20 AM EDT Discharge instructions reviewed with pt. Friend at bedside to take pt home. Pt denies questions regarding discharge. Denies needs to go home. Will escort pt to private car shortly. * Tyesha Bowen LSW - 07/25/2019 2:49 PM EDT Discussed discharge plans with the patient. Patient is a 69 year old female here with Total abdominal hysterectomy, bilateral salpingo-oophorectomy. She is alert and oriented. Patient is single and lives on a one floor condo. She uses no medical equipment. Patient does her own cooking and cleaning. She manages her own medications and drives. Her PCP is Marnie Burnett. She has medical insurance that helps with medication costs. The discharge plan is home with no services. Patient stated she brought in her advance directives and should be in her file. WASHTUB WORKER to monitor and assist with any needs or concerns as they arise. ДМИТРИЙ Marcum * Josesito Lawrence RD, LAURA - 07/25/2019 1:24 PM EDT Nutrition Assessment Type and Reason for Visit: Initial Nutrition Recommendations: Encourage oral intakes Nutrition Assessment: Increased energy needs r/t acute injury or trauma, AEB post op healing needs.Lower nutrition risk overall. Denies questions or concerns with diet. Malnutrition Assessment: Malnutrition Status: No malnutrition Context: Acute illness or injury Findings of the 6 clinical characteristics of malnutrition (Minimum of 2 out of 6 clinical characteristics is required to make the diagnosis of moderate or severe Protein Calorie Malnutrition based on AND/ASPEN Guidelines): 1. Energy Intake-Greater than 75% of estimated energy requirement, 2. Weight Loss-No significant weight loss, 3. Fat Loss-No significant subcutaneous fat loss, 4. Muscle Loss-No significant muscle mass loss, 5. Fluid Accumulation-No significant fluid accumulation, 6. Administrative Representative Strength-Not measured Nutrition Risk Level: Low, Moderate Nutrition Diagnosis: Problem: Increased nutrient needs Etiology: related to Acute injury/trauma ? Signs and symptoms: as evidenced by Presence of wounds Objective Information: Nutrition-Focused Physical Findings: obese Wound Type: None Current Nutrition Therapies: Oral Diet Orders: General Oral Diet intake: 76-100% Oral Nutrition Supplement (ONS) Orders: None Anthropometric Measures: Ht: 5' 3 (160 cm) Current Body Wt: 195 lb 6.4 oz (88.6 kg) Admission Body Wt: 189 lb (85.7 kg) Usual Body Wt: 189 lb (85.7 kg) % Weight Change: , 3.3% increase (surgical fluids?) [place] Body Wt: 115 lb (52.2 kg), % [place] Body 170% BMI Classification: BMI 30.0 - 34.9 Obese Class I No results found for: NA, K, CL, CO2, BUN, CREATININE, GLUCOSE, CALCIUM, PROT, LABALBU, BILITOT, ALKPHOS, AST, ALT, LABGLOM, GFRAA, AGRATIO, GLOB Nutrition Interventions: Continue current diet Continued Inpatient Monitoring, Coordination of Care, Education Not Indicated Nutrition Evaluation: Evaluation: Goals set Goals: PO>75% meals Monitoring: Pertinent Labs, Weight, Patient/Family Education, I&O, Meal Intake Contact Number: [phone] * Jose A Yu MD - 07/25/2019 8:13 AM EDT Department of Gynecology Attending Progress Note SUBJECTIVE: Pt is doing well, incisional tenderness only, good appetite OBJECTIVE: Physical Exam VITALS: BP 110/60 Pulse 72 Temp 98.4 F (36.9 C) (Temporal) Resp 18 Ht 5' 3 (1.6 m) Wt 195 lb 6.4 oz (88.6 kg) SpO2 92% BMI 34.61 kg/m TEMPERATURE: Current - Temp: 98.4 F (36.9 C); Max - Temp Av.4 F (36.3 C) Min: 96.5 F (35.8 C) Max: 98.5 F (36.9 C) 24HR BLOOD PRESSURE RANGE: Systolic (24hrs), Av , Min:70 , Max:193 ; Diastolic (24hrs), Av, Min:41, Max:108 24HR INTAKE/OUTPUT: Intake/Output Summary (Last 24 hours) at 07/25/2019 0813 Last data filed at 07/25/2019 0536 Gross per 24 hour Intake 4365.12 ml Output 2475 ml Net 1890.12 ml URINARY CATHETER OUTPUT (Pierre): DRAIN/TUBE OUTPUT: CONSTITUTIONAL: awake, alert, cooperative, no apparent distress, and appears stated age LUNGS: No increased work of breathing, good air exchange, clear to auscultation bilaterally, no crackles or wheezing CARDIOVASCULAR: Normal apical impulse, regular rate and rhythm, normal S1 and S2, no S3 or S4, and no murmur noted ABDOMEN: Dressing dry and normal bowel sounds GENITAL/URINARY: No vaginal bleeding DATA: CBC: Lab Results Component Value Date WBC 11.8 07/25/2019 RBC 4.18 07/25/2019 HGB 11.9 07/25/2019 HCT 37.7 07/25/2019 MCV 90.2 07/25/2019 MCH 28.5 07/25/2019 MCHC 31.6 07/25/2019 RDW 12.8 07/25/2019 PLT 217 07/25/2019 MPV 10.5 07/25/2019 CBC with Differential: Lab Results Component Value Date WBC 11.8 07/25/2019 RBC 4.18 07/25/2019 HGB 11.9 07/25/2019 HCT 37.7 07/25/2019 PLT 217 07/25/2019 MCV 90.2 07/25/2019 MCH 28.5 07/25/2019 MCHC 31.6 07/25/2019 RDW 12.8 07/25/2019 LYMPHOPCT 12 07/25/2019 MONOPCT 6 07/25/2019 BASOPCT 0 07/25/2019 MONOSABS 0.72 07/25/2019 LYMPHSABS 1.37 07/25/2019 EOSABS <0.03 07/25/2019 BASOSABS <0.03 07/25/2019 DIFFTYPE NOT REPORTED 07/25/2019 WBC: Lab Results Component Value Date WBC 11.8 07/25/2019 Platelets: Lab Results Component Value Date PLT 217 07/25/2019 Hemoglobin/Hematocrit: Lab Results Component Value Date HGB 11.9 07/25/2019 HCT 37.7 07/25/2019 CMP: No results found for: NA, K, CL, CO2, BUN, CREATININE, GFRAA, AGRATIO, LABGLOM, GLUCOSE, PROT,LABALBU, CALCIUM, BILITOT, ALKPHOS, AST, ALT BMP: No results found for: NA, K, CL, CO2, BUN, LABALBU, CREATININE, CALCIUM, GFRAA, LABGLOM, GLUCOSE ASSESSMENT AND PLAN: will observe Active Problems: HGSIL (high grade squamous intraepithelial lesion) on Pap smear of cervix Plan: * Liz Zhang RN - 07/25/2019 5:30 AM EDT Patient dangled at side of bed and then was able to ambulate along bedside and eventually into the chair without any difficulties. Will continue to monitor. * Liz Zhang RN - 07/25/2019 12:37 AM EDT SCDs removed at this time per patient request. * Radha Suero RN - 07/24/2019 3:30 PM EDT Patient dangled to side of bed tolerated well. Abdominal binder in place at this time. * Urszula Allen RN - 07/24/2019 11:54 AM EDT Pt taken up to room on [facility] and report given to Sana WIGGINS. * Urszula Allen RN - 07/24/2019 11:36 AM EDT Pt states she is still having 6/10 pain, but would like to wait for oral pain medications upstairs because she is finally feeling awake and wants to be able to wake up more. Pt states she can tolerate this pain. 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 Advance Directives and Living Will Power of Campaign Manager Latest Code Status on File Code Status Date Activated Date Inactivated Comments Full Code 07/24/2019 12:22 PM 07/26/2019 12:32 PM Full Code 07/24/2019 7:14 AM 07/24/2019 11:57 AM Full Code 07/15/2016 10:46 AM 07/15/2016 2:16 PM Full Code 07/15/2016 8:57 AM 07/15/2016 10:46 AM Full Code 04/15/2014 1:20 PM 04/15/2014 2:19 PM Latest Code Status on File Code Status Date Activated Date Inactivated Comments Full Code 07/24/2019 12:22 PM Documents on File Type Date Recorded 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 ACP-Advance Directive 07/31/2019 10:46 AM ACP-Power of Campaign Manager 07/31/2019 10:46 AM Latest Code Status on File Code Status Date Activated Date Inactivated Comments Full Code 07/24/2019 12:22 PM 07/26/2019 12:32 PM Full Code 07/24/2019 7:14 AM 07/24/2019 11:57 AM Full Code 07/15/2016 10:46 AM 07/15/2016 2:16 PM Full Code 07/15/2016 8:57 AM 07/15/2016 10:46 AM Full Code 04/15/2014 1:20 PM 04/15/2014 2:19 PM Advance Directive Response Recorded Date/ Time Advance Directives Yes September 09, 2018 12:43pm Discharge Instructions * Discharge Instr - Activity* Clara Lambert RN - 07/26/2019 10:09 AM EDT As tolerated * Discharge Instr - Diet* Clara Lambert RN - 07/26/2019 10:09 AM EDT ? Good nutrition is important when healing from an illness, injury, or surgery. Follow any nutrition recommendations given to you during your hospital stay. ? If you were given an oral nutrition supplement while in the hospital, continue to take this supplement at home. You can take it with meals, in-between meals, and/or before bedtime. These supplements can be purchased at most local grocery stores, pharmacies, and chain [employer]-stores. ? If you have any questions about your diet or nutrition, call the hospital and ask for the dietitian. General as tolerated documented in this encounter Summary Purpose Family History No Family History Records Found Relationship Condition Age at Onset Recorded Date/T bucky father Myocardial infarction Unknown Not Specified Alcohol abuse Unknown Relationship Condition Age at Onset Recorded Date/T bucky father Myocardial infarction Unknown Not Specified Alcohol abuse Unknown brother Exposure to Agent [place] Unknown Parkinson's disease Unknown Type 2 diabetes mellitus Unknown sister Dialysis patient Unknown Alcohol abuse Unknown sister Malignant neoplasm of thyroid gland Unkno wn Chief Complaint and Reason for Visit Chief Complaint nose reconstruction facial bleeding Chief Complaint nose reconstruction facial bleeding Basal Cell Carcinoma Chief Complaint nose reconstruction facial bleeding Basal Cell Carcinoma Basal Cell Carcinoma Chief Complaint nose reconstruction facial bleeding Basal Cell Carcinoma Basal Cell Carcinoma Basal Cell Carcinoma of Nose Additional Source Comments Reason for Visit (unrecogniz ed section and content) Status Reason Specialty Diagnoses / Procedures Referre d By Contact Referred To Contact Diagnoses HGSIL RECURRENT LESION OF CERVIX Procedures MS TOTAL ABDOM HYSTERECTOMY HYSTERECTOMY ABDOMINAL TOTAL-BSO Jose A Yu MD [address] [place] [address] [facility] INFORMATION SOURCE (unrecogn ized section and content) DATE CREATED AUTHOR 03/21/2021 [facility] DATE CREATED AUTHOR AUTHOR'S ORGANIZ ATION 12/02/2021 [facility] DATE CREATED AUTHOR AUTHOR'S ORGANIZ ATION 08/05/2022 [facility] DATE CREATED AUTHOR AUTHOR'S ORGANIZ ATION 01/29/2023 [facility] DATE CREATED AUTHOR AUTHOR'S ORGANIZ ATION 12/17/2023 [facility] DATE CREATED AUTHOR AUTHOR'S ORGANIZ ATION 03/29/2024 [facility] DATE CREATED AUTHOR AUTHOR'S ORGANIZ ATION 09/21/2024 [facility] DATE CREATED AUTHOR AUTHOR'S ORGANIZ ATION 09/22/2024 [facility] DATE CREATED AUTHOR AUTHOR'S ORGANIZ ATION 09/23/2024 [facility] DATE CREATED AUTHOR AUTHOR'S ORGANIZ ATION 09/24/2024 [facility] Care Teams (unrecognized sec tion and content) Team Status: Active Member Role Status Dates Joes Ibarra MD Primary Care Provider Active Team Status: Inactive Member Role Status Dates Diallo Mac MD Attending Provider Active Jose Ibarra MD Primary Care Provider Active Team Status: Inactive Member Role Status Dates Jose Ibarra MD Primary Care Provider Active Bhavesh Newell MD Emergency Provider Active Obiee Lead Developer Relationship Specialty Start Date End Date Marnie Burnett [address] [place] [address] PCP - General 03/27/14 Team Status: Active Member Role Status Dates Diallo Mac MD Attending Provider Active Jose Ibarra MD Primary Care Provider Active Team Status: Inactive Member Role Status Dates Jose Ibarra MD Primary Care Provider Active Diallo Mac MD Attending Provider Active Team Status: Inactive Member Role Status Dates Diallo Mac MD Attending Provider Active Start: October 25, 2023 End: October 25, 2023 Jose Ibarra MD Primary Care Provider Active Start: October 25, 2023 End: October 25, 2023 Team Status: Inactive Member Role Status Dates Jose Ibarra MD Primary Care Provider Active Start: October 27, 2023 End: October 27, 2023 Bhavesh Newell MD Emergency Provider Active Star t: October 27, 2023 End: October 27, 2023 Team Status: Inactive Member Role Status Dates Jose Ibarra MD Primary Care Provider Active Start: November 03, 2023 End: November 03, 2023 Diallo Mac MD Attending Provider Active Start: November 03, 2023 End: November 03, 2023 Team Status: Inactive Member Role Status Dates Jose Ibarra MD Primary Care Provider Active Start: November 16, 2023 End: November 16, 2023 Diallo Mac MD Attending Provider Active Start: November 16, 2023 End: November 16, 2023 Team Status: Inactive Member Role Status Dates Jose Ibarra MD Primary Care Provider Active Start: December 07, 2023 End: December 07, 2023 Diallo Mac MD Attending Provider Active Start: December 07, 2023 End: December 07, 2023 FOR RECORDS PERTAINING TO PATIENTS WHO ARE OR HAVE BEEN ENROLLED IN A CHEMICAL DEPENDENCY/SUBSTANCEABUSE PROGRAM, SOME INFORMATION MAY BE OMITTED. This clinical summary was aggregated from multiple sources. Caution should be exercised in using it in the provision of clinical care. This summary normalizes information from multiple sources, and as a consequence, information in this document may materially change the coding, format and clinical context of patient data. In addition, data may be omitted in some cases. CLINICAL DECISIONS SHOULD BE BASED ON THE PRIMARY CLINICAL RECORDS. [facility] [employer] provides no warranty or guarantee of the accuracy or completeness of information in this document.
== END 2024-09-25 13:21 | disposition home or self-care (01) ==
LOC: RAD 13:20
PROVIDERS: PCP Family Medicine; Visit Provider Nurse Practitioner
DX: E28.39 Other primary ovarian failure (principal); M81.8 Other osteoporosis without current pathological fracture
CPT/HCPCS: 77080

== ENCOUNTER 2025-06-16 09:59 | Outpatient (OUT) | payer MEDICARE, OTHER, SELFPAY ==
--- OUTSIDE RECORDS SUMMARY | 2014-04-08 01:47 | XMS_ITS | Encounter Summary ---
Author Organization [facility] Address [address], [address] [place] [address] Care Team Providers Care Stenciler Name Role Phone Mamta Burnett MD Primary Care Provider Unavail le Encounter Details Date Type Department Care Team (Late st Contact Info) Description 04/08/2014 1:47 AM EDT Hospital Encounter MTH PRE ADMIT [address] [phone] Salas Yu MD [address] [place] [phone] Social History Tobacco Use Types Packs/Day Years Used Date Smoking Tobacco: Never Smokeless Tobacco: Never Alcohol Use Standard Drinks/Week Comments Yes 0 (1 standard drink = 0.6 oz pur e alcohol) social PHQ-2 Answer Date Recorded PHQ-2 Score 0 02/06/2019 Comments No Sex and Gender Information Value Date Recorded Sex Assigned at Not on file Legal Sex Female 2:05 PM EST Gender Identity Not on file Sexual Orientation Not on file COVID-19 Exposure Response Date Recorded In the last 10 days, have yo u been in contact with someone who was confirmed or suspected to have Coronavirus/COVID-19? No / Unsure 09/23/2022 10:53 AM EST documented as of this encounter Last Filed Vital Signs Vital Sign Reading Time Taken Comments Blood Pressure 146/83 04/08/2014 8:01 AM EDT Pulse 63 04/08/2014 8:01 AM EDT Temperature - - Respiratory Rate - - Oxygen Saturation 96% 04/08/2014 8:01 AM EDT Inhaled Oxygen Concentration - - Weight 83.8 kg (184 lb 12 oz) 04/08/2014 8:01 AM EDT Height 160.7 cm (5' 3.25 ) 04/08/2014 8:01 AM ED T Body Mass Index 32.47 04/08/2014 8:01 AM EDT documented in this encounter Plan of Treatment Not on file documented as of this encounter Procedures Procedure Name Priority Date/Time Associated Diagnosis Comments MICROSCOPIC URINALYSIS Routine 04/08/2014 8:30 AM EDT UA W/REFLEX CULTURE [employer] Label Print 04/08/2014 8:30 AM EDT CBC WITH AUTO DIFFERENTIAL Routine 04/08/2014 8:29 AM EDT TYPE AND SCREEN Routine 04/08/2014 8:29 AM EDT documented in this encounter Results * Microscopic Urinalysis (04/08/2014 8:30 AM EDT) - 04/08/2014 10:18 AM EDT [facility] WBC, UA 0 TO 2 0 - 5 /HPF 04/08/2014 10:18 AM EDT [facility] RBC, UA None 0 - 2 /HPF 04/08/2014 10:18 AM EDT [facility] Casts UA NOT REPORTED 0 - 2 /LPF [facility] Crystals, UA NOT REPORTED NONE /HPF [facility] Epithelial Cells, UA 0 TO 2 0 - 25 /HPF 04/08/2014 10:18 AM EDT [facility] Comment: Performed at [address] [place] [address] ([phone] Renal Epithelial, UA NOT REPORTED 0 /HPF [facility] Bacteria, UA NOT REPORTED NONE [facility] Mucus, UA NOT REPORTED NONE [facility] Trichomonas NOT REPORTED NONE [facility] Amorphous, UA NOT REPORTED NONE [facility] Other Observations UA NOT REPORTED NREQ [facility] Yeast, UA NOT REPORTED NONE [facility] 04/08/2014 8:30 AM EDT 04/08/2014 8:31 AM EDT Salas Yu MD URINE ORDERABLES Final Result Performing Organization Address [facility]/ZIP Co de Phone Number [facility] [address] [place] [address], [facility] [phone] [facility] * (ABNORMAL) UA W/REFLEX CULTURE (04/08/2014 8:30 AM EDT) Color, UA YELLOW YEL 04/08/2014 10:18 AM EDT [facility] Turbidity UA CLEAR CLEAR 04/08/2014 10:18 AM EDT [facility] Glucose, Ur NEGATIVE NEG 04/08/2014 10:18 AM EDT [facility] Bilirubin Urine NEGATIVE NEG 04/08/2014 10:18 AM EDT [facility] Ketones, Urine NEGATIVE NEG 04/08/2014 10:18 AM EDT [facility] Specific [place], UA 1.020 1.010 - 1.020 04/08/2014 10:18 AM EDT [facility] Urine Hgb NEGATIVE NEG 04/08/2014 10:18 AM EDT [facility] pH, UA 6.0 5.0 - 9.0 04/08/2014 10:18 AM EDT [facility] Protein, UA NEGATIVE NEG 04/08/2014 10:18 AM EDT [facility] Urobilinogen, Urine Normal NORM 04/08/2014 10:18 AM EDT [facility] Nitrite, Urine NEGATIVE NEG 04/08/2014 10:18 AM EDT [facility] Leukocyte Esterase, Urine TRACE(A) NEG 04/08/2014 10:18 AM EDT [facility] Comment: Performed at [address] [place] [address] ([phone] Urinalysis Comments NOT REPORTED [facility] Urine 04/08/2014 8:30 AM EDT 04/08/2014 8:31 AM EDT Salas Yu MD URINE ORDERABLES Final Result Performing Organization Address City/[facility]/ZIP Co de Phone Number [facility] [address] [place], [place] [address] [phone] [facility] * TYPE AND SCREEN (04/08/2014 8:29 AM EDT) Expiration Date 04/15/2014 4 1:00 PM EDT [facility] Arm Band Number [id number] 1:00 PM EDT [facility] ABO/Rh O POSITIVE 04/08/2014 1:00 PM EDT [facility] Antibody Screen NEGATIVE 4 1:24 PM EDT [facility] Comment: Performed at [address] [place] [address] ([phone] BLOOD SPECIMEN / Unknown 04/08/2014 8:29 AM EDT 04/08/2014 8:30 AM EDT Salas Yu MD BLOOD BANK TEST ORDERABLES Fi nal Result Performing Organization Address [facility]/ZIP Co de Phone Number [facility] [address] [phone] [facility] * (ABNORMAL) CBC auto differential (04/08/2014 8:29 AM EDT) Pathologist [facility] WBC 7.1 3.5 - 11.0 k/uL 04/08/2014 9:20 AM EDT [facility] RBC 5.19 4.0 - 5.2 m/uL 04/08/2014 9:20 AM EDT [facility] Hemoglobin 14.5 12.0 - 16.0 g/dL 04/08/2014 9:20 AM EDT [facility] Hematocrit 43.4 36 - 46 % 04/08/2014 9:20 AM EDT [facility] MCV 83.5 80 - 100 fL 04/08/2014 9:20 AM EDT [facility] MCH 27.8 26 - 34 pg 04/08/2014 9:20 AM EDT [facility] MCHC 33.4 31 - 37 g/dL 04/08/2014 9:20 AM EDT [facility] RDW 13.9 12.1 - 15.2 % 04/08/2014 9:20 AM EDT [facility] Platelets 253 140 - 450 k/uL 04/08/2014 9:20 AM EDT [facility] MPV NOT REPORTED 6.0 - 12.0 fL [facility] Differential Type NOT REPORTED [facility] Seg Neutrophils 43 36 - 66 % 4 9:20 AM EDT [facility] Lymphocytes 45(H) 24 - 44 % 04/08/2014 9:20 AM EDT [facility] Monocytes % 8 0 - 12 % 04/08/2014 9:20 AM EDT [facility] Eosinophils % 3 0 - 8 % 04/08/2014 9:20 AM EDT [facility] Basophils % 1 0 - 2 % 04/08/2014 9:20 AM EDT [facility] Neutrophils Absolute 3.10 1.8 - 7.7 k/uL 04/08/2014 9:20 AM EDT [facility] Lymphocytes Absolute 3.20 1.0 - 4.8 k/uL 04/08/2014 9:20 AM EDT [facility] Monocytes Absolute 0.60 0.0 - 1.0 k/uL 04/08/2014 9:20 AM EDT [facility] Eosinophils Absolute 0.20 0.0 - 0.4 k/uL 04/08/2014 9:20 AM EDT [facility] Basophils Absolute 0.10 0.0 - 0.2 k/uL 04/08/2014 9:20 AM EDT [facility] Comment: Performed at [address] [place] [address] ([phone] WBC Morphology NOT REPORTED [facility] RBC Morphology NOT REPORTED [facility] Platelet Estimate NOT REPORTED [facility] BLOOD SPECIMEN / Unknown 04/08/2014 8:29 AM EDT 04/08/2014 8:30 AM EDT us Salas Yu MD HEMATOLOGY ORDERABLES Final R esult [facility] [address] [place] [address] [place] [address], [facility] [phone] [facility] documented in this encounter Visit Diagnoses Not on filedocumented in this encounter Care Teams Stenciler Relationship Specialty Start Date End Date Mamta Burnett MD [address] [place] [address] PCP - General 03/27/14 documented as of this encounter
--- OUTSIDE RECORDS SUMMARY | 2025-06-16 10:02 | XMS_ITS | Clinical Summary ---
Author Organization [facility] Address [address] [place] [id number] Care Team Providers Care Fell Cutter Name Role Phone Mamta Burnett MD Primary Care Provider [phone] Allergies No known active allergies Medications levothyroxine (SYNTHROID) 88 mcg tablet 10/02/2020 Active bisoprolol-hydr oCHLOROthiazide (ZIAC) 5-6.25 mg per tablet Take 1 tablet by mouth once daily. Active rosuvastatin (CRESTOR) 5 mg tablet Take 5 mg by mouth once daily. Active calcium carbonate-mag hydroxid 1,000-200 mg chew Take by mouth. Active Magnesium 250 mg tab Take 250 mg by mouth. Active biotin 1 mg cap Take by mouth. Active MULTI-VITAMIN ORAL Take by mouth. Active vitamin B complex (B COMPLEX 1 ORAL) Take by mouth. Active Lactobac no.41/Bifidobac t no.7 (PROBIOTIC-10 ORAL) Take by mouth. Active HYDROcodone-Doyle taminophen (VICODIN) 5-300 mg tab Take 1 tablet by mouth every 8 hours as needed. Active acetaminophen (TYLENOL) 500 mg tablet Take 2 tablets by mouth every 8 hours. 03/17/2021 Active ascorbic acid, vitamin C, (VITAMIN C) 500 mg tablet Take 1 tablet by mouth twice daily with meals for 28 doses. 28 tablet 03/17/2021 Active aspirin, enteric coated (ECOTRIN LOW STRENGTH) 81 mg EC tablet Take 1 tablet by mouth twice daily. 90 tablet 03/17/2021 Active Active Problems Problem Noted Date Diagnosed Date Obesity, Class I, BMI 30-34.9 03/19/2021 Lab test positive for detection of COVID-19 viru s 03/18/2021 Aspiration pneumonia of both lungs 03/18/2021 Elevated brain natriuretic peptide (BNP) level 0 03/18/2021 Status post left hip replacement 03/18/2021 C/f of HERMILO (obstructive sleep apnea) 03/18/2021 Essential hypertension 02/26/2021 Assessment & Plan (02/26/2021 11:02 AM EDT): Assessment: stable on medication Other hyperlipidemia 02/26/2021 Assessment & Plan (02/26/2021 10:43 AM EDT): Assessment: stable on medication Acquired hypothyroidism Resolved Problems Problem Noted Date Diagnosed Date Resolved Date Hypophosphataemia 03/19/2021 03/21/2021 Acute respiratory failure with hypoxia 03/18/2021 03/22/2021 Elevated lactic acid level 03/18/2021 0 03/21/2021 Elevated troponin 03/18/2021 03/21/2021 Hyperglycemia 03/18/2021 03/21/2021 Immunizations Immunization Administration Dates Next Due COVID-19 original vaccine, a ge 12+ yr, monovalent ([place]-OpenQ - PURPLE TOP) 12/30/2020,12/09/2020 influenza (HD-IIV3) vaccine, age 65+ yr, high dose, trivalent, PF (FLUZONE HIGH-DOSE) 08/17/2016 influenza (IIV4) vaccine, ag e 6 mo - 64 yr, quadrivalent (AFLURIA, FLULAVAL, FLUZONE) 02/23/2017 influenza (IIV4) vaccine, ag e 6 mo - 64 yr, quadrivalent, PF (AFLURIA, FLUARIX, FLULAVAL, FLUZONE) 07/09/2020,08/10/2017,09/03/2015 influenza (aIIV3) vaccine, a ge 65+ yr, trivalent, PF (FLUAD) 09/03/2019,08/24/2018 pneumococcal conjugate (PCV1 3) vaccine, 13 valent (PREVNAR 13) 01/27/2016 pneumococcal polysaccharide (PPV23) vaccine, 23 valent (PNEUMOVAX 23) 02/23/2017 Family History Medical History Relation Comments Heart disease Father alcoholism Mother Thyroid Cancer Sister Relation Status Comments Father Mother Sister Alive Social History Tobacco Use Types Packs/Day Years Used Date Smoking Tobacco: Never Smokeless Tobacco: Never Alcohol Use Standard Drinks/Week Comments Not Currently 0 (1 standard drink = 0.6 oz pur e alcohol) Area Deprivation Index Answer Date Mango rded National Score (1-100), lower number is lower ri sk Not on file 12/08/2020 State Score (1-10), lower number is lower risk N ot on file 12/08/2020 Data from: https://www.neighborhoodatlas.medicine[facility].edu/. Last address used for calculation Not on file 12/08/2020 Comments No Sex and Gender Information Value Date Recorded Sex Assigned at Not on file Legal Sex Female 1:42 PM EST Gender Identity Female 04/28/2021 7:39 AM EDT Sexual Orientation Not on file Last Filed Vital Signs Vital Sign Reading Time Taken Comments Blood Pressure 145/61 03/22/2021 3:25 PM EDT Pulse 65 03/22/2021 3:25 PM EDT Temperature 36.6 C (97.9 F) 03/22/2021 3:25 PM EDT Respiratory Rate 20 03/22/2021 3:25 PM EDT Oxygen Saturation 96% 03/22/2021 3:25 PM EDT Inhaled Oxygen Concentration - - Weight 85.5 kg (188 lb 6.4 oz) 03/19/2021 12:16 AM EDT Height 160 cm (5' 3 ) 03/19/2021 12:16 AM EDT Body Mass Index 33.37 03/19/2021 12:16 AM EDT Plan of Treatment Health Maintenance Due Date Last Done Comments Anxiety Screening 1968 Depression Screening 1968 Hepatitis C Screening 1968 DTaP,Tdap,Td Vaccine (1 - Tdap) 1969 CT Colonography 1995 Cologuard (FIT-DNA) 1995 Colonoscopy 1995 Colorectal Cancer Screening 1995 Fecal Occult Blood 1995 Lipid Screening 1995 Sigmoidoscopy 1995 Shingrix Vaccine (1 of 2) 2000 Bone Density Screening 2015 Diabetes Screening 03/21/2024 03/21/2021, 0 03/20/2021, 03/19/2021, Additional history exists Advance Directive Discussion 11/06/2024 RSV Vaccine (1 - 1-dose 75+ series) 2025 Influenza Vaccine (#1) 2025 , 07/09/2020, 09/03/2019, Additional history exists Pneumococcal Vaccine: 50+ Completed 02/23/2017, Mammogram Screening Discontinued 06/03/2020 Medical Devices Implanted Type Area Agricultural Research Engineer Device Identifier Shelf Expiration Date Model / Serial / Lot Sleeve G7 +3mm Offset Taper Biolox Delta Centering Type 1 Option Hip - [id number] Implanted:Qty: 1 on 03/16/2021 at [facility] Joint - Hip Left: Bone - Hip [employer] 08/22/2028 [id number] / / [id number] Stem Echo Bi-Metric 8mm 135d Standard Offset Titanium Porous 120mm Femoral - [id number] Implanted:Qty: 1 on 03/16/2021 at [facility] Joint - Hip Left: Bone - Hip [employer] 12/24/2028 [id number] / / [id number] Bearing Active Articulation 40mm Arcomxl Hip 28mm Modular Head 2 Mobility - [id number] Implanted:Qty: 1 on 03/16/2021 at [facility] Joint - Hip Left: Bone - Hip [employer] 06/18/2024 [id number] / / [id number] Head G7 28mm Biolox Delta Femoral Hip - [id number] Implanted:Qty: 1 on 03/16/2021 at [facility] Joint - Hip Left: Bone - Hip [employer] 11/02/2030 [id number] / / [id number] Liner G7 40mm D Cocr Acetabular 2 Mobility Hip - [id number] Implanted:Qty: 1 on 03/16/2021 at [facility] Joint - Hip Left: Bone - Hip [employer] 05/19/2028 [id number] / / [id number] Shell G7 50mm D Offset Hemisphere Osseoti Acetabular 3 Hole Limit Hip - [id number] Implanted:Qty: 1 on 03/16/2021 at [facility] Joint - Hip Left: Bone - Hip [employer] 07/16/2030 [id number] / / [id number] Screw G7 6.5mm Dome 25mm Acetabular Low Profile - [id number] Implanted:Qty: 1 on 03/16/2021 at [facility] Screw Left: Bone - Hip [employer] 12/24/2030 [id number] / / [id number] Procedures Procedure Name Priority Date/Time Associated Diagnosis Comments COMPREHENSIVE METABOLIC PANEL Routine 03/21/2021 8:52 AM EDT from Last 3 Months or Most Recently Relevant to Health Maintenance Results * (ABNORMAL) COMP METABOLIC PANEL (03/21/2021 8:52 AM EDT) Pathologist [facility] Protein, Total 6.2(L) 6.3 - 8.0 g/dL 03/21/2021 10:55 AM EDT [facility] Albumin 3.3(L) 3.9 - 4.9 g/dL 03/21/2021 10:55 AM EDT [facility] Calcium 9.0 8.5 - 10.2 mg/dL 03/21/2021 10:55 AM EDT [facility] Bilirubin, Total 0.6 0.2 - 1.3 mg/dL 03/21/2021 10:55 AM EDT [facility] Alkaline Phosphatase 71 34 - 123 U/L 03/21/2021 10:55 AM EDT [facility] AST 32 13 - 35 U/L 03/21/2021 10:55 AM EDT [facility] Glucose 218(H) 74 - 99 mg/dL 03/21/2021 10:55 AM EDT [facility] Comment: The [place] Diabetes Association (ADA) provides guidance for cutoff [...] Standards of Medical Care in Diabetes 2016, [place] Diabetes Association. Diabetes Care. 2016.39(Suppl 1). BUN 14 7 - 21 mg/dL 03/21/2021 10:55 AM EDT [facility] Creatinine 0.52(L) 0.58 - 0.96 mg/dL 03/21/2021 10:55 AM EDT [facility] Sodium 135(L) 136 - 144 mmol/L 03/21/2021 10:55 AM EDT [facility] Potassium 3.5(L) 3.7 - 5.1 mmol/L 03/21/2021 10:55 AM EDT [facility] Chloride 97 97 - 105 mmol/L 03/21/2021 10:55 AM EDT [facility] CO2 28 22 - 30 mmol/L 03/21/2021 10:55 AM EDT [facility] Anion Gap 10 9 - 18 mmol/L 03/21/2021 10:55 AM EDT [facility] ALT 21 7 - 38 U/L 03/21/2021 10:55 AM T [facility] eGFR- >60 03/21/2021 10:55 AM T [facility] eGFR-All Other Races >60 . 03/21/2021 10:55 AM T [facility] Comment: eGFR (Estimated GFR) Units of measure: [...] eGFR may not accurately reflect actual GFR. Blood BLOOD SPECIMEN / Unknown 03/21/2021 8:52 AM EDT 03/21/2021 8:53 AM EDT us Ron Tinajero MD LABORATORY Zonia phillips Result [facility] [address] 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
--- OUTSIDE RECORDS SUMMARY | 2025-06-16 10:02 | XMS_ITS | Clinical Summary ---
Author Organization [facility] Address [address], [address] [place] [address] Care Team Providers Care Weight And Test Bar Clerk Name Role Phone Mamta Burnett MD Primary Care Provider Unavailab le Allergies Active Allergy Reactions Criticality Noted Date Comments Indomethacin Other (See Comments) 04/07/2023 Metformin Diarrhea 11/03/2023 Medications bisoprolol-hydr ochlorothiazide (ZIAC) 5-6.25 MG per tablet Take 1 tablet by mouth daily Active Multiple Vitamins-Minera ls (MULTIVITAMIN ADULT) TABS Take by mouth nightly Active Probiotic Product (PROBIOTIC DAILY PO) Take by mouth nightly Active Magnesium 400 MG TABS Take 1 tablet by mouth nightly Active B Complex-C (SUPER B COMPLEX PO) Take by mouth nightly Active acetaminophen (TYLENOL) 500 MG tablet Take 1 tablet by mouth every 6 hours as needed for Pain Active Ca Carbonate-Mag Hydroxide 1000-200 MG CHEW Take 1 Dose by mouth daily Active levothyroxine (SYNTHROID) 88 MCG tablet 0 Active rosuvastatin (CRESTOR) 5 MG tablet Take 1 tablet by mouth daily Active FIBER PO daily 2 Active glipiZIDE (GLUCOTROL) 5 MG tablet Take 1 tablet by mouth daily 4 Active BIOTIN PO Take by mouth nightly 05/23/20 25 Discontinu ed(LIST CLEANUP) Active Problems Problem Noted Date Diagnosed Date Vaginal dysplasia 05/10/2024 HGSIL (high grade squamous i ntraepithelial lesion) on Pap smear of cervix 07/24/2019 Resolved Problems Problem Noted Date Diagnosed Date Resolved Date Pap smear of cervix shows hi gh risk HPV present 05/05/2015 07/26/2019 Atypical squamous cells of u ndetermined significance (ASCUS) on Papanicolaou smear of cervix 05/05/2015 07/26/2019 Cervical dysplasia 9 Encounters Date Type Department Care Team Description 05/23/2025 11:00 AM EDT Office Visit [facility] On[facility] [address] [place] [address] Rex Romero MD Vaginal dysplasia (Primary Dx) from Last 3 Months Immunizations Immunization Administration Dates Next Due Influenza Vaccine, unspecified formulation 08/24 Influenza, AFLURIA (age 3 y+ ), FLUZONE, (age 6 mo+), Quadv MDV, 0.5mL 02/23/2017 Influenza, AFLURIA, FLUZONE, (age3 y+), IM, Trivalent MDV, 0.5mL 09/03/2019 Pneumococcal, PCV-13, PREVNAR 13, (age 6w+), IM, 0.5mL 01/24/2016 Pneumococcal, PPSV23, PNEUMO VAX 23, (age 2y+), SC/IM, 0.5mL 02/23/2017 Family History Medical History Relation Name Comments Breast Cancer Neg Hx Social History Tobacco Use Types Packs/Day Years Used Date Smoking Tobacco: Never Smokeless Tobacco: Never Tobacco Cessation:Counseling Given: Not Answered Alcohol Use Standard Drinks/Week Comments Yes 0 (1 standard drink = 0.6 oz pur e alcohol) social PHQ-2 Answer Date Recorded PHQ-2 Score 0 02/06/2019 Comments No Sex and Gender Information Value Date Recorded Sex Assigned at Not on file Legal Sex Female 2:05 PM EST Gender Identity Not on file Sexual Orientation Not on file Last Filed Vital Signs Vital Sign Reading Time Taken Comments Blood Pressure 138/80 05/23/2025 10:59 AM EDT Pulse 62 05/23/2025 10:54 AM EDT Temperature 36.2 C (97.2 F) 05/23/2025 10:54 AM EDT Respiratory Rate 18 07/26/2019 7:55 AM EDT Oxygen Saturation 99% 05/23/2025 10:54 AM EDT Inhaled Oxygen Concentration - - Weight 83.5 kg (184 lb) 05/23/2025 10:54 AM EDT Height 160 cm (5' 3 ) 05/23/2025 10:54 AM EDT Body Mass Index 32.59 05/23/2025 10:54 AM EDT Plan of Treatment Health Maintenance Due Date Last Done Comments Lipids 1960 Depression Screen 1962 Hepatitis C screen 1968 DTaP/Tdap/Td vaccine (1 - Tdap) 1969 Colorectal Cancer Screen 1995 FIT/FOBT: Average risk 1995 Fecal-DNA (Cologuard): Average risk 1995 Sigmoidoscopy/CT colonography 1995 Annual Wellness Visit (Medicare) 10/02/2023 COVID-19 Vaccine ( season) 2025 07/29/2024, 08/04/2023, 08/11/2022, Additional history exists Respiratory Syncytial Virus (RSV) or age 60 yrs+ (1 - 1-dose 75+ series) 2025 Flu vaccine (#1) 06/06/2025 09/16/2024, , 07/24/2023, Additional history exists Colonoscopy 02/18/2027 Postponed from 1995 (Not Indicated) Pneumococcal 50+ years Vaccine Completed 02/23/2017, 01/24/2016 DEXA (modify frequency per FRAX score) Completed 05/29/2017 Breast cancer screen Discontinued 06/14/2024, 06/13/2023, 06/07/2021, Additional history exists Shingles vaccine Completed 01/03/2025, , 07/29/2024 Hepatitis A vaccine Aged Out No longe r eligible based on patient's age to complete this topic Hepatitis B vaccine Aged Out No longe r eligible based on patient's age to complete this topic Hib vaccine Aged Out No longer eligi ble based on patient's age to complete this topic Meningococcal (ACWY) vaccine Aged Out No longer eligible based on patient's age to complete this topic Meningococcal B vaccine Aged Out No l onger eligible based on patient's age to complete this topic Polio vaccine Aged Out No longer elig ible based on patient's age to complete this topic Procedures Procedure Name Priority Date/Time Associated Diagnosis Comments KARAN SCREENING BILATERAL Routine 06/14/2024 1:46 PM EDT from Last 3 Months or Most Recently Relevant to Health Maintenance Results * KARAN Screening Bilateral (06/14/2024 1:46 PM EDT) Anatomical Region Laterality Modality Breast Bilateral Mammography Salas Yu MD IMG MAMMOGRAPHY ORDERABLES Ed ited Result - Final from Last 3 Months or Most Recently Relevant to Health Maintenance Insurance MEDICARE MEDICARE MEDICARE Member Subscriber Plan / Payer ( fective 2015-Present) Name:Evelin Barbour Relation to Subscriber:Self Name:Evelin Barbour Payer ID:Not on file Group ID:Not on file Type:Not on file Address: [address] Advance Directives Documents on File Type Date Recorded 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 ACP-Advance Directive 07/31/2019 10:46 AM ACP-Power of Bar Machine Operator Production 07/31/2019 10:46 AM * Full Code (Latest Code Status on File) Date Activated Date Inactivated Comments 07/24/2019 12:22 PM 07/26/2019 12:32 PM * Full Code Date Activated Date Inactivated Comments 07/24/2019 7:14 AM 07/24/2019 11:57 AM * Full Code Date Activated Date Inactivated Comments 07/15/2016 10:46 AM 07/15/2016 2:16 PM * Full Code Date Activated Date Inactivated Comments 07/15/2016 8:57 AM 07/15/2016 10:46 AM * Full Code Date Activated Date Inactivated Comments 04/15/2014 1:20 PM 04/15/2014 2:19 PM Care Teams Weight And Test Bar Clerk Relationship Specialty Start Date End Date Mamta Burnett MD [address] [place] [address] PCP - General 03/27/14
--- OUTSIDE RECORDS SUMMARY | 2025-06-16 10:02 | XMS_ITS | Encounter Summary ---
Author Organization [facility] Address [address] [place] [id number] Care Team Providers Care Lehr Stripper Name Role Phone Mamta Burnett MD Primary Care Provider [phone] Source Comments In the event this information is protected by the Federal Confidentiality of Alcohol and Drug AbusePatient Records regulations: The Federal rules restrict any use of the information to criminally investigate or prosecute any alcohol or drug abuse patient.[facility] Reason for Visit * Reason Comments Radio Gen RMP Encounter Details Date Type Department Care Team (Late st Contact Info) Description 12/08/2020 Radiology Radiology [address] [place] [address] Rosalba Mckinney, (R) Radio Gen RMP Social History Tobacco Use Types Packs/Day Years Used Date Smoking Tobacco: Never Assessed Area Deprivation Index Answer Date Mango rded National Score (1-100), lower number is lower ri sk Not on file 12/08/2020 State Score (1-10), lower number is lower risk N ot on file 12/08/2020 Data from: https://www.neighborhoodatlas.medicine.[facility].edu/. Last address used for calculation Not on file 12/08/2020 Comments Unknown Sex and Gender Information Value Date Recorded Sex Assigned at Not on file Legal Sex Female 1:42 PM EST Gender Identity Female 04/28/2021 7:39 AM EDT Sexual Orientation Not on file COVID-19 Exposure Response Date Recorded In the last month, have you been in contact with someone who was confirmed or suspected to have Coronavirus / COVID-19? No / Unsure 12/08/2020 10:11 AM EST documented as of this encounter Plan of Treatment Not on file documented as of this encounter Visit Diagnoses Not on filedocumented in this encounter Additional Health Concerns Infection Onset Date Last Indicated Resolved Time COVID-19 Rule-Out 03/19/2021 03/19/2021 03/19/2021 1:10 PM EDT COVID-19 Rule-Out 03/19/2021 03/19/2021 03/19/2021 11:17 PM EDT COVID-19 Rule-Out 03/20/2021 03/21/2021 03/21/2021 6:51 PM EDT documented as of this encounter Care Teams Lehr Stripper Relationship Specialty Start Date End Date Mamta Burnett MD [address] [id number] PCP - General Family Medicine 02/26/21 documented as of this encounter
--- NOTE | 2025-06-16 10:08 | MM_ITS ---
Patient Name: GABY WILD MR#: [id number] : 1950 Exam Date: 06/16/2025 Ordering Doctor: DR JOSE A ADAM RADIOLOGY REPORT PROCEDURE: MM TOMOSYNTHESIS SCREENING BI COMPARISON: MM TOMOSYNTHESIS SCREENING BI, 06/14/2024. MM TOMOSYNTHESIS SCREENING BI, 06/13/2023. MG MAMM SCREEN 3D CHRISTIANO CAD, 06/09/2022. MG MAMM CHRISTIANO SCRN W CAD DIG, 02/17/2014. INDICATIONS: Screening Calculator Name NCI Breast Cancer Risk Assessment Tool 5 Year Breast Cancer Risk 2.10% Lifetime Breast Cancer Risk 4.40% Personal Breast Cancer No Personal Ovarian Cancer No Treatments None Family Cancers Aunt-paternal with ovaria cancer at age 60; Uncle-paternal with pancreatic cancer at age 70. LOCATION: [facility] [place] BREAST COMPOSITION: There are scattered areas of fibroglandular density. FINDINGS: DIAGNOSTIC CATEGORY 1--NEGATIVE. RIGHT BREAST: No significant suspicious finding. LEFT BREAST: No significant suspicious finding. RECOMMENDATIONS: ROUTINE MAMMOGRAM AND CLINICAL EVALUATION IN 12 MONTHS. PLEASE NOTE: A NORMAL MAMMOGRAM DOES NOT EXCLUDE THE POSSIBILITY OF BREAST CANCER. A CLINICALLY SUSPICIOUS PALPABLE LUMP SHOULD BE BIOPSIED. Dictated by: Michael Haines MD on 06/16/2025 at 14:48 Approved by: Michael Haines MD on 06/16/2025 at 14:54
== END 2025-06-16 10:00 | disposition home or self-care (01) ==
LOC: MAMMO 10:00
PROVIDERS: PCP Family Medicine; Visit Provider Obstetrics & Gynecology
DX: Z12.31 Encounter for screening mammogram for malignant neoplasm of breast (principal); Z80.41 Family history of malignant neoplasm of ovary; Z80.8 Family history of malignant neoplasm of other organs or systems
CPT/HCPCS: 77063; 77067